=== PATIENT | female | born 1940 | race African-American/Black ===

== ENCOUNTER 2016-07-05 23:52 | Emergency (ER) | payer OTHER | END 2016-07-06 00:49 | disposition left against medical advice (07) | LOC: JER 23:52 | DX: Z53.21 Procedure and treatment not carried out due to patient leaving prior to being seen by health care provider (principal) | CPT/HCPCS: 99281-25 ==

== ENCOUNTER 2017-02-09 11:01 | Inpatient (IN) | payer OTHER ==
[2017-02-09 11:16] VITALS: BMI 31.2
--- NOTE | 2017-02-09 11:23 | PDOC ---
History of Present Illness <Burak Vargas - Last Filed: 02/09/17 18:01> - General History Source: Patient, Family Exam Limitations: No Limitations - History of Present Illness Initial Comments: 02/09/17 12:11 The patient is a 76 year old female with a significant PMH of HTN, hyperlipidemia, diabetes COPD, CAD (s/p stents on Plavix & Aspirin), and hepatitis C who presents to the emergency department via EMS with multiple complaints including chest pain and cough beginning approximately 1 week ago. The patient describes the chest pain as localized on the right side and aggravated by movement and coughing. The patient's grandson notes that the patient also has lower back pain that radiates to her legs. The patient's grandson reports that that the patient received an MRI 2 days ago. They report receiving a call this morning for the MRI results and reports that he was told the patient has pleural effusion, prompting their visit. The patient's grandson also notes that the patient has not been fully herself within the past week. The patient notes that she told EMS she wanted to be transported to [place] but notes that EMS wanted to bring her to the closest hospital ([facility]) because the patient had chest pain. The patient also notes she was admitted back in November at [facility] for kidney failure. The patient denies shortness of breath, headache and dizziness. Denies fever, chills, nausea, vomit, diarrhea and constipation. Denies dysuria, frequency, urgency and hematuria. Allergies: NKA Past surgical history: Cardiac stents. Social history: Current some day smoker. No reported alcohol or drug use. PCP: Dr. Thomas Aguayo [ ] in [place]. <Donny Singh - Last Filed: 02/09/17 18:24> - General Chief Complaint: Chest Pain Stated Complaint: CHEST PAIN Time Seen by Provider: 02/09/17 11:22 Past History - Past Medical History Cardiac Disorders: Yes COPD: No HTN: Yes Hypercholesterolemia: Yes - Surgical History Cardiac Surgery: Yes (STENTS) - Immunization History Immunization Up to Date: Yes - Suicide/Smoking/Psychosocial Hx Smoking History: Current every day smoker Have you smoked in the past 12 months: Yes Number of Cigarettes Smoked Daily: 4 Information on smoking cessation initiated: No 'Breaking Loose' booklet given: 01/25/15 Hx Alcohol Use: No Drug/Substance Use Hx: No Substance Use Type: None Hx Substance Use Treatment: No <Burak Vargas - Last Filed: 02/09/17 18:01> <Donny Singh - Last Filed: 02/09/17 18:24> - Past Medical History Allergies/Adverse Reactions: Allergies Allergy/AdvReac Type Severity Reaction Status Date / Time No Known Allergies Allergy Verified 08/21/15 00:06 Home Medications: Ambulatory Orders Albuterol Sulfate Inhaler - [Ventolin Hfa Inhaler -] 2 inh PO Q4H 07/06/16 Amlodipine Besylate [Norvasc -] 2.5 mg PO DAILY 07/06/16 Aspirin [ASA -] 81 mg PO DAILY 07/06/16 Calcium 250Mg/Vit-D 125 Units [Oscal 250 mg+D -] 1 combo PO BID 07/06/16 Calcium Carbonate [Super Calcium] 600 mg PO BID 07/06/16 Cholecalciferol (Vitamin D3) [Vitamin D3] 2,000 unit PO DAILY 07/06/16 Clopidogrel Bisulfate [Clopidogrel] 75 mg PO DAILY 07/06/16 Esomeprazole Magnesium 40 mg PO DAILY 07/06/16 Isosorbide Mononitrate [Imdur -] 120 mg PO DAILY 07/06/16 Magnesium Oxide [Magox 400] 400 mg PO BID 07/06/16 Metoprolol Succinate [Toprol Xl] 100 mg PO DAILY 07/06/16 Ranolazine [Ranexa] 500 mg PO BID 07/06/16 Simvastatin [Zocor -] 20 mg PO HS 07/06/16 Sodium Polystyrene Sulfon/Sorb [Kionex] 15 gm PO DAILY 07/06/16 Unobtainable 02/09/17 Review of Systems - Review of Systems Able to Perform ROS?: Yes Comments:: 02/09/17 12:12 GENERAL/CONSTITUTIONAL: No fever or chills. No weakness. HEAD, EYES, EARS, NOSE AND THROAT: No change in vision. No ear pain or discharge. No sore throat. CARDIOVASCULAR: (+) Right sided chest pain. No shortness of breath. RESPIRATORY: (+) Cough. No wheezing, or hemoptysis. GASTROINTESTINAL: No nausea, vomiting, diarrhea or constipation. GENITOURINARY: No dysuria, frequency, or change in urination. MUSCULOSKELETAL: No joint or muscle swelling or pain. No neck or back pain. SKIN: No rash NEUROLOGIC: No headache, vertigo, loss of consciousness, or change in strength/ sensation. ENDOCRINE: No increased thirst. No abnormal weight change. HEMATOLOGIC/LYMPHATIC: No anemia, easy bleeding, or history of blood clots. ALLERGIC/IMMUNOLOGIC: No hives or skin allergy. <Donny Singh - Last Filed: 02/09/17 18:24> *Physical Exam - Vital Signs Last Vital Signs Temp Pulse Resp BP Pulse Ox 98.3 F 101 H 24 89/67 97 02/09/17 11:13 02/09/17 11:13 02/09/17 11:13 02/09/17 11:13 02/09/17 11:13 <Burak Vargas - Last Filed: 02/09/17 18:01> - Vital Signs Last Vital Signs Temp Pulse Resp BP Pulse Ox 98.3 F 100 H 23 132/70 98 02/09/17 11:13 02/09/17 11:15 02/09/17 11:15 02/09/17 11:15 02/09/17 11:15 - Physical Exam Comments: 02/09/17 12:12 GENERAL: Awake, alert, and fully oriented, in no acute distress HEAD: No signs of trauma EYES: PERRLA, EOMI, sclera anicteric, conjunctiva clear ENT: Auricles normal inspection, hearing grossly normal, nares patent, oropharynx clear without exudates. Moist mucosa NECK: Normal ROM, supple, no lymphadenopathy, JVD, or masses LUNGS: (+) Diminished breath sounds. Breath sounds equal, clear to auscultation bilaterally. No wheezes, and no crackles HEART: (+) Tenderness to right side of chest. Regular rate and rhythm, normal S1 and S2, no murmurs, rubs or gallops. ABDOMEN: Soft, nontender, normoactive bowel sounds. No guarding, no rebound. No masses EXTREMITIES: Normal range of motion, no edema. No clubbing or cyanosis. No cords, erythema, or tenderness NEUROLOGICAL: Cranial nerves II through XII grossly intact. Normal speech. SKIN: Warm, Dry, normal turgor, no rashes or lesions noted. <Donny Singh - Last Filed: 02/09/17 18:24> Heart Score/ECG Review #1 02/09/17 12:43 Vent rate 95 bpm Poor data quality, interpretation may be adversely affected Sinus rhythm with occasional premature ventricular complexes Cannot rule out Anterior infarct, age undetermined Abnormal ECG <Donny Singh - Last Filed: 02/09/17 18:24> ED Treatment Course - LABORATORY CBC & Chemistry Diagram: 02/09/17 11:46 02/09/17 11:46 <Burak Vargas - Last Filed: 02/09/17 18:01> - LABORATORY CBC & Chemistry Diagram: 02/09/17 11:46 02/09/17 11:46 - ADDITIONAL ORDERS Additional order review: 02/09/17 11:46 RBC 2.84 L MCV 91.7 MCHC 32.6 RDW 14.7 MPV 7.6 D Neutrophils % 85.3 H Lymphocytes % 6.1 L D Monocytes % 8.3 D Eosinophils % 0.3 D Basophils % 0.0 - Consult/PCP Time Called: 15:55 Case discussed with personal care physician: Thomas Aguayo <Donny Singh - Last Filed: 02/09/17 18:24> Medical Decision Making - Medical Decision Making 02/09/17 16:[address] Aguayo, the patient's PCP, who says he does not admit at [facility]. Spoke with [place] [facility], who said an ER to ER transfer is not possible. They also note a direct transfer is not possible without an accepting physician as Dr. Aguayo does not admit. 02/09/17 18:23 Dr. Aguayo notes that in early December the patient's BUN was 26, her Creatinine was 1.9, and her Hemoglobin was at 11.8. <Donny Singh - Last Filed: 02/09/17 18:24> *DC/Admit/Observation/Transfer - Discharge Dispostion Admit: Yes - Attestations Physician Attestion: 02/09/17 11:23 I, Dr. Burak Vargas, attest that this document has been prepared under my direction and personally reviewed by me in its entirety. I further attest, that it accurately reflects all work, treatment, procedures and medical decision -making performed by me. <Burak Vargas - Last Filed: 02/09/17 18:01> - Attestations Scribe Attestion: 02/09/17 12:12 Documentation prepared by Donny Singh, acting as certified medical biller for Burak Vargas DO. <Donny Singh - Last Filed: 02/09/17 18:24> Diagnosis at time of Disposition: Pleural effusion, Renal insufficiency, RADHA (acute kidney injury) Profound anemia Qualifiers: Anemia type: other cause - Discharge Dispostion Condition at time of disposition: Unchanged/Unknown - Referrals Referrals: Thomas Aguayo [Primary Care Provider] - - Patient Instructions - Post Discharge Activity
[2017-02-09 12:00] LABS: EOS % 0.3 % (0-4.5); HEMATOCRIT 26.1 % (32.4-45.2); HEMOGLOBIN 8.5 GM/dL (10.7-15.3); LYMPH % 6.1 % (8-40); MCH 29.9 pg (25.7-33.7); MCHC 32.6 g/dl (32.0-36.0); MEAN CELL VOLUME 91.7 fl (80-96); MEAN PLT VOLUME 7.6 fl (7.5-11.1); MONO % 8.3 % (3.8-10.2); NEUT % 85.3 % (42.8-82.8); PLATELET COUNT 386 K/MM3 (134-434); RBC 2.84 M/mm3 (3.60-5.2); RDW 14.7 % (11.6-15.6)
[2017-02-09 12:13] LABS: INR 1.32 (0.82-1.09); PROTHROMBIN TIME (PATIENT) 14.9 SEC (9.98-11.88)
[2017-02-09 12:36] LABS: ALBUMIN 2.2 g/dl (3.4-5.0); ANION GAP 13 (8-16); BILIRUBIN,TOTAL 0.4 mg/dL (0.2-1.0); BLOOD UREA NITROGEN 47 mg/dL (7-18); CALCIUM 7.1 mg/dL (8.5-10.1); CHLORIDE 107 mmol/L (98-107); CO2 18 mmol/L (21-32); GLUCOSE,RANDOM 115 mg/dL (74-106); SGOT/AST 11 U/L (15-37); SGPT/ALT 11 U/L (12-78); SODIUM 138 mmol/L (136-145); TOT PROT 7.1 g/dl (6.4-8.2)
[2017-02-09 12:38] LABS: ALK PHOS 96 U/L (45-117)
[2017-02-09 13:19] LABS: N-TERMINAL BNP 4140.09 pg/ml (5-450)
--- NOTE | 2017-02-09 17:28 | HP ---
CHIEF COMPLAINT: Chest pain and cough x 1 week PCP: Dr. Thomas Aguayo [phone] Rheumatology: Dr. Bonita Will [phone] GI: Dr. Donnie Gimenez [phone] Cardiology: Dr. Jairo Stewart [phone] HISTORY OF PRESENT ILLNESS: 76 year-old woman with a PMH significant for HTN, HLD, CAD, diastolic heart failure, Hep C, COPD current smoker, and h/o GI bleed. Patient comes to ED via EMS after having been advised by her PCP that an MRI performed two days ago in [place] showed she has a large pleural effusion and to go to the nearest ED. Patient reports one week of cough and pleuritic-type, right-sided chest pain. The cough has been productive but she does not know the color. Over the past 24 hours she has experienced sweats and chills. Patient complains of SOB when lying flat. She has had some lower extremity edema although she thinks this has improved. ER course was notable for: (1) WBC 15.0 (2) CT chest: see Imaging below (3) Mg 0.6 (4) BUN/Cr 47/3.0 Recent Travel: No PAST MEDICAL HISTORY: Hypertension Hyperlipidemia Coronary artery disease Hepatitis C COPD PAST SURGICAL HISTORY: None reported Social History: Smoking: current every day smoker Alcohol: no Drugs: no Allergies No Known Allergies Allergy (Verified 08/21/15 00:06) HOME MEDICATIONS: Medication Instructions Recorded Albuterol Sulfate Inhaler - 2 inh PO Q4H 07/06/16 [Ventolin Hfa Inhaler -] Amlodipine Besylate [Norvasc -] 2.5 mg PO DAILY 07/06/16 Aspirin [ASA -] 81 mg PO DAILY 07/06/16 Calcium 250Mg/Vit-D 125 Units 1 combo PO BID 07/06/16 [Oscal 250 mg+D -] Calcium Carbonate [Super Calcium] 600 mg PO BID 07/06/16 Cholecalciferol (Vitamin D3) 2,000 unit PO DAILY 07/06/16 [Vitamin D3] Clopidogrel Bisulfate [Clopidogrel] 75 mg PO DAILY 07/06/16 Esomeprazole Magnesium 40 mg PO DAILY 07/06/16 Isosorbide Mononitrate [Imdur -] 120 mg PO DAILY 07/06/16 Magnesium Oxide [Magox 400] 400 mg PO BID 07/06/16 Metoprolol Succinate [Toprol Xl] 100 mg PO DAILY 07/06/16 Ranolazine [Ranexa] 500 mg PO BID 07/06/16 Simvastatin [Zocor -] 20 mg PO HS 07/06/16 Sodium Polystyrene Sulfon/Sorb 15 gm PO DAILY 07/06/16 [Kionex] Unobtainable 02/09/17 REVIEW OF SYSTEMS CONSTITUTIONAL: Absent: fever, chills, diaphoresis, generalized weakness, malaise, loss of appetite, weight change HEENT: Absent: rhinorrhea, nasal congestion, throat pain, throat swelling, difficulty swallowing, mouth swelling, ear pain, eye pain, visual changes CARDIOVASCULAR: Present: peripheral edema Absent: chest pain, syncope, palpitations, irregular heart rate, lightheadedness RESPIRATORY: Present: cough, SOB, orthopnea Absent: dyspnea with exertion, wheezing, stridor, hemoptysis GASTROINTESTINAL: Absent: abdominal pain, abdominal distension, nausea, vomiting, diarrhea, constipation, melena, hematochezia GENITOURINARY: Absent: dysuria, frequency, urgency, hesitancy, hematuria, flank pain, genital pain MUSCULOSKELETAL: Absent: myalgia, arthralgia, joint swelling, back pain, neck pain SKIN: Absent: rash, itching, pallor HEMATOLOGIC/IMMUNOLOGIC: Absent: easy bleeding, easy bruising, lymphadenopathy, frequent infections ENDOCRINE: Absent: unexplained weight gain, unexplained weight loss, heat intolerance, cold intolerance NEUROLOGIC: Absent: headache, focal weakness or paresthesias, dizziness, unsteady gait, seizure, mental status changes, bladder or bowel incontinence PSYCHIATRIC: Absent: anxiety, depression, suicidal or homicidal ideation, hallucinations. PHYSICAL EXAMINATION Vital Signs - 24 hr 02/09/17 02/09/17 02/09/17 11:13 11:15 15:06 Temperature 98.3 F Pulse Rate 101 H Pulse Rate [ 100 H 99 H Right] Respiratory 24 23 Rate Blood Pressure 89/67 Blood Pressure 132/70 127/75 [Left Arm] O2 Sat by Pulse 97 98 100 Oximetry (%) GENERAL: Awake, alert, and fully oriented, in no acute distress. HEAD: Normal with no signs of trauma. EYES: Pupils equal, round and reactive to light, extraocular movements intact, sclera anicteric, conjunctiva clear. No lid lag. EARS, NOSE, THROAT: Ears normal, nares patent, oropharynx clear without exudates. Moist mucous membranes. NECK: Normal range of motion, supple without lymphadenopathy, JVD, or masses. LUNGS: Diminished breath sounds on the right. Accessory muscle use. HEART: Regular rate and rhythm, normal S1 and S2 without murmur, rub or gallop. ABDOMEN: Soft, nontender, not distended, normoactive bowel sounds, no guarding, no rebound, no masses. No hepatomegaly or splenomegaly. MUSCULOSKELETAL: Normal range of motion at all joints. No bony deformities or tenderness. No CVA tenderness. UPPER EXTREMITIES: 2+ pulses, warm, well-perfused. No cyanosis. No clubbing. No peripheral edema. LOWER EXTREMITIES: 2+ pulses, warm, well-perfused. No calf tenderness. No peripheral edema. NEUROLOGICAL: Cranial nerves II-XII intact. Normal speech. Laboratory Results - last 24 hr 02/09/17 02/09/17 02/09/17 11:46 11:46 11:46 WBC 15.0 H D RBC 2.84 L Hgb 8.5 L D Hct 26.1 L MCV 91.7 MCH 29.9 MCHC 32.6 RDW 14.7 Plt Count 386 D MPV 7.6 D Neutrophils % 85.3 H Lymphocytes % 6.1 L D Monocytes % 8.3 D Eosinophils % 0.3 D Basophils % 0.0 PT with INR 14.90 H INR 1.32 H Sodium 138 Potassium 4.0 Chloride 107 Carbon Dioxide 18 L Anion Gap 13 BUN 47 H D Creatinine 3.0 H D Creat Clearance w eGFR 15.17 Random Glucose 115 H Calcium 7.1 L Total Bilirubin 0.4 D AST 11 L D ALT 11 L D Alkaline Phosphatase 96 D Creatine Kinase 78 Troponin I 0.06 H B-Natriuretic Peptide 4140.09 H Total Protein 7.1 Albumin 2.2 L D ASSESSMENT/PLAN 76 year-old woman with a PMH significant for HTN, HLD, CAD, diastjolic heart failure, Hep C, COPD current smoker, and h/o GI bleed. Admitted for respiratory distress secondary to right multiloculated pleural effusion and likely pneumonia. Right Multiloculated pleural effusion - CT: moderate size multiloculated right pleural effusion, compressive atelectasis of nearly entire RLL and subsegmental compressible atelectasis right lung apex; sumperimposed pneumonia cannot be excluded - afebrile, WBC 15.0k - Start vanc and zosyn renally dosed - will likely need IR procedure - pulmonary consult requested - ID consult requested CAD - first troponin 0.06, two pending - serial ECGs - Obtain echo -cardiology consult Hypertension Hyperlipidemia RADHA - Cr 3.0 on admission DVT ppx - Heparin sq Visit type - Emergency Visit Emergency Visit: Yes ED Registration Date: 02/09/17 Care time: The patient presented to the Emergency Department on the above date and was hospitalized for further evaluation of their emergent condition. - New Patient This patient is new to me today: Yes Date on this admission: 02/16/17 - Critical Care Critical Care patient: No
[2017-02-09 17:47] LABS: CALCIUM 7.2 mg/dL (8.5-10.1)
[2017-02-09 18:36] LABS: MAGNESIUM 0.6 mg/dL (1.8-2.4)
[2017-02-09] MEDS ORDERED: MAGNESIUM OXIDE 400 MG TABLET (FP) PO STA (18:42)
[2017-02-09] MEDS ORDERED: MAGNESIUM SULF 50% (8.12 MEQ/2 ML-1 GM VIAL) IVPB ONE (18:42)
[2017-02-09] MEDS ORDERED: VANCOMYCIN 1,500 MG in DEXTROSE 5%-WATER - 250 ML IVPB SCH (19:00)
[2017-02-09] MEDS ORDERED: VANCOMYCIN 1,000 MG in DEXTROSE 5%-WATER - 250 ML IVPB ONE (19:15)
[2017-02-09] MEDS ORDERED: VANCOMYCIN 1,000 MG in DEXTROSE 5%-WATER - 250 ML IVPB SCH (19:15)
[2017-02-09] MEDS ORDERED: PIPERACILLIN/TAZOB 3.375 GM 50 ML IVPB SCH (19:15)
[2017-02-09] MEDS ORDERED: PIPERACILLIN/TAZOB 2.25 GM 2.25 GM/50 ML BAG IVPB SCH (19:15)
[2017-02-09] MEDS: PIPERACILLIN/TAZOB 2.25 GM 2.25 GM/50 ML BAG IVPB SCH (19:20)
[2017-02-09] MEDS ORDERED: MAGNESIUM SULF 50% (8.12 MEQ/2 ML-1 GM VIAL) ONE (19:41)
[2017-02-09] MEDS ORDERED: PIPERACILLIN/TAZOBACTAM 2.25 GM VIAL IVPB ONE (19:41)
[2017-02-09] MEDS ORDERED: VANCOMYCIN 1 GRAM (PRE-DOCKED) 1,000 MG/250 ML BAG IVPB ONE (19:42)
[2017-02-09] MEDS ORDERED: VANCOMYCIN 1,500 MG in DEXTROSE 5%-WATER - 500 ML IVPB ONE (20:00)
[2017-02-09] MEDS: HEPARIN NA (PORCINE) 5,000 UNITS/ML 1ML VIAL SQ SCH (23:31)
--- NOTE | 2017-02-09 23:43 | HOSP ---
Subjective - Review of Symptoms Subjective: Saw pt. for chest pain States same as prior located on right side Occ. SOB Physical: VS: Vital Signs Period Temp Pulse Resp BP Sys/Barlow Pulse Ox Last 24 Hr 98.3 F 99-101 23-24 89-132/67-75 95-100 GEN: NAD, AA0X3 CARD: RRR S1, S2 RESP: Decreased R>L ABD: BSx4 EXT: No edema EKG: NSR Q waves anterior leads QtC 458 Home Medications Medication Instructions Recorded Albuterol Sulfate Inhaler - 2 inh PO Q4H 07/06/16 [Ventolin Hfa Inhaler -] Amlodipine Besylate [Norvasc -] 2.5 mg PO DAILY 07/06/16 Aspirin [ASA -] 81 mg PO DAILY 07/06/16 Calcium 250Mg/Vit-D 125 Units 1 combo PO BID 07/06/16 [Oscal 250 mg+D -] Calcium Carbonate [Super Calcium] 600 mg PO BID 07/06/16 Cholecalciferol (Vitamin D3) 2,000 unit PO DAILY 07/06/16 [Vitamin D3] Clopidogrel Bisulfate [Clopidogrel] 75 mg PO DAILY 07/06/16 Esomeprazole Magnesium 40 mg PO DAILY 07/06/16 Isosorbide Mononitrate [Imdur -] 120 mg PO DAILY 07/06/16 Magnesium Oxide [Magox 400] 400 mg PO BID 07/06/16 Metoprolol Succinate [Toprol Xl] 100 mg PO DAILY 07/06/16 Ranolazine [Ranexa] 500 mg PO BID 07/06/16 Simvastatin [Zocor -] 20 mg PO HS 07/06/16 Sodium Polystyrene Sulfon/Sorb 15 gm PO DAILY 07/06/16 [Kionex] Unobtainable 02/09/17 HEART 5 Chest Pain-Atypical/Troponin Elevation from RF/demand - Less likely ACS ASA 02 BB- Recieved Toprol Statin - If reoccurs Morphine/Nitro - Transfer to tele -Trend Trop/EKG now - Physical Examination Vital Signs: Vital Signs Temperature 98.3 F 02/09/17 11:13 Pulse Rate 99 H 02/09/17 15:06 Respiratory Rate 23 02/09/17 11:15 Blood Pressure 127/75 02/09/17 15:06 O2 Sat by Pulse Oximetry (%) 95 02/09/17 20:42 Labs: CBC, BMP 02/09/17 11:46 02/09/17 11:46
[2017-02-10] MEDS: ACETAMINOPHEN 325 MG TABLET (FP) PO PRN
[2017-02-10] MEDS: PIPERACILLIN/TAZOB 2.25 GM 2.25 GM/50 ML BAG IVPB SCH (01:47)
[2017-02-10 02:05] LABS: URINE APPEARANCE CLEAR; URINE BILIRUBIN NEGATIVE (NEGATIVE); URINE BLOOD NEGATIVE (NEGATIVE); URINE COLOR YELLOW; URINE GLUCOSE (UA) NEGATIVE (NEGATIVE); URINE KETONE NEGATIVE (NEGATIVE); URINE LEUK ESTERASE NEGATIVE (NEGATIVE); URINE NITRITE NEGATIVE (NEGATIVE); URINE UROBILINOGEN NEGATIVE mg/dL (0.2-1.0)
[2017-02-10 02:13] LABS: URINE PROTEIN 1+ (NEGATIVE)
[2017-02-10 02:18] LABS: EPI CELLS RARE /HPF (FEW); URINE MUCUS RARE
[2017-02-10] MEDS ORDERED: ALBUTEROL SO4 2.5/IPRATROPIUM 0.5 INH SOL 3 ML VIAL.NEB. NEB PRN (03:34)
[2017-02-10 04:02] LABS: MAGNESIUM 2.3 mg/dL (1.8-2.4)
[2017-02-10] MEDS: HEPARIN NA (PORCINE) 5,000 UNITS/ML 1ML VIAL SQ SCH ×3 (06:48→21:43)
[2017-02-10] MEDS ORDERED: ASPIRIN COATED 81 MG TABLET.EC PO SCH (10:00)
--- NOTE | 2017-02-10 11:19 | PN ---
Physical Exam: SUBJECTIVE: Patient seen and examined. She says she is feeling better, no pain specifically when she does not move. Endorses sputum production and chills. OBJECTIVE: Vital Signs Period Temp Pulse Resp BP Sys/Barlow Pulse Ox Last 24 Hr 98.0 F-100.3 F 89-103 18-23 127-149/67-90 95-100 PE Neuro: alert, awake, cn 2-12intact Pulm: r lobe rales, left clear + nc mild tachypnea, no wheezing CV: s1 s2 rrr no mrg Abd: s nt nd +bs lower abdominal incision cdi : aguayo Ext: RLE +2 pitting edema >L warm le CBCD WBC 12.1 K/mm3 (4.0-10.0) H 02/10/17 11:15 RBC 2.61 M/mm3 (3.60-5.2) L 02/10/17 11:15 Hgb 7.9 GM/dL (10.7-15.3) L 02/10/17 11:15 Hct 23.9 % (32.4-45.2) L 02/10/17 11:15 MCV 91.4 fl (80-96) 02/10/17 11:15 MCHC 32.9 g/dl (32.0-36.0) 02/10/17 11:15 RDW 14.9 % (11.6-15.6) 02/10/17 11:15 Plt Count 353 K/MM3 (134-434) 02/10/17 11:15 MPV 7.5 fl (7.5-11.1) 02/10/17 11:15 CMP Sodium 139 mmol/L (136-145) 02/10/17 11:15 Potassium 4.0 mmol/L (3.5-5.1) 02/10/17 11:15 Chloride 110 mmol/L (98-107) H 02/10/17 11:15 Carbon Dioxide 19 mmol/L (21-32) L 02/10/17 11:15 Anion Gap 10 (8-16) 02/10/17 11:15 BUN 44 mg/dL (7-18) H 02/10/17 11:15 Creatinine 2.5 mg/dL (0.55-1.02) H 02/10/17 11:15 Creat Clearance w eGFR 18.72 (>60) 02/10/17 11:15 Calcium 7.1 mg/dL (8.5-10.1) L 02/10/17 11:15 Total Bilirubin 0.4 mg/dL (0.2-1.0) 02/10/17 11:15 AST 18 U/L (15-37) D 02/10/17 11:15 ALT 11 U/L (12-78) L 02/10/17 11:15 Alkaline Phosphatase 93 U/L (45-117) 02/10/17 11:15 Total Protein 6.4 g/dl (6.4-8.2) 02/10/17 11:15 Albumin 2.0 g/dl (3.4-5.0) L 02/10/17 11:15 Current Medications Generic Name Dose Route Start Last Admin Trade Name Freq PRN Reason Stop Dose Admin Acetaminophen 650 mg 02/09/17 23:35 02/10/17 00:00 Tylenol - PO 650 mg Q6H PRN Administration FEVER OR PAIN Albuterol/Ipratropium 1 amp 02/10/17 03:34 Duoneb - NEB Q4H PRN SHORTNESS OF BREATH Amlodipine Besylate 2.5 mg 02/10/17 11:45 Norvasc - PO DAILY [facility] Heparin Sodium (Porcine) 5,000 unit 02/09/17 22:00 02/10/17 06:48 Heparin - SQ 5,000 unit TID PARMINDER Administration Piperacillin/Tazobactam/Dextrose 2.25 gm in 50 mls @ 100 mls/hr 02/09/17 19: 15 Zosyn 2.25gm Ivpb (Premix) IVPB Q8H-IV PARMINDER Protocol Vancomycin HCl 1,000 mg/ 250 mls @ 200 mls/hr 02/09/17 19:15 Dextrose IVPB Q24H PARMINDER Isosorbide Mononitrate 120 mg 02/10/17 11:45 Imdur - PO DAILY PARMINDER Metoprolol Succinate 100 mg 02/10/17 11:45 Toprol Xl - PO DAILY PARMINDER Ranolazine 500 mg 02/10/17 11:45 Ranexa - PO BID PARMINDER Assessment: 76 year old female with a PMHx, recent CAD cath (07/2016), [place], HTN, HLD, , Hep C, COPD current smoker, and h/o GI bleed admitted after outside MRI shows large right pleural effusion. Plan: 1. Right Multiloculated pleural effusion - Thoracentesis ordered with IR, will be done earliest Tuesday, pt has been on ASA, plavix - Hold ASA/plavix - Continue supplemental o2 - Duo nebs prn - Abx per ID - Consider VATS - Pulmonary consulted 2. Superimposed Pneumonia - AM cbc pending, afebrile - Given zosyn/vanco in ED - CRP elevated - ID for abx 3. CAD s/p recent cath with stents, elevated trops - Trops down trending likely demand - EKG ordered - Obtain echo - Discussed with Dr. Yadav, will obtain results of cath from 07/2016 4. Chest pain - Improved - Continue Renexa 500mg BID 5. HTN - Toprol xl 100mg - Imdur 120mg daily - Amlodipine 2.5mg daily 6. HLD - On Statin 7. RADHA on CKD - Cr improving, however above baseline per hospital records - Kidney/bladder US - Urine studies/creatinine, electrolytes - Aguayo discontinued - Renal consulted 8. Diastolic HF, acute on chronic - Amlodipine 2.5mg 9. Hep C 10. Hypomagnesemia - Replaced 11. DVT ppx - Heparin sq q8 Visit type - Emergency Visit Emergency Visit: Yes ED Registration Date: 02/09/17 Care time: The patient presented to the Emergency Department on the above date and was hospitalized for further evaluation of their emergent condition. - New Patient This patient is new to me today: Yes Date on this admission: 02/10/17 - Critical Care Critical Care patient: No
[2017-02-10 11:41] LABS: HEMATOCRIT 23.9 % (32.4-45.2); HEMOGLOBIN 7.9 GM/dL (10.7-15.3); MCH 30.1 pg (25.7-33.7); MCHC 32.9 g/dl (32.0-36.0); MEAN CELL VOLUME 91.4 fl (80-96); MEAN PLT VOLUME 7.5 fl (7.5-11.1); PLATELET COUNT 353 K/MM3 (134-434); RBC 2.61 M/mm3 (3.60-5.2); RDW 14.9 % (11.6-15.6); WHITE BLOOD COUNT 12.1 K/mm3 (4.0-10.0)
[2017-02-10 11:52] LABS: CHLORIDE 110 mmol/L (98-107); SODIUM 139 mmol/L (136-145)
[2017-02-10 11:57] LABS: ANION GAP 10 (8-16); BLOOD UREA NITROGEN 44 mg/dL (7-18); CALCIUM 7.1 mg/dL (8.5-10.1); CO2 19 mmol/L (21-32); GLUCOSE,RANDOM 124 mg/dL (74-106); MAGNESIUM 2.2 mg/dL (1.8-2.4)
[2017-02-10 11:59] LABS: BILIRUBIN,TOTAL 0.4 mg/dL (0.2-1.0); CREATININE 2.5 mg/dL (0.55-1.02); PHOSPHOROUS 2.8 mg/dL (2.5-4.9); SGOT/AST 18 U/L (15-37); SGPT/ALT 11 U/L (12-78); TOT PROT 6.4 g/dl (6.4-8.2)
--- NOTE | 2017-02-10 12:01 | CON.CARD ---
Consult Consult Specialty:: cardiology Reason for Consultation:: CAD; CHF - History of Present Illness History of Present Illness: The patient is a 76 year old black female with a significant PMH of HTN, hyperlipidemia, diabetes COPD (current smoker), CAD (s/p NSTEMI 07/2016; s/p stents in ?2015, with cor. angiogram 08/2016 not requiring new stents or other PCI; on Plavix & Aspirin), diastolic CHF (with severe apical hypokinesis on 2015 ECHO),chronic renal insufficiency, periods of disorientation, and hepatitis C, who presents to the emergency department via EMS with multiple complaints including chest pain and cough beginning approximately 1 week ago. The patient describes the chest pain as localized on the right side and aggravated by movement and coughing. The patient's grandson notes that the patient also has lower back pain that radiates to her legs. The patient's grandson reports that that the patient received an MRI 2 days ago. They report receiving a call this morning for the MRI results and reports that he was told the patient has pleural effusion, prompting their visit. The patient's grandson also notes that the patient has not been fully herself within the past week. The patient notes that she told EMS she wanted to be transported to [place] but notes that EMS wanted to bring her to the closest hospital ([facility]) because the patient had chest pain. The patient also notes she was admitted back in November at [facility] for kidney failure. The patient denies shortness of breath, headache and dizziness. Denies fever, chills, nausea, vomit, diarrhea and constipation. Denies dysuria, frequency, urgency and hematuria. Allergies: NKA Past surgical history: Cardiac stents: proximal and mid LAD, mid RCA, mid Cx ( dates of stents uncertain; when most recent coronary angiogram 08/27/2016 was done at [facility] for NSTEMI with TNI >10, stents were patent, and no new PCIs were required. Social history: Current some day smoker. No reported alcohol or drug use. PCP: Dr. Thomas Aguayo [ ] in [place]. - History Source History Provided By: Patient, Family Member, Medical Record - Past Medical History Cardio/Vascular: Yes: CAD, HTN, Hyperlipdemia Pulmonary: Yes: COPD Gastrointestinal: Yes: GI Bleed Hepatobiliary: Yes: Hepatitis C Renal/: Yes: Renal Inusuff Reproductive: Yes: Postmenopausal ...: No Psych: Yes: Other (initial change in mental status) - Past Surgical History Past Surgical History: Yes: Stent - Alcohol/Substance Use Hx Alcohol Use: No - Smoking History Smoking history: Current every day smoker Have you smoked in the past 12 months: Yes Aproximately how many cigarettes per day: 4 - Social History ADL: Independent Home Medications - Allergies Allergies/Adverse Reactions: Allergies Allergy/AdvReac Type Severity Reaction Status Date / Time No Known Allergies Allergy Verified 08/21/15 00:06 - Home Medications Home Medications: Ambulatory Orders Albuterol Sulfate Inhaler - [Ventolin Hfa Inhaler -] 2 inh PO Q4H 07/06/16 Amlodipine Besylate [Norvasc -] 2.5 mg PO DAILY 07/06/16 Aspirin [ASA -] 81 mg PO DAILY 07/06/16 Calcium 250Mg/Vit-D 125 Units [Oscal 250 mg+D -] 1 combo PO BID 07/06/16 Calcium Carbonate [Super Calcium] 600 mg PO BID 07/06/16 Cholecalciferol (Vitamin D3) [Vitamin D3] 2,000 unit PO DAILY 07/06/16 Clopidogrel Bisulfate [Clopidogrel] 75 mg PO DAILY 07/06/16 Esomeprazole Magnesium 40 mg PO DAILY 07/06/16 Isosorbide Mononitrate [Imdur -] 120 mg PO DAILY 07/06/16 Magnesium Oxide [Magox 400] 400 mg PO BID 07/06/16 Metoprolol Succinate [Toprol Xl] 100 mg PO DAILY 07/06/16 Ranolazine [Ranexa] 500 mg PO BID 07/06/16 Simvastatin [Zocor -] 20 mg PO HS 07/06/16 Sodium Polystyrene Sulfon/Sorb [Kionex] 15 gm PO DAILY 07/06/16 Unobtainable 02/09/17 Family Disease History - Family Disease History Family History: Denies Review of Systems - Review of Systems Constitutional: reports: Weakness Eyes: reports: No Symptoms HENT: reports: No Symptoms Neck: reports: No Symptoms Cardiovascular: reports: Palpitations Respiratory: reports: SOB on Exertion Gastrointestinal: reports: Indigestion Genitourinary: reports: No Symptoms Breasts: reports: No Symptoms Reported Musculoskeletal: reports: Muscle Weakness Psychiatric: reports: Other (memory lapses) - Risk Factors Known Risk Factors: Yes: Age, Hypercholesterolemia, Hypertension, Race, Smoking , Other (hyperglycemia) Vital Signs: Vital Signs Temperature 98.8 F 02/10/17 08:53 Pulse Rate 95 H 02/10/17 08:53 Respiratory Rate 20 02/10/17 08:53 Blood Pressure 143/70 02/10/17 08:53 O2 Sat by Pulse Oximetry (%) 96 02/10/17 08:53 Constitutional: Yes: Anxious Eyes: Yes: WNL HENT: Yes: WNL Neck: Yes: WNL Respiratory: Yes: Diminished Gastrointestinal: Yes: Soft Renal/: No: Anuria Cardiovascular: Yes: Regular Rate and Rhythm Heart Sounds: Yes: S1, S2, S4 Murmur: Yes: Systolic Murmur, Grade 1 Musculoskeletal: Yes: Muscle Weakness Extremities: Yes: Cool Edema: Yes Edema: LLE: Trace, RLE: Trace Peripheral Pulses WNL: Yes Integumentary: Yes: WNL Neurological: Yes: Alert, Weakness Psychiatric: Yes: Other - Other Data Labs, Other Data: CBC, BMP 02/10/17 11:15 02/10/17 11:15 INR, PTT INR 1.32 (0.82-1.09) H 02/09/17 11:46 Troponin, BNP 02/09/17 02/09/17 02/10/17 11:46 21:20 02:35 Troponin I 0.06 H 0.12 H 0.09 H B-Natriuretic Peptide 4140.09 H Troponin, BNP 02/09/17 02/09/17 02/10/17 11:46 21:20 02:35 Troponin I 0.06 H 0.12 H 0.09 H B-Natriuretic Peptide 4140.09 H Ejection Fraction %: LVEF > or = 40 % Problem List - Problems (1) COPD (chronic obstructive pulmonary disease) Code(s): J44.9 - CHRONIC OBSTRUCTIVE PULMONARY DISEASE, UNSPECIFIED (2) Coronary artery disease Code(s): I25.10 - ATHSCL HEART DISEASE OF [place] CORONARY ARTERY W/O ANG PCTRS (3) Empyema of lung Code(s): J86.9 - PYOTHORAX WITHOUT FISTULA (4) Pleural effusion Assessment/Plan: loculated moderate sized effusion right side, with compressive atelectasis. For ChF medications; furosemide. ECHO fo LVEF, wall motion, valves. BUN/Cr, electrolytes, Is and OS, daily weight. May require thoracentesis. Code(s): J90 - PLEURAL EFFUSION, NOT ELSEWHERE CLASSIFIED (5) Renal insufficiency Code(s): N28.9 - DISORDER OF KIDNEY AND URETER, UNSPECIFIED (6) Smoker Code(s): F17.200 - NICOTINE DEPENDENCE, UNSPECIFIED, UNCOMPLICATED (7) CAD (coronary artery disease) Code(s): I25.10 - ATHSCL HEART DISEASE OF [place] CORONARY ARTERY W/O ANG PCTRS (8) HTN (hypertension) Code(s): I10 - ESSENTIAL (PRIMARY) HYPERTENSION (9) Hyperglycemia Code(s): R73.9 - HYPERGLYCEMIA, UNSPECIFIED
[2017-02-10 12:05] LABS: ALK PHOS 93 U/L (45-117)
[2017-02-10] MEDS ORDERED: SODIUM CHLORIDE 0.45% 1,000 ML IV SCH (12:15)
[2017-02-10] MEDS: amLODIPine BESYLATE 2.5 MG TABLET (FP) PO SCH (12:52)
[2017-02-10] MEDS: ISOSORBIDE MONONITRATE 60 MG TAB.SR.24H (FP) PO SCH (12:52)
[2017-02-10] MEDS: METOPROLOL SUCCINATE 100 MG TAB.SR.24H (FP) PO SCH (12:52)
[2017-02-10] MEDS: RANOLAZINE E.R. 500 MG TABLET (FP) PO SCH ×2 (12:52→21:43)
--- NOTE | 2017-02-10 13:12 | CON.PULM ---
Consult Consult Specialty:: PULM/CCM Referred by:: ELKIN Reason for Consultation:: PNA - History of Present Illness Chief Complaint: RIGHT CP History of Present Illness: 76 F, active smoker, COPD, HTN, hyperlipidemia, diabetes, CAD, s/p NSTEMI 2016, PCI x 3, on Plavix & Aspirin, diastolic CHF (with severe apical hypokinesis on 07/2015 ECHO), chronic renal insufficiency, and hepatitis C. Admitted via the ER due to 1 week of progressive cough, SOB, and right sided pleuritic type pain. Denies travel history or sick contacts. Denies hemoptysis. CT scan: multi-loculated right effusion / consolidation. Patient confused as to whether she has had previous CT imaging. - History Source History Provided By: Patient, Medical Record Limitations to Obtaining History: Poor Historian - Past Medical History Cardio/Vascular: Yes: CAD, HTN, Hyperlipdemia Pulmonary: Yes: COPD Gastrointestinal: Yes: GI Bleed Hepatobiliary: Yes: Hepatitis C Renal/: Yes: Renal Inusuff ...: No Psych: Yes: Other (initial change in mental status) - Past Surgical History Past Surgical History: Yes: Stent - Alcohol/Substance Use Hx Alcohol Use: No - Smoking History Smoking history: Current every day smoker Have you smoked in the past 12 months: Yes Aproximately how many cigarettes per day: 4 - Social History ADL: Independent Home Medications - Allergies Allergies/Adverse Reactions: Allergies Allergy/AdvReac Type Severity Reaction Status Date / Time No Known Allergies Allergy Verified 08/21/15 00:06 - Home Medications Home Medications: Ambulatory Orders Albuterol Sulfate Inhaler - [Ventolin Hfa Inhaler -] 2 inh PO Q4H 07/06/16 Amlodipine Besylate [Norvasc -] 2.5 mg PO DAILY 07/06/16 Aspirin [ASA -] 81 mg PO DAILY 07/06/16 Calcium 250Mg/Vit-D 125 Units [Oscal 250 mg+D -] 1 combo PO BID 07/06/16 Calcium Carbonate [Super Calcium] 600 mg PO BID 07/06/16 Cholecalciferol (Vitamin D3) [Vitamin D3] 2,000 unit PO DAILY 07/06/16 Clopidogrel Bisulfate [Clopidogrel] 75 mg PO DAILY 07/06/16 Esomeprazole Magnesium 40 mg PO DAILY 07/06/16 Isosorbide Mononitrate [Imdur -] 120 mg PO DAILY 07/06/16 Magnesium Oxide [Magox 400] 400 mg PO BID 07/06/16 Metoprolol Succinate [Toprol Xl] 100 mg PO DAILY 07/06/16 Ranolazine [Ranexa] 500 mg PO BID 07/06/16 Simvastatin [Zocor -] 20 mg PO HS 07/06/16 Sodium Polystyrene Sulfon/Sorb [Kionex] 15 gm PO DAILY 07/06/16 Unobtainable 02/09/17 Review of Systems - Review of Systems Constitutional: reports: Chills, Fever, Malaise, Weakness. denies: Loss of Appetite, Night Sweats, Unintentional Wgt. Loss Eyes: reports: No Symptoms HENT: reports: No Symptoms Neck: reports: No Symptoms Cardiovascular: reports: Chest Pain, Shortness of Breath. denies: Edema, Palpitations Respiratory: reports: Cough, Snoring, SOB, SOB on Exertion. denies: Hemoptysis , Wheezing Gastrointestinal: reports: No Symptoms Genitourinary: reports: No Symptoms Musculoskeletal: reports: No Symptoms Integumentary: reports: No Symptoms Neurological: reports: No Symptoms Endocrine: reports: No Symptoms Hematology/Lymphatic: reports: No Symptoms Psychiatric: reports: No Symptoms Physical Exam Vital Sings: Vital Signs Temperature 98.8 F 02/10/17 08:53 Pulse Rate 95 H 02/10/17 08:53 Respiratory Rate 20 02/10/17 08:53 Blood Pressure 143/70 02/10/17 08:53 O2 Sat by Pulse Oximetry (%) 96 02/10/17 08:53 Constitutional: Yes: No Distress, Calm, Obese Eyes: Yes: Conjunctiva Clear, EOM Intact HENT: Yes: Atraumatic, Normocephalic Neck: Yes: Supple, Trachea Midline Cardiovascular: Yes: Regular Rate and Rhythm Respiratory: Yes: Cough, Diminished, On Nasal O2, Rhonchi. No: Accessory Muscle Use, Rales, Stridor, Tachypnea, Wheezes ...Inspection: Yes: WNL ...Clubbing: No Gastrointestinal: Yes: Normal Bowel Sounds, Soft Renal/: Yes: WNL Musculoskeletal: Yes: WNL Extremities: Yes: WNL Edema: No Peripheral Pulses WNL: Yes Integumentary: Yes: WNL Neurological: Yes: WNL, Alert, Oriented ...Motor Strength: WNL Psychiatric: Yes: WNL, Alert, Oriented Labs: CBC, BMP 02/10/17 11:15 02/10/17 11:15 Imaging - Results Chest X-ray: Report Reviewed, Image Reviewed X-ray: Report Reviewed, Image Reviewed Problem List - Problems (1) COPD (chronic obstructive pulmonary disease) Code(s): J44.9 - CHRONIC OBSTRUCTIVE PULMONARY DISEASE, UNSPECIFIED (2) Smoker Code(s): F17.200 - NICOTINE DEPENDENCE, UNSPECIFIED, UNCOMPLICATED (3) Empyema of lung Code(s): J86.9 - PYOTHORAX WITHOUT FISTULA (4) Pneumonia Code(s): J18.9 - PNEUMONIA, UNSPECIFIED ORGANISM (5) Pleural effusion Code(s): J90 - PLEURAL EFFUSION, NOT ELSEWHERE CLASSIFIED (6) Renal insufficiency Code(s): N28.9 - DISORDER OF KIDNEY AND URETER, UNSPECIFIED (7) CAD (coronary artery disease) Code(s): I25.10 - ATHSCL HEART DISEASE OF [place] CORONARY ARTERY W/O ANG PCTRS (8) Chest pain Code(s): R07.9 - CHEST PAIN, UNSPECIFIED (9) HTN (hypertension) Code(s): I10 - ESSENTIAL (PRIMARY) HYPERTENSION (10) Hepatitis C Code(s): B19.20 - UNSPECIFIED VIRAL HEPATITIS C WITHOUT HEPATIC COMA Assessment/Plan Noted Zosyn / Vanco and ID has been called. Will add Zmax. As patient was on Plavix and ASA for her significant cardiac disease, they need to be held for a minimum of 5 days for procedure Daily Medrol BD TX O2 to maintain saturation Smoking cessation discussed Outpatient PFTs once stable. Should follow outpatient CT imaging to ensure resolution of changes. Will follow Thank you. Dr May
[2017-02-10] MEDS ORDERED: morphine CARPU-JECT 2 MG/1 ML DISP.SYRIN IVPUSH PRN (13:19)
[2017-02-10 13:24] LABS: CHOLESTEROL 134 mg/dL (50-200); TRIGLYCERIDES 132 mg/dL (35-160)
[2017-02-10 13:28] LABS: HDL CHOLESTEROL 43 mg/dL (40-60); LDL CHOLESTEROL (ONLY SJRH) 57 mg/dL (5-100)
--- NOTE | 2017-02-10 13:36 | CONSULT ---
Consult Consult Specialty:: Nephrology Reason for Consultation:: RADHA - History of Present Illness Chief Complaint: chest discomfort and cough History of Present Illness: Pt is a 76 year old female with pmhx of CKD, HTN, chol, DM, COPD, and Hep C who presents to the ER with cough and chest discomfort. She was found to have elevated creatinine and I was called to evaluate her. She had an outpt MRI and was told that she has a pleural effusion. She was hospitalized in [place] last month with renal failure. She complains of shortness of breath. She also complains of lower ext edema. She denies nsaid use. She denies hematuria or dysuria. - History Source History Provided By: Patient - Past Medical History Cardio/Vascular: Yes: CAD, HTN, Hyperlipdemia Pulmonary: Yes: COPD Gastrointestinal: Yes: GI Bleed Hepatobiliary: Yes: Hepatitis C Renal/: Yes: Renal Inusuff ...: No Psych: Yes: Other (initial change in mental status) - Past Surgical History Past Surgical History: Yes: Stent - Alcohol/Substance Use Hx Alcohol Use: No - Smoking History Smoking history: Current every day smoker Have you smoked in the past 12 months: Yes Aproximately how many cigarettes per day: 4 - Social History ADL: Independent Home Medications - Allergies Allergies/Adverse Reactions: Allergies Allergy/AdvReac Type Severity Reaction Status Date / Time No Known Allergies Allergy Verified 08/21/15 00:06 - Home Medications Home Medications: Ambulatory Orders Albuterol Sulfate Inhaler - [Ventolin Hfa Inhaler -] 2 inh PO Q4H 07/06/16 Amlodipine Besylate [Norvasc -] 2.5 mg PO DAILY 07/06/16 Aspirin [ASA -] 81 mg PO DAILY 07/06/16 Calcium 250Mg/Vit-D 125 Units [Oscal 250 mg+D -] 1 combo PO BID 07/06/16 Calcium Carbonate [Super Calcium] 600 mg PO BID 07/06/16 Cholecalciferol (Vitamin D3) [Vitamin D3] 2,000 unit PO DAILY 07/06/16 Clopidogrel Bisulfate [Clopidogrel] 75 mg PO DAILY 07/06/16 Esomeprazole Magnesium 40 mg PO DAILY 07/06/16 Isosorbide Mononitrate [Imdur -] 120 mg PO DAILY 07/06/16 Magnesium Oxide [Magox 400] 400 mg PO BID 07/06/16 Metoprolol Succinate [Toprol Xl] 100 mg PO DAILY 07/06/16 Ranolazine [Ranexa] 500 mg PO BID 07/06/16 Simvastatin [Zocor -] 20 mg PO HS 07/06/16 Sodium Polystyrene Sulfon/Sorb [Kionex] 15 gm PO DAILY 07/06/16 Unobtainable 02/09/17 Family Disease History - Family Disease History Family History: Denies Review of Systems - Review of Systems Constitutional: reports: Malaise Eyes: reports: No Symptoms HENT: reports: No Symptoms Neck: reports: No Symptoms Cardiovascular: reports: Edema Respiratory: reports: SOB, SOB on Exertion Gastrointestinal: reports: No Symptoms Genitourinary: reports: No Symptoms Musculoskeletal: reports: No Symptoms Integumentary: reports: No Symptoms Neurological: reports: No Symptoms Endocrine: reports: No Symptoms Hematology/Lymphatic: reports: No Symptoms Physical Exam Vital Signs: Vital Signs Temperature 98.8 F 02/10/17 08:53 Pulse Rate 95 H 02/10/17 08:53 Respiratory Rate 20 02/10/17 08:53 Blood Pressure 143/70 02/10/17 08:53 O2 Sat by Pulse Oximetry (%) 96 02/10/17 08:53 Constitutional: Yes: Calm Eyes: Yes: Conjunctiva Clear HENT: Yes: Atraumatic Neck: Yes: Supple Cardiovascular: Yes: S1, S2 Respiratory: Yes: On Nasal O2, Rhonchi Gastrointestinal: Yes: Soft Renal/: Yes: WNL Musculoskeletal: Yes: Muscle Weakness Edema: Yes Edema: LLE: Trace, RLE: Trace Neurological: Yes: Oriented Psychiatric: Yes: Oriented Labs: CBC, BMP 02/10/17 11:15 02/10/17 11:15 Laboratory Tests 01/26/15 01/27/15 01/28/15 07:00 05:30 05:10 WBC Hgb Sodium Potassium Chloride Carbon Dioxide Anion Gap Creatinine 1.5 H 1.4 H 1.2 H Urine Protein Urine Blood 01/29/15 08/21/15 08/21/15 05:10 00:00 06:53 WBC Hgb Sodium Potassium Chloride Carbon Dioxide Anion Gap Creatinine 1.3 H 1.8 H D 1.3 H D Urine Protein Urine Blood 02/09/17 02/09/17 02/10/17 11:46 11:46 00:30 WBC Hgb 8.5 L D Sodium Potassium Chloride Carbon Dioxide Anion Gap Creatinine 3.0 H D Urine Protein 1+ H Urine Blood Negative 02/10/17 02/10/17 11:15 11:15 WBC 12.1 H Hgb 7.9 L Sodium 139 Potassium 4.0 Chloride 110 H Carbon Dioxide 19 L Anion Gap 10 Creatinine 2.5 H Urine Protein Urine Blood Imaging - Results Chest X-ray: Report Reviewed Cat Scan: Report Reviewed Problem List - Problems (1) RADHA (acute kidney injury) Code(s): N17.9 - ACUTE KIDNEY FAILURE, UNSPECIFIED (2) COPD (chronic obstructive pulmonary disease) Code(s): J44.9 - CHRONIC OBSTRUCTIVE PULMONARY DISEASE, UNSPECIFIED (3) Pleural effusion Code(s): J90 - PLEURAL EFFUSION, NOT ELSEWHERE CLASSIFIED (4) CAD (coronary artery disease) Code(s): I25.10 - ATHSCL HEART DISEASE OF [place] CORONARY ARTERY W/O ANG PCTRS (5) Chest pain Code(s): R07.9 - CHEST PAIN, UNSPECIFIED Assessment/Plan Current Medications Generic Name Dose Route Start Last Admin Trade Name Freq PRN Reason Stop Dose Admin Acetaminophen 650 mg 02/09/17 23:35 02/10/17 00:00 Tylenol - PO 650 mg Q6H PRN Administration FEVER OR PAIN Albuterol/Ipratropium 1 amp 02/10/17 03:34 Duoneb - NEB Q4H PRN SHORTNESS OF BREATH Amlodipine Besylate 2.5 mg 02/10/17 11:45 02/10/17 12:52 Norvasc - PO 2.5 mg DAILY PARMINDER Administration Arformoterol Tartrate 1 amp 02/10/17 13:30 Brovana (Restricted To Pulmonology/Resp) - NEB BID PARMINDER Heparin Sodium (Porcine) 5,000 unit 02/09/17 22:00 02/10/17 06:48 Heparin - SQ 5,000 unit TID PARMINDER Administration Piperacillin/Tazobactam/Dextrose 2.25 gm in 50 mls @ 100 mls/hr 02/09/17 19: 15 Zosyn 2.25gm Ivpb (Premix) IVPB Q8H-IV PARMINDER Protocol Vancomycin HCl 1,000 mg/ 250 mls @ 200 mls/hr 02/09/17 19:15 Dextrose IVPB Q24H [facility] Sodium Chloride 1,000 mls @ 50 mls/hr 02/10/17 12:15 1/2 Normal Saline IV ASDIR PARMINDER Isosorbide Mononitrate 120 mg 02/10/17 11:45 02/10/17 12:52 Imdur - PO 120 mg DAILY PARMINDER Administration Methylprednisolone Sodium Succinate 40 mg 02/10/17 13:30 Solu-Medrol - IVPUSH DAILY PARMINDER Metoprolol Succinate 100 mg 02/10/17 11:45 02/10/17 12:52 Toprol Xl - PO 100 mg DAILY PARMINDER Administration Morphine Sulfate 2 mg 02/10/17 13:19 Morphine Injection - IVPUSH Q4H PRN PAIN Nicotine 14 mg 02/10/17 13:30 Nicoderm Patch - TD DAILY [facility] Non-Formulary Medication 20 mg 02/10/17 22:00 Simvastatin PO HS PARMINDER Ranolazine 500 mg 02/10/17 11:45 02/10/17 12:52 Ranexa - PO 500 mg BID PARMINDER Administration Impression 1. RADHA 2. CKD 3. multilobular pleural effusion 4. CAD s/p stents 5. HTN 6. hyperlipidemia 7. anemia 8. angina 9. PNA 10. proteinuria 11. hypomagnesemia 12. 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
[2017-02-10] MEDS: NICOTINE 14 MG/24 HOURS TOPICAL PATCH TD SCH (15:05)
[2017-02-10] MEDS: methylPREDNISolone NA SUCC 40 MG/1 ML VIAL IVPUSH SCH (15:10)
--- NOTE | 2017-02-10 15:13 | CONSULT ---
Consultation: REQUESTING PROVIDER: CONSULT REQUEST: We have been asked to medically evaluate this patient for R sided multiloculated pleural effusion. HISTORY OF PRESENT ILLNESS: 76 y/o F PMH HTN, DM, COPD, CAD, hep C (pt denies diagnosis), who was brought to the ED by her grandson for pleuritic chest pain a/w productive cough x 1 week. As per pt, she has been bringing up yellow mucus w/o blood when she coughs. She is SOB at rest and on exertion. During this time, pt also endorsed chills and generalized abdominal pain that is not a/w N/V/D. States that she went to [facility] recently, where she was told she had a pleural effusion, so her grandson brought her to the hospital. Denies sick or sexual contacts or recent travel. Pt lives alone. While in ED, pt was afebrile and had a leukocytosis of 15 (has since trended down to 12.1). Tachy into 100's, BP 89/67. Her BUN/Cr was 47/3. Received 1 dose of Vanco 1g. ID Team was consulted for R sided multiloculated pleural effusion. REVIEW OF SYSTEMS: CONSTITUTIONAL: +subjective chills Absent: fever, chills, diaphoresis, generalized weakness, malaise, loss of appetite, weight change HEENT: Absent: rhinorrhea, nasal congestion, throat pain, throat swelling, difficulty swallowing, mouth swelling, ear pain, eye pain, visual changes CARDIOVASCULAR: +chest pain Absent: chest pain, syncope, palpitations, irregular heart rate, lightheadedness , peripheral edema RESPIRATORY: +SOB, CHUNG Absent: cough, shortness of breath, dyspnea with exertion, orthopnea, wheezing, stridor, hemoptysis GASTROINTESTINAL: +abdominal pain Absent: abdominal pain, abdominal distension, nausea, vomiting, diarrhea, constipation, melena, hematochezia GENITOURINARY: Absent: dysuria, frequency, urgency, hesitancy, hematuria, flank pain, genital pain MUSCULOSKELETAL: Absent: myalgia, arthralgia, joint swelling, back pain, neck pain SKIN: Absent: rash, itching, pallor HEMATOLOGIC/IMMUNOLOGIC: Absent: easy bleeding, easy bruising, lymphadenopathy, frequent infections ENDOCRINE: Absent: unexplained weight gain, unexplained weight loss, heat intolerance, cold intolerance NEUROLOGIC: Absent: headache, focal weakness or paresthesias, dizziness, unsteady gait, seizure, mental status changes, bladder or bowel incontinence PSYCHIATRIC: Absent: anxiety, depression, suicidal or homicidal ideation, hallucinations. PHYSICAL EXAMINATION Vital Signs 02/09/17 02/09/17 02/10/17 11:13 22:00 01:00 Temperature 100.3 F H Pulse Rate 101 H 101 H 97 H Blood Pressure 89/67 149/90 136/75 02/10/17 02/10/17 02/10/17 02:00 02:50 03:00 Temperature Pulse Rate 93 H 92 H 89 Blood Pressure 149/82 127/67 02/10/17 02/10/17 02/10/17 04:00 06:00 08:53 Temperature Pulse Rate 89 103 H 95 H Blood Pressure 140/78 143/70 02/10/17 14:05 Temperature 99.1 F Pulse Rate 89 Blood Pressure 136/97 GENERAL: Awake, AAOx3 but appears confused. In no acute distress. on NC 02 HEAD: Normal with no signs of trauma. EYES: Pupils equal, round and reactive to light, extraocular movements intact, sclera anicteric, conjunctiva clear. NECK: Normal range of motion, supple without lymphadenopathy, JVD, or masses. OROPHARYNX: clear. no signs of thrush. appropriate dentition LUNGS: decreased breath sounds at bases. No wheezes, and no crackles. Mild accessory m. use. HEART: Regular rate and rhythm, normal S1 and S2 without murmur, rub or gallop. ABDOMEN: Soft, obese, non distended. Diffusely tender to palpation. Normoactive bowel sounds, no guarding, no rebound LOWER EXTREMITIES: 2+ dorsalis pedis pulses, well-perfused. Did not note any edema. NEUROLOGICAL: Cranial nerves II-XII appear to be grossly intact. Laboratory Results 02/09/17 02/09/17 02/09/17 11:46 11:46 15:15 WBC 15.0 H D Hgb 8.5 L D Hct 26.1 L Plt Count 386 D Sodium 138 Chloride 107 Carbon Dioxide 18 L Anion Gap 13 Random Glucose 115 H Magnesium 0.6 L* D Troponin I 0.06 H B-Natriuretic Peptide 4140.09 H 02/09/17 02/10/17 02/10/17 21:20 02:35 11:15 WBC 12.1 H Hgb 7.9 L Hct 23.9 L Plt Count 353 Sodium Chloride Carbon Dioxide Anion Gap Random Glucose Magnesium Troponin I 0.12 H 0.09 H B-Natriuretic Peptide 02/10/17 11:15 WBC Hgb Hct Plt Count Sodium 139 Chloride 110 H Carbon Dioxide 19 L Anion Gap 10 Random Glucose 124 H Magnesium Troponin I B-Natriuretic Peptide MICRO -Blood cx: pending -Urine cx: pending -Sputum cx: pending RADIO -CXR: increased density R base fluid, atelectasis -Chest CT: R multiloculated pleural effusion, can't r/o superimposed PNA Active Medications Generic Name Dose Route Start Last Admin Trade Name Freq PRN Reason Stop Dose Admin Acetaminophen 650 mg 02/09/17 23:35 02/10/17 00:00 Tylenol - PO 650 mg Q6H PRN Administration FEVER OR PAIN Albuterol/Ipratropium 1 amp 02/10/17 03:34 Duoneb - NEB Q4H PRN SHORTNESS OF BREATH Amlodipine Besylate 2.5 mg 02/10/17 11:45 02/10/17 12:52 Norvasc - PO 2.5 mg DAILY [facility] Administration Arformoterol Tartrate 1 amp 02/10/17 13:30 Brovana (Restricted To Pulmonology/Resp) - NEB BID [facility] Atorvastatin Calcium 10 mg 02/10/17 22:00 Lipitor - PO HS [facility] Heparin Sodium (Porcine) 5,000 unit 02/09/17 22:00 02/10/17 06:48 Heparin - SQ 5,000 unit TID [facility] Administration Piperacillin/Tazobactam/Dextrose 2.25 gm in 50 mls @ 100 mls/hr 02/09/17 19: 15 Zosyn 2.25gm Ivpb (Premix) IVPB Q8H-IV [facility] Protocol Vancomycin HCl 1,000 mg/ 250 mls @ 200 mls/hr 02/09/17 19:15 Dextrose IVPB Q24H [facility] Isosorbide Mononitrate 120 mg 02/10/17 11:45 02/10/17 12:52 Imdur - PO 120 mg DAILY [facility] Administration Methylprednisolone Sodium Succinate 40 mg 02/10/17 14:15 Solu-Medrol - IVPUSH DAILY [facility] Metoprolol Succinate 100 mg 02/10/17 11:45 02/10/17 12:52 Toprol Xl - PO 100 mg DAILY [facility] Administration Morphine Sulfate 2 mg 02/10/17 14:51 Morphine Sulfate IVPUSH Q4H PRN PAIN Nicotine 14 mg 02/10/17 14:15 Nicoderm Patch - TD DAILY [facility] Ranolazine 500 mg 02/10/17 11:45 02/10/17 12:52 Ranexa - PO 500 mg BID [facility] Administration ASSESSMENT/PLAN: #R sided multiloculated Pleural effusion -pt afebrile, with white count 12.1 currently -Received 1 dose vanco 1g in ED -For IR guided thoracentesis Tuesday and possible VATS, ?empyema -Started on vanco 3g IVPB q12h -Started on unasyn 3g IVPB BID -F/u vanco level tomorrow Thank you Cristine Dumas MD PGY-1 ID Team Dispo: We will continue to follow the patient. Thank you for this consultative opportunity. Visit type - Emergency Visit Emergency Visit: No - New Patient This patient is new to me today: Yes Date on this admission: 02/10/17 - Critical Care Critical Care patient: No
--- NOTE | 2017-02-10 15:58 | PN ---
Teaching Attending Note Name of Resident: Cristine Dumas ATTENDING PHYSICIAN STATEMENT I saw and evaluated the patient. I reviewed the resident's note and discussed the case with the resident. I agree with the resident's findings and plan as documented. SUBJECTIVE:Loculated pleural effusion need drainage OBJECTIVE: ASSESSMENT AND PLAN: Microbiology Selected Entries 02/10/17 14:05 Temperature 99.1 F Pulse Rate 89 Respiratory 18 Rate Blood Pressure 136/97 Laboratory Tests 02/09/17 02/10/17 11:46 11:15 WBC 15.0 H D Hgb 8.5 L D Hct 26.1 L Plt Count 386 D BUN 44 H Creatinine 2.5 H Creat Clearance w eGFR 18.72 C-Reactive Protein 31.0 H Assessment Empyema Diabetes Coronary artery disease Acute kidney injury Plan Needs pleural fluid drainage possibly VAT Discussed with pulmonary re consider Thoracic surgeon to see her Vancomcyin and Unasyn pending c/s IR drainage ARYAN Lori Sandoval MD Problem List - Problems (1) Coronary artery disease Code(s): I25.10 - ATHSCL HEART DISEASE OF [place] CORONARY ARTERY W/O ANG PCTRS (2) RADHA (acute kidney injury) Code(s): N17.9 - ACUTE KIDNEY FAILURE, UNSPECIFIED (3) Empyema of lung Code(s): J86.9 - PYOTHORAX WITHOUT FISTULA
[2017-02-10] MEDS: morphine SULFATE 4 MG/ML VIAL IVPUSH PRN ×2 (16:11→21:44)
[2017-02-10] MEDS ORDERED: DEXTROSE 5% IVPB SCH (16:15)
[2017-02-10] MEDS ORDERED: VANCOMYCIN IVPB SCH (16:15)
[2017-02-10] MEDS ORDERED: WATER IVPB SCH (16:15)
--- NOTE | 2017-02-10 16:30 | EKG ---
Test Reason : Blood Pressure : / mmHG Vent. Rate : 089 BPM Atrial Rate : 089 BPM P-R Int : 140 ms QRS Dur : 086 ms QT Int : 384 ms P-R-T Axes : 057 017 054 degrees QTc Int : 467 ms NORMAL SINUS RHYTHM NORMAL ECG WHEN COMPARED WITH ECG OF 09-FEB-2017 11:14, PREMATURE VENTRICULAR COMPLEXES ARE NO LONGER PRESENT Confirmed by TERE BASS MD ([id number]) on 02/10/2017 4:30:22 PM Referred By: Confirmed By:TERE BASS MD
--- NOTE | 2017-02-10 16:33 | EKG ---
Test Reason : Blood Pressure : / mmHG Vent. Rate : 095 BPM Atrial Rate : 095 BPM P-R Int : 144 ms QRS Dur : 072 ms QT Int : 362 ms P-R-T Axes : 061 015 070 degrees QTc Int : 454 ms POOR DATA QUALITY, INTERPRETATION MAY BE ADVERSELY AFFECTED SINUS RHYTHM WITH OCCASIONAL PREMATURE VENTRICULAR COMPLEXES CANNOT RULE OUT ANTERIOR INFARCT , AGE UNDETERMINED ABNORMAL ECG WHEN COMPARED WITH ECG OF 21-AUG-2015 09:15, PREMATURE VENTRICULAR COMPLEXES ARE NOW PRESENT ST NO LONGER ELEVATED IN LATERAL LEADS NONSPECIFIC T WAVE ABNORMALITY NO LONGER EVIDENT IN INFERIOR LEADS Confirmed by TERE BASS MD ([id number]) on 02/10/2017 4:33:15 PM Referred By: Confirmed By:TERE BASS MD
[2017-02-10] MEDS ORDERED: VANCOMYCIN 1,000 MG in DEXTROSE 5%-WATER - 250 ML IVPB ONE (17:00)
[2017-02-10] MEDS: ATORVASTATIN CA 10 MG TABLET (FP) PO SCH (21:43)
[2017-02-10] MEDS: AMPICILLIN NA/SULBACTAM NA 3 GM in SODIUM CHLORIDE 100 ML IVPB SCH (21:46)
[2017-02-11 01:08] LABS: URINE CREATININE 98.3 mg/dL (20-320)
[2017-02-11 04:07] LABS: ANISOCYTOSIS 1+; MACROCYTOSIS 1+; OVALOCYTE 1+; PLATELET ESTIMATE NORMAL
[2017-02-11] MEDS: HEPARIN NA (PORCINE) 5,000 UNITS/ML 1ML VIAL SQ SCH ×3 (06:35→21:38)
[2017-02-11 08:32] LABS: ALBUMIN 2.1 g/dl (3.4-5.0); ANION GAP 11 (8-16); BLOOD UREA NITROGEN 41 mg/dL (7-18); CHLORIDE 106 mmol/L (98-107); CO2 19 mmol/L (21-32); GLUCOSE,RANDOM 130 mg/dL (74-106); POTASSIUM 4.3 mmol/L (3.5-5.1); SGOT/AST 25 U/L (15-37); SGPT/ALT 16 U/L (12-78); SODIUM 136 mmol/L (136-145)
[2017-02-11 08:34] LABS: ALK PHOS 111 U/L (45-117); BILIRUBIN,TOTAL 0.4 mg/dL (0.2-1.0); CREATININE 2.3 mg/dL (0.55-1.02)
[2017-02-11] MEDS ORDERED: PT OWN MED DRAWER 7, Y5N ONE ×2 (09:00→21:30)
[2017-02-11 09:23] LABS: BASO % 0.1 % (0-2.0); HEMOGLOBIN 8.1 GM/dL (10.7-15.3); LYMPH % 4.2 % (8-40); MCH 29.8 pg (25.7-33.7); MCHC 32.5 g/dl (32.0-36.0); MEAN CELL VOLUME 91.8 fl (80-96); MEAN PLT VOLUME 7.4 fl (7.5-11.1); MONO % 1.9 % (3.8-10.2); NEUT % 93.8 % (42.8-82.8); PLATELET COUNT 352 K/MM3 (134-434); RBC 2.73 M/mm3 (3.60-5.2); RDW 14.7 % (11.6-15.6); WHITE BLOOD COUNT 14.6 K/mm3 (4.0-10.0)
[2017-02-11] MEDS: RANOLAZINE E.R. 500 MG TABLET (FP) PO SCH ×2 (09:26→21:39)
[2017-02-11] MEDS: methylPREDNISolone NA SUCC 40 MG/1 ML VIAL IVPUSH SCH (09:26)
[2017-02-11] MEDS: ISOSORBIDE MONONITRATE 60 MG TAB.SR.24H (FP) PO SCH (09:26)
[2017-02-11] MEDS: amLODIPine BESYLATE 2.5 MG TABLET (FP) PO SCH (09:27)
[2017-02-11] MEDS: METOPROLOL SUCCINATE 100 MG TAB.SR.24H (FP) PO SCH (09:27)
[2017-02-11] MEDS: NICOTINE 14 MG/24 HOURS TOPICAL PATCH TD SCH (09:34)
[2017-02-11] MEDS: AMPICILLIN NA/SULBACTAM NA 3 GM in SODIUM CHLORIDE 100 ML IVPB SCH ×2 (09:35→21:39)
[2017-02-11] MEDS: ARFORMOTEROL TARTRATE 15 MCG/2 ML VIAL NEB SCH ×2 (10:00→21:49)
--- NOTE | 2017-02-11 12:56 | PN ---
Progress Note, Physician History of Present Illness: PULMONARY ALERT,C/O R SIDED CP,+SOB WITH MINIMAL EXERTION - Current Medication List Current Medications: Active Medications Acetaminophen (Tylenol -) 650 mg PO Q6H PRN PRN Reason: FEVER OR PAIN Last Admin: 02/10/17 00:00 Dose: 650 mg Albuterol/Ipratropium (Duoneb -) 1 amp NEB Q4H PRN PRN Reason: SHORTNESS OF BREATH Amlodipine Besylate (Norvasc -) 2.5 mg PO DAILY [facility] Last Admin: 02/11/17 09:27 Dose: 2.5 mg Arformoterol Tartrate (Brovana (Restricted To Pulmonology/Resp) -) 1 amp NEB BID [facility] Last Admin: 02/11/17 10:00 Dose: 1 amp Atorvastatin Calcium (Lipitor -) 10 mg PO HS [facility] Last Admin: 02/10/17 21:43 Dose: 10 mg Heparin Sodium (Porcine) (Heparin -) 5,000 unit SQ TID [facility] Last Admin: 02/11/17 06:35 Dose: 5,000 unit Ampicillin Sodium/Sulbactam (Sodium 3 gm/ Sodium Chloride) 100 mls @ 200 mls/ hr IVPB BID [facility] Last Admin: 02/11/17 09:35 Dose: 200 mls/hr Isosorbide Mononitrate (Imdur -) 120 mg PO DAILY [facility] Last Admin: 02/11/17 09:26 Dose: 120 mg Methylprednisolone Sodium Succinate (Solu-Medrol -) 40 mg IVPUSH DAILY [facility] Last Admin: 02/11/17 09:26 Dose: 40 mg Metoprolol Succinate (Toprol Xl -) 100 mg PO DAILY [facility] Last Admin: 02/11/17 09:27 Dose: 100 mg Morphine Sulfate (Morphine Sulfate) 2 mg IVPUSH Q4H PRN PRN Reason: PAIN Last Admin: 02/10/17 21:44 Dose: 2 mg Nicotine (Nicoderm Patch -) 14 mg TD DAILY [facility] Last Admin: 02/11/17 09:34 Dose: 14 mg Ranolazine (Ranexa -) 500 mg PO BID [facility] Last Admin: 02/11/17 09:26 Dose: 500 mg - Objective Vital Signs: Vital Signs Temperature 98.7 F 02/11/17 08:50 Pulse Rate 82 02/11/17 08:50 Respiratory Rate 18 02/11/17 08:50 Blood Pressure 115/66 02/11/17 08:50 O2 Sat by Pulse Oximetry (%) 96 02/11/17 08:10 Constitutional: Yes: Well Nourished, Calm Eyes: Yes: WNL HENT: Yes: WNL Neck: Yes: WNL Cardiovascular: Yes: Regular Rate and Rhythm, S1, S2 Respiratory: Yes: Diminished Gastrointestinal: Yes: Normal Bowel Sounds, Soft Extremities: Yes: WNL Edema: No Labs: CBC, BMP 02/11/17 06:00 02/11/17 06:00 INR, PTT INR 1.32 (0.82-1.09) H 02/09/17 11:46 Assessment/Plan Problem List - Problems (1) COPD (chronic obstructive pulmonary disease) Code(s): J44.9 - CHRONIC OBSTRUCTIVE PULMONARY DISEASE, UNSPECIFIED (2) Smoker Code(s): F17.200 - NICOTINE DEPENDENCE, UNSPECIFIED, UNCOMPLICATED (3) Empyema of lung Code(s): J86.9 - PYOTHORAX WITHOUT FISTULA (4) Pneumonia Code(s): J18.9 - PNEUMONIA, UNSPECIFIED ORGANISM (5) Pleural effusion Code(s): J90 - PLEURAL EFFUSION, NOT ELSEWHERE CLASSIFIED (6) Renal insufficiency Code(s): N28.9 - DISORDER OF KIDNEY AND URETER, UNSPECIFIED (7) CAD (coronary artery disease) Code(s): I25.10 - ATHSCL HEART DISEASE OF [place] CORONARY ARTERY W/O ANG PCTRS (8) Chest pain Code(s): R07.9 - CHEST PAIN, UNSPECIFIED (9) HTN (hypertension) Code(s): I10 - ESSENTIAL (PRIMARY) HYPERTENSION (10) Hepatitis C Code(s): B19.20 - UNSPECIFIED VIRAL HEPATITIS C WITHOUT HEPATIC COMA Assessment/Plan Antibiotics thoracentesis when Plavix held for 5 days Daily Medrol BD TX O2 to maintain saturation Smoking cessation discussed Outpatient PFTs once stable. DR ALAN
--- NOTE | 2017-02-11 13:44 | EKG ---
Test Reason : Blood Pressure : / mmHG Vent. Rate : 080 BPM Atrial Rate : 080 BPM P-R Int : 140 ms QRS Dur : 092 ms QT Int : 396 ms P-R-T Axes : 057 017 051 degrees QTc Int : 456 ms NORMAL SINUS RHYTHM POOR R WAVE PROGRESSION WHEN COMPARED WITH ECG OF 10-FEB-2017 13:33, NO SIGNIFICANT CHANGE WAS FOUND Confirmed by COLLIN LANGSTON MD ([id number]) on 02/11/2017 1:44:40 PM Referred By: Confirmed By:COLLIN LANGSTON MD
--- NOTE | 2017-02-11 13:55 | PN ---
Progress Note, Physician Chief Complaint: ID Vancomycin Unasyn Pleuritic back pain - Current Medication List Current Medications: Active Medications Acetaminophen (Tylenol -) 650 mg PO Q6H PRN PRN Reason: FEVER OR PAIN Last Admin: 02/10/17 00:00 Dose: 650 mg Albuterol/Ipratropium (Duoneb -) 1 amp NEB Q4H PRN PRN Reason: SHORTNESS OF BREATH Amlodipine Besylate (Norvasc -) 2.5 mg PO DAILY [facility] Last Admin: 02/11/17 09:27 Dose: 2.5 mg Arformoterol Tartrate (Brovana (Restricted To Pulmonology/Resp) -) 1 amp NEB BID [facility] Last Admin: 02/11/17 10:00 Dose: 1 amp Atorvastatin Calcium (Lipitor -) 10 mg PO HS [facility] Last Admin: 02/10/17 21:43 Dose: 10 mg Heparin Sodium (Porcine) (Heparin -) 5,000 unit SQ TID [facility] Last Admin: 02/11/17 06:35 Dose: 5,000 unit Ampicillin Sodium/Sulbactam (Sodium 3 gm/ Sodium Chloride) 100 mls @ 200 mls/ hr IVPB BID [facility] Last Admin: 02/11/17 09:35 Dose: 200 mls/hr Isosorbide Mononitrate (Imdur -) 120 mg PO DAILY [facility] Last Admin: 02/11/17 09:26 Dose: 120 mg Methylprednisolone Sodium Succinate (Solu-Medrol -) 40 mg IVPUSH DAILY [facility] Last Admin: 02/11/17 09:26 Dose: 40 mg Metoprolol Succinate (Toprol Xl -) 100 mg PO DAILY [facility] Last Admin: 02/11/17 09:27 Dose: 100 mg Morphine Sulfate (Morphine Sulfate) 2 mg IVPUSH Q4H PRN PRN Reason: PAIN Last Admin: 02/10/17 21:44 Dose: 2 mg Nicotine (Nicoderm Patch -) 14 mg TD DAILY [facility] Last Admin: 02/11/17 09:34 Dose: 14 mg Ranolazine (Ranexa -) 500 mg PO BID [facility] Last Admin: 02/11/17 09:26 Dose: 500 mg - Objective Vital Signs: Vital Signs Temperature 98.7 F 02/11/17 08:50 Pulse Rate 82 02/11/17 08:50 Respiratory Rate 18 02/11/17 08:50 Blood Pressure 115/66 02/11/17 08:50 O2 Sat by Pulse Oximetry (%) 96 02/11/17 08:10 Constitutional: Yes: No Distress HENT: Yes: WNL, Atraumatic Neck: Yes: WNL, Supple Cardiovascular: Yes: Regular Rate and Rhythm, S1, S2 Respiratory: Yes: WNL, Regular, CTA Bilaterally, Diminished Gastrointestinal: Yes: WNL, Normal Bowel Sounds, Soft. No: Tenderness Labs: CBC, BMP 02/11/17 06:00 02/11/17 06:00 INR, PTT INR 1.32 (0.82-1.09) H 02/09/17 11:46 Problem List - Problems (1) Coronary artery disease Code(s): I25.10 - ATHSCL HEART DISEASE OF [place] CORONARY ARTERY W/O ANG PCTRS (2) RADHA (acute kidney injury) Code(s): N17.9 - ACUTE KIDNEY FAILURE, UNSPECIFIED (3) Empyema of lung Code(s): J86.9 - PYOTHORAX WITHOUT FISTULA Assessment/Plan Microbiology 02/09/17 00:30 Urine - Urine Clean Catch Urine Culture - Final NO GROWTH OBTAINED 02/09/17 21:20 Blood - Peripheral Venous Blood Culture - Preliminary NO GROWTH OBTAINED AFTER 24 HOURS, INCUBATION TO CONTINUE FOR 4 DAYS. 02/09/17 21:20 Blood - Peripheral Venous Blood Culture - Preliminary NO GROWTH OBTAINED AFTER 24 HOURS, INCUBATION TO CONTINUE FOR 4 DAYS. Laboratory Tests 02/09/17 02/10/17 02/10/17 11:46 00:30 11:15 WBC 15.0 H D 12.1 H Hgb 8.5 L D Hct 26.1 L Plt Count 386 D Neutrophils % 85.3 H Lymphocytes % 6.1 L D Monocytes % 8.3 D Eosinophils % 0.3 D Basophils % 0.0 BUN Creatinine Creat Clearance w eGFR C-Reactive Protein Albumin Urine WBC (Auto) 9 Urine RBC (Auto) <1 02/10/17 02/11/17 02/11/17 11:15 06:00 06:00 WBC 14.6 H Hgb 8.1 L Hct 25.0 L Plt Count 352 Neutrophils % Lymphocytes % Monocytes % Eosinophils % Basophils % BUN 44 H 41 H Creatinine 2.5 H 2.3 H Creat Clearance w eGFR 18.72 20.62 C-Reactive Protein 31.0 H Albumin 2.0 L Urine WBC (Auto) Urine RBC (Auto) Assessment Loculated empyema Plan Continue antibiotics Vanco level pending Chest tube drainage
--- NOTE | 2017-02-11 14:46 | PN ---
Progress Note, Physician History of Present Illness: Pt seen and examined at bedside. She is awake and alert. She feels that her breathing is improving. - Current Medication List Current Medications: Active Medications Acetaminophen (Tylenol -) 650 mg PO Q6H PRN PRN Reason: FEVER OR PAIN Last Admin: 02/10/17 00:00 Dose: 650 mg Albuterol/Ipratropium (Duoneb -) 1 amp NEB Q4H PRN PRN Reason: SHORTNESS OF BREATH Amlodipine Besylate (Norvasc -) 2.5 mg PO DAILY [facility] Last Admin: 02/11/17 09:27 Dose: 2.5 mg Arformoterol Tartrate (Brovana (Restricted To Pulmonology/Resp) -) 1 amp NEB BID [facility] Last Admin: 02/11/17 10:00 Dose: 1 amp Atorvastatin Calcium (Lipitor -) 10 mg PO HS [facility] Last Admin: 02/10/17 21:43 Dose: 10 mg Heparin Sodium (Porcine) (Heparin -) 5,000 unit SQ TID [facility] Last Admin: 02/11/17 06:35 Dose: 5,000 unit Ampicillin Sodium/Sulbactam (Sodium 3 gm/ Sodium Chloride) 100 mls @ 200 mls/ hr IVPB BID [facility] Last Admin: 02/11/17 09:35 Dose: 200 mls/hr Isosorbide Mononitrate (Imdur -) 120 mg PO DAILY [facility] Last Admin: 02/11/17 09:26 Dose: 120 mg Methylprednisolone Sodium Succinate (Solu-Medrol -) 40 mg IVPUSH DAILY [facility] Last Admin: 02/11/17 09:26 Dose: 40 mg Metoprolol Succinate (Toprol Xl -) 100 mg PO DAILY [facility] Last Admin: 02/11/17 09:27 Dose: 100 mg Morphine Sulfate (Morphine Sulfate) 2 mg IVPUSH Q4H PRN PRN Reason: PAIN Last Admin: 02/10/17 21:44 Dose: 2 mg Nicotine (Nicoderm Patch -) 14 mg TD DAILY [facility] Last Admin: 02/11/17 09:34 Dose: 14 mg Ranolazine (Ranexa -) 500 mg PO BID [facility] Last Admin: 02/11/17 09:26 Dose: 500 mg - Objective Vital Signs: Vital Signs Temperature 98.7 F 02/11/17 08:50 Pulse Rate 82 02/11/17 08:50 Respiratory Rate 18 02/11/17 08:50 Blood Pressure 115/66 02/11/17 08:50 O2 Sat by Pulse Oximetry (%) 96 02/11/17 08:10 Constitutional: Yes: Calm Eyes: Yes: Conjunctiva Clear HENT: Yes: Atraumatic Cardiovascular: Yes: S1, S2 Respiratory: Yes: On Nasal O2 Gastrointestinal: Yes: Soft Genitourinary: Yes: WNL Musculoskeletal: Yes: WNL Edema: No Neurological: Yes: Oriented Psychiatric: Yes: Oriented Labs: CBC, BMP 02/11/17 06:00 02/11/17 06:00 INR, PTT INR 1.32 (0.82-1.09) H 02/09/17 11:46 Problem List - Problems (1) RADHA (acute kidney injury) Code(s): N17.9 - ACUTE KIDNEY FAILURE, UNSPECIFIED (2) COPD (chronic obstructive pulmonary disease) Code(s): J44.9 - CHRONIC OBSTRUCTIVE PULMONARY DISEASE, UNSPECIFIED (3) Pleural effusion Code(s): J90 - PLEURAL EFFUSION, NOT ELSEWHERE CLASSIFIED (4) CAD (coronary artery disease) Code(s): I25.10 - ATHSCL HEART DISEASE OF [place] CORONARY ARTERY W/O ANG PCTRS (5) Chest pain Code(s): R07.9 - CHEST PAIN, UNSPECIFIED Assessment/Plan Current Medications Generic Name Dose Route Start Last Admin Trade Name Freq PRN Reason Stop Dose Admin Acetaminophen 650 mg 02/09/17 23:35 02/10/17 00:00 Tylenol - PO 650 mg Q6H PRN Administration FEVER OR PAIN Albuterol/Ipratropium 1 amp 02/10/17 03:34 Duoneb - NEB Q4H PRN SHORTNESS OF BREATH Amlodipine Besylate 2.5 mg 02/10/17 11:45 02/11/17 09:27 Norvasc - PO 2.5 mg DAILY [facility] Administration Arformoterol Tartrate 1 amp 02/10/17 13:30 02/11/17 10:00 Brovana (Restricted To Pulmonology/Resp) - NEB 1 amp BID [facility] Administration Atorvastatin Calcium 10 mg 02/10/17 22:00 02/10/17 21:43 Lipitor - PO 10 mg HS [facility] Administration Heparin Sodium (Porcine) 5,000 unit 02/09/17 22:00 02/11/17 06:35 Heparin - SQ 5,000 unit TID [facility] Administration Ampicillin Sodium/Sulbactam 100 mls @ 200 mls/hr 02/10/17 22:00 02/11/17 09: 35 Sodium 3 gm/ Sodium Chloride IVPB 200 mls/hr BID [facility] Administration Isosorbide Mononitrate 120 mg 02/10/17 11:45 02/11/17 09:26 Imdur - PO 120 mg DAILY [facility] Administration Methylprednisolone Sodium Succinate 40 mg 02/10/17 14:15 02/11/17 09:26 Solu-Medrol - IVPUSH 40 mg DAILY [facility] Administration Metoprolol Succinate 100 mg 02/10/17 11:45 02/11/17 09:27 Toprol Xl - PO 100 mg DAILY [facility] Administration Morphine Sulfate 2 mg 02/10/17 14:51 02/10/17 21:44 Morphine Sulfate IVPUSH 2 mg Q4H PRN Administration PAIN Nicotine 14 mg 02/10/17 14:15 02/11/17 09:34 Nicoderm Patch - TD 14 mg DAILY [facility] Administration Ranolazine 500 mg 02/10/17 11:45 02/11/17 09:26 Ranexa - PO 500 mg BID [facility] Administration Laboratory Tests 02/10/17 11:15 Magnesium 2.2 Impression 1. RADHA 2. CKD 3. multilobular pleural effusion 4. CAD s/p stents 5. HTN 6. hyperlipidemia 7. anemia 8. angina 9. PNA 10. proteinuria 11. hypomagnesemia 12. Hep C Plan - renal function is improving - check vanco levels - repeat labs in am - follow urine studies - echo reviewed - can cont gentle hydration - Hep C status need to be clarified Dr Cotto
--- NOTE | 2017-02-11 16:42 | CONSULT ---
Consult - text type - Consultation Consultation Note: Thoracic Consult: Reason for consult: Loculated effusion Pt seen and examined. Briefly, 76F with COPD, CAD s/p multiple stents, active smoker, CRI, walks with walker, p/w 3 weeks of right pleuritic chest pain. WBC elevated. CT shows consolidated RLL, with loculated pleural effusion. Thought to still be on plavix although patient denies taking for over 1 year. VSS 3L NC, mid90's saturation Pleasant, obese Imp/Plan: Probable empyema --Recommend IR drain, as bedside chest tube withouth guidance not likely to be safe with loculations. TPA/Dornase should be used adjunctively, when proven to be empyema, as she is high risk for decortication due to her age, comorbidities , and baseline limited function --Would reserve VATS only for failure of drainage to treat infection, given that her lung function is not stressed by her limited activity, no need to plan actual decortication I have spent 40 minutes with >50% in counseling with patient and her daughter, and coordination of care with Dr. May.
--- NOTE | 2017-02-11 18:21 | PN ---
Physical Exam: SUBJECTIVE: Patient seen and examined. She has no acute resp distress, she is stable on NC denies chest pain. OBJECTIVE: Vital Signs Period Temp Pulse Resp BP Sys/Barlow Pulse Ox Last 24 Hr 97.7 F-98.7 F 82-90 18-20 115-163/62-89 96-96 PE Neuro: alert, awake, cn 2-12intact Pulm: diminished + NC no wheezing CV: s1 s2 rrr Abd: s nt nd + bs Ext: warm, mild RLE edema Laboratory Results - last 24 hr 02/11/17 02/11/17 02/11/17 00:01 06:00 06:00 WBC 14.6 H RBC 2.73 L Hgb 8.1 L Hct 25.0 L MCV 91.8 MCH 29.8 MCHC 32.5 RDW 14.7 Plt Count 352 MPV 7.4 L Absolute Neuts (auto) 13.7 L Absolute Lymphs (auto) 0.6 L Absolute Monos (auto) 0.3 L Absolute Eos (auto) 0.0 Absolute Basos (auto) 0.0 L Neutrophils % 93.8 H Neutrophils % (Manual) Band Neutrophils % Lymphocytes % 4.2 L D Lymphocytes % (Manual) Monocytes % 1.9 L Monocytes % (Manual) Eosinophils % 0.0 D Eosinophils % (Manual) Basophils % 0.1 D Basophils % (Manual) Myelocytes % (Man) Metamyelocytes Hypochromia Platelet Estimate Polychromasia Poikilocytosis Anisocytosis Microcytosis Macrocytosis Ovalocytes Sodium 136 Potassium 4.3 Chloride 106 Carbon Dioxide 19 L Anion Gap 11 BUN 41 H Creatinine 2.3 H Creat Clearance w eGFR 20.62 Random Glucose 130 H Calcium 7.0 L Ionized Calcium Total Bilirubin 0.4 AST 25 D ALT 16 D Alkaline Phosphatase 111 Total Protein 7.0 Albumin 2.1 L Ur Random Sodium 18 Ur Random Potassium Ur Random Chloride Urine Creatinine 98.3 Active Medications Generic Name Dose Route Start Last Admin Trade Name Freq PRN Reason Stop Dose Admin Acetaminophen 650 mg 02/09/17 23:35 02/10/17 00:00 Tylenol - PO 650 mg Q6H PRN Administration FEVER OR PAIN Albuterol/Ipratropium 1 amp 02/10/17 03:34 Duoneb - NEB Q4H PRN SHORTNESS OF BREATH Amlodipine Besylate 2.5 mg 02/10/17 11:45 02/11/17 09:27 Norvasc - PO 2.5 mg DAILY PARMINDER Administration Arformoterol Tartrate 1 amp 02/10/17 13:30 02/11/17 10:00 Mely (Restricted To Pulmonology/Resp) - NEB 1 amp BID PARMINDER Administration Atorvastatin Calcium 10 mg 02/10/17 22:00 02/10/17 21:43 Lipitor - PO 10 mg HS PARMINDER Administration Heparin Sodium (Porcine) 5,000 unit 02/09/17 22:00 02/11/17 14:54 Heparin - SQ 5,000 unit TID PARMINDER Administration Ampicillin Sodium/Sulbactam 100 mls @ 200 mls/hr 02/10/17 22:00 02/11/17 09: 35 Sodium 3 gm/ Sodium Chloride IVPB 200 mls/hr BID PARMINDER Administration Isosorbide Mononitrate 120 mg 02/10/17 11:45 02/11/17 09:26 Imdur - PO 120 mg DAILY PARMINDER Administration Methylprednisolone Sodium Succinate 40 mg 02/10/17 14:15 02/11/17 09:26 Solu-Medrol - IVPUSH 40 mg DAILY PARMINDER Administration Metoprolol Succinate 100 mg 02/10/17 11:45 02/11/17 09:27 Toprol Xl - PO 100 mg DAILY PARMINDER Administration Morphine Sulfate 2 mg 02/10/17 14:51 02/10/17 21:44 Morphine Sulfate IVPUSH 2 mg Q4H PRN Administration PAIN Nicotine 14 mg 02/10/17 14:15 02/11/17 09:34 Nicoderm Patch - TD 14 mg DAILY PARMINDER Administration Ranolazine 500 mg 02/10/17 11:45 02/11/17 09:26 Ranexa - PO 500 mg BID PARMINDER Administration Assessment: 76 year old female with a PMHx, recent CAD cath (07/2016), [place], HTN, HLD, , Hep C, COPD current smoker, and h/o GI bleed admitted after outside MRI shows large right pleural effusion. Plan: 1. Right Multiloculated pleural effusion / probable empyema - Thoracentesis ordered with IR, will be done earliest Tuesday, pt has been on ASA, plavix - No bedside chest tube at this time w/ loculations, ? TPA/dornase if empyema, VATS only for failure of drainage - Hold ASA/plavix - Start daily medrol 40mg - Brovana BIDS - CT surgery/pulm following 2. Superimposed Pneumonia - Vanco/unysan - Check vanco levels 3. CAD s/p recent cath with stents, elevated trops - Trops down trending likely demand - ECHO lvsf nml, rvsf nml, trace tr - Per cath report, stents no new PCI in 08/2016 - Discussed with Dr. Yadav, will obtain results of cath from 07/2016 4. Chest pain - Continue Renexa 500mg BID 5. HTN - Toprol xl 100mg - Imdur 120mg daily - Amlodipine 2.5mg daily 6. HLD - On Statin 7. RADHA on CKD - Cr improving - Urine studies pending 8. Diastolic HF, acute on chronic - Amlodipine 2.5mg 9. Hep C 10. Hypomagnesemia - Replaced 11. DVT ppx - Heparin sq q8 Visit type - Emergency Visit Emergency Visit: Yes ED Registration Date: 02/09/17 Care time: The patient presented to the Emergency Department on the above date and was hospitalized for further evaluation of their emergent condition. - New Patient This patient is new to me today: No - Critical Care Critical Care patient: No
[2017-02-11] MEDS: ATORVASTATIN CA 10 MG TABLET (FP) PO SCH ×2 (21:38→21:39)
[2017-02-11] MEDS: morphine SULFATE 4 MG/ML VIAL IVPUSH PRN (22:00)
[2017-02-12] MEDS: HEPARIN NA (PORCINE) 5,000 UNITS/ML 1ML VIAL SQ SCH ×3 (05:23→21:34)
[2017-02-12 08:30] LABS: ANION GAP 9 (8-16); BLOOD UREA NITROGEN 40 mg/dL (7-18); CALCIUM 7.6 mg/dL (8.5-10.1); CHLORIDE 112 mmol/L (98-107); CO2 18 mmol/L (21-32); GLUCOSE,RANDOM 122 mg/dL (74-106); POTASSIUM 4.7 mmol/L (3.5-5.1); SODIUM 139 mmol/L (136-145)
[2017-02-12] MEDS ORDERED: PT OWN MED DRAWER 7, Y5N ONE ×2 (09:42→21:27)
[2017-02-12] MEDS: RANOLAZINE E.R. 500 MG TABLET (FP) PO SCH ×2 (09:52→21:34)
[2017-02-12] MEDS: AMPICILLIN NA/SULBACTAM NA 3 GM in SODIUM CHLORIDE 100 ML IVPB SCH ×2 (09:52→21:35)
[2017-02-12] MEDS: amLODIPine BESYLATE 2.5 MG TABLET (FP) PO SCH (09:52)
[2017-02-12] MEDS: methylPREDNISolone NA SUCC 40 MG/1 ML VIAL IVPUSH SCH (09:53)
[2017-02-12] MEDS: NICOTINE 14 MG/24 HOURS TOPICAL PATCH TD SCH (09:53)
[2017-02-12] MEDS: ISOSORBIDE MONONITRATE 60 MG TAB.SR.24H (FP) PO SCH (09:53)
[2017-02-12] MEDS: METOPROLOL SUCCINATE 100 MG TAB.SR.24H (FP) PO SCH (09:54)
--- NOTE | 2017-02-12 10:47 | PN ---
Progress Note (short form) - Note Progress Note: ID Thoracic surgery consult noted re IR drainage recommendation Selected Entries 02/12/17 05:39 Temperature 97.8 F Pulse Rate 80 Respiratory 20 Rate Blood Pressure 123/80 Lung Diminished BS Cor S1 S2 RR Abd SOft nontender Microbiology 02/09/17 00:30 Urine - Urine Clean Catch Urine Culture - Final NO GROWTH OBTAINED 02/09/17 21:20 Blood - Peripheral Venous Blood Culture - Preliminary NO GROWTH OBTAINED AFTER 48 HOURS, INCUBATION TO CONTINUE FOR 3 DAYS. 02/09/17 21:20 Blood - Peripheral Venous Blood Culture - Preliminary NO GROWTH OBTAINED AFTER 48 HOURS, INCUBATION TO CONTINUE FOR 3 DAYS. Laboratory Tests 02/10/17 02/11/17 11:15 06:00 WBC 14.6 H Hgb 8.1 L Hct 25.0 L Plt Count 352 C-Reactive Protein 31.0 H Assessment Empyema Loculated effusion Plan Continue antibiotic Monica Sandoval MD Problem List - Problems (1) Coronary artery disease Code(s): I25.10 - ATHSCL HEART DISEASE OF [place] CORONARY ARTERY W/O ANG PCTRS (2) RADAH (acute kidney injury) Code(s): N17.9 - ACUTE KIDNEY FAILURE, UNSPECIFIED (3) Empyema of lung Code(s): J86.9 - PYOTHORAX WITHOUT FISTULA
[2017-02-12] MEDS: morphine SULFATE 4 MG/ML VIAL IVPUSH PRN ×2 (10:59→21:34)
[2017-02-12 11:09] LABS: HEMATOCRIT 27.6 % (32.4-45.2); HEMOGLOBIN 8.9 GM/dL (10.7-15.3); LYMPH % 8.6 % (8-40); MCH 29.9 pg (25.7-33.7); MCHC 32.2 g/dl (32.0-36.0); MEAN CELL VOLUME 92.8 fl (80-96); MONO % 5.4 % (3.8-10.2); PLATELET COUNT 451 K/MM3 (134-434); RBC 2.98 M/mm3 (3.60-5.2); RDW 15.2 % (11.6-15.6); WHITE BLOOD COUNT 16.5 K/mm3 (4.0-10.0)
[2017-02-12] MEDS: ARFORMOTEROL TARTRATE 15 MCG/2 ML VIAL NEB SCH ×2 (11:10→22:27)
--- NOTE | 2017-02-12 11:22 | PN ---
Progress Note, Physician History of Present Illness: pulmonary alert,c/o mild sob,less cp - Current Medication List Current Medications: Active Medications Acetaminophen (Tylenol -) 650 mg PO Q6H PRN PRN Reason: FEVER OR PAIN Last Admin: 02/10/17 00:00 Dose: 650 mg Albuterol/Ipratropium (Duoneb -) 1 amp NEB Q4H PRN PRN Reason: SHORTNESS OF BREATH Amlodipine Besylate (Norvasc -) 2.5 mg PO DAILY [facility] Last Admin: 02/12/17 09:52 Dose: 2.5 mg Arformoterol Tartrate (Brovana (Restricted To Pulmonology/Resp) -) 1 amp NEB BID [facility] Last Admin: 02/11/17 21:49 Dose: 1 amp Atorvastatin Calcium (Lipitor -) 10 mg PO HS [facility] Last Admin: 02/11/17 21:39 Dose: 10 mg Heparin Sodium (Porcine) (Heparin -) 5,000 unit SQ TID [facility] Last Admin: 02/12/17 05:23 Dose: 5,000 unit Ampicillin Sodium/Sulbactam (Sodium 3 gm/ Sodium Chloride) 100 mls @ 200 mls/ hr IVPB BID [facility] Last Admin: 02/12/17 09:52 Dose: 200 mls/hr Isosorbide Mononitrate (Imdur -) 120 mg PO DAILY [facility] Last Admin: 02/12/17 09:53 Dose: 120 mg Methylprednisolone Sodium Succinate (Solu-Medrol -) 40 mg IVPUSH DAILY [facility] Last Admin: 02/12/17 09:53 Dose: 40 mg Metoprolol Succinate (Toprol Xl -) 100 mg PO DAILY [facility] Last Admin: 02/12/17 09:54 Dose: 100 mg Morphine Sulfate (Morphine Sulfate) 2 mg IVPUSH Q4H PRN PRN Reason: PAIN Last Admin: 02/12/17 10:59 Dose: 2 mg Nicotine (Nicoderm Patch -) 14 mg TD DAILY [facility] Last Admin: 02/12/17 09:53 Dose: 14 mg Ranolazine (Ranexa -) 500 mg PO BID [facility] Last Admin: 02/12/17 09:52 Dose: 500 mg - Objective Vital Signs: Vital Signs Temperature 97.8 F 02/12/17 05:39 Pulse Rate 80 02/12/17 05:39 Respiratory Rate 20 02/12/17 05:39 Blood Pressure 123/80 02/12/17 05:39 O2 Sat by Pulse Oximetry (%) 98 02/11/17 21:15 Constitutional: Yes: Well Nourished, Calm Eyes: Yes: WNL HENT: Yes: WNL Neck: Yes: WNL Cardiovascular: Yes: Regular Rate and Rhythm, S1, S2 Respiratory: Yes: Diminished (few crackles r) Gastrointestinal: Yes: Normal Bowel Sounds, Soft Extremities: Yes: WNL Edema: No Labs: CBC, BMP 02/12/17 06:20 02/12/17 06:20 INR, PTT INR 1.32 (0.82-1.09) H 02/09/17 11:46 Assessment/Plan Problem List - Problems (1) COPD (chronic obstructive pulmonary disease) Code(s): J44.9 - CHRONIC OBSTRUCTIVE PULMONARY DISEASE, UNSPECIFIED (2) Smoker Code(s): F17.200 - NICOTINE DEPENDENCE, UNSPECIFIED, UNCOMPLICATED (3) Empyema of lung Code(s): J86.9 - PYOTHORAX WITHOUT FISTULA (4) Pneumonia Code(s): J18.9 - PNEUMONIA, UNSPECIFIED ORGANISM (5) Pleural effusion Code(s): J90 - PLEURAL EFFUSION, NOT ELSEWHERE CLASSIFIED (6) Renal insufficiency Code(s): N28.9 - DISORDER OF KIDNEY AND URETER, UNSPECIFIED (7) CAD (coronary artery disease) Code(s): I25.10 - ATHSCL HEART DISEASE OF [place] CORONARY ARTERY W/O ANG PCTRS (8) Chest pain Code(s): R07.9 - CHEST PAIN, UNSPECIFIED (9) HTN (hypertension) Code(s): I10 - ESSENTIAL (PRIMARY) HYPERTENSION (10) Hepatitis C Code(s): B19.20 - UNSPECIFIED VIRAL HEPATITIS C WITHOUT HEPATIC COMA Assessment/Plan Antibiotics as per ID Chest tube drainage Daily Medrol BD TX O2 to maintain saturation Smoking cessation discussed Outpatient PFTs once stable. DR ALAN
--- NOTE | 2017-02-12 12:16 | PN ---
Physical Exam: SUBJECTIVE: Patient seen and examined. No acute issues, she says she is feeling better, her mentation has improve she ambulates w/ walker, son at bedside. OBJECTIVE: Vital Signs Period Temp Pulse Resp BP Sys/Barlow Pulse Ox Last 24 Hr 97.7 F-98.0 F 80-90 18-20 123-163/71-80 95-98 PE Neuro: alert, awake, cn 2-12intact Pulm: diminished r base w crackles, + NC CV: s1 s2 rrr Abd: s nt nd + bs Ext: warm, mild LLE pitting edema Laboratory Results - last 24 hr 02/10/17 02/12/17 02/12/17 02:35 06:20 06:20 WBC 16.5 H RBC 2.98 L Hgb 8.9 L Hct 27.6 L MCV 92.8 MCH 29.9 MCHC 32.2 RDW 15.2 Plt Count 451 H D MPV 8.0 Neutrophils % 86.0 H Lymphocytes % 8.6 D Monocytes % 5.4 D Eosinophils % 0.0 Basophils % 0.0 Sodium 139 Potassium 4.7 Chloride 112 H Carbon Dioxide 18 L Anion Gap 9 BUN 40 H Creatinine 2.0 H Random Glucose 122 H Calcium 7.6 L Ionized Calcium 4.2 L Active Medications Generic Name Dose Route Start Last Admin Trade Name Rafael PRN Reason Stop Dose Admin Acetaminophen 650 mg 02/09/17 23:35 02/10/17 00:00 Tylenol - PO 650 mg Q6H PRN Administration FEVER OR PAIN Albuterol/Ipratropium 1 amp 02/10/17 03:34 Duoneb - NEB Q4H PRN SHORTNESS OF BREATH Amlodipine Besylate 2.5 mg 02/10/17 11:45 02/12/17 09:52 Norvasc - PO 2.5 mg DAILY PARMINDER Administration Arformoterol Tartrate 1 amp 02/10/17 13:30 02/11/17 21:49 Brovana (Restricted To Pulmonology/Resp) - NEB 1 amp BID PARMINDER Administration Atorvastatin Calcium 10 mg 02/10/17 22:00 02/11/17 21:39 Lipitor - PO 10 mg HS PARMINDER Administration Heparin Sodium (Porcine) 5,000 unit 02/09/17 22:00 02/12/17 05:23 Heparin - SQ 5,000 unit TID PARMINDER Administration Ampicillin Sodium/Sulbactam 100 mls @ 200 mls/hr 02/10/17 22:00 02/12/17 09: 52 Sodium 3 gm/ Sodium Chloride IVPB 200 mls/hr BID PARMINDER Administration Isosorbide Mononitrate 120 mg 02/10/17 11:45 02/12/17 09:53 Imdur - PO 120 mg DAILY PARMINDER Administration Methylprednisolone Sodium Succinate 40 mg 02/10/17 14:15 02/12/17 09:53 Solu-Medrol - IVPUSH 40 mg DAILY PARMINDER Administration Metoprolol Succinate 100 mg 02/10/17 11:45 02/12/17 09:54 Toprol Xl - PO 100 mg DAILY PARMINDER Administration Morphine Sulfate 2 mg 02/10/17 14:51 02/12/17 10:59 Morphine Sulfate IVPUSH 2 mg Q4H PRN Administration PAIN Nicotine 14 mg 02/10/17 14:15 02/12/17 09:53 Nicoderm Patch - TD 14 mg DAILY PARMINDER Administration Ranolazine 500 mg 02/10/17 11:45 02/12/17 09:52 Ranexa - PO 500 mg BID PARMINDER Administration Imaging: - ECHO lvsf nml, rvsf nml, trace tr Assessment: 76 year old female with a PMHx, recent CAD cath (07/2016), [place], HTN, HLD, , Hep C, COPD current smoker, and h/o GI bleed admitted after outside MRI shows large right pleural effusion. Plan: 1. Right Multiloculated pleural effusion / probable empyema - Thoracentesis Tuesday - No bedside chest tube at this time w/ loculations, ? TPA/dornase if empyema, VATS only for failure of drainage - Hold ASA/plavix - Continue solumedrol 40mg day (2) - Brovana BIDS 2. Superimposed Pneumonia/empyema - Continue unyasn 3. CAD s/p recent cath with stents, elevated trops - Trops downtrended, likely demand d/t above - Per cath report, stents no new PCI in 08/2016 - Renexa 500mg BID - Toprol xl 100mg - Imdur 120mg daily 4. Chest pain - Due to above, now resolved 5. HTN - Toprol xl 100mg - Imdur 120mg daily - Amlodipine 2.5mg daily 6. HLD - On Statin 7. RADHA on CKD - FeNa indicates pre renal - Cr improving 8. Diastolic HF, acute on chronic - Amlodipine 2.5mg 9. Hep C - Will need to clarify if treated, if no obtain rna 10. Hypomagnesemia - Resolved 11. DVT ppx - Heparin sq q8 Visit type - Emergency Visit Emergency Visit: Yes ED Registration Date: 02/09/17 Care time: The patient presented to the Emergency Department on the above date and was hospitalized for further evaluation of their emergent condition. - New Patient This patient is new to me today: No - Critical Care Critical Care patient: No
--- NOTE | 2017-02-12 13:51 | PN ---
Progress Note (short form) - Note Progress Note: RENAL Pt is awake and alert comfortable says she feels better Last Vital Signs Temp Pulse Resp BP Pulse Ox 97.8 F 84 20 157/75 97 02/12/17 10:00 02/12/17 10:00 02/12/17 10:00 02/12/17 10:00 02/12/17 09:00 lungs clear, has some vesicular sounds in right base cvs s1s2 rr abd soft ext no edema neuro a+ox3 CBC, BMP 02/12/17 06:20 02/12/17 06:20 Current Medications Generic Name Dose Route Start Last Admin Trade Name Freq PRN Reason Stop Dose Admin Acetaminophen 650 mg 02/09/17 23:35 02/10/17 00:00 Tylenol - PO 650 mg Q6H PRN Administration FEVER OR PAIN Albuterol/Ipratropium 1 amp 02/10/17 03:34 Duoneb - NEB Q4H PRN SHORTNESS OF BREATH Amlodipine Besylate 2.5 mg 02/10/17 11:45 02/12/17 09:52 Norvasc - PO 2.5 mg DAILY PARMINDER Administration Arformoterol Tartrate 1 amp 02/10/17 13:30 02/12/17 11:10 Brovana (Restricted To Pulmonology/Resp) - NEB 1 amp BID PARMINDER Administration Atorvastatin Calcium 10 mg 02/10/17 22:00 02/11/17 21:39 Lipitor - PO 10 mg HS PARMINDER Administration Heparin Sodium (Porcine) 5,000 unit 02/09/17 22:00 02/12/17 05:23 Heparin - SQ 5,000 unit TID PARMINDER Administration Ampicillin Sodium/Sulbactam 100 mls @ 200 mls/hr 02/10/17 22:00 02/12/17 09: 52 Sodium 3 gm/ Sodium Chloride IVPB 200 mls/hr BID PARMINDER Administration Isosorbide Mononitrate 120 mg 02/10/17 11:45 02/12/17 09:53 Imdur - PO 120 mg DAILY PARMINDER Administration Methylprednisolone Sodium Succinate 40 mg 02/10/17 14:15 02/12/17 09:53 Solu-Medrol - IVPUSH 40 mg DAILY PARMINDER Administration Metoprolol Succinate 100 mg 02/10/17 11:45 02/12/17 09:54 Toprol Xl - PO 100 mg DAILY PARMINDER Administration Morphine Sulfate 2 mg 02/10/17 14:51 02/12/17 10:59 Morphine Sulfate IVPUSH 2 mg Q4H PRN Administration PAIN Nicotine 14 mg 02/10/17 14:15 02/12/17 09:53 Nicoderm Patch - TD 14 mg DAILY PARMINDER Administration Ranolazine 500 mg 02/10/17 11:45 02/12/17 09:52 Ranexa - PO 500 mg BID PARMINDER Administration Impression 1. RADHA improved 2. CKD 3. multilobular pleural effusion 4. CAD s/p stents 5. HTN 6. hyperlipidemia 7. anemia 8. angina 9. PNA 10. proteinuria 11. hypomagnesemia 12. Hep C Plan continue current management avoid nephrotoxins hep c rna unless she has not been treated MV
[2017-02-12] MEDS ORDERED: HEPARIN NA (PORCINE) 5,000 UNITS/ML 1ML VIAL IVPUSH PRN ×2 (16:46)
--- NOTE | 2017-02-12 16:58 | PN ---
Progress Note, Physician Chief Complaint: Pt alert; feels much better (no more cough; breathing easier; no leg swelling). History of Present Illness: The patient is a 76 year old black female with a significant PMH of HTN, hyperlipidemia, diabetes COPD (current smoker), CAD (s/p NSTEMI 07/2016; s/p stents in ?2015, with cor. angiogram 08/2016 not requiring new stents or other PCI; on Plavix & Aspirin), diastolic CHF (with severe apical hypokinesis on 2015 ECHO),chronic renal insufficiency, periods of disorientation, and hepatitis C, who presents to the emergency department via EMS with multiple complaints including chest pain and cough beginning approximately 1 week ago. The patient describes the chest pain as localized on the right side and aggravated by movement and coughing. The patient's grandson notes that the patient also has lower back pain that radiates to her legs. The patient's grandson reports that that the patient received an MRI 2 days ago. They report receiving a call this morning for the MRI results and reports that he was told the patient has pleural effusion, prompting their visit. The patient's grandson also notes that the patient has not been fully herself within the past week. The patient notes that she told EMS she wanted to be transported to [place] but notes that EMS wanted to bring her to the closest hospital ([facility]) because the patient had chest pain. The patient also notes she was admitted back in November at [facility] for kidney failure. The patient denies shortness of breath, headache and dizziness. Denies fever, chills, nausea, vomit, diarrhea and constipation. Denies dysuria, frequency, urgency and hematuria. Allergies: NKA Past surgical history: Cardiac stents: proximal and mid LAD, mid RCA, mid Cx ( dates of stents uncertain; most recent coronary angiogram 08/27/2016 was done at [facility] for NSTEMI with TNI >10; stents were patent, and no new PCIs were required. Social history: Current some day smoker. No reported alcohol or drug use. PCP: Dr. Thomas Aguayo [ ] in [place]. - Current Medication List Current Medications: Active Medications Acetaminophen (Tylenol -) 650 mg PO Q6H PRN PRN Reason: FEVER OR PAIN Last Admin: 02/10/17 00:00 Dose: 650 mg Albuterol/Ipratropium (Duoneb -) 1 amp NEB Q4H PRN PRN Reason: SHORTNESS OF BREATH Amlodipine Besylate (Norvasc -) 2.5 mg PO DAILY [facility] Last Admin: 02/12/17 09:52 Dose: 2.5 mg Arformoterol Tartrate (Brovana (Restricted To Pulmonology/Resp) -) 1 amp NEB BID [facility] Last Admin: 02/12/17 11:10 Dose: 1 amp Atorvastatin Calcium (Lipitor -) 10 mg PO HS [facility] Last Admin: 02/11/17 21:39 Dose: 10 mg Heparin Sodium (Porcine) (Heparin -) 1,000 unit IVPUSH PRN PRN PRN Reason: Heparin Ampicillin Sodium/Sulbactam (Sodium 3 gm/ Sodium Chloride) 100 mls @ 200 mls/ hr IVPB BID [facility] Last Admin: 02/12/17 09:52 Dose: 200 mls/hr HEPARIN SOD,PORK IN 0.45% NACL (Heparin-1/2ns 25,000 Units/500) 25,000 units in 500 mls @ 20 mls/hr IVPB TITR PARMINDER; 1,000 UNITS/HR PRN Reason: Protocol Isosorbide Mononitrate (Imdur -) 120 mg PO DAILY [facility] Last Admin: 02/12/17 09:53 Dose: 120 mg Methylprednisolone Sodium Succinate (Solu-Medrol -) 40 mg IVPUSH DAILY [facility] Last Admin: 02/12/17 09:53 Dose: 40 mg Metoprolol Succinate (Toprol Xl -) 100 mg PO DAILY [facility] Last Admin: 02/12/17 09:54 Dose: 100 mg Morphine Sulfate (Morphine Sulfate) 2 mg IVPUSH Q4H PRN PRN Reason: PAIN Last Admin: 02/12/17 10:59 Dose: 2 mg Nicotine (Nicoderm Patch -) 14 mg TD DAILY [facility] Last Admin: 02/12/17 09:53 Dose: 14 mg Ranolazine (Ranexa -) 500 mg PO BID [facility] Last Admin: 02/12/17 09:52 Dose: 500 mg - Objective Vital Signs: Vital Signs Temperature 98.2 F 02/12/17 14:24 Pulse Rate 76 02/12/17 14:24 Respiratory Rate 18 02/12/17 14:24 Blood Pressure 142/73 02/12/17 14:24 O2 Sat by Pulse Oximetry (%) 97 02/12/17 09:00 Constitutional: Yes: Calm Eyes: Yes: WNL HENT: Yes: WNL Neck: Yes: WNL Cardiovascular: Yes: S1, S2, S4 Respiratory: Yes: Diminished Gastrointestinal: Yes: Soft ...Rectal Exam: Yes: Deferred Genitourinary: No: Anuria Breast(s): Yes: WNL Musculoskeletal: Yes: Muscle Weakness Extremities: Yes: Cool Edema: Yes Edema: LLE: Trace, RLE: Trace Peripheral Pulses WNL: Yes Integumentary: Yes: WNL Neurological: Yes: WNL Psychiatric: Yes: WNL Labs: CBC, BMP 02/12/17 06:20 02/12/17 06:20 INR, PTT INR 1.32 (0.82-1.09) H 02/09/17 11:46 Problem List - Problems (1) COPD (chronic obstructive pulmonary disease) Assessment/Plan: 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 On nicotine patch to help stop smoking. May require right thoracentesis. Code(s): J44.9 - CHRONIC OBSTRUCTIVE PULMONARY DISEASE, UNSPECIFIED (2) Coronary artery disease Assessment/Plan: no further PCIs were required when last coronary angiogram was performed earlier this year. Code(s): I25.10 - ATHSCL HEART DISEASE OF [place] CORONARY ARTERY W/O ANG PCTRS (3) Empyema of lung Assessment/Plan: on antibiotics. For possible thoracentesis. Code(s): J86.9 - PYOTHORAX WITHOUT FISTULA (4) Renal insufficiency Code(s): N28.9 - DISORDER OF KIDNEY AND URETER, UNSPECIFIED (5) Smoker Code(s): F17.200 - NICOTINE DEPENDENCE, UNSPECIFIED, UNCOMPLICATED (6) CAD (coronary artery disease) Assessment/Plan: On statin. Smoking cessation is crucial; now on nicotine patch. ECHO: normal LVEF; no regional wall motion abnormalities mentioned. Code(s): I25.10 - ATHSCL HEART DISEASE OF [place] CORONARY ARTERY W/O ANG PCTRS (7) HTN (hypertension) Assessment/Plan: Serial BP checks. On amlodipine and metoprolol. Code(s): I10 - ESSENTIAL (PRIMARY) HYPERTENSION (8) Hyperglycemia Code(s): R73.9 - HYPERGLYCEMIA, UNSPECIFIED
--- NOTE | 2017-02-12 16:58 | PN ---
Progress Note, Physician Chief Complaint: Pt alert; no chest pain or palpitations. History of Present Illness: The patient is a 76 year old black female with a significant PMH of HTN, hyperlipidemia, diabetes COPD (current smoker), CAD (s/p NSTEMI 07/2016; s/p stents in ?2015, with cor. angiogram 08/2016 not requiring new stents or other PCI; on Plavix & Aspirin), diastolic CHF (with severe apical hypokinesis on 2015 ECHO),chronic renal insufficiency, periods of disorientation, and hepatitis C, who presents to the emergency department via EMS with multiple complaints including chest pain and cough beginning approximately 1 week ago. The patient describes the chest pain as localized on the right side and aggravated by movement and coughing. The patient's grandson notes that the patient also has lower back pain that radiates to her legs. The patient's grandson reports that that the patient received an MRI 2 days ago. They report receiving a call this morning for the MRI results and reports that he was told the patient has pleural effusion, prompting their visit. The patient's grandson also notes that the patient has not been fully herself within the past week. The patient notes that she told EMS she wanted to be transported to [place] but notes that EMS wanted to bring her to the closest hospital ([facility]) because the patient had chest pain. The patient also notes she was admitted back in November at [facility] for kidney failure. The patient denies shortness of breath, headache and dizziness. Denies fever, chills, nausea, vomit, diarrhea and constipation. Denies dysuria, frequency, urgency and hematuria. Allergies: NKA Past surgical history: Cardiac stents: proximal and mid LAD, mid RCA, mid Cx ( dates of stents uncertain; when most recent coronary angiogram 08/27/2016 was done at [facility] for NSTEMI with TNI >10, stents were patent, and no new PCIs were required. Social history: Current some day smoker. No reported alcohol or drug use. PCP: Dr. Thomas Aguayo [ ] in [place]. - Current Medication List Current Medications: Active Medications Acetaminophen (Tylenol -) 650 mg PO Q6H PRN PRN Reason: FEVER OR PAIN Last Admin: 02/10/17 00:00 Dose: 650 mg Albuterol/Ipratropium (Duoneb -) 1 amp NEB Q4H PRN PRN Reason: SHORTNESS OF BREATH Amlodipine Besylate (Norvasc -) 2.5 mg PO DAILY [facility] Last Admin: 02/12/17 09:52 Dose: 2.5 mg Arformoterol Tartrate (Brovana (Restricted To Pulmonology/Resp) -) 1 amp NEB BID [facility] Last Admin: 02/12/17 11:10 Dose: 1 amp Atorvastatin Calcium (Lipitor -) 10 mg PO HS [facility] Last Admin: 02/11/17 21:39 Dose: 10 mg Heparin Sodium (Porcine) (Heparin -) 1,000 unit IVPUSH PRN PRN PRN Reason: Heparin Ampicillin Sodium/Sulbactam (Sodium 3 gm/ Sodium Chloride) 100 mls @ 200 mls/ hr IVPB BID [facility] Last Admin: 02/12/17 09:52 Dose: 200 mls/hr HEPARIN SOD,PORK IN 0.45% NACL (Heparin-1/2ns 25,000 Units/500) 25,000 units in 500 mls @ 20 mls/hr IVPB TITR PARMINDER; 1,000 UNITS/HR PRN Reason: Protocol Isosorbide Mononitrate (Imdur -) 120 mg PO DAILY [facility] Last Admin: 02/12/17 09:53 Dose: 120 mg Methylprednisolone Sodium Succinate (Solu-Medrol -) 40 mg IVPUSH DAILY [facility] Last Admin: 02/12/17 09:53 Dose: 40 mg Metoprolol Succinate (Toprol Xl -) 100 mg PO DAILY [facility] Last Admin: 02/12/17 09:54 Dose: 100 mg Morphine Sulfate (Morphine Sulfate) 2 mg IVPUSH Q4H PRN PRN Reason: PAIN Last Admin: 02/12/17 10:59 Dose: 2 mg Nicotine (Nicoderm Patch -) 14 mg TD DAILY [facility] Last Admin: 02/12/17 09:53 Dose: 14 mg Ranolazine (Ranexa -) 500 mg PO BID [facility] Last Admin: 02/12/17 09:52 Dose: 500 mg - Objective Vital Signs: Vital Signs Temperature 98.2 F 02/12/17 14:24 Pulse Rate 76 02/12/17 14:24 Respiratory Rate 18 02/12/17 14:24 Blood Pressure 142/73 02/12/17 14:24 O2 Sat by Pulse Oximetry (%) 97 02/12/17 09:00 Constitutional: Yes: Calm Eyes: Yes: WNL HENT: Yes: WNL Neck: Yes: WNL Cardiovascular: Yes: Regular Rate and Rhythm Respiratory: Yes: Regular Gastrointestinal: Yes: Soft ...Rectal Exam: Yes: Deferred Genitourinary: No: Anuria Breast(s): Yes: WNL Musculoskeletal: Yes: Muscle Weakness Extremities: Yes: Cool Edema: Yes Edema: LLE: Trace (feet), RLE: Trace Peripheral Pulses WNL: Yes Integumentary: Yes: WNL Neurological: Yes: Alert Psychiatric: Yes: Other Labs: CBC, BMP 02/12/17 06:20 02/12/17 06:20 INR, PTT INR 1.32 (0.82-1.09) H 02/09/17 11:46 Abnormal Lab Results 02/12/17 02/12/17 06:20 06:20 WBC 16.5 H RBC 2.98 L Hgb 8.9 L Hct 27.6 L Plt Count 451 H D Neutrophils % 86.0 H Chloride 112 H Carbon Dioxide 18 L BUN 40 H Creatinine 2.0 H Random Glucose 122 H Calcium 7.6 L Problem List - Problems (1) COPD (chronic obstructive pulmonary disease) Assessment/Plan: On nicotine patch to help stop smoking. Pulmonary rehabilitation as outpatient will be of benefit. Code(s): J44.9 - CHRONIC OBSTRUCTIVE PULMONARY DISEASE, UNSPECIFIED (2) Coronary artery disease Assessment/Plan: no further PCIs were required when last coronary angiogram was performed earlier this year. Continue statin. On nicotine patch. On Ranexa for angina. Code(s): I25.10 - ATHSCL HEART DISEASE OF [place] CORONARY ARTERY W/O ANG PCTRS (3) Empyema of lung Assessment/Plan: on antibiotics For possible thoracentesis. Code(s): J86.9 - PYOTHORAX WITHOUT FISTULA (4) Renal insufficiency Code(s): N28.9 - DISORDER OF KIDNEY AND URETER, UNSPECIFIED (5) Smoker Code(s): F17.200 - NICOTINE DEPENDENCE, UNSPECIFIED, UNCOMPLICATED (6) HTN (hypertension) Assessment/Plan: Serial BP checks; on amlodipine and metoprolol. Code(s): I10 - ESSENTIAL (PRIMARY) HYPERTENSION (7) Hyperglycemia Assessment/Plan: HGBA1C 5.0. Code(s): R73.9 - HYPERGLYCEMIA, UNSPECIFIED
[2017-02-12] MEDS ORDERED: HEPARIN SOD,PORK IN 0.45% NACL 25,000 UNITS/500 ML INFUS.BAG IVPB SCH (17:00)
[2017-02-12] MEDS: ATORVASTATIN CA 10 MG TABLET (FP) PO SCH (21:34)
[2017-02-12] MEDS ORDERED: diphenhydrAMINE HCL 25 MG CAPSULE (FP) PO ONE (23:04)
[2017-02-13] MEDS: HEPARIN NA (PORCINE) 5,000 UNITS/ML 1ML VIAL SQ SCH ×3 (05:14→22:12)
[2017-02-13 08:09] LABS: BASO % 0.2 % (0-2.0); HEMATOCRIT 24.9 % (32.4-45.2); LYMPH % 9.4 % (8-40); MEAN CELL VOLUME 93.7 fl (80-96); MONO % 5.5 % (3.8-10.2); NEUT % 84.9 % (42.8-82.8); PLATELET COUNT 399 K/MM3 (134-434); RBC 2.66 M/mm3 (3.60-5.2); WHITE BLOOD COUNT 17.5 K/mm3 (4.0-10.0)
[2017-02-13 08:34] LABS: ANION GAP 8 (8-16); BLOOD UREA NITROGEN 39 mg/dL (7-18); CALCIUM 7.8 mg/dL (8.5-10.1); CHLORIDE 111 mmol/L (98-107); CO2 21 mmol/L (21-32); CREATININE 1.9 mg/dL (0.55-1.02); GLUCOSE,RANDOM 95 mg/dL (74-106); POTASSIUM 4.9 mmol/L (3.5-5.1); SODIUM 140 mmol/L (136-145)
[2017-02-13] MEDS ORDERED: PT OWN MED DRAWER 7, Y5N ONE ×3 (09:48→22:07)
[2017-02-13] MEDS: methylPREDNISolone NA SUCC 40 MG/1 ML VIAL IVPUSH SCH (09:53)
[2017-02-13] MEDS: RANOLAZINE E.R. 500 MG TABLET (FP) PO SCH ×2 (09:54→22:12)
[2017-02-13] MEDS: amLODIPine BESYLATE 2.5 MG TABLET (FP) PO SCH (09:54)
[2017-02-13] MEDS: ISOSORBIDE MONONITRATE 60 MG TAB.SR.24H (FP) PO SCH (09:54)
[2017-02-13] MEDS: METOPROLOL SUCCINATE 100 MG TAB.SR.24H (FP) PO SCH (09:54)
[2017-02-13] MEDS: AMPICILLIN NA/SULBACTAM NA 3 GM in SODIUM CHLORIDE 100 ML IVPB SCH ×2 (09:57→22:13)
[2017-02-13] MEDS: NICOTINE 14 MG/24 HOURS TOPICAL PATCH TD SCH (09:58)
--- NOTE | 2017-02-13 10:45 | PN ---
Progress Note, Physician History of Present Illness: pulmonary alert,feeling better,less cp,less dyspneic - Current Medication List Current Medications: Active Medications Acetaminophen (Tylenol -) 650 mg PO Q6H PRN PRN Reason: FEVER OR PAIN Last Admin: 02/10/17 00:00 Dose: 650 mg Albuterol/Ipratropium (Duoneb -) 1 amp NEB Q4H PRN PRN Reason: SHORTNESS OF BREATH Amlodipine Besylate (Norvasc -) 2.5 mg PO DAILY [facility] Last Admin: 02/13/17 09:54 Dose: 2.5 mg Arformoterol Tartrate (Brovana (Restricted To Pulmonology/Resp) -) 1 amp NEB BID [facility] Last Admin: 02/12/17 22:27 Dose: 1 amp Atorvastatin Calcium (Lipitor -) 10 mg PO HS [facility] Last Admin: 02/12/17 21:34 Dose: 10 mg Heparin Sodium (Porcine) (Heparin -) 1,000 unit IVPUSH PRN PRN PRN Reason: Heparin Heparin Sodium (Porcine) (Heparin -) 5,000 unit SQ TID [facility] Last Admin: 02/13/17 05:14 Dose: 5,000 unit Ampicillin Sodium/Sulbactam (Sodium 3 gm/ Sodium Chloride) 100 mls @ 200 mls/ hr IVPB BID [facility] Last Admin: 02/13/17 09:57 Dose: 200 mls/hr Isosorbide Mononitrate (Imdur -) 120 mg PO DAILY [facility] Last Admin: 02/13/17 09:54 Dose: 120 mg Methylprednisolone Sodium Succinate (Solu-Medrol -) 40 mg IVPUSH DAILY [facility] Last Admin: 02/13/17 09:53 Dose: 40 mg Metoprolol Succinate (Toprol Xl -) 100 mg PO DAILY [facility] Last Admin: 02/13/17 09:54 Dose: 100 mg Morphine Sulfate (Morphine Sulfate) 2 mg IVPUSH Q4H PRN PRN Reason: PAIN Last Admin: 02/12/17 21:34 Dose: 2 mg Nicotine (Nicoderm Patch -) 14 mg TD DAILY [facility] Last Admin: 02/13/17 09:58 Dose: 14 mg Ranolazine (Ranexa -) 500 mg PO BID [facility] Last Admin: 02/13/17 09:54 Dose: 500 mg - Objective Vital Signs: Vital Signs Temperature 97.8 F 02/13/17 06:00 Pulse Rate 77 02/13/17 06:00 Respiratory Rate 18 02/13/17 06:00 Blood Pressure 155/83 02/13/17 06:00 O2 Sat by Pulse Oximetry (%) 97 02/12/17 21:00 Constitutional: Yes: Well Nourished, Calm Eyes: Yes: WNL HENT: Yes: WNL Neck: Yes: WNL Cardiovascular: Yes: Regular Rate and Rhythm, S1, S2 Respiratory: Yes: Diminished Gastrointestinal: Yes: Normal Bowel Sounds, Soft Extremities: Yes: WNL Edema: No Labs: CBC, BMP 02/13/17 06:15 02/13/17 06:15 INR, PTT INR 1.32 (0.82-1.09) H 02/09/17 11:46 Assessment/Plan Problem List - Problems (1) COPD (chronic obstructive pulmonary disease) Code(s): J44.9 - CHRONIC OBSTRUCTIVE PULMONARY DISEASE, UNSPECIFIED (2) Smoker Code(s): F17.200 - NICOTINE DEPENDENCE, UNSPECIFIED, UNCOMPLICATED (3) Empyema of lung Code(s): J86.9 - PYOTHORAX WITHOUT FISTULA (4) Pneumonia Code(s): J18.9 - PNEUMONIA, UNSPECIFIED ORGANISM (5) Pleural effusion Code(s): J90 - PLEURAL EFFUSION, NOT ELSEWHERE CLASSIFIED (6) Renal insufficiency Code(s): N28.9 - DISORDER OF KIDNEY AND URETER, UNSPECIFIED (7) CAD (coronary artery disease) Code(s): I25.10 - ATHSCL HEART DISEASE OF [place] CORONARY ARTERY W/O ANG PCTRS (8) Chest pain Code(s): R07.9 - CHEST PAIN, UNSPECIFIED (9) HTN (hypertension) Code(s): I10 - ESSENTIAL (PRIMARY) HYPERTENSION (10) Hepatitis C Code(s): B19.20 - UNSPECIFIED VIRAL HEPATITIS C WITHOUT HEPATIC COMA Assessment/Plan Antibiotics as per ID Chest tube drainage Medrol BD TX O2 to maintain saturation Smoking cessation discussed Outpatient PFTs once stable. DR ALAN
--- NOTE | 2017-02-13 11:33 | PN ---
Progress Note (short form) - Note Progress Note: RENAL Pt is awake and alert comfortable says she feels better Last Vital Signs Temp Pulse Resp BP Pulse Ox 97.8 F 77 18 155/83 97 02/13/17 06:00 02/13/17 06:00 02/13/17 06:00 02/13/17 06:00 02/12/17 21:00 lungs clear cvs s1s2 rr abd soft ext no edema neuro a+ox3 CBC, BMP 02/13/17 06:15 02/13/17 06:15 Current Medications Generic Name Dose Route Start Last Admin Trade Name Freq PRN Reason Stop Dose Admin Acetaminophen 650 mg 02/09/17 23:35 02/10/17 00:00 Tylenol - PO 650 mg Q6H PRN Administration FEVER OR PAIN Albuterol/Ipratropium 1 amp 02/10/17 03:34 Duoneb - NEB Q4H PRN SHORTNESS OF BREATH Amlodipine Besylate 2.5 mg 02/10/17 11:45 02/13/17 09:54 Norvasc - PO 2.5 mg DAILY PARMINDER Administration Arformoterol Tartrate 1 amp 02/10/17 13:30 02/12/17 22:27 Brovana (Restricted To Pulmonology/Resp) - NEB 1 amp BID PARMINDER Administration Atorvastatin Calcium 10 mg 02/10/17 22:00 02/12/17 21:34 Lipitor - PO 10 mg HS PARMINDER Administration Heparin Sodium (Porcine) 1,000 unit 02/12/17 16:46 Heparin - IVPUSH PRN PRN Heparin Heparin Sodium (Porcine) 5,000 unit 02/12/17 22:00 02/13/17 05:14 Heparin - SQ 5,000 unit TID PARMINDER Administration Ampicillin Sodium/Sulbactam 100 mls @ 200 mls/hr 02/10/17 22:00 02/13/17 09: 57 Sodium 3 gm/ Sodium Chloride IVPB 200 mls/hr BID PARMINDER Administration Isosorbide Mononitrate 120 mg 02/10/17 11:45 02/13/17 09:54 Imdur - PO 120 mg DAILY PARMINDER Administration Methylprednisolone Sodium Succinate 40 mg 02/10/17 14:15 02/13/17 09:53 Solu-Medrol - IVPUSH 40 mg DAILY PARMINDER Administration Metoprolol Succinate 100 mg 02/10/17 11:45 02/13/17 09:54 Toprol Xl - PO 100 mg DAILY PARM[facility]ER Administration Morphine Sulfate 2 mg 02/10/17 14:51 02/12/17 21:34 Morphine Sulfate IVPUSH 2 mg Q4H PRN Administration PAIN Nicotine 14 mg 02/10/17 14:15 02/13/17 09:58 Nicoderm Patch - TD 14 mg DAILY PARMINDER Administration Ranolazine 500 mg 02/10/17 11:45 02/13/17 09:54 Ranexa - PO 500 mg BID PARMINDER Administration Impression 1. RADHA improved 2. CKD 3. multilobular pleural effusion 4. CAD s/p stents 5. HTN 6. hyperlipidemia 7. anemia 8. angina 9. PNA 10. proteinuria 11. hypomagnesemia 12. Hep C Plan continue current management avoid nephrotoxins says she was treated for hep c, would check titer MV
--- NOTE | 2017-02-13 11:48 | PN ---
Progress Note, Physician Chief Complaint: Pt alert; feels much better (no more cough; breathing easier; no leg swelling). History of Present Illness: The patient is a 76 year old black female with a significant PMH of HTN, hyperlipidemia, diabetes COPD (current smoker), CAD (s/p NSTEMI 07/2016; s/p stents in ?2015, with cor. angiogram 08/2016 not requiring new stents or other PCI; on Plavix & Aspirin), diastolic CHF (with severe apical hypokinesis on 2015 ECHO),chronic renal insufficiency, periods of disorientation, and hepatitis C, who presents to the emergency department via EMS with multiple complaints including chest pain and cough beginning approximately 1 week ago. The patient describes the chest pain as localized on the right side and aggravated by movement and coughing. The patient's grandson notes that the patient also has lower back pain that radiates to her legs. The patient's grandson reports that that the patient received an MRI 2 days ago. They report receiving a call this morning for the MRI results and reports that he was told the patient has pleural effusion, prompting their visit. The patient's grandson also notes that the patient has not been fully herself within the past week. The patient notes that she told EMS she wanted to be transported to [place] but notes that EMS wanted to bring her to the closest hospital ([facility]) because the patient had chest pain. The patient also notes she was admitted back in November at [facility] for kidney failure. The patient denies shortness of breath, headache and dizziness. Denies fever, chills, nausea, vomit, diarrhea and constipation. Denies dysuria, frequency, urgency and hematuria. Allergies: NKA Past surgical history: Cardiac stents: proximal and mid LAD, mid RCA, mid Cx ( dates of stents uncertain; when most recent coronary angiogram 08/27/2016 was done at [facility] for NSTEMI with TNI >10, stents were patent, and no new PCIs were required. Social history: Current some day smoker. No reported alcohol or drug use. PCP: Dr. Thomas Aguayo [ ] in [place]. - Current Medication List Current Medications: Active Medications Acetaminophen (Tylenol -) 650 mg PO Q6H PRN PRN Reason: FEVER OR PAIN Last Admin: 02/10/17 00:00 Dose: 650 mg Albuterol/Ipratropium (Duoneb -) 1 amp NEB Q4H PRN PRN Reason: SHORTNESS OF BREATH Amlodipine Besylate (Norvasc -) 2.5 mg PO DAILY [facility] Last Admin: 02/13/17 09:54 Dose: 2.5 mg Arformoterol Tartrate (Brovana (Restricted To Pulmonology/Resp) -) 1 amp NEB BID [facility] Last Admin: 02/12/17 22:27 Dose: 1 amp Atorvastatin Calcium (Lipitor -) 10 mg PO HS [facility] Last Admin: 02/12/17 21:34 Dose: 10 mg Heparin Sodium (Porcine) (Heparin -) 1,000 unit IVPUSH PRN PRN PRN Reason: Heparin Heparin Sodium (Porcine) (Heparin -) 5,000 unit SQ TID [facility] Last Admin: 02/13/17 05:14 Dose: 5,000 unit Ampicillin Sodium/Sulbactam (Sodium 3 gm/ Sodium Chloride) 100 mls @ 200 mls/ hr IVPB BID [facility] Last Admin: 02/13/17 09:57 Dose: 200 mls/hr Isosorbide Mononitrate (Imdur -) 120 mg PO DAILY [facility] Last Admin: 02/13/17 09:54 Dose: 120 mg Methylprednisolone Sodium Succinate (Solu-Medrol -) 40 mg IVPUSH DAILY [facility] Last Admin: 02/13/17 09:53 Dose: 40 mg Metoprolol Succinate (Toprol Xl -) 100 mg PO DAILY [facility] Last Admin: 02/13/17 09:54 Dose: 100 mg Morphine Sulfate (Morphine Sulfate) 2 mg IVPUSH Q4H PRN PRN Reason: PAIN Last Admin: 02/12/17 21:34 Dose: 2 mg Nicotine (Nicoderm Patch -) 14 mg TD DAILY [facility] Last Admin: 02/13/17 09:58 Dose: 14 mg Ranolazine (Ranexa -) 500 mg PO BID [facility] Last Admin: 02/13/17 09:54 Dose: 500 mg - Objective Vital Signs: Vital Signs Temperature 97.8 F 02/13/17 06:00 Pulse Rate 77 02/13/17 06:00 Respiratory Rate 18 02/13/17 06:00 Blood Pressure 155/83 02/13/17 06:00 O2 Sat by Pulse Oximetry (%) 97 02/12/17 21:00 Constitutional: Yes: No Distress Eyes: Yes: WNL HENT: Yes: WNL Neck: Yes: WNL Cardiovascular: Yes: Regular Rate and Rhythm Respiratory: Yes: Diminished Gastrointestinal: Yes: Soft ...Rectal Exam: Yes: Deferred Genitourinary: No: Anuria Breast(s): Yes: WNL Musculoskeletal: Yes: Muscle Weakness Extremities: Yes: WNL Edema: No Peripheral Pulses WNL: Yes Integumentary: Yes: WNL Neurological: Yes: WNL Psychiatric: Yes: WNL Labs: CBC, BMP 02/13/17 06:15 02/13/17 06:15 INR, PTT INR 1.32 (0.82-1.09) H 02/09/17 11:46 Abnormal Lab Results 02/14/17 02/15/17 02/15/17 10:40 05:35 05:35 WBC 19.4 H RBC 3.03 L Hgb 9.0 L Hct 28.2 L MCHC 31.9 L Plt Count 459 H Chloride 108 H BUN 41 H Creatinine 1.8 H Hepatitis C Antibody >11.0 H Problem List - Problems (1) COPD (chronic obstructive pulmonary disease) Assessment/Plan: On nicotine patch to help stop smoking. Following pleural effusion; may require pleural tap for diagnosis of continuing large right effusion. Pulmonary rehabilitation as outpatient will be of benefit. Code(s): J44.9 - CHRONIC OBSTRUCTIVE PULMONARY DISEASE, UNSPECIFIED (2) Coronary artery disease Assessment/Plan: no further PCIs were required when last coronary angiogram was performed earlier this year. Continue statin. On nicotine patch. On Ranexa for angina. Code(s): I25.10 - ATHSCL HEART DISEASE OF [place] CORONARY ARTERY W/O ANG PCTRS (3) Empyema of lung Assessment/Plan: on antibiotics. For possible thoracentesis. Code(s): J86.9 - PYOTHORAX WITHOUT FISTULA (4) Renal insufficiency Code(s): N28.9 - DISORDER OF KIDNEY AND URETER, UNSPECIFIED (5) Smoker Code(s): F17.200 - NICOTINE DEPENDENCE, UNSPECIFIED, UNCOMPLICATED (6) HTN (hypertension) Assessment/Plan: Serial BP checks; on amlodipine and metoprolol. Code(s): I10 - ESSENTIAL (PRIMARY) HYPERTENSION
[2017-02-13] MEDS: ARFORMOTEROL TARTRATE 15 MCG/2 ML VIAL NEB SCH ×2 (13:00→22:02)
--- NOTE | 2017-02-13 14:00 | PN ---
Physical Exam: SUBJECTIVE: Patient seen and examined. She is feeling better today, appears calm , conversational. Events: - given benadryl for itching OBJECTIVE: Vital Signs Period Temp Pulse Resp BP Sys/Barlow Pulse Ox Last 24 Hr 97.5 F-99.3 F 76-98 18-19 139-160/73-94 97-98 PE Neuro: alert, awake, cn 2-12intact Pulm: diminished r base w crackles, + NC CV: s1 s2 rrr Abd: s nt nd + bs Ext: warm, no edema Laboratory Results - last 24 hr 02/12/17 02/13/17 02/13/17 18:41 06:15 06:15 WBC 17.5 H RBC 2.66 L Hgb 8.0 L D Hct 24.9 L MCV 93.7 MCH 30.0 MCHC 32.0 RDW 15.0 Plt Count 399 MPV 8.0 Neutrophils % 84.9 H Lymphocytes % 9.4 Monocytes % 5.5 Eosinophils % 0.0 Basophils % 0.2 D Sodium 140 Potassium 4.9 Chloride 111 H Carbon Dioxide 21 Anion Gap 8 BUN 39 H Creatinine 1.9 H Random Glucose 95 D Hemoglobin A1c % 5.0 D Calcium 7.8 L Active Medications Generic Name Dose Route Start Last Admin Trade Name Freq PRN Reason Stop Dose Admin Acetaminophen 650 mg 02/09/17 23:35 02/10/17 00:00 Tylenol - PO 650 mg Q6H PRN Administration FEVER OR PAIN Albuterol/Ipratropium 1 amp 02/10/17 03:34 Duoneb - NEB Q4H PRN SHORTNESS OF BREATH Amlodipine Besylate 2.5 mg 02/10/17 11:45 02/13/17 09:54 Norvasc - PO 2.5 mg DAILY PARM[facility]ER Administration Arformoterol Tartrate 1 amp 02/10/17 13:30 02/12/17 22:27 Brovana (Restricted To Pulmonology/Resp) - NEB 1 amp BID [facility]ER Administration Atorvastatin Calcium 10 mg 02/10/17 22:00 02/12/17 21:34 Lipitor - PO 10 mg HS PARMINDER Administration Heparin Sodium (Porcine) 1,000 unit 02/12/17 16:46 Heparin - IVPUSH PRN PRN Heparin Heparin Sodium (Porcine) 5,000 unit 02/12/17 22:00 02/13/17 13:26 Heparin - SQ 5,000 unit TID [facility]ER Administration Ampicillin Sodium/Sulbactam 100 mls @ 200 mls/hr 02/10/17 22:00 02/13/17 09: 57 Sodium 3 gm/ Sodium Chloride IVPB 200 mls/hr BID [facility]ER Administration Isosorbide Mononitrate 120 mg 02/10/17 11:45 02/13/17 09:54 Imdur - PO 120 mg DAILY [facility]ER Administration Methylprednisolone Sodium Succinate 40 mg 02/10/17 14:15 02/13/17 09:53 Solu-Medrol - IVPUSH 40 mg DAILY [facility]ER Administration Metoprolol Succinate 100 mg 02/10/17 11:45 02/13/17 09:54 Toprol Xl - PO 100 mg DAILY [facility]ER Administration Morphine Sulfate 2 mg 02/10/17 14:51 02/12/17 21:34 Morphine Sulfate IVPUSH 2 mg Q4H PRN Administration PAIN Nicotine 14 mg 02/10/17 14:15 02/13/17 09:58 Nicoderm Patch - TD 14 mg DAILY [facility]ER Administration Ranolazine 500 mg 02/10/17 11:45 02/13/17 09:54 Ranexa - PO 500 mg BID PARM[facility]ER Administration Imaging: - ECHO lvsf nml, rvsf nml, trace tr Assessment: 76 year old female with a PMHx, recent CAD cath (07/2016), [place], HTN, HLD, , Hep C, COPD current smoker, and h/o GI bleed admitted after outside MRI shows large right pleural effusion. Plan: 1. Right Multiloculated pleural effusion / probable empyema - Thoracentesis Tuesday - No bedside chest tube at this time w/ loculations, ? TPA/dornase if empyema, VATS only for failure of drainage - Hold ASA/plavix - Continue solumedrol 40mg day (3) - Brovana BIDS 2. Superimposed Pneumonia/empyema - Leukocytosis likely steroid induced - Continue unyasn per ID 3. CAD s/p recent cath with stents, elevated trops - Trops downtrended, likely demand d/t above - Per cath report, stents no new PCI in 08/2016 - Renexa 500mg BID - Toprol xl 100mg - Imdur 120mg daily 4. Chest pain - Due to above, now resolved 5. HTN - Toprol xl 100mg - Imdur 120mg daily - Amlodipine 2.5mg daily 6. HLD - On Statin 7. RADHA on CKD - FeNa indicates pre renal - Cr improving 8. Diastolic HF, acute on chronic - Amlodipine 2.5mg 9. Hep C - Was treated, obtain titer 10. Hypomagnesemia - Resolved 11. DVT ppx - Heparin sq q8 Visit type - Emergency Visit Emergency Visit: Yes ED Registration Date: 02/09/17 Care time: The patient presented to the Emergency Department on the above date and was hospitalized for further evaluation of their emergent condition. - New Patient This patient is new to me today: No - Critical Care Critical Care patient: No
[2017-02-13] MEDS ORDERED: ARFORMOTEROL TARTRATE 15 MCG/2 ML VIAL NEB ONE (15:41)
[2017-02-13] MEDS: POLYETHYLENE GLYCOL 3350 119 GM BTL PO SCH (17:11)
[2017-02-13] MEDS: DOCUSATE SODIUM 100 MG CAPSULE (FP) PO SCH ×2 (17:11→22:12)
[2017-02-13] MEDS: ATORVASTATIN CA 10 MG TABLET (FP) PO SCH (22:12)
[2017-02-13] MEDS: SENNOSIDES 8.6MG TABLET (FP) PO SCH (22:12)
[2017-02-13] MEDS: morphine SULFATE 4 MG/ML VIAL IVPUSH PRN (22:12)
[2017-02-14] MEDS: HEPARIN NA (PORCINE) 5,000 UNITS/ML 1ML VIAL SQ SCH ×2 (05:50→14:05)
[2017-02-14 08:47] LABS: HEMOGLOBIN 8.6 GM/dL (10.7-15.3); MCH 29.8 pg (25.7-33.7); MEAN CELL VOLUME 93.2 fl (80-96); MEAN PLT VOLUME 8.1 fl (7.5-11.1); PLATELET COUNT 456 K/MM3 (134-434); RBC 2.89 M/mm3 (3.60-5.2); WHITE BLOOD COUNT 18.3 K/mm3 (4.0-10.0)
[2017-02-14] MEDS: AMPICILLIN NA/SULBACTAM NA 3 GM in SODIUM CHLORIDE 100 ML IVPB SCH ×2 (09:03→21:24)
[2017-02-14] MEDS: methylPREDNISolone NA SUCC 40 MG/1 ML VIAL IVPUSH SCH (09:04)
[2017-02-14] MEDS: DOCUSATE SODIUM 100 MG CAPSULE (FP) PO SCH ×2 (09:04→21:28)
[2017-02-14] MEDS: RANOLAZINE E.R. 500 MG TABLET (FP) PO SCH ×2 (09:04→21:24)
[2017-02-14] MEDS: ISOSORBIDE MONONITRATE 60 MG TAB.SR.24H (FP) PO SCH (09:04)
[2017-02-14] MEDS: amLODIPine BESYLATE 5 MG TABLET (FP) PO SCH (09:04)
[2017-02-14] MEDS: METOPROLOL SUCCINATE 100 MG TAB.SR.24H (FP) PO SCH (09:04)
[2017-02-14] MEDS: NICOTINE 14 MG/24 HOURS TOPICAL PATCH TD SCH (09:05)
--- NOTE | 2017-02-14 09:11 | PN ---
Physical Exam: SUBJECTIVE: Patient seen and examined. Ms. Garaz says shes feeling better, she is walking and understands her procedure is tomorrow. OBJECTIVE: Vital Signs Period Temp Pulse Resp BP Sys/Barlow Pulse Ox Last 24 Hr 97.4 F-99.3 F 72-84 18-20 105-169/64-90 97 PE Neuro: alert, awake, cn 2-12intact Pulm: coruse r lobe crackles- improved , + NC CV: s1 s2 rrr no mrg Abd: s nt nd + bs Ext: warm, no edema Laboratory Results - last 24 hr 02/14/17 08:27 WBC 18.3 H RBC 2.89 L Hgb 8.6 L Hct 27.0 L MCV 93.2 MCH 29.8 MCHC 32.0 RDW 15.0 Plt Count 456 H MPV 8.1 Active Medications Generic Name Dose Route Start Last Admin Trade Name Freq PRN Reason Stop Dose Admin Acetaminophen 650 mg 02/09/17 23:35 02/10/17 00:00 Tylenol - PO 650 mg Q6H PRN Administration FEVER OR PAIN Albuterol/Ipratropium 1 amp 02/10/17 03:34 Duoneb - NEB Q4H PRN SHORTNESS OF BREATH Amlodipine Besylate 5 mg 02/13/17 15:29 Norvasc - PO DAILY [facility] Arformoterol Tartrate 1 amp 02/10/17 13:30 02/13/17 22:02 Brovana (Restricted To Pulmonology/Resp) - NEB 1 amp BID [facility] Administration Atorvastatin Calcium 10 mg 02/10/17 22:00 02/13/17 22:12 Lipitor - PO 10 mg HS [facility] Administration Docusate Sodium 100 mg 02/13/17 15:30 02/13/17 22:12 Colace - PO 100 mg BID [facility] Administration Heparin Sodium (Porcine) 5,000 unit 02/12/17 22:00 02/14/17 05:50 Heparin - SQ 5,000 unit TID [facility] Administration Ampicillin Sodium/Sulbactam 100 mls @ 200 mls/hr 02/10/17 22:00 02/13/17 22: 13 Sodium 3 gm/ Sodium Chloride IVPB 200 mls/hr BID [facility] Administration Isosorbide Mononitrate 120 mg 02/10/17 11:45 02/13/17 09:54 Imdur - PO 120 mg DAILY [facility] Administration Methylprednisolone Sodium Succinate 40 mg 02/10/17 14:15 02/13/17 09:53 Solu-Medrol - IVPUSH 40 mg DAILY [facility] Administration Metoprolol Succinate 100 mg 02/10/17 11:45 02/13/17 09:54 Toprol Xl - PO 100 mg DAILY [facility] Administration Morphine Sulfate 2 mg 02/10/17 14:51 02/13/17 22:12 Morphine Sulfate IVPUSH 2 mg Q4H PRN Administration PAIN Nicotine 14 mg 02/10/17 14:15 02/13/17 09:58 Nicoderm Patch - TD 14 mg DAILY [facility] Administration Polyethylene Glycol 17 gm 02/13/17 15:30 02/13/17 17:11 Miralax (For Daily Use) - PO 17 grams DAILY [facility] Administration Ranolazine 500 mg 02/10/17 11:45 02/13/17 22:12 Ranexa - PO 500 mg BID [facility] Administration Senna 1 tab 02/13/17 22:00 02/13/17 22:12 Senna - PO 1 tab HS [facility] Administration Imaging: - ECHO lvsf nml, rvsf nml, trace tr Assessment: 76 year old female with a PMHx, recent CAD cath (07/2016), PA, HTN, HLD, , Hep C, COPD current smoker, and h/o GI bleed admitted after outside MRI shows large right pleural effusion. Plan: 1. Right Multiloculated pleural effusion / probable empyema - Thoracentesis Tomorrow - No bedside chest tube at this time w/ loculations, ? TPA/dornase if empyema, VATS only for failure of drainage - Hold ASA/plavix - Continue solumedrol 40mg day (4) - Brovana BIDS 2. Superimposed Pneumonia/empyema - Leukocytosis likely steroid induced - Continue Unyasn per ID - F/u CXR today 3. CAD s/p recent cath with stents, elevated trops - Trops downtrended, likely demand d/t above - Per cath report, stents no new PCI in 08/2016 - Renexa 500mg BID - Toprol xl 100mg - Imdur 120mg daily 4. Chest pain - Due to above, now resolved 5. HTN - Toprol xl 100mg - Imdur 120mg daily - Amlodipine 2.5mg daily 6. HLD - On Statin 7. RADHA on CKD - Cr stabilized 8. Diastolic HF, acute on chronic - Amlodipine 2.5mg 9. Hep C - Titer ordered 10. Hypomagnesemia - Resolved 11. DVT ppx - Hold Heparin after 1400 Visit type - Emergency Visit Emergency Visit: Yes ED Registration Date: 02/09/17 Care time: The patient presented to the Emergency Department on the above date and was hospitalized for further evaluation of their emergent condition. - New Patient This patient is new to me today: No - Critical Care Critical Care patient: No
[2017-02-14 09:13] LABS: ANION GAP 6 (8-16); BLOOD UREA NITROGEN 40 mg/dL (7-18); CALCIUM 8.5 mg/dL (8.5-10.1); CHLORIDE 111 mmol/L (98-107); CO2 23 mmol/L (21-32); CREATININE 1.9 mg/dL (0.55-1.02); GLUCOSE,RANDOM 82 mg/dL (74-106); POTASSIUM 4.8 mmol/L (3.5-5.1); SODIUM 140 mmol/L (136-145)
--- NOTE | 2017-02-14 11:07 | PN ---
Progress Note, Physician History of Present Illness: pulmonary alert,feeling better,-cp,-sob - Current Medication List Current Medications: Active Medications Acetaminophen (Tylenol -) 650 mg PO Q6H PRN PRN Reason: FEVER OR PAIN Last Admin: 02/10/17 00:00 Dose: 650 mg Albuterol/Ipratropium (Duoneb -) 1 amp NEB Q4H PRN PRN Reason: SHORTNESS OF BREATH Amlodipine Besylate (Norvasc -) 5 mg PO DAILY [facility] Last Admin: 02/14/17 09:04 Dose: 5 mg Arformoterol Tartrate (Brovana (Restricted To Pulmonology/Resp) -) 1 amp NEB BID [facility] Last Admin: 02/13/17 22:02 Dose: 1 amp Atorvastatin Calcium (Lipitor -) 10 mg PO HS [facility] Last Admin: 02/13/17 22:12 Dose: 10 mg Docusate Sodium (Colace -) 100 mg PO BID [facility] Last Admin: 02/14/17 09:04 Dose: 100 mg Heparin Sodium (Porcine) (Heparin -) 5,000 unit SQ TID [facility] Last Admin: 02/14/17 05:50 Dose: 5,000 unit Ampicillin Sodium/Sulbactam (Sodium 3 gm/ Sodium Chloride) 100 mls @ 200 mls/ hr IVPB BID [facility] Last Admin: 02/14/17 09:03 Dose: 200 mls/hr Isosorbide Mononitrate (Imdur -) 120 mg PO DAILY [facility] Last Admin: 02/14/17 09:04 Dose: 120 mg Methylprednisolone Sodium Succinate (Solu-Medrol -) 40 mg IVPUSH DAILY [facility] Last Admin: 02/14/17 09:04 Dose: 40 mg Metoprolol Succinate (Toprol Xl -) 100 mg PO DAILY [facility] Last Admin: 02/14/17 09:04 Dose: 100 mg Nicotine (Nicoderm Patch -) 14 mg TD DAILY [facility] Last Admin: 02/14/17 09:05 Dose: 14 mg Polyethylene Glycol (Miralax (For Daily Use) -) 17 gm PO DAILY [facility] Last Admin: 02/13/17 17:11 Dose: 17 grams Ranolazine (Ranexa -) 500 mg PO BID [facility] Last Admin: 02/14/17 09:04 Dose: 500 mg Senna (Senna -) 1 tab PO HS [facility] Last Admin: 02/13/17 22:12 Dose: 1 tab - Objective Vital Signs: Vital Signs Temperature 97.4 F L 02/14/17 06:00 Pulse Rate 72 02/14/17 06:00 Respiratory Rate 20 02/14/17 06:00 Blood Pressure 105/71 02/14/17 06:00 O2 Sat by Pulse Oximetry (%) 97 02/13/17 21:00 Constitutional: Yes: Well Nourished, Calm Eyes: Yes: WNL HENT: Yes: WNL Neck: Yes: WNL Cardiovascular: Yes: Regular Rate and Rhythm, S1, S2 Respiratory: Yes: Rales (crackles r base) Gastrointestinal: Yes: Normal Bowel Sounds, Soft Extremities: Yes: WNL Edema: No Labs: CBC, BMP 02/14/17 08:27 02/14/17 08:27 INR, PTT INR 1.32 (0.82-1.09) H 02/09/17 11:46 Assessment/Plan Problem List - Problems (1) COPD (chronic obstructive pulmonary disease) Code(s): J44.9 - CHRONIC OBSTRUCTIVE PULMONARY DISEASE, UNSPECIFIED (2) Smoker Code(s): F17.200 - NICOTINE DEPENDENCE, UNSPECIFIED, UNCOMPLICATED (3) Empyema of lung Code(s): J86.9 - PYOTHORAX WITHOUT FISTULA (4) Pneumonia Code(s): J18.9 - PNEUMONIA, UNSPECIFIED ORGANISM (5) Pleural effusion Code(s): J90 - PLEURAL EFFUSION, NOT ELSEWHERE CLASSIFIED (6) Renal insufficiency Code(s): N28.9 - DISORDER OF KIDNEY AND URETER, UNSPECIFIED (7) CAD (coronary artery disease) Code(s): I25.10 - ATHSCL HEART DISEASE OF [place] CORONARY ARTERY W/O ANG PCTRS (8) Chest pain Code(s): R07.9 - CHEST PAIN, UNSPECIFIED (9) HTN (hypertension) Code(s): I10 - ESSENTIAL (PRIMARY) HYPERTENSION (10) Hepatitis C Code(s): B19.20 - UNSPECIFIED VIRAL HEPATITIS C WITHOUT HEPATIC COMA Assessment/Plan Antibiotics as per ID Chest tube drainage Medrol same dose BD TX O2 to maintain saturation Smoking cessation discussed Outpatient PFTs once stable. DR ALAN
[2017-02-14] MEDS: POLYETHYLENE GLYCOL 3350 119 GM BTL PO SCH (11:33)
--- NOTE | 2017-02-14 15:10 | PN ---
Progress Note, Physician History of Present Illness: Pt seen and examined at bedside. She feels that her breathing is improved. She denies dysuria. - Current Medication List Current Medications: Active Medications Acetaminophen (Tylenol -) 650 mg PO Q6H PRN PRN Reason: FEVER OR PAIN Last Admin: 02/10/17 00:00 Dose: 650 mg Albuterol/Ipratropium (Duoneb -) 1 amp NEB Q4H PRN PRN Reason: SHORTNESS OF BREATH Amlodipine Besylate (Norvasc -) 5 mg PO DAILY [facility] Last Admin: 02/14/17 09:04 Dose: 5 mg Arformoterol Tartrate (Brovana (Restricted To Pulmonology/Resp) -) 1 amp NEB BID [facility] Last Admin: 02/13/17 22:02 Dose: 1 amp Atorvastatin Calcium (Lipitor -) 10 mg PO HS [facility] Last Admin: 02/13/17 22:12 Dose: 10 mg Docusate Sodium (Colace -) 100 mg PO BID [facility] Last Admin: 02/14/17 09:04 Dose: 100 mg Heparin Sodium (Porcine) (Heparin -) 5,000 unit SQ TID [facility] Last Admin: 02/14/17 14:05 Dose: 5,000 unit Ampicillin Sodium/Sulbactam (Sodium 3 gm/ Sodium Chloride) 100 mls @ 200 mls/ hr IVPB BID [facility] Last Admin: 02/14/17 09:03 Dose: 200 mls/hr Isosorbide Mononitrate (Imdur -) 120 mg PO DAILY [facility] Last Admin: 02/14/17 09:04 Dose: 120 mg Methylprednisolone Sodium Succinate (Solu-Medrol -) 40 mg IVPUSH DAILY [facility] Last Admin: 02/14/17 09:04 Dose: 40 mg Metoprolol Succinate (Toprol Xl -) 100 mg PO DAILY [facility] Last Admin: 02/14/17 09:04 Dose: 100 mg Nicotine (Nicoderm Patch -) 14 mg TD DAILY [facility] Last Admin: 02/14/17 09:05 Dose: 14 mg Polyethylene Glycol (Miralax (For Daily Use) -) 17 gm PO DAILY [facility] Last Admin: 02/14/17 11:33 Dose: 17 grams Ranolazine (Ranexa -) 500 mg PO BID [facility] Last Admin: 02/14/17 09:04 Dose: 500 mg Senna (Senna -) 1 tab PO HS [facility] Last Admin: 02/13/17 22:12 Dose: 1 tab - Objective Vital Signs: Vital Signs Temperature 98.3 F 02/14/17 14:00 Pulse Rate 72 02/14/17 14:00 Respiratory Rate 20 02/14/17 14:00 Blood Pressure 139/71 02/14/17 14:00 O2 Sat by Pulse Oximetry (%) 97 02/14/17 10:00 Constitutional: Yes: Calm Eyes: Yes: Conjunctiva Clear HENT: Yes: Atraumatic Cardiovascular: Yes: S1, S2 Respiratory: Yes: CTA Bilaterally Gastrointestinal: Yes: Soft Genitourinary: Yes: WNL Extremities: Yes: WNL Edema: No Neurological: Yes: Oriented Psychiatric: Yes: Oriented Labs: CBC, BMP 02/14/17 08:27 02/14/17 08:27 INR, PTT INR 1.32 (0.82-1.09) H 02/09/17 11:46 Problem List - Problems (1) RADHA (acute kidney injury) Code(s): N17.9 - ACUTE KIDNEY FAILURE, UNSPECIFIED (2) COPD (chronic obstructive pulmonary disease) Code(s): J44.9 - CHRONIC OBSTRUCTIVE PULMONARY DISEASE, UNSPECIFIED (3) Pleural effusion Code(s): J90 - PLEURAL EFFUSION, NOT ELSEWHERE CLASSIFIED (4) CAD (coronary artery disease) Code(s): I25.10 - ATHSCL HEART DISEASE OF [place] CORONARY ARTERY W/O ANG PCTRS (5) Chest pain Code(s): R07.9 - CHEST PAIN, UNSPECIFIED Assessment/Plan Current Medications Generic Name Dose Route Start Last Admin Trade Name Freq PRN Reason Stop Dose Admin Acetaminophen 650 mg 02/09/17 23:35 02/10/17 00:00 Tylenol - PO 650 mg Q6H PRN Administration FEVER OR PAIN Albuterol/Ipratropium 1 amp 02/10/17 03:34 Duoneb - NEB Q4H PRN SHORTNESS OF BREATH Amlodipine Besylate 5 mg 02/13/17 15:29 02/14/17 09:04 Norvasc - PO 5 mg DAILY [facility] Administration Arformoterol Tartrate 1 amp 02/10/17 13:30 02/13/17 22:02 Brovana (Restricted To Pulmonology/Resp) - NEB 1 amp BID [facility] Administration Atorvastatin Calcium 10 mg 02/10/17 22:00 02/13/17 22:12 Lipitor - PO 10 mg HS [facility] Administration Docusate Sodium 100 mg 02/13/17 15:30 02/14/17 09:04 Colace - PO 100 mg BID [facility] Administration Heparin Sodium (Porcine) 5,000 unit 02/12/17 22:00 02/14/17 14:05 Heparin - SQ 5,000 unit TID [facility] Administration Ampicillin Sodium/Sulbactam 100 mls @ 200 mls/hr 02/10/17 22:00 02/14/17 09: 03 Sodium 3 gm/ Sodium Chloride IVPB 200 mls/hr BID [facility] Administration Isosorbide Mononitrate 120 mg 02/10/17 11:45 02/14/17 09:04 Imdur - PO 120 mg DAILY [facility] Administration Methylprednisolone Sodium Succinate 40 mg 02/10/17 14:15 02/14/17 09:04 Solu-Medrol - IVPUSH 40 mg DAILY [facility] Administration Metoprolol Succinate 100 mg 02/10/17 11:45 02/14/17 09:04 Toprol Xl - PO 100 mg DAILY [facility] Administration Nicotine 14 mg 02/10/17 14:15 02/14/17 09:05 Nicoderm Patch - TD 14 mg DAILY [facility] Administration Polyethylene Glycol 17 gm 02/13/17 15:30 02/14/17 11:33 Miralax (For Daily Use) - PO 17 grams DAILY [facility] Administration Ranolazine 500 mg 02/10/17 11:45 02/14/17 09:04 Ranexa - PO 500 mg BID [facility] Administration Senna 1 tab 02/13/17 22:00 02/13/17 22:12 Senna - PO 1 tab HS [facility] Administration Laboratory Tests 02/11/17 02/14/17 00:01 10:40 Ur Random Sodium 18 Hepatitis C Antibody Pending Impression 1. RADHA 2. CKD 3. multilobular pleural effusion 4. CAD s/p stents 5. HTN 6. hyperlipidemia 7. anemia 8. angina 9. PNA 10. proteinuria 11. hypomagnesemia 12. Hep C Plan - repeat labs in am - cont current meds - renal function stabilizing - Hep C status need to be clarified Dr Cotto
[2017-02-14] MEDS ORDERED: PT OWN MED DRAWER 7, Y5N ONE (21:12)
[2017-02-14] MEDS: ATORVASTATIN CA 10 MG TABLET (FP) PO SCH (21:24)
[2017-02-14] MEDS: SENNOSIDES 8.6MG TABLET (FP) PO SCH (21:28)
[2017-02-14] MEDS: ARFORMOTEROL TARTRATE 15 MCG/2 ML VIAL NEB SCH (22:17)
[2017-02-15 07:46] LABS: BASO % 0.1 % (0-2.0); EOS % 0.1 % (0-4.5); HEMATOCRIT 28.2 % (32.4-45.2); LYMPH % 15.8 % (8-40); MCH 29.7 pg (25.7-33.7); MCHC 31.9 g/dl (32.0-36.0); MEAN CELL VOLUME 93.2 fl (80-96); MEAN PLT VOLUME 8.3 fl (7.5-11.1); MONO % 5.7 % (3.8-10.2); NEUT % 78.3 % (42.8-82.8); PLATELET COUNT 459 K/MM3 (134-434); RBC 3.03 M/mm3 (3.60-5.2); RDW 15.3 % (11.6-15.6); WHITE BLOOD COUNT 19.4 K/mm3 (4.0-10.0)
[2017-02-15 08:07] LABS: ANION GAP 11 (8-16); BLOOD UREA NITROGEN 41 mg/dL (7-18); CALCIUM 8.9 mg/dL (8.5-10.1); CHLORIDE 108 mmol/L (98-107); CO2 22 mmol/L (21-32); CREATININE 1.8 mg/dL (0.55-1.02); GLUCOSE,RANDOM 75 mg/dL (74-106); SODIUM 141 mmol/L (136-145)
[2017-02-15] MEDS: amLODIPine BESYLATE 5 MG TABLET (FP) PO SCH (09:06)
[2017-02-15] MEDS: METOPROLOL SUCCINATE 100 MG TAB.SR.24H (FP) PO SCH (09:06)
[2017-02-15] MEDS: methylPREDNISolone NA SUCC 40 MG/1 ML VIAL IVPUSH SCH (09:06)
[2017-02-15] MEDS: AMPICILLIN NA/SULBACTAM NA 3 GM in SODIUM CHLORIDE 100 ML IVPB SCH ×2 (09:06→22:06)
[2017-02-15] MEDS: NICOTINE 14 MG/24 HOURS TOPICAL PATCH TD SCH (09:06)
[2017-02-15] MEDS: ISOSORBIDE MONONITRATE 60 MG TAB.SR.24H (FP) PO SCH (09:06)
[2017-02-15] MEDS: RANOLAZINE E.R. 500 MG TABLET (FP) PO SCH ×2 (09:06→22:06)
[2017-02-15] MEDS: ARFORMOTEROL TARTRATE 15 MCG/2 ML VIAL NEB SCH ×2 (11:00→21:00)
[2017-02-15 12:09] LABS: PLEURAL FLUID APPEARANCE BLOODY; PLEURAL FLUID COLOR RED; PLEURAL FLUID RBC 25331 /mm3
[2017-02-15 12:12] LABS: GLUCOSE,PLEURAL FLUID 99.311
[2017-02-15 12:15] LABS: TOTAL PROTEIN,PLEURAL FLUID 3.612
[2017-02-15] MEDS: POLYETHYLENE GLYCOL 3350 119 GM BTL PO SCH (12:24)
[2017-02-15] MEDS: DOCUSATE SODIUM 100 MG CAPSULE (FP) PO SCH ×2 (12:24→22:06)
[2017-02-15 12:31] LABS: CHLORIDE PLEURAL FLUID 114.5
--- NOTE | 2017-02-15 12:34 | PN ---
Progress Note, Physician History of Present Illness: pullmonary alert,nad,s/p R thoracentesis tolerated procedure well - Current Medication List Current Medications: Active Medications Acetaminophen (Tylenol -) 650 mg PO Q6H PRN PRN Reason: FEVER OR PAIN Last Admin: 02/10/17 00:00 Dose: 650 mg Albuterol/Ipratropium (Duoneb -) 1 amp NEB Q4H PRN PRN Reason: SHORTNESS OF BREATH Amlodipine Besylate (Norvasc -) 5 mg PO DAILY [facility] Last Admin: 02/15/17 09:06 Dose: 5 mg Arformoterol Tartrate (Brovana (Restricted To Pulmonology/Resp) -) 1 amp NEB BID [facility] Last Admin: 02/14/17 22:17 Dose: 1 amp Atorvastatin Calcium (Lipitor -) 10 mg PO HS [facility] Last Admin: 02/14/17 21:24 Dose: 10 mg Docusate Sodium (Colace -) 100 mg PO BID [facility] Last Admin: 02/15/17 12:24 Dose: Not Given Heparin Sodium (Porcine) (Heparin -) 5,000 unit SQ TID [facility] Last Admin: 02/14/17 14:05 Dose: 5,000 unit Ampicillin Sodium/Sulbactam (Sodium 3 gm/ Sodium Chloride) 100 mls @ 200 mls/ hr IVPB BID [facility] Last Admin: 02/15/17 09:06 Dose: 200 mls/hr Isosorbide Mononitrate (Imdur -) 120 mg PO DAILY [facility] Last Admin: 02/15/17 09:06 Dose: 120 mg Methylprednisolone Sodium Succinate (Solu-Medrol -) 40 mg IVPUSH DAILY [facility] Last Admin: 02/15/17 09:06 Dose: 40 mg Metoprolol Succinate (Toprol Xl -) 100 mg PO DAILY [facility] Last Admin: 02/15/17 09:06 Dose: 100 mg Nicotine (Nicoderm Patch -) 14 mg TD DAILY [facility] Last Admin: 02/15/17 09:06 Dose: 14 mg Polyethylene Glycol (Miralax (For Daily Use) -) 17 gm PO DAILY [facility] Last Admin: 02/15/17 12:24 Dose: Not Given Ranolazine (Ranexa -) 500 mg PO BID [facility] Last Admin: 02/15/17 09:06 Dose: 500 mg Senna (Senna -) 1 tab PO HS [facility] Last Admin: 12/25/17 21:28 Dose: Not Given - Objective Vital Signs: Vital Signs Temperature 97.6 F 02/15/17 08:57 Pulse Rate 73 02/15/17 08:57 Respiratory Rate 20 02/15/17 08:57 Blood Pressure 166/95 02/15/17 08:57 O2 Sat by Pulse Oximetry (%) 100 02/15/17 08:57 Constitutional: Yes: Well Nourished, Calm Eyes: Yes: WNL HENT: Yes: WNL Neck: Yes: WNL Cardiovascular: Yes: Regular Rate and Rhythm, S1, S2 Respiratory: Yes: Diminished (few crackles r base) Gastrointestinal: Yes: Normal Bowel Sounds, Soft Extremities: Yes: WNL Edema: No Labs: CBC, BMP 02/15/17 05:35 02/15/17 05:35 INR, PTT INR 1.32 (0.82-1.09) H 02/09/17 11:46 Assessment/Plan Problem List - Problems (1) COPD (chronic obstructive pulmonary disease) Code(s): J44.9 - CHRONIC OBSTRUCTIVE PULMONARY DISEASE, UNSPECIFIED (2) Smoker Code(s): F17.200 - NICOTINE DEPENDENCE, UNSPECIFIED, UNCOMPLICATED (3) Empyema of lung Code(s): J86.9 - PYOTHORAX WITHOUT FISTULA (4) Pneumonia Code(s): J18.9 - PNEUMONIA, UNSPECIFIED ORGANISM (5) Pleural effusion Code(s): J90 - PLEURAL EFFUSION, NOT ELSEWHERE CLASSIFIED (6) Renal insufficiency Code(s): N28.9 - DISORDER OF KIDNEY AND URETER, UNSPECIFIED (7) CAD (coronary artery disease) Code(s): I25.10 - ATHSCL HEART DISEASE OF [place] CORONARY ARTERY W/O ANG PCTRS (8) Chest pain Code(s): R07.9 - CHEST PAIN, UNSPECIFIED (9) HTN (hypertension) Code(s): I10 - ESSENTIAL (PRIMARY) HYPERTENSION (10) Hepatitis C Code(s): B19.20 - UNSPECIFIED VIRAL HEPATITIS C WITHOUT HEPATIC COMA Assessment/Plan Antibiotics as per ID Chest tube drainage Medrol taper BD TX O2 to maintain saturation Smoking cessation discussed check results of pleural fluid Outpatient PFTs once stable. DR ALAN
--- NOTE | 2017-02-15 13:05 | PN ---
Physical Exam: SUBJECTIVE: Patient seen and examined at the bedside. States she feels her breathing is better after the throacentesis today. Complaining of blurred vision after thoracentesis. OBJECTIVE: Blurred vision likely related to side effects of Lidocaine used during thoracentesis, monitor Awaiting official read of thoracentesis Vital Signs Period Temp Pulse Resp BP Sys/Barlow Pulse Ox Last 24 Hr 97.6 F-98.3 F 70-74 18-20 130-166/65-95 97-100 GENERAL: The patient is awake, alert, and fully oriented, in no acute distress. HEAD: Normal with no signs of trauma. EYES: PERRL, extraocular movements intact, sclera anicteric, conjunctiva clear. No ptosis. ENT: Ears normal, nares patent, oropharynx clear without exudates, moist mucous membranes. NECK: Trachea midline, full range of motion, supple. LUNGS: Diminshed breaths sounds on right lung, s/p thora, left lung cleared ABDOMEN: Soft, nontender, nondistended, normoactive bowel sounds, no guarding, no rebound, no hepatosplenomegaly, no masses. EXTREMITIES: no edema. NEUROLOGICAL: Normal speech, gait not observed. PSYCH: Normal mood, normal affect. SKIN: Warm, dry, normal turgor, no rashes or lesions noted Laboratory Results - last 24 hr 02/15/17 02/15/17 02/15/17 05:35 05:35 10:45 WBC 19.4 H RBC 3.03 L Hgb 9.0 L Hct 28.2 L MCV 93.2 MCH 29.7 MCHC 31.9 L RDW 15.3 Plt Count 459 H MPV 8.3 Neutrophils % 78.3 Lymphocytes % 15.8 D Monocytes % 5.7 Eosinophils % 0.1 D Basophils % 0.1 Sodium 141 Potassium 5.0 Chloride 108 H Carbon Dioxide 22 Anion Gap 11 BUN 41 H Creatinine 1.8 H Random Glucose 75 Calcium 8.9 Pleural Fluid Source Pleural fluid Pleural Color Red Pleural Appearance Bloody Pleural WBC 1045 Pleural RBC 76260 Pleural Chloride 114.5 Pleural Total Protein 3.612 Pleural LDH 192.5 Pleural Glucose 99.311 Pleural Amylase 47.251 Pleural Cholesterol 78 Pleural Triglycerides 34 Active Medications Generic Name Dose Route Start Last Admin Trade Name Freq PRN Reason Stop Dose Admin Acetaminophen 650 mg 02/09/17 23:35 02/10/17 00:00 Tylenol - PO 650 mg Q6H PRN Administration FEVER OR PAIN Albuterol/Ipratropium 1 amp 02/10/17 03:34 Duoneb - NEB Q4H PRN SHORTNESS OF BREATH Amlodipine Besylate 5 mg 02/13/17 15:29 02/15/17 09:06 Norvasc - PO 5 mg DAILY [facility] Administration Arformoterol Tartrate 1 amp 02/10/17 13:30 02/14/17 22:17 Brovana (Restricted To Pulmonology/Resp) - NEB 1 amp BID [facility] Administration Atorvastatin Calcium 10 mg 02/10/17 22:00 02/14/17 21:24 Lipitor - PO 10 mg HS [facility] Administration Docusate Sodium 100 mg 02/13/17 15:30 02/15/17 12:24 Colace - PO Not Given BID [facility] Heparin Sodium (Porcine) 5,000 unit 02/12/17 22:00 02/14/17 14:05 Heparin - SQ 5,000 unit TID [facility] Administration Ampicillin Sodium/Sulbactam 100 mls @ 200 mls/hr 02/10/17 22:00 02/15/17 09: 06 Sodium 3 gm/ Sodium Chloride IVPB 200 mls/hr BID [facility] Administration Isosorbide Mononitrate 120 mg 02/10/17 11:45 02/15/17 09:06 Imdur - PO 120 mg DAILY [facility] Administration Methylprednisolone Sodium Succinate 40 mg 02/10/17 14:15 02/15/17 09:06 Solu-Medrol - IVPUSH 40 mg DAILY [facility] Administration Metoprolol Succinate 100 mg 02/10/17 11:45 02/15/17 09:06 Toprol Xl - PO 100 mg DAILY [facility] Administration Nicotine 14 mg 02/10/17 14:15 02/15/17 09:06 Nicoderm Patch - TD 14 mg DAILY [facility] Administration Polyethylene Glycol 17 gm 02/13/17 15:30 02/15/17 12:24 Miralax (For Daily Use) - PO Not Given DAILY [facility] Ranolazine 500 mg 02/10/17 11:45 02/15/17 09:06 Ranexa - PO 500 mg BID [facility] Administration Senna 1 tab 02/13/17 22:00 02/14/17 21:28 Senna - PO Not Given HS [facility] ASSESSMENT/PLAN: Patient is a 76 year old female with a significant past medical history of hypertension, hyperlipidemia, diabetes, COPD (current 1/2 pack daily smoker), CAD (s/p NSTEMI 07/2016; s/p stents in 2014, with angiogram 08/2016 not requiring new stents (on Plavix & Aspirin), diastolic CHF, chronic renal insufficiency, and hepatitis C. She presented to the ED on 02/09/2017 with symptoms of right sided localized chest pain and cough that began 1 week ago and worsened over the course of a week. As per Ed notes, patient described the chest pain as localized to the right side of her chest. This chest pain has since resolved. Imaging: ECHO lv nml, rvsf nml, trace tr Chest CT shows moderate sized multiloculated right pleural effusion with compressive atelectasis of nearly the entire right lower lobe and subsegmental compressive atelectatis in the right lung apex Pulmonary: Right Pleural effusion/probable empyema/superimposed pneumonia S/p thoracentesis today, awaiting official report Leukocytosis likely steroid induced, on Unasyn Monitor respiratory status, tolerating 2 liters of oxygen s/p thora, wean off oxygen as tolerated On Solumedrol 40mg iv daily Monitor oxygen Follow up chest xray reviewed Cardiology CAD historys/p cath with stents Elevated troponins Troponins downtrending No chest pain on exam On Renexa 500m BID, Torpol 100mg daily, Imdur 120mg daily ASA 81mg, Plavix 75mg daily Monitor vitals Diastolic HF, chronic On Amlodopoine 5mg daily Hypertension, chronic On Torpol 100mg daily, Imdur 120mg daily, Amlodopine 5mg daily Hyperlipidemia - on Statin Renal RADHA on CKD, creat now 1.8 Renal following GI: Hep C, titers pending F.E.N. Fluids: Tolerating PO Electrolytes: monitor Nutrition: renal diet Proph: Heparin TID GI: Protonix while on steroids Disposition: full code Visit type - Emergency Visit Emergency Visit: Yes ED Registration Date: 02/09/17 Care time: The patient presented to the Emergency Department on the above date and was hospitalized for further evaluation of their emergent condition. - New Patient This patient is new to me today: Yes Date on this admission: 02/15/17 - Critical Care Critical Care patient: No - Discharge Referral Referred to [facility] No
[2017-02-15 13:51] LABS: PLEURAL FLUID LYMPHOCYTES 27 %; PLEURAL FLUID MACROPHAGES 47 %; PLEURAL FLUID MONOCYTE 2 %; PLEURAL FLUID NEUTROPHIL 24 %
--- NOTE | 2017-02-15 13:53 | PN ---
Progress Note, Physician History of Present Illness: Pt seen and examined at bedside. She had the thoracocentesis today. - Current Medication List Current Medications: Active Medications Acetaminophen (Tylenol -) 650 mg PO Q6H PRN PRN Reason: FEVER OR PAIN Last Admin: 02/10/17 00:00 Dose: 650 mg Albuterol/Ipratropium (Duoneb -) 1 amp NEB Q4H PRN PRN Reason: SHORTNESS OF BREATH Amlodipine Besylate (Norvasc -) 5 mg PO DAILY REPLACED BY [facility] Last Admin: 02/15/17 09:06 Dose: 5 mg Arformoterol Tartrate (Brovana (Restricted To Pulmonology/Resp) -) 1 amp NEB BID REPLACED BY [facility] Last Admin: 02/15/17 11:00 Dose: 1 amp Aspirin (Asa -) 81 mg PO DAILY REPLACED BY [facility] Atorvastatin Calcium (Lipitor -) 10 mg PO HS REPLACED BY [facility] Last Admin: 02/14/17 21:24 Dose: 10 mg Clopidogrel Bisulfate (Plavix -) 75 mg PO DAILY REPLACED BY [facility] Docusate Sodium (Colace -) 100 mg PO BID REPLACED BY [facility] Last Admin: 02/15/17 12:24 Dose: Not Given Heparin Sodium (Porcine) (Heparin -) 5,000 unit SQ TID REPLACED BY [facility] Last Admin: 02/14/17 14:05 Dose: 5,000 unit Ampicillin Sodium/Sulbactam (Sodium 3 gm/ Sodium Chloride) 100 mls @ 200 mls/ hr IVPB BID REPLACED BY [facility] Last Admin: 02/15/17 09:06 Dose: 200 mls/hr Isosorbide Mononitrate (Imdur -) 120 mg PO DAILY REPLACED BY [facility] Last Admin: 02/15/17 09:06 Dose: 120 mg Methylprednisolone Sodium Succinate (Solu-Medrol -) 40 mg IVPUSH DAILY REPLACED BY [facility] Last Admin: 02/15/17 09:06 Dose: 40 mg Metoprolol Succinate (Toprol Xl -) 100 mg PO DAILY REPLACED BY [facility] Last Admin: 02/15/17 09:06 Dose: 100 mg Nicotine (Nicoderm Patch -) 14 mg TD DAILY REPLACED BY [facility] Last Admin: 02/15/17 09:06 Dose: 14 mg Polyethylene Glycol (Miralax (For Daily Use) -) 17 gm PO DAILY REPLACED BY [facility] Last Admin: 02/15/17 12:24 Dose: Not Given Ranolazine (Ranexa -) 500 mg PO BID [facility] Last Admin: 02/15/17 09:06 Dose: 500 mg Senna (Senna -) 1 tab PO HS [facility] Last Admin: 02/14/17 21:28 Dose: Not Given - Objective Vital Signs: Vital Signs Temperature 97.6 F 02/15/17 08:57 Pulse Rate 73 02/15/17 08:57 Respiratory Rate 20 02/15/17 08:57 Blood Pressure 166/95 02/15/17 08:57 O2 Sat by Pulse Oximetry (%) 100 02/15/17 08:57 Constitutional: Yes: Calm Eyes: Yes: Conjunctiva Clear Cardiovascular: Yes: S1, S2 Respiratory: Yes: On Nasal O2 Gastrointestinal: Yes: Soft Genitourinary: Yes: WNL Musculoskeletal: Yes: WNL Edema: No Neurological: Yes: Oriented Psychiatric: Yes: Oriented Labs: CBC, BMP 02/15/17 05:35 02/15/17 05:35 INR, PTT INR 1.32 (0.82-1.09) H 02/09/17 11:46 Problem List - Problems (1) RADHA (acute kidney injury) Code(s): N17.9 - ACUTE KIDNEY FAILURE, UNSPECIFIED (2) COPD (chronic obstructive pulmonary disease) Code(s): J44.9 - CHRONIC OBSTRUCTIVE PULMONARY DISEASE, UNSPECIFIED (3) Pleural effusion Code(s): J90 - PLEURAL EFFUSION, NOT ELSEWHERE CLASSIFIED (4) CAD (coronary artery disease) Code(s): I25.10 - ATHSCL HEART DISEASE OF [place] CORONARY ARTERY W/O ANG PCTRS (5) Chest pain Code(s): R07.9 - CHEST PAIN, UNSPECIFIED Assessment/Plan Current Medications Generic Name Dose Route Start Last Admin Trade Name Freq PRN Reason Stop Dose Admin Acetaminophen 650 mg 02/09/17 23:35 02/10/17 00:00 Tylenol - PO 650 mg Q6H PRN Administration FEVER OR PAIN Albuterol/Ipratropium 1 amp 02/10/17 03:34 Duoneb - NEB Q4H PRN SHORTNESS OF BREATH Amlodipine Besylate 5 mg 02/13/17 15:29 02/15/17 09:06 Norvasc - PO 5 mg DAILY [facility] Administration Arformoterol Tartrate 1 amp 02/10/17 13:30 02/15/17 11:00 Brovana (Restricted To Pulmonology/Resp) - NEB 1 amp BID [facility] Administration Aspirin 81 mg 02/15/17 13:45 Asa - PO DAILY [facility] Atorvastatin Calcium 10 mg 02/10/17 22:00 02/14/17 21:24 Lipitor - PO 10 mg HS [facility] Administration Clopidogrel Bisulfate 75 mg 02/16/17 10:00 Plavix - PO DAILY [facility] Docusate Sodium 100 mg 02/13/17 15:30 02/15/17 12:24 Colace - PO Not Given BID [facility] Heparin Sodium (Porcine) 5,000 unit 02/12/17 22:00 02/14/17 14:05 Heparin - SQ 5,000 unit TID [facility] Administration Ampicillin Sodium/Sulbactam 100 mls @ 200 mls/hr 02/10/17 22:00 02/15/17 09: 06 Sodium 3 gm/ Sodium Chloride IVPB 200 mls/hr BID [facility] Administration Isosorbide Mononitrate 120 mg 02/10/17 11:45 02/15/17 09:06 Imdur - PO 120 mg DAILY [facility] Administration Methylprednisolone Sodium Succinate 40 mg 02/10/17 14:15 02/15/17 09:06 Solu-Medrol - IVPUSH 40 mg DAILY [facility] Administration Metoprolol Succinate 100 mg 02/10/17 11:45 02/15/17 09:06 Toprol Xl - PO 100 mg DAILY [facility] Administration Nicotine 14 mg 02/10/17 14:15 02/15/17 09:06 Nicoderm Patch - TD 14 mg DAILY [facility] Administration Polyethylene Glycol 17 gm 02/13/17 15:30 02/15/17 12:24 Miralax (For Daily Use) - PO Not Given DAILY REPLACED BY [facility] Ranolazine 500 mg 02/10/17 11:45 02/15/17 09:06 Ranexa - PO 500 mg BID [facility] Administration Senna 1 tab 02/13/17 22:00 02/14/17 21:28 Senna - PO Not Given HS REPLACED BY [facility] Laboratory Tests 02/14/17 02/15/17 10:40 05:35 Hepatitis C Antibody Pending HCV Quantitation Pending HCV RNA 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 RADHA 2. CKD 3. multilobular pleural effusion 4. CAD s/p stents 5. HTN 6. hyperlipidemia 7. anemia 8. angina 9. PNA 10. proteinuria 11. hypomagnesemia 12. Hep C Plan - renal function is stabilizing - follow up thoracocentesis results - cont current meds - follow hep C studies Dr Cotto
[2017-02-15] MEDS: PANTOPRAZOLE 40 MG TABLET (FP) PO SCH (14:46)
[2017-02-15] MEDS: ASPIRIN 81 MG CHEWABLE TABLETS PO SCH (14:46)
--- NOTE | 2017-02-15 15:35 | PN ---
Teaching Attending Note Name of Resident: Cristine Dumas ATTENDING PHYSICIAN STATEMENT I saw and evaluated the patient. I reviewed the resident's note and discussed the case with the resident. I agree with the resident's findings and plan as documented. SUBJECTIVE: no complaints s/p thoracentesis OBJECTIVE: Vital Signs Period Temp Pulse Resp BP Sys/Barlow Pulse Ox Last 24 Hr 97.6 F-99 F 70-76 18-20 116-166/64-95 97-100 cor-rrr lungs decreased bs on right abd soft,nt ext no edema CBC, BMP 02/15/17 05:35 02/15/17 05:35 Microbiology 02/15/17 10:45 Pleural Fluid EMA Preparation - Preliminary 02/15/17 10:45 Pleural Fluid Fungal Culture - Preliminary 02/09/17 21:20 Blood - Peripheral Venous Blood Culture - Final NO GROWTH AFTER 5 DAYS INCUBATION 02/09/17 21:20 Blood - Peripheral Venous Blood Culture - Final NO GROWTH AFTER 5 DAYS INCUBATION 02/09/17 00:30 Urine - Urine Clean Catch Urine Culture - Final NO GROWTH OBTAINED Current Medications Generic Name Dose Route Start Last Admin Trade Name Freq PRN Reason Stop Dose Admin Acetaminophen 650 mg 02/09/17 23:35 02/10/17 00:00 Tylenol - PO 650 mg Q6H PRN Administration FEVER OR PAIN Albuterol/Ipratropium 1 amp 02/10/17 03:34 Duoneb - NEB Q4H PRN SHORTNESS OF BREATH Amlodipine Besylate 5 mg 02/13/17 15:29 02/15/17 09:06 Norvasc - PO 5 mg DAILY [facility] Administration Arformoterol Tartrate 1 amp 02/10/17 13:30 02/15/17 11:00 Brovana (Restricted To Pulmonology/Resp) - NEB 1 amp BID [facility] Administration Aspirin 81 mg 02/15/17 13:45 02/15/17 14:46 Asa - PO 81 mg DAILY [facility] Administration Atorvastatin Calcium 10 mg 02/10/17 22:00 02/14/17 21:24 Lipitor - PO 10 mg HS [facility] Administration Clopidogrel Bisulfate 75 mg 02/16/17 10:00 Plavix - PO DAILY [facility] Docusate Sodium 100 mg 02/13/17 15:30 02/15/17 12:24 Colace - PO Not Given BID [facility] Heparin Sodium (Porcine) 5,000 unit 02/12/17 22:00 02/14/17 14:05 Heparin - SQ 5,000 unit TID [facility] Administration Ampicillin Sodium/Sulbactam 100 mls @ 200 mls/hr 02/10/17 22:00 02/15/17 09: 06 Sodium 3 gm/ Sodium Chloride IVPB 200 mls/hr BID [facility] Administration Isosorbide Mononitrate 120 mg 02/10/17 11:45 02/15/17 09:06 Imdur - PO 120 mg DAILY [facility] Administration Methylprednisolone Sodium Succinate 40 mg 02/10/17 14:15 02/15/17 09:06 Solu-Medrol - IVPUSH 40 mg DAILY [facility] Administration Metoprolol Succinate 100 mg 02/10/17 11:45 02/15/17 09:06 Toprol Xl - PO 100 mg DAILY [facility] Administration Nicotine 14 mg 02/10/17 14:15 02/15/17 09:06 Nicoderm Patch - TD 14 mg DAILY [facility] Administration Pantoprazole Sodium 40 mg 02/15/17 14:15 02/15/17 14:46 Protonix - PO 40 mg DAILY [facility] Administration Polyethylene Glycol 17 gm 02/13/17 15:30 02/15/17 12:24 Miralax (For Daily Use) - PO Not Given DAILY [facility] Ranolazine 500 mg 02/10/17 11:45 02/15/17 09:06 Ranexa - PO 500 mg BID [facility] Administration Senna 1 tab 02/13/17 22:00 02/14/17 21:28 Senna - PO Not Given HS [facility] ASSESSMENT AND PLAN: loculated effusions with atelectasis, ?pneumonia- s/p thoracentesis f/u cultures continue unasyn leukocytosis may be partially due to steroids
--- NOTE | 2017-02-15 15:54 | PN ---
Physical Exam: SUBJECTIVE: Patient seen and examined at bedside. S/p R thoracentesis with 60ccs bloody tap removed. States that she is feeling well and less SOB, not on 02 this afternoon. Endorsed blurry vision when asked, mentions she was told it was a side effect from "one of her medications." Overnight, pt afebrile. No acute events- OBJECTIVE: Vital Signs Period Temp Pulse Resp BP Sys/Barlow Pulse Ox Last 24 Hr 97.6 F-99 F 70-76 18-20 116-166/64-95 97-100 GENERAL: The patient is awake, alert, and fully oriented, in no acute distress. HEAD: Normal with no signs of trauma. EYES: PERRL, extraocular movements intact, sclera anicteric, conjunctiva clear. NECK: Trachea midline, full range of motion, supple. LUNGS: Rhonchi and crackles appreciated at lung bases. No wheezing or accessory m use HEART: Regular rate and rhythm, S1, S2 without murmur, rub or gallop. ABDOMEN: Soft, nontender, nondistended, normoactive bowel sounds EXTREMITIES: 2+ posterior tibial pulses, warm, well-perfused, no edema. NEUROLOGICAL: Cranial nerves II through XII grossly intact. Laboratory Results - last 24 hr 02/15/17 10:45 Pleural Fluid Source Pleural fluid Pleural Color Red Pleural Appearance Bloody Pleural WBC 1045 Pleural RBC 69085 Pleural Neutrophils 24 Pleural Lymphocytes 27 Pleural Monocytes 2 Pleural Macrophages 47 Pleural Chloride 114.5 Pleural Total Protein 3.612 Pleural LDH 192.5 Pleural Glucose 99.311 Pleural Amylase 47.251 Pleural Cholesterol 78 Pleural Triglycerides 34 Hepatitis C Antibody Microbiology 02/09/17 21:20 Blood - Peripheral Venous Blood Culture - Final NO GROWTH AFTER 5 DAYS INCUBATION 02/09/17 21:20 Blood - Peripheral Venous Blood Culture - Final NO GROWTH AFTER 5 DAYS INCUBATION 02/09/17 00:30 Urine - Urine Clean Catch Urine Culture - Final NO GROWTH OBTAINED 02/15/17 10:45 Pleural Fluid EMA Preparation - Preliminary 02/15/17 10:45 Pleural Fluid Fungal Culture - Preliminary Active Medications Generic Name Dose Route Start Last Admin Trade Name Freq PRN Reason Stop Dose Admin Acetaminophen 650 mg 02/09/17 23:35 02/10/17 00:00 Tylenol - PO 650 mg Q6H PRN Administration FEVER OR PAIN Albuterol/Ipratropium 1 amp 02/10/17 03:34 Duoneb - NEB Q4H PRN SHORTNESS OF BREATH Amlodipine Besylate 5 mg 02/13/17 15:29 02/15/17 09:06 Norvasc - PO 5 mg DAILY [facility] Administration Arformoterol Tartrate 1 amp 02/10/17 13:30 02/15/17 11:00 Brovana (Restricted To Pulmonology/Resp) - NEB 1 amp BID [facility] Administration Aspirin 81 mg 02/15/17 13:45 02/15/17 14:46 Asa - PO 81 mg DAILY [facility] Administration Atorvastatin Calcium 10 mg 02/10/17 22:00 02/14/17 21:24 Lipitor - PO 10 mg HS [facility] Administration Clopidogrel Bisulfate 75 mg 02/16/17 10:00 Plavix - PO DAILY [facility] Docusate Sodium 100 mg 02/13/17 15:30 02/15/17 12:24 Colace - PO Not Given BID [facility] Heparin Sodium (Porcine) 5,000 unit 02/12/17 22:00 02/14/17 14:05 Heparin - SQ 5,000 unit TID [facility] Administration Ampicillin Sodium/Sulbactam 100 mls @ 200 mls/hr 02/10/17 22:00 02/15/17 09: 06 Sodium 3 gm/ Sodium Chloride IVPB 200 mls/hr BID [facility] Administration Isosorbide Mononitrate 120 mg 02/10/17 11:45 02/15/17 09:06 Imdur - PO 120 mg DAILY [facility] Administration Methylprednisolone Sodium Succinate 40 mg 02/10/17 14:15 02/15/17 09:06 Solu-Medrol - IVPUSH 40 mg DAILY [facility] Administration Metoprolol Succinate 100 mg 02/10/17 11:45 02/15/17 09:06 Toprol Xl - PO 100 mg DAILY [facility] Administration Nicotine 14 mg 02/10/17 14:15 02/15/17 09:06 Nicoderm Patch - TD 14 mg DAILY [facility] Administration Pantoprazole Sodium 40 mg 02/15/17 14:15 02/15/17 14:46 Protonix - PO 40 mg DAILY [facility] Administration Polyethylene Glycol 17 gm 02/13/17 15:30 02/15/17 12:24 Miralax (For Daily Use) - PO Not Given DAILY [facility] Ranolazine 500 mg 02/10/17 11:45 02/15/17 09:06 Ranexa - PO 500 mg BID [facility] Administration Senna 1 tab 02/13/17 22:00 02/14/17 21:28 Senna - PO Not Given HS [facility] ASSESSMENT/PLAN: #R sided multiloculated pleural effusion -s/p thoracentesis- 60ccs bloody tap -afebrile, white count 19.4 most likely 2/2 solumedrol -pt clinically feels improved, less SOB -will need to follow serum LDH, total protein to determine exudative vs. transudative -Continue Unasyn 3g IVPB BID - Today is Day 6 Thank you Cristine Dumas MD PGY-1 ID Team Visit type - Emergency Visit Emergency Visit: No - New Patient This patient is new to me today: No - Critical Care Critical Care patient: No
[2017-02-15] MEDS: ACETAMINOPHEN 325 MG TABLET (FP) PO PRN (18:43)
[2017-02-15 20:27] LABS: LDH 238 U/L (84-246)
[2017-02-15] MEDS ORDERED: PT OWN MED DRAWER 7, Y5N ONE (21:54)
[2017-02-15] MEDS: ATORVASTATIN CA 10 MG TABLET (FP) PO SCH (22:06)
[2017-02-15] MEDS: SENNOSIDES 8.6MG TABLET (FP) PO SCH (22:06)
[2017-02-16] MEDS: HEPARIN NA (PORCINE) 5,000 UNITS/ML 1ML VIAL SQ SCH ×3 (06:39→21:20)
--- NOTE | 2017-02-16 07:16 | PN ---
Progress Note, Physician Chief Complaint: Pt alert; no chest pain or dyspnea. History of Present Illness: The patient is a 76 year old black female with a significant PMH of HTN, hyperlipidemia, diabetes COPD (current smoker), CAD (s/p NSTEMI 07/2016; s/p stents in ?2015, with cor. angiogram 08/2016 not requiring new stents or other PCI; on Plavix & Aspirin), diastolic CHF (with severe apical hypokinesis on 2015 ECHO),chronic renal insufficiency, periods of disorientation, and hepatitis C, who presents to the emergency department via EMS with multiple complaints including chest pain and cough beginning approximately 1 week ago. The patient describes the chest pain as localized on the right side and aggravated by movement and coughing. The patient's grandson notes that the patient also has lower back pain that radiates to her legs. The patient's grandson reports that that the patient received an MRI 2 days ago. They report receiving a call this morning for the MRI results and reports that he was told the patient has pleural effusion, prompting their visit. The patient's grandson also notes that the patient has not been fully herself within the past week. The patient notes that she told EMS she wanted to be transported to [place] but notes that EMS wanted to bring her to the closest hospital ([facility]) because the patient had chest pain. The patient also notes she was admitted back in November at [facility] for kidney failure. The patient denies shortness of breath, headache and dizziness. Denies fever, chills, nausea, vomit, diarrhea and constipation. Denies dysuria, frequency, urgency and hematuria. Allergies: NKA Past surgical history: Cardiac stents: proximal and mid LAD, mid RCA, mid Cx ( dates of stents uncertain; when most recent coronary angiogram 08/27/2016 was done at [facility] for NSTEMI with TNI >10, stents were patent, and no new PCIs were required. Social history: Current some day smoker. No reported alcohol or drug use. PCP: Dr. Thomas Aguayo [ ] in [place]. - Current Medication List Current Medications: Active Medications Acetaminophen (Tylenol -) 650 mg PO Q6H PRN PRN Reason: FEVER OR PAIN Last Admin: 02/15/17 18:43 Dose: 650 mg Albuterol/Ipratropium (Duoneb -) 1 amp NEB Q4H PRN PRN Reason: SHORTNESS OF BREATH Amlodipine Besylate (Norvasc -) 5 mg PO DAILY [facility] Last Admin: 02/15/17 09:06 Dose: 5 mg Arformoterol Tartrate (Brovana (Restricted To Pulmonology/Resp) -) 1 amp NEB BID [facility] Last Admin: 02/15/17 21:00 Dose: 1 amp Aspirin (Asa -) 81 mg PO DAILY [facility] Last Admin: 02/15/17 14:46 Dose: 81 mg Atorvastatin Calcium (Lipitor -) 10 mg PO HS [facility] Last Admin: 02/15/17 22:06 Dose: 10 mg Clopidogrel Bisulfate (Plavix -) 75 mg PO DAILY [facility] Docusate Sodium (Colace -) 100 mg PO BID [facility] Last Admin: 02/15/17 22:06 Dose: 100 mg Heparin Sodium (Porcine) (Heparin -) 5,000 unit SQ TID [facility] Last Admin: 02/16/17 06:39 Dose: 5,000 unit Ampicillin Sodium/Sulbactam (Sodium 3 gm/ Sodium Chloride) 100 mls @ 200 mls/ hr IVPB BID [facility] Last Admin: 02/15/17 22:06 Dose: 200 mls/hr Isosorbide Mononitrate (Imdur -) 120 mg PO DAILY [facility] Last Admin: 02/15/17 09:06 Dose: 120 mg Methylprednisolone Sodium Succinate (Solu-Medrol -) 40 mg IVPUSH DAILY [facility] Last Admin: 02/15/17 09:06 Dose: 40 mg Metoprolol Succinate (Toprol Xl -) 50 mg PO DAILY [facility] Nicotine (Nicoderm Patch -) 14 mg TD DAILY [facility] Last Admin: 02/15/17 09:06 Dose: 14 mg Pantoprazole Sodium (Protonix -) 40 mg PO DAILY [facility] Last Admin: 02/15/17 14:46 Dose: 40 mg Polyethylene Glycol (Miralax (For Daily Use) -) 17 gm PO DAILY [facility] Last Admin: 02/15/17 12:24 Dose: Not Given Ranolazine (Ranexa -) 500 mg PO BID [facility] Last Admin: 02/15/17 22:06 Dose: 500 mg Senna (Senna -) 1 tab PO HS [facility] Last Admin: 02/15/17 22:06 Dose: 1 tab - Objective Vital Signs: Vital Signs Temperature 99.0 F 02/16/17 06:00 Pulse Rate 68 02/16/17 06:00 Respiratory Rate 18 02/16/17 06:00 Blood Pressure 146/82 02/16/17 06:00 O2 Sat by Pulse Oximetry (%) 100 02/15/17 08:57 Constitutional: Yes: No Distress Eyes: Yes: WNL HENT: Yes: WNL Neck: Yes: WNL Cardiovascular: Yes: S1, S2, S4 Respiratory: Yes: Diminished (right base: no breath sounds) Gastrointestinal: Yes: Soft ...Rectal Exam: Yes: Deferred Genitourinary: No: Anuria Breast(s): Yes: WNL Musculoskeletal: Yes: Muscle Weakness Extremities: Yes: WNL Edema: No Peripheral Pulses WNL: Yes Integumentary: Yes: WNL Neurological: Yes: WNL Psychiatric: Yes: WNL Labs: CBC, BMP 02/15/17 05:35 02/15/17 05:35 INR, PTT INR 1.32 (0.82-1.09) H 02/09/17 11:46 - ....Imaging Chest X-ray: Image Reviewed (02/14/17: clear left side; increased effusion and infiltrate right thorax) Problem List - Problems (1) COPD (chronic obstructive pulmonary disease) Assessment/Plan: On nicotine patch to help stop smoking. Following pleural effusion; for thoracentesis of enlarging right effusion. Pulmonary rehabilitation as outpatient will be of benefit. Code(s): J44.9 - CHRONIC OBSTRUCTIVE PULMONARY DISEASE, UNSPECIFIED (2) Coronary artery disease Assessment/Plan: no further PCIs were required when last coronary angiogram was performed earlier this year. Continue statin. On nicotine patch. On Ranexa for angina. Code(s): I25.10 - ATHSCL HEART DISEASE OF [place] CORONARY ARTERY W/O ANG PCTRS (3) Empyema of lung Assessment/Plan: on antibiotics. For thoracentesis. Code(s): J86.9 - PYOTHORAX WITHOUT FISTULA (4) Renal insufficiency Code(s): N28.9 - DISORDER OF KIDNEY AND URETER, UNSPECIFIED (5) Smoker Assessment/Plan: on nicotine patch. Code(s): F17.200 - NICOTINE DEPENDENCE, UNSPECIFIED, UNCOMPLICATED (6) HTN (hypertension) Assessment/Plan: Serial BP checks; on amlodipine and metoprolol. Code(s): I10 - ESSENTIAL (PRIMARY) HYPERTENSION
--- NOTE | 2017-02-16 07:21 | PN ---
Progress Note, Physician Chief Complaint: Pt alert; fatigued; mild chest pain at site of right thoracentesis. History of Present Illness: The patient is a 76 year old black female with a significant PMH of HTN, hyperlipidemia, diabetes COPD (current smoker), CAD (s/p NSTEMI 07/2016; s/p stents in ?2015, with cor. angiogram 08/2016 not requiring new stents or other PCI; on Plavix & Aspirin), diastolic CHF (with severe apical hypokinesis on 2015 ECHO),chronic renal insufficiency, periods of disorientation, and hepatitis C, who presents to the emergency department via EMS with multiple complaints including chest pain and cough beginning approximately 1 week ago. The patient describes the chest pain as localized on the right side and aggravated by movement and coughing. The patient's grandson notes that the patient also has lower back pain that radiates to her legs. The patient's grandson reports that that the patient received an MRI 2 days ago. They report receiving a call this morning for the MRI results and reports that he was told the patient has pleural effusion, prompting their visit. The patient's grandson also notes that the patient has not been fully herself within the past week. The patient notes that she told EMS she wanted to be transported to [place] but notes that EMS wanted to bring her to the closest hospital ([facility]) because the patient had chest pain. The patient also notes she was admitted back in November at [facility] for kidney failure. The patient denies shortness of breath, headache and dizziness. Denies fever, chills, nausea, vomit, diarrhea and constipation. Denies dysuria, frequency, urgency and hematuria. Allergies: NKA Past surgical history: Cardiac stents: proximal and mid LAD, mid RCA, mid Cx ( dates of stents uncertain; when most recent coronary angiogram 08/27/2016 was done at [facility] for NSTEMI with TNI >10, stents were patent, and no new PCIs were required. Social history: Current some day smoker. No reported alcohol or drug use. PCP: Dr. Thomas Aguayo [ ] in [place]. - Current Medication List Current Medications: Active Medications Acetaminophen (Tylenol -) 650 mg PO Q6H PRN PRN Reason: FEVER OR PAIN Last Admin: 02/15/17 18:43 Dose: 650 mg Albuterol/Ipratropium (Duoneb -) 1 amp NEB Q4H PRN PRN Reason: SHORTNESS OF BREATH Amlodipine Besylate (Norvasc -) 5 mg PO DAILY [facility] Last Admin: 02/15/17 09:06 Dose: 5 mg Arformoterol Tartrate (Brovana (Restricted To Pulmonology/Resp) -) 1 amp NEB BID [facility] Last Admin: 02/15/17 21:00 Dose: 1 amp Aspirin (Asa -) 81 mg PO DAILY [facility] Last Admin: 02/15/17 14:46 Dose: 81 mg Atorvastatin Calcium (Lipitor -) 10 mg PO HS [facility] Last Admin: 02/15/17 22:06 Dose: 10 mg Clopidogrel Bisulfate (Plavix -) 75 mg PO DAILY [facility] Docusate Sodium (Colace -) 100 mg PO BID [facility] Last Admin: 02/15/17 22:06 Dose: 100 mg Heparin Sodium (Porcine) (Heparin -) 5,000 unit SQ TID [facility] Last Admin: 02/16/17 06:39 Dose: 5,000 unit Ampicillin Sodium/Sulbactam (Sodium 3 gm/ Sodium Chloride) 100 mls @ 200 mls/ hr IVPB BID [facility] Last Admin: 02/15/17 22:06 Dose: 200 mls/hr Isosorbide Mononitrate (Imdur -) 120 mg PO DAILY [facility] Last Admin: 02/15/17 09:06 Dose: 120 mg Methylprednisolone Sodium Succinate (Solu-Medrol -) 40 mg IVPUSH DAILY [facility] Last Admin: 02/15/17 09:06 Dose: 40 mg Metoprolol Succinate (Toprol Xl -) 50 mg PO DAILY [facility] Nicotine (Nicoderm Patch -) 14 mg TD DAILY [facility] Last Admin: 02/15/17 09:06 Dose: 14 mg Pantoprazole Sodium (Protonix -) 40 mg PO DAILY [facility] Last Admin: 02/15/17 14:46 Dose: 40 mg Polyethylene Glycol (Miralax (For Daily Use) -) 17 gm PO DAILY [facility] Last Admin: 02/15/17 12:24 Dose: Not Given Ranolazine (Ranexa -) 500 mg PO BID [facility] Last Admin: 02/15/17 22:06 Dose: 500 mg Senna (Senna -) 1 tab PO HS [facility] Last Admin: 02/15/17 22:06 Dose: 1 tab - Objective Vital Signs: Vital Signs Temperature 99.0 F 02/16/17 06:00 Pulse Rate 68 02/16/17 06:00 Respiratory Rate 18 02/16/17 06:00 Blood Pressure 146/82 02/16/17 06:00 O2 Sat by Pulse Oximetry (%) 100 02/15/17 08:57 Constitutional: Yes: Calm Eyes: Yes: WNL HENT: Yes: WNL Neck: Yes: WNL Cardiovascular: Yes: WNL Respiratory: Yes: Diminished Gastrointestinal: Yes: Soft ...Rectal Exam: Yes: Deferred Genitourinary: No: Anuria Breast(s): Yes: WNL Musculoskeletal: Yes: Muscle Weakness Extremities: Yes: Cool Edema: No Peripheral Pulses WNL: Yes Wound/Incision: Yes: Dressing Dry and Intact Neurological: Yes: WNL Psychiatric: Yes: WNL Labs: CBC, BMP 02/15/17 05:35 02/15/17 05:35 INR, PTT INR 1.32 (0.82-1.09) H 02/09/17 11:46 Abnormal Lab Results 02/14/17 02/15/17 02/15/17 10:40 05:35 05:35 WBC 19.4 H RBC 3.03 L Hgb 9.0 L Hct 28.2 L MCHC 31.9 L Plt Count 459 H Chloride 108 H BUN 41 H Creatinine 1.8 H Hepatitis C Antibody >11.0 H - ....Imaging Chest X-ray: Image Reviewed (no pneumothorax post-thoracentesis) Problem List - Problems (1) COPD (chronic obstructive pulmonary disease) Assessment/Plan: Thoracentesis performed; 60 ml serosanguinous fluid removed from right side; no pneumothorax. Await analysis. Code(s): J44.9 - CHRONIC OBSTRUCTIVE PULMONARY DISEASE, UNSPECIFIED (2) Coronary artery disease Assessment/Plan: no further PCIs were required when last coronary angiogram was performed earlier this year. Continue statin. On nicotine patch. On Ranexa for angina. Code(s): I25.10 - ATHSCL HEART DISEASE OF [place] CORONARY ARTERY W/O ANG PCTRS (3) Empyema of lung Assessment/Plan: on antibiotics. f/u thoracentesis analysis. Code(s): J86.9 - PYOTHORAX WITHOUT FISTULA (4) Renal insufficiency Assessment/Plan: avoid dehydration. F/u with clinical pharmacy coordinator. Code(s): N28.9 - DISORDER OF KIDNEY AND URETER, UNSPECIFIED (5) Smoker Assessment/Plan: on nicotine patch. Code(s): F17.200 - NICOTINE DEPENDENCE, UNSPECIFIED, UNCOMPLICATED (6) HTN (hypertension) Assessment/Plan: Serial BP checks; on amlodipine and metoprolol. Code(s): I10 - ESSENTIAL (PRIMARY) HYPERTENSION
--- NOTE | 2017-02-16 07:46 | PN ---
Physical Exam: SUBJECTIVE: Patient seen and examined at bedside. States was oob to chair this morning for 2 hours. Encouraged ambulation. OBJECTIVE: Vital Signs Period Temp Pulse Resp BP Sys/Barlow Pulse Ox Last 24 Hr 97.6 F-99.0 F 68-76 18-20 116-166/64-97 100 GENERAL: The patient is awake, alert, and fully oriented, in no acute distress. LUNGS: Diminished breath sounds RUL and RML; absent breath sounds RLL HEART: Regular rate and rhythm, S1, S2 ABDOMEN: Soft, nontender, nondistended, normoactive bowel sounds, no guarding, no rebound EXTREMITIES: 2+ pulses, warm, well-perfused, no edema. NEUROLOGICAL: Cranial nerves II through XII grossly intact. Normal speech, gait not observed. Laboratory Results - last 24 hr 02/14/17 02/15/17 02/15/17 10:40 05:35 05:35 WBC 19.4 H RBC 3.03 L Hgb 9.0 L Hct 28.2 L MCV 93.2 MCH 29.7 MCHC 31.9 L RDW 15.3 Plt Count 459 H MPV 8.3 Neutrophils % 78.3 Lymphocytes % 15.8 D Monocytes % 5.7 Eosinophils % 0.1 D Basophils % 0.1 Sodium 141 Potassium 5.0 Chloride 108 H Carbon Dioxide 22 Anion Gap 11 BUN 41 H Creatinine 1.8 H Random Glucose 75 Calcium 8.9 LD Total 238 Pleural Fluid Source Pleural Color Pleural Appearance Pleural WBC Pleural RBC Pleural Neutrophils Pleural Lymphocytes Pleural Monocytes Pleural Macrophages Pleural Chloride Pleural Total Protein Pleural LDH Pleural Glucose Pleural Amylase Pleural Cholesterol Pleural Triglycerides Hepatitis C Antibody >11.0 H 02/15/17 02/15/17 10:45 19:46 WBC RBC Hgb Hct MCV MCH MCHC RDW Plt Count MPV Neutrophils % Lymphocytes % Monocytes % Eosinophils % Basophils % Sodium Potassium Chloride Carbon Dioxide Anion Gap BUN Creatinine Random Glucose Calcium LD Total Cancelled Pleural Fluid Source Pleural fluid Pleural Color Red Pleural Appearance Bloody Pleural WBC 1045 Pleural RBC 29025 Pleural Neutrophils 24 Pleural Lymphocytes 27 Pleural Monocytes 2 Pleural Macrophages 47 Pleural Chloride 114.5 Pleural Total Protein 3.612 Pleural LDH 192.5 Pleural Glucose 99.311 Pleural Amylase 47.251 Pleural Cholesterol 78 Pleural Triglycerides 34 Hepatitis C Antibody Active Medications Generic Name Dose Route Start Last Admin Trade Name Freq PRN Reason Stop Dose Admin Acetaminophen 650 mg 02/09/17 23:35 02/15/17 18:43 Tylenol - PO 650 mg Q6H PRN Administration FEVER OR PAIN Albuterol/Ipratropium 1 amp 02/10/17 03:34 Duoneb - NEB Q4H PRN SHORTNESS OF BREATH Amlodipine Besylate 5 mg 02/13/17 15:29 02/15/17 09:06 Norvasc - PO 5 mg DAILY [facility] Administration Arformoterol Tartrate 1 amp 02/10/17 13:30 02/15/17 21:00 Brovana (Restricted To Pulmonology/Resp) - NEB 1 amp BID [facility] Administration Aspirin 81 mg 02/15/17 13:45 02/15/17 14:46 Asa - PO 81 mg DAILY [facility] Administration Atorvastatin Calcium 10 mg 02/10/17 22:00 02/15/17 22:06 Lipitor - PO 10 mg HS [facility] Administration Clopidogrel Bisulfate 75 mg 02/16/17 10:00 Plavix - PO DAILY [facility] Docusate Sodium 100 mg 02/13/17 15:30 02/15/17 22:06 Colace - PO 100 mg BID [facility] Administration Heparin Sodium (Porcine) 5,000 unit 02/12/17 22:00 02/16/17 06:39 Heparin - SQ 5,000 unit TID [facility] Administration Ampicillin Sodium/Sulbactam 100 mls @ 200 mls/hr 02/10/17 22:00 02/15/17 22: 06 Sodium 3 gm/ Sodium Chloride IVPB 200 mls/hr BID [facility] Administration Isosorbide Mononitrate 120 mg 02/10/17 11:45 02/15/17 09:06 Imdur - PO 120 mg DAILY [facility] Administration Methylprednisolone Sodium Succinate 40 mg 02/10/17 14:15 02/15/17 09:06 Solu-Medrol - IVPUSH 40 mg DAILY [facility] Administration Metoprolol Succinate 50 mg 02/16/17 10:00 Toprol Xl - PO DAILY [facility] Nicotine 14 mg 02/10/17 14:15 02/15/17 09:06 Nicoderm Patch - TD 14 mg DAILY [facility] Administration Pantoprazole Sodium 40 mg 02/15/17 14:15 02/15/17 14:46 Protonix - PO 40 mg DAILY [facility] Administration Polyethylene Glycol 17 gm 02/13/17 15:30 02/15/17 12:24 Miralax (For Daily Use) - PO Not Given DAILY [facility] Ranolazine 500 mg 02/10/17 11:45 02/15/17 22:06 Ranexa - PO 500 mg BID [facility] Administration Senna 1 tab 02/13/17 22:00 02/15/17 22:06 Senna - PO 1 tab HS [facility] Administration ASSESSMENT/PLAN 76 year-old woman with a PMH significant for HTN, HLD, CAD s/p stents, diastolic heart failure, Hep C, COPD current smoker, CKD, and h/o GI bleed. Admitted for respiratory distress secondary to right multiloculated pleural effusion and pneumonia. Right Multiloculated pleural effusion Pneumonia --s/p thoracentesis 02/15; bloody; +Light's criteria for exudate; cytology negative for malignant cells --post-procedure CXR negative for pneumo; RLL infiltrate unchanged --afebrile; leukocytosis partially attributable to steroids --continue Unasyn (day #6) --respiratory therapy to do pre post today to assess O2 needs CAD s/p stents Elevated troponins --mildly elevated troponins likely demand ischemia --most recent coronary angiogram 08/27/2016 at [facility] following NSTEMI, stents were patent, no new PCIs were required --continue ASA, Toprol XL, Lipitor, Ranexa, Imdur --spoke to PCP Dr. Thomas Aguayo ([phone]); Plavix was stopped in June 2016 following a GI bleed --d/c'd Plavix today and removed from home medication list --operations research manager is Dr. Jairo Stewart in same office as Dr. Aguayo Diastolic heart failure --02/10 Echo: LV normal; RV normal; trace MR --euvolemic, not on diuretics Hypertension --continue Toprol XL, amlodipine 5mg Hyperlipidemia --continue Lipitor RADHA --Cr 3.0 on admission, 1.8 today Hepatitis C --Hep C antibody positive; per Dr. Aguayo this is chronic, patient has been treated (he is not sure if Harvoni) FEN Fluids: PO intake adequate Electrolytes: replete as indicated Nutrition: sodium controlled DVT prophylaxis: subq heparin, oob, ambulation Physical therapy evaluation today Respiratory therapy pre post today Dispo: continues to require inpatient care. Full code. When patient is discharged, please fax discharge summary to Drs. Aguayo and Terry, FAX [phone] for both. Full code. Visit type - Emergency Visit Emergency Visit: Yes ED Registration Date: 02/09/17 Care time: The patient presented to the Emergency Department on the above date and was hospitalized for further evaluation of their emergent condition. - New Patient This patient is new to me today: No - Critical Care Critical Care patient: No
[2017-02-16 09:01] LABS: EOS % 0.2 % (0-4.5); HEMATOCRIT 26.5 % (32.4-45.2); HEMOGLOBIN 8.6 GM/dL (10.7-15.3); MCH 30.2 pg (25.7-33.7); MCHC 32.4 g/dl (32.0-36.0); MEAN CELL VOLUME 93.2 fl (80-96); MEAN PLT VOLUME 8.5 fl (7.5-11.1); MONO % 6.3 % (3.8-10.2); NEUT % 79.5 % (42.8-82.8); PLATELET COUNT 426 K/MM3 (134-434); RBC 2.84 M/mm3 (3.60-5.2); RDW 15.2 % (11.6-15.6); WHITE BLOOD COUNT 17.5 K/mm3 (4.0-10.0)
[2017-02-16 09:10] LABS: ALBUMIN 2.2 g/dl (3.4-5.0); ANION GAP 11 (8-16); BLOOD UREA NITROGEN 38 mg/dL (7-18); CALCIUM 8.5 mg/dL (8.5-10.1); CHLORIDE 109 mmol/L (98-107); CO2 23 mmol/L (21-32); GLUCOSE,RANDOM 81 mg/dL (74-106); POTASSIUM 4.7 mmol/L (3.5-5.1); SODIUM 143 mmol/L (136-145)
[2017-02-16 09:15] LABS: ALK PHOS 89 U/L (45-117); BILIRUBIN,TOTAL 0.3 mg/dL (0.2-1.0); SGOT/AST 12 U/L (15-37); SGPT/ALT 19 U/L (12-78); TOT PROT 6.4 g/dl (6.4-8.2)
[2017-02-16] MEDS: ISOSORBIDE MONONITRATE 60 MG TAB.SR.24H (FP) PO SCH (09:48)
[2017-02-16] MEDS: RANOLAZINE E.R. 500 MG TABLET (FP) PO SCH ×2 (09:48→21:20)
[2017-02-16] MEDS: NICOTINE 14 MG/24 HOURS TOPICAL PATCH TD SCH (09:48)
[2017-02-16] MEDS: METOPROLOL SUCCINATE 50 MG TAB.SR.24H (FP) PO SCH (09:49)
[2017-02-16] MEDS: ASPIRIN 81 MG CHEWABLE TABLETS PO SCH (09:49)
[2017-02-16] MEDS: PANTOPRAZOLE 40 MG TABLET (FP) PO SCH (09:49)
[2017-02-16] MEDS: amLODIPine BESYLATE 5 MG TABLET (FP) PO SCH (09:49)
[2017-02-16] MEDS ORDERED: CLOPIDOGREL BISULFATE 75 MG TABLET (FP) PO SCH (10:00)
[2017-02-16] MEDS: DOCUSATE SODIUM 100 MG CAPSULE (FP) PO SCH ×2 (10:00→21:20)
[2017-02-16] MEDS: POLYETHYLENE GLYCOL 3350 119 GM BTL PO SCH (10:00)
[2017-02-16] MEDS: ARFORMOTEROL TARTRATE 15 MCG/2 ML VIAL NEB SCH ×2 (10:40→22:11)
[2017-02-16] MEDS: methylPREDNISolone NA SUCC 40 MG/1 ML VIAL IVPUSH SCH (10:57)
[2017-02-16] MEDS: AMPICILLIN NA/SULBACTAM NA 3 GM in SODIUM CHLORIDE 100 ML IVPB SCH ×2 (10:57→21:20)
--- NOTE | 2017-02-16 11:56 | PATH ---
Cytology Non-Gynecological Report Patient Name: JOSE GOMEZ [facility]. Rec. #: [id number] /Age/Gender: 1940 (Age: 76) / F Account: [id number] Location: [facility] Taken: 02/15/2017 Received: 02/15/2017 Reported: 02/16/2017 Physicians: ANASTACIO Daniel M.D. Specimen(s) Received RIGHT PLEURAL FLUID Clinical History Pneumonia, pleural effusion Final Diagnosis PLEURAL FLUID, RIGHT, THORACENTESIS: SATISFACTORY FOR EVALUATION. NO MALIGNANT CELLS IDENTIFIED. SCATTERED MESOTHELIAL CELLS, NEUTROPHILS, FEW MACROPHAGES AND LYMPHOCYTES PRESENT. Electronically Signed Michaela Wilder M.D. Gross Description Approximately 50 cc of bloody fluid received fixed in 50% alcohol. Two cytofunnels and one cellblock prepared.
--- NOTE | 2017-02-16 12:48 | PN ---
Progress Note, Physician History of Present Illness: The patient is a 76 year old black female with a significant PMH of HTN, hyperlipidemia, diabetes COPD (current smoker), CAD (s/p NSTEMI 07/2016; s/p stents in ?2015, with cor. angiogram 08/2016 not requiring new stents or other PCI; on Plavix & Aspirin), diastolic CHF (with severe apical hypokinesis on 2015 ECHO),chronic renal insufficiency, periods of disorientation, and hepatitis C, who presents to the emergency department via EMS with multiple complaints including chest pain and cough beginning approximately 1 week ago. The patient describes the chest pain as localized on the right side and aggravated by movement and coughing. The patient's grandson notes that the patient also has lower back pain that radiates to her legs. The patient's grandson reports that that the patient received an MRI 2 days ago. They report receiving a call this morning for the MRI results and reports that he was told the patient has pleural effusion, prompting their visit. The patient's grandson also notes that the patient has not been fully herself within the past week. The patient notes that she told EMS she wanted to be transported to [place] but notes that EMS wanted to bring her to the closest hospital ([facility]) because the patient had chest pain. The patient also notes she was admitted back in November at [facility] for kidney failure. The patient denies shortness of breath, headache and dizziness. Denies fever, chills, nausea, vomit, diarrhea and constipation. Denies dysuria, frequency, urgency and hematuria. Allergies: NKA Past surgical history: Cardiac stents: proximal and mid LAD, mid RCA, mid Cx ( dates of stents uncertain; when most recent coronary angiogram 08/27/2016 was done at [facility] for NSTEMI with TNI >10, stents were patent, and no new PCIs were required. Social history: Current some day smoker. No reported alcohol or drug use. PCP: Dr. Thomas Aguayo [ ] in [place]. - Current Medication List Current Medications: Active Medications Acetaminophen (Tylenol -) 650 mg PO Q6H PRN PRN Reason: FEVER OR PAIN Last Admin: 02/15/17 18:43 Dose: 650 mg Albuterol/Ipratropium (Duoneb -) 1 amp NEB Q4H PRN PRN Reason: SHORTNESS OF BREATH Amlodipine Besylate (Norvasc -) 5 mg PO DAILY [facility] Last Admin: 02/16/17 09:49 Dose: 5 mg Arformoterol Tartrate (Brovana (Restricted To Pulmonology/Resp) -) 1 amp NEB BID [facility] Last Admin: 02/15/17 21:00 Dose: 1 amp Aspirin (Asa -) 81 mg PO DAILY [facility] Last Admin: 02/16/17 09:49 Dose: 81 mg Atorvastatin Calcium (Lipitor -) 10 mg PO HS [facility] Last Admin: 02/15/17 22:06 Dose: 10 mg Docusate Sodium (Colace -) 100 mg PO BID [facility] Last Admin: 02/16/17 10:00 Dose: Not Given Heparin Sodium (Porcine) (Heparin -) 5,000 unit SQ TID [facility] Last Admin: 02/16/17 06:39 Dose: 5,000 unit Ampicillin Sodium/Sulbactam (Sodium 3 gm/ Sodium Chloride) 100 mls @ 200 mls/ hr IVPB BID [facility] Last Admin: 02/16/17 10:57 Dose: 200 mls/hr Isosorbide Mononitrate (Imdur -) 120 mg PO DAILY [facility] Last Admin: 02/16/17 09:48 Dose: 120 mg Methylprednisolone Sodium Succinate (Solu-Medrol -) 40 mg IVPUSH DAILY [facility] Last Admin: 02/16/17 10:57 Dose: 40 mg Metoprolol Succinate (Toprol Xl -) 50 mg PO DAILY [facility] Last Admin: 02/16/17 09:49 Dose: 50 mg Nicotine (Nicoderm Patch -) 14 mg TD DAILY [facility] Last Admin: 02/16/17 09:48 Dose: 14 mg Pantoprazole Sodium (Protonix -) 40 mg PO DAILY [facility] Last Admin: 02/16/17 09:49 Dose: 40 mg Polyethylene Glycol (Miralax (For Daily Use) -) 17 gm PO DAILY [facility] Last Admin: 02/16/17 10:00 Dose: Not Given Ranolazine (Ranexa -) 500 mg PO BID [facility] Last Admin: 02/16/17 09:48 Dose: 500 mg Senna (Senna -) 1 tab PO HS [facility] Last Admin: 02/15/17 22:06 Dose: 1 tab - Objective Vital Signs: Vital Signs Temperature 99.0 F 02/16/17 06:00 Pulse Rate 68 02/16/17 06:00 Respiratory Rate 18 02/16/17 06:00 Blood Pressure 146/82 02/16/17 06:00 O2 Sat by Pulse Oximetry (%) 100 02/15/17 08:57 Eyes: Yes: WNL, Conjunctiva Clear, EOM Intact HENT: Yes: WNL, Atraumatic, Normocephalic Neck: Yes: WNL, Supple, Trachea Midline Cardiovascular: Yes: WNL, Regular Rate and Rhythm Respiratory: Yes: WNL, Regular, CTA Bilaterally Gastrointestinal: Yes: WNL, Normal Bowel Sounds Genitourinary: Yes: WNL Musculoskeletal: Yes: WNL Extremities: Yes: WNL Edema: No Integumentary: Yes: WNL Neurological: Yes: WNL, Alert, Oriented ...Motor Strength: WNL Psychiatric: Yes: WNL Labs: CBC, BMP 02/16/17 06:00 02/16/17 06:00 INR, PTT INR 1.32 (0.82-1.09) H 02/09/17 11:46 Assessment/Plan Problems (1) COPD (chronic obstructive pulmonary disease) Assessment/Plan: Thoracentesis performed; 60 ml serosanguinous fluid removed from right side; no pneumothorax. Await analysis. Code(s): J44.9 - CHRONIC OBSTRUCTIVE PULMONARY DISEASE, UNSPECIFIED (2) Coronary artery disease Assessment/Plan: no further PCIs were required when last coronary angiogram was performed earlier this year. Continue statin. On nicotine patch. On Ranexa for angina. Code(s): I25.10 - ATHSCL HEART DISEASE OF [place] CORONARY ARTERY W/O ANG PCTRS (3) Empyema of lung Assessment/Plan: on antibiotics. f/u thoracentesis analysis. Code(s): J86.9 - PYOTHORAX WITHOUT FISTULA (4) Renal insufficiency Assessment/Plan: avoid dehydration. F/u with deli/bakery associate. Code(s): N28.9 - DISORDER OF KIDNEY AND URETER, UNSPECIFIED (5) Smoker Assessment/Plan: on nicotine patch. Code(s): F17.200 - NICOTINE DEPENDENCE, UNSPECIFIED, UNCOMPLICATED (6) HTN (hypertension) Assessment/Plan: Serial BP checks; on amlodipine and metoprolol. Code(s): I10 - ESSENTIAL (PRIMARY) HYPERTENSION
--- NOTE | 2017-02-16 13:02 | PN ---
Progress Note, Physician History of Present Illness: pulmonary alert,nad,-sob,-cp.pleural fluid c/w exudate - Current Medication List Current Medications: Active Medications Acetaminophen (Tylenol -) 650 mg PO Q6H PRN PRN Reason: FEVER OR PAIN Last Admin: 02/15/17 18:43 Dose: 650 mg Albuterol/Ipratropium (Duoneb -) 1 amp NEB Q4H PRN PRN Reason: SHORTNESS OF BREATH Amlodipine Besylate (Norvasc -) 5 mg PO DAILY [facility] Last Admin: 02/16/17 09:49 Dose: 5 mg Arformoterol Tartrate (Brovana (Restricted To Pulmonology/Resp) -) 1 amp NEB BID [facility] Last Admin: 02/15/17 21:00 Dose: 1 amp Aspirin (Asa -) 81 mg PO DAILY [facility] Last Admin: 02/16/17 09:49 Dose: 81 mg Atorvastatin Calcium (Lipitor -) 10 mg PO HS [facility] Last Admin: 02/15/17 22:06 Dose: 10 mg Docusate Sodium (Colace -) 100 mg PO BID [facility] Last Admin: 02/16/17 10:00 Dose: Not Given Heparin Sodium (Porcine) (Heparin -) 5,000 unit SQ TID [facility] Last Admin: 02/16/17 06:39 Dose: 5,000 unit Ampicillin Sodium/Sulbactam (Sodium 3 gm/ Sodium Chloride) 100 mls @ 200 mls/ hr IVPB BID [facility] Last Admin: 02/16/17 10:57 Dose: 200 mls/hr Isosorbide Mononitrate (Imdur -) 120 mg PO DAILY [facility] Last Admin: 02/16/17 09:48 Dose: 120 mg Methylprednisolone Sodium Succinate (Solu-Medrol -) 40 mg IVPUSH DAILY [facility] Last Admin: 02/16/17 10:57 Dose: 40 mg Metoprolol Succinate (Toprol Xl -) 50 mg PO DAILY [facility] Last Admin: 02/16/17 09:49 Dose: 50 mg Nicotine (Nicoderm Patch -) 14 mg TD DAILY [facility] Last Admin: 02/16/17 09:48 Dose: 14 mg Pantoprazole Sodium (Protonix -) 40 mg PO DAILY [facility] Last Admin: 02/16/17 09:49 Dose: 40 mg Polyethylene Glycol (Miralax (For Daily Use) -) 17 gm PO DAILY [facility] Last Admin: 1227/17 10:00 Dose: Not Given Ranolazine (Ranexa -) 500 mg PO BID [facility] Last Admin: 02/16/17 09:48 Dose: 500 mg Senna (Senna -) 1 tab PO HS [facility] Last Admin: 02/15/17 22:06 Dose: 1 tab - Objective Vital Signs: Vital Signs Temperature 98.2 F 02/16/17 10:00 Pulse Rate 71 02/16/17 10:00 Respiratory Rate 18 02/16/17 10:00 Blood Pressure 130/60 02/16/17 10:00 O2 Sat by Pulse Oximetry (%) 96 02/16/17 10:00 Constitutional: Yes: Well Nourished, Calm Eyes: Yes: WNL HENT: Yes: WNL Neck: Yes: WNL Cardiovascular: Yes: Regular Rate and Rhythm, S1, S2 Respiratory: Yes: Diminished (diminshed r base) Gastrointestinal: Yes: Normal Bowel Sounds, Soft Extremities: Yes: WNL Edema: No Labs: CBC, BMP 02/16/17 06:00 02/16/17 06:00 INR, PTT INR 1.32 (0.82-1.09) H 02/09/17 11:46 Assessment/Plan Problem List - Problems (1) COPD (chronic obstructive pulmonary disease) Code(s): J44.9 - CHRONIC OBSTRUCTIVE PULMONARY DISEASE, UNSPECIFIED (2) Smoker Code(s): F17.200 - NICOTINE DEPENDENCE, UNSPECIFIED, UNCOMPLICATED (3) Empyema of lung Code(s): J86.9 - PYOTHORAX WITHOUT FISTULA (4) Pneumonia Code(s): J18.9 - PNEUMONIA, UNSPECIFIED ORGANISM (5) Pleural effusion Code(s): J90 - PLEURAL EFFUSION, NOT ELSEWHERE CLASSIFIED (6) Renal insufficiency Code(s): N28.9 - DISORDER OF KIDNEY AND URETER, UNSPECIFIED (7) CAD (coronary artery disease) Code(s): I25.10 - ATHSCL HEART DISEASE OF [place] CORONARY ARTERY W/O ANG PCTRS (8) Chest pain Code(s): R07.9 - CHEST PAIN, UNSPECIFIED (9) HTN (hypertension) Code(s): I10 - ESSENTIAL (PRIMARY) HYPERTENSION (10) Hepatitis C Code(s): B19.20 - UNSPECIFIED VIRAL HEPATITIS C WITHOUT HEPATIC COMA Assessment/Plan Antibiotics as per ID Medrol taper BD TX O2 to maintain saturation Smoking cessation discussed check pleural fluid cytology Outpatient PFTs once stable. thoracic surgery f/u DR ALAN
--- NOTE | 2017-02-16 13:12 | PN ---
Progress Note, Physician History of Present Illness: Pt seen and examined at bedside. She is awake and alert. She denies shortness of breath. - Current Medication List Current Medications: Active Medications Acetaminophen (Tylenol -) 650 mg PO Q6H PRN PRN Reason: FEVER OR PAIN Last Admin: 02/15/17 18:43 Dose: 650 mg Albuterol/Ipratropium (Duoneb -) 1 amp NEB Q4H PRN PRN Reason: SHORTNESS OF BREATH Amlodipine Besylate (Norvasc -) 5 mg PO DAILY [facility] Last Admin: 02/16/17 09:49 Dose: 5 mg Arformoterol Tartrate (Brovana (Restricted To Pulmonology/Resp) -) 1 amp NEB BID [facility] Last Admin: 02/15/17 21:00 Dose: 1 amp Aspirin (Asa -) 81 mg PO DAILY [facility] Last Admin: 02/16/17 09:49 Dose: 81 mg Atorvastatin Calcium (Lipitor -) 10 mg PO HS [facility] Last Admin: 02/15/17 22:06 Dose: 10 mg Docusate Sodium (Colace -) 100 mg PO BID [facility] Last Admin: 02/16/17 10:00 Dose: Not Given Heparin Sodium (Porcine) (Heparin -) 5,000 unit SQ TID [facility] Last Admin: 02/16/17 06:39 Dose: 5,000 unit Ampicillin Sodium/Sulbactam (Sodium 3 gm/ Sodium Chloride) 100 mls @ 200 mls/ hr IVPB BID [facility] Last Admin: 02/16/17 10:57 Dose: 200 mls/hr Isosorbide Mononitrate (Imdur -) 120 mg PO DAILY [facility] Last Admin: 02/16/17 09:48 Dose: 120 mg Methylprednisolone Sodium Succinate (Solu-Medrol -) 40 mg IVPUSH DAILY [facility] Last Admin: 02/16/17 10:57 Dose: 40 mg Metoprolol Succinate (Toprol Xl -) 50 mg PO DAILY [facility] Last Admin: 02/16/17 09:49 Dose: 50 mg Nicotine (Nicoderm Patch -) 14 mg TD DAILY [facility] Last Admin: 02/16/17 09:48 Dose: 14 mg Pantoprazole Sodium (Protonix -) 40 mg PO DAILY [facility] Last Admin: 02/16/17 09:49 Dose: 40 mg Polyethylene Glycol (Miralax (For Daily Use) -) 17 gm PO DAILY [facility] Last Admin: 02/16/17 10:00 Dose: Not Given Ranolazine (Ranexa -) 500 mg PO BID [facility] Last Admin: 02/16/17 09:48 Dose: 500 mg Senna (Senna -) 1 tab PO HS [facility] Last Admin: 02/15/17 22:06 Dose: 1 tab - Objective Vital Signs: Vital Signs Temperature 98.2 F 02/16/17 10:00 Pulse Rate 71 02/16/17 10:00 Respiratory Rate 18 02/16/17 10:00 Blood Pressure 130/60 02/16/17 10:00 O2 Sat by Pulse Oximetry (%) 96 02/16/17 10:00 Constitutional: Yes: Calm Eyes: Yes: Conjunctiva Clear HENT: Yes: Atraumatic Cardiovascular: Yes: S1, S2 Respiratory: Yes: CTA Bilaterally Gastrointestinal: Yes: Soft Genitourinary: Yes: WNL Musculoskeletal: Yes: WNL Edema: No Neurological: Yes: Oriented Psychiatric: Yes: Oriented Labs: CBC, BMP 02/16/17 06:00 02/16/17 06:00 INR, PTT INR 1.32 (0.82-1.09) H 02/09/17 11:46 Problem List - Problems (1) RADHA (acute kidney injury) Code(s): N17.9 - ACUTE KIDNEY FAILURE, UNSPECIFIED (2) COPD (chronic obstructive pulmonary disease) Code(s): J44.9 - CHRONIC OBSTRUCTIVE PULMONARY DISEASE, UNSPECIFIED (3) Pleural effusion Code(s): J90 - PLEURAL EFFUSION, NOT ELSEWHERE CLASSIFIED (4) CAD (coronary artery disease) Code(s): I25.10 - ATHSCL HEART DISEASE OF [place] CORONARY ARTERY W/O ANG PCTRS (5) Chest pain Code(s): R07.9 - CHEST PAIN, UNSPECIFIED Assessment/Plan Current Medications Generic Name Dose Route Start Last Admin Trade Name Freq PRN Reason Stop Dose Admin Acetaminophen 650 mg 02/09/17 23:35 02/15/17 18:43 Tylenol - PO 650 mg Q6H PRN Administration FEVER OR PAIN Albuterol/Ipratropium 1 amp 02/10/17 03:34 Duoneb - NEB Q4H PRN SHORTNESS OF BREATH Amlodipine Besylate 5 mg 02/13/17 15:29 02/16/17 09:49 Norvasc - PO 5 mg DAILY [facility] Administration Arformoterol Tartrate 1 amp 02/10/17 13:30 02/15/17 21:00 Brovana (Restricted To Pulmonology/Resp) - NEB 1 amp BID [facility] Administration Aspirin 81 mg 02/15/17 13:45 02/16/17 09:49 Asa - PO 81 mg DAILY [facility] Administration Atorvastatin Calcium 10 mg 02/10/17 22:00 02/15/17 22:06 Lipitor - PO 10 mg HS [facility] Administration Docusate Sodium 100 mg 02/13/17 15:30 02/16/17 10:00 Colace - PO Not Given BID [facility] Heparin Sodium (Porcine) 5,000 unit 02/12/17 22:00 02/16/17 06:39 Heparin - SQ 5,000 unit TID [facility] Administration Ampicillin Sodium/Sulbactam 100 mls @ 200 mls/hr 02/10/17 22:00 02/16/17 10: 57 Sodium 3 gm/ Sodium Chloride IVPB 200 mls/hr BID [facility] Administration Isosorbide Mononitrate 120 mg 02/10/17 11:45 02/16/17 09:48 Imdur - PO 120 mg DAILY [facility] Administration Methylprednisolone Sodium Succinate 40 mg 02/10/17 14:15 02/16/17 10:57 Solu-Medrol - IVPUSH 40 mg DAILY [facility] Administration Metoprolol Succinate 50 mg 02/16/17 10:00 02/16/17 09:49 Toprol Xl - PO 50 mg DAILY [facility] Administration Nicotine 14 mg 02/10/17 14:15 02/16/17 09:48 Nicoderm Patch - TD 14 mg DAILY [facility] Administration Pantoprazole Sodium 40 mg 02/15/17 14:15 02/16/17 09:49 Protonix - PO 40 mg DAILY [facility] Administration Polyethylene Glycol 17 gm 02/13/17 15:30 02/16/17 10:00 Miralax (For Daily Use) - PO Not Given DAILY [facility] Ranolazine 500 mg 02/10/17 11:45 02/16/17 09:48 Ranexa - PO 500 mg BID [facility] Administration Senna 1 tab 02/13/17 22:00 02/15/17 22:06 Senna - PO 1 tab HS [facility] Administration Impression 1. RADHA 2. CKD 3. multilobular pleural effusion 4. CAD s/p stents 5. HTN 6. hyperlipidemia 7. anemia 8. angina 9. PNA 10. proteinuria 11. hypomagnesemia 12. Hep C Plan - will continue to monitor renal function - follow cytology - repeat labs in am - follow up thoracocentesis results - repeat UA - follow hep C studies Dr Cotto
--- NOTE | 2017-02-16 16:23 | CONSULT ---
Consult - text type - Consultation Consultation Note: Thoracic Surgery Progress Note: Ambulating. Not smoking. Overall states feels better. She is s/p thoracentesis. VSS Decreased BS right base. Fluid analysis c/w exudate, glucose high. WBC still elevated, may have increased with steroids. Cytology: minimal PMN's, bloody, no cancer Imp/Plan: PNA with complex parapneumonic effusion. --Given clinical improvement, no need for repeat CT yet since minimal fluid on u /s at base and lung expanded near thoracentesis; --Consider PO abx and discharge with close f/u; --If fluid reaccumulates would redrain; --Please hold plavix (MAR[facility] PILOT Tate spoke with PMD and she has h/o GI bleed on plavix , and stents older than 6 months), also may need procedure in future if effusion worsens or is malignancy despite thoracentesis results.
--- NOTE | 2017-02-16 17:03 | PN ---
Physical Exam: SUBJECTIVE: Patient seen and examined at bedside. Yesterday, pt s/p thoracentesis with 60cc's bloody tap. Overnight, pt afebrile, with runs of bradycardia- toprol dose changed. Today, pt denies SÁNCHEZ, fever, chills, chest pain or lower extremity pain. OBJECTIVE: Vital Signs Period Temp Pulse Resp BP Sys/Barlow Pulse Ox Last 24 Hr 98.2 F-99.0 F 68-80 18-18 127-146/60-97 96 GENERAL: The patient is awake, alert, and fully oriented, in no acute distress. HEAD: Normal with no signs of trauma. EYES: PERRL, extraocular movements intact, sclera anicteric, conjunctiva clear. NECK: Trachea midline, supple. LUNGS: CTA b/l, without rhonchi, wheezes or crackles. HEART: Regular rate and rhythm, S1, S2 without murmur, rub or gallop. ABDOMEN: Soft, nontender, nondistended, normoactive bowel sounds EXTREMITIES: 2+ posterior tibial pulses, warm, well-perfused, no edema. NEUROLOGICAL: Cranial nerves II through XII grossly intact. Laboratory Tests 02/16/17 02/16/17 02/16/17 06:00 06:00 06:00 WBC 17.5 H Plt Count 426 Sodium 143 Potassium 4.7 Chloride 109 H Carbon Dioxide 23 BUN 38 H Creatinine 2.0 H Random Glucose 81 AST 12 L D ALT 19 Albumin 2.2 L Free T4 1.89 H Active Medications Generic Name Dose Route Start Last Admin Trade Name Freq PRN Reason Stop Dose Admin Acetaminophen 650 mg 02/09/17 23:35 02/15/17 18:43 Tylenol - PO 650 mg Q6H PRN Administration FEVER OR PAIN Albuterol/Ipratropium 1 amp 02/10/17 03:34 Duoneb - NEB Q4H PRN SHORTNESS OF BREATH Amlodipine Besylate 5 mg 02/13/17 15:29 02/16/17 09:49 Norvasc - PO 5 mg DAILY [facility] Administration Arformoterol Tartrate 1 amp 02/10/17 13:30 02/16/17 10:40 Brovana (Restricted To Pulmonology/Resp) - NEB 1 amp BID [facility] Administration Aspirin 81 mg 02/15/17 13:45 02/16/17 09:49 Asa - PO 81 mg DAILY [facility] Administration Atorvastatin Calcium 10 mg 02/10/17 22:00 02/15/17 22:06 Lipitor - PO 10 mg HS [facility] Administration Docusate Sodium 100 mg 02/13/17 15:30 02/16/17 10:00 Colace - PO Not Given BID [facility] Heparin Sodium (Porcine) 5,000 unit 02/12/17 22:00 02/16/17 14:02 Heparin - SQ 5,000 unit TID [facility] Administration Ampicillin Sodium/Sulbactam 100 mls @ 200 mls/hr 02/10/17 22:00 02/16/17 10: 57 Sodium 3 gm/ Sodium Chloride IVPB 200 mls/hr BID [facility] Administration Isosorbide Mononitrate 120 mg 02/10/17 11:45 02/16/17 09:48 Imdur - PO 120 mg DAILY [facility] Administration Methylprednisolone Sodium Succinate 40 mg 02/10/17 14:15 02/16/17 10:57 Solu-Medrol - IVPUSH 40 mg DAILY [facility] Administration Metoprolol Succinate 50 mg 02/16/17 10:00 02/16/17 09:49 Toprol Xl - PO 50 mg DAILY [facility] Administration Nicotine 14 mg 02/10/17 14:15 02/16/17 09:48 Nicoderm Patch - TD 14 mg DAILY [facility] Administration Pantoprazole Sodium 40 mg 02/15/17 14:15 02/16/17 09:49 Protonix - PO 40 mg DAILY [facility] Administration Polyethylene Glycol 17 gm 02/13/17 15:30 02/16/17 10:00 Miralax (For Daily Use) - PO Not Given DAILY [facility] Ranolazine 500 mg 02/10/17 11:45 02/16/17 09:48 Ranexa - PO 500 mg BID [facility] Administration Senna 1 tab 02/13/17 22:00 02/15/17 22:06 Senna - PO 1 tab HS [facility] Administration ASSESSMENT/PLAN: #R sided multiloculated pleural effusion - exudative -s/p thoracentesis (02/15)- 60ccs bloody tap -afebrile, white count 17.5 most likely 2/2 solumedrol. Improving from yesterday -Continue Unasyn 3g IVPB BID - Today is Day 7 -F/u quantiferon Thank you Cristine Dumas MD PGY-1 ID Team Visit type - Emergency Visit Emergency Visit: No - New Patient This patient is new to me today: No - Critical Care Critical Care patient: No
--- NOTE | 2017-02-16 17:37 | PN ---
Teaching Attending Note Name of Resident: Cristine Dumas ATTENDING PHYSICIAN STATEMENT I saw and evaluated the patient. I reviewed the resident's note and discussed the case with the resident. I agree with the resident's findings and plan as documented. SUBJECTIVE: quite comfortable OBJECTIVE: Vital Signs Period Temp Pulse Resp BP Sys/Barlow Pulse Ox Last 24 Hr 98.2 F-99.0 F 68-80 18-18 127-146/60-97 96 cor-rrr lungs decreased bs on right abd soft,nt ext no edema CBC, BMP 02/16/17 06:00 02/16/17 06:00 Microbiology 02/15/17 10:45 Pleural Fluid Gram Stain - Final 02/15/17 10:45 Pleural Fluid Body Fluid Culture - Preliminary NO AEROBIC GROWTH, 24 HRS 02/15/17 10:45 Pleural Fluid AFB Smear Concentration - Preliminary 02/15/17 10:45 Pleural Fluid Mycobacterial Culture - Preliminary 02/15/17 10:45 Pleural Fluid EMA Preparation - Preliminary 02/15/17 10:45 Pleural Fluid Fungal Culture - Preliminary 02/09/17 21:20 Blood - Peripheral Venous Blood Culture - Final NO GROWTH AFTER 5 DAYS INCUBATION 02/09/17 21:20 Blood - Peripheral Venous Blood Culture - Final NO GROWTH AFTER 5 DAYS INCUBATION 02/09/17 00:30 Urine - Urine Clean Catch Urine Culture - Final NO GROWTH OBTAINED ASSESSMENT AND PLAN: exudative effusion- ?parapneumonic, continue unasyn, taper steroids, check quantiferon
[2017-02-16] MEDS ORDERED: PT OWN MED DRAWER 7, Y5N ONE (21:16)
[2017-02-16] MEDS: ATORVASTATIN CA 10 MG TABLET (FP) PO SCH (21:20)
[2017-02-16] MEDS: SENNOSIDES 8.6MG TABLET (FP) PO SCH (21:20)
[2017-02-17] MEDS: HEPARIN NA (PORCINE) 5,000 UNITS/ML 1ML VIAL SQ SCH ×3 (05:47→21:45)
[2017-02-17 08:35] LABS: CHLORIDE 110 mmol/L (98-107); POTASSIUM 4.1 mmol/L (3.5-5.1); SODIUM 142 mmol/L (136-145)
[2017-02-17 08:49] LABS: ALBUMIN 2.2 g/dl (3.4-5.0); ALK PHOS 80 U/L (45-117); ANION GAP 7 (8-16); BILIRUBIN,TOTAL 0.4 mg/dL (0.2-1.0); BLOOD UREA NITROGEN 37 mg/dL (7-18); CALCIUM 8.3 mg/dL (8.5-10.1); CO2 25 mmol/L (21-32); CREATININE 1.9 mg/dL (0.55-1.02); GLUCOSE,RANDOM 90 mg/dL (74-106); MAGNESIUM 1.7 mg/dL (1.8-2.4); SGOT/AST 10 U/L (15-37); SGPT/ALT 17 U/L (12-78); TOT PROT 6.2 g/dl (6.4-8.2)
[2017-02-17 08:53] LABS: BASO % 0.1 % (0-2.0); EOS % 0.1 % (0-4.5); HEMATOCRIT 26.4 % (32.4-45.2); HEMOGLOBIN 8.4 GM/dL (10.7-15.3); LYMPH % 14.8 % (8-40); MCH 29.7 pg (25.7-33.7); MCHC 31.9 g/dl (32.0-36.0); MEAN PLT VOLUME 8.5 fl (7.5-11.1); PLATELET COUNT 391 K/MM3 (134-434); RBC 2.84 M/mm3 (3.60-5.2); WHITE BLOOD COUNT 18.3 K/mm3 (4.0-10.0)
[2017-02-17] MEDS ORDERED: PT OWN MED DRAWER 7, Y5N ONE ×2 (08:59→21:29)
[2017-02-17] MEDS: predniSONE 10 MG TABLET (UD) PO SCH (09:17)
[2017-02-17] MEDS: RANOLAZINE E.R. 500 MG TABLET (FP) PO SCH ×2 (09:17→21:44)
[2017-02-17] MEDS: METOPROLOL SUCCINATE 50 MG TAB.SR.24H (FP) PO SCH (09:17)
[2017-02-17] MEDS: PANTOPRAZOLE 40 MG TABLET (FP) PO SCH (09:17)
[2017-02-17] MEDS: ASPIRIN 81 MG CHEWABLE TABLETS PO SCH (09:17)
[2017-02-17] MEDS: ISOSORBIDE MONONITRATE 60 MG TAB.SR.24H (FP) PO SCH (09:17)
[2017-02-17] MEDS: NICOTINE 14 MG/24 HOURS TOPICAL PATCH TD SCH (09:18)
[2017-02-17] MEDS: POLYETHYLENE GLYCOL 3350 119 GM BTL PO SCH (09:18)
[2017-02-17] MEDS: AMPICILLIN NA/SULBACTAM NA 3 GM in SODIUM CHLORIDE 100 ML IVPB SCH ×2 (09:18→21:44)
[2017-02-17] MEDS: amLODIPine BESYLATE 5 MG TABLET (FP) PO SCH (09:18)
[2017-02-17] MEDS: DOCUSATE SODIUM 100 MG CAPSULE (FP) PO SCH ×2 (09:18→21:26)
[2017-02-17] MEDS: ARFORMOTEROL TARTRATE 15 MCG/2 ML VIAL NEB SCH ×2 (10:59→22:05)
--- NOTE | 2017-02-17 11:39 | PN ---
Physical Exam: SUBJECTIVE: Patient seen and examined at bedside. s/p Thoracentesis (done on ). Overnight, pt afebrile with no acute events overnight. Today pt states she is feeling fine and "wants to go home." Denies SÁNCHEZ, fever, chills, SOB, or any changes in urinary or bowel function. OBJECTIVE: Vital Signs Period Temp Pulse Resp BP Sys/Barlow Pulse Ox Last 24 Hr 98.1 F-99.1 F 70-85 16-18 124-150/60-84 94-95 GENERAL: The patient is awake, alert, and fully oriented, in no acute distress. HEAD: Normal with no signs of trauma. EYES: PERRL, extraocular movements intact, sclera anicteric, conjunctiva clear. NECK: Trachea midline, supple. LUNGS: decreased breath sounds at bases. otherwise, clear to auscultation bilaterally, no wheezes, no crackles, no accessory muscle use. HEART: Regular rate and rhythm, S1, S2 without murmur, rub or gallop. ABDOMEN: Soft, obese, nontender, nondistended, normoactive bowel sounds, no guarding EXTREMITIES: 2+ posterior tibial pulses, no edema. NEUROLOGICAL: Cranial nerves II through XII grossly intact. Laboratory Results 02/17/17 02/17/17 07:00 07:00 WBC 18.3 H Hgb 8.4 L Hct 26.4 L Plt Count 391 Sodium 142 Potassium 4.1 Chloride 110 H Carbon Dioxide 25 Anion Gap 7 L BUN 37 H Creatinine 1.9 H Active Medications Generic Name Dose Route Start Last Admin Trade Name Freq PRN Reason Stop Dose Admin Acetaminophen 650 mg 02/09/17 23:35 02/15/17 18:43 Tylenol - PO 650 mg Q6H PRN Administration FEVER OR PAIN Albuterol/Ipratropium 1 amp 02/10/17 03:34 Duoneb - NEB Q4H PRN SHORTNESS OF BREATH Amlodipine Besylate 5 mg 02/13/17 15:29 02/17/17 09:18 Norvasc - PO 5 mg DAILY [facility] Administration Arformoterol Tartrate 1 amp 02/10/17 13:30 02/17/17 10:59 Brovana (Restricted To Pulmonology/Resp) - NEB 1 amp BID [facility] Administration Aspirin 81 mg 02/15/17 13:45 02/17/17 09:17 Asa - PO 81 mg DAILY [facility] Administration Atorvastatin Calcium 10 mg 02/10/17 22:00 02/16/17 21:20 Lipitor - PO 10 mg HS [facility] Administration Docusate Sodium 100 mg 02/13/17 15:30 02/17/17 09:18 Colace - PO Not Given BID [facility] Heparin Sodium (Porcine) 5,000 unit 02/12/17 22:00 02/17/17 05:47 Heparin - SQ 5,000 unit TID [facility] Administration Ampicillin Sodium/Sulbactam 100 mls @ 200 mls/hr 02/10/17 22:00 02/17/17 09: 18 Sodium 3 gm/ Sodium Chloride IVPB 200 mls/hr BID [facility] Administration Isosorbide Mononitrate 120 mg 02/10/17 11:45 02/17/17 09:17 Imdur - PO 120 mg DAILY [facility] Administration Metoprolol Succinate 50 mg 02/16/17 10:00 02/17/17 09:17 Toprol Xl - PO 50 mg DAILY [facility] Administration Nicotine 14 mg 02/10/17 14:15 02/17/17 09:18 Nicoderm Patch - TD 14 mg DAILY [facility] Administration Pantoprazole Sodium 40 mg 02/15/17 14:15 02/17/17 09:17 Protonix - PO 40 mg DAILY [facility] Administration Polyethylene Glycol 17 gm 02/13/17 15:30 02/17/17 09:18 Miralax (For Daily Use) - PO Not Given DAILY [facility] Prednisone 30 mg 02/17/17 10:00 02/17/17 09:17 Deltasone - PO 02/18/17 10:01 30 mg DAILY [facility] Administration Ranolazine 500 mg 02/10/17 11:45 02/17/17 09:17 Ranexa - PO 500 mg BID [facility] Administration Senna 1 tab 02/13/17 22:00 02/16/17 21:20 Senna - PO Not Given HS [facility] Microbiology 02/15/17 10:45 Pleural Fluid Gram Stain - Final 02/15/17 10:45 Pleural Fluid Anaerobic Culture - Final NO ANAEROBES WERE ISOLATED 02/15/17 10:45 Pleural Fluid AFB Smear Concentration - Final 02/09/17 21:20 Blood - Peripheral Venous Blood Culture - Final NO GROWTH AFTER 5 DAYS INCUBATION 02/09/17 21:20 Blood - Peripheral Venous Blood Culture - Final NO GROWTH AFTER 5 DAYS INCUBATION 02/09/17 00:30 Urine - Urine Clean Catch Urine Culture - Final NO GROWTH OBTAINED 02/15/17 10:45 Pleural Fluid Mycobacterial Culture - Preliminary 02/15/17 10:45 Pleural Fluid EMA Preparation - Preliminary 02/15/17 10:45 Pleural Fluid Fungal Culture - Preliminary 02/15/17 10:45 Pleural Fluid Body Fluid Culture - Preliminary NO AEROBIC GROWTH, 24 HRS ASSESSMENT/PLAN: #R sided multiloculated pleural effusion - exudative -s/p thoracentesis (02/15)- 60ccs bloody tap -currently afebrile, white count 18.3 most likely 2/2 Prednisone -Continue Unasyn 3g IVPB BID - Today is Day 8 -Pleural fluid AFB (-), EMA (-), Fungal cx (-) Thank you Cristine Dumas MD PGY-1 ID Team Visit type - Emergency Visit Emergency Visit: No - New Patient This patient is new to me today: No - Critical Care Critical Care patient: No
--- NOTE | 2017-02-17 14:19 | PN ---
Teaching Attending Note Name of Resident: Cristine Dumas ATTENDING PHYSICIAN STATEMENT I saw and evaluated the patient. I reviewed the resident's note and discussed the case with the resident. I agree with the resident's findings and plan as documented. SUBJECTIVE: No complaints Denies dyspnea/ chest pain No c/o fever/ chills OBJECTIVE: Breathing comfortably afebrile Cor S1S2 decreased BS R base ASSESSMENT AND PLAN: Loculated exudatve pleural effusion S/P thoracentesis Await pleural fluid cultures Continue Unasyn
--- NOTE | 2017-02-17 14:24 | PN ---
Progress Note, Physician History of Present Illness: pulmonary alert,nad,-cp,-sob,-cough - Current Medication List Current Medications: Active Medications Acetaminophen (Tylenol -) 650 mg PO Q6H PRN PRN Reason: FEVER OR PAIN Last Admin: 02/15/17 18:43 Dose: 650 mg Albuterol/Ipratropium (Duoneb -) 1 amp NEB Q4H PRN PRN Reason: SHORTNESS OF BREATH Amlodipine Besylate (Norvasc -) 5 mg PO DAILY [facility] Last Admin: 02/17/17 09:18 Dose: 5 mg Arformoterol Tartrate (Brovana (Restricted To Pulmonology/Resp) -) 1 amp NEB BID [facility] Last Admin: 02/17/17 10:59 Dose: 1 amp Aspirin (Asa -) 81 mg PO DAILY [facility] Last Admin: 02/17/17 09:17 Dose: 81 mg Atorvastatin Calcium (Lipitor -) 10 mg PO HS [facility] Last Admin: 02/16/17 21:20 Dose: 10 mg Docusate Sodium (Colace -) 100 mg PO BID [facility] Last Admin: 02/17/17 09:18 Dose: Not Given Heparin Sodium (Porcine) (Heparin -) 5,000 unit SQ TID [facility] Last Admin: 02/17/17 05:47 Dose: 5,000 unit Ampicillin Sodium/Sulbactam (Sodium 3 gm/ Sodium Chloride) 100 mls @ 200 mls/ hr IVPB BID [facility] Last Admin: 02/17/17 09:18 Dose: 200 mls/hr Isosorbide Mononitrate (Imdur -) 120 mg PO DAILY [facility] Last Admin: 02/17/17 09:17 Dose: 120 mg Metoprolol Succinate (Toprol Xl -) 50 mg PO DAILY [facility] Last Admin: 02/17/17 09:17 Dose: 50 mg Nicotine (Nicoderm Patch -) 14 mg TD DAILY [facility] Last Admin: 02/17/17 09:18 Dose: 14 mg Pantoprazole Sodium (Protonix -) 40 mg PO DAILY [facility] Last Admin: 02/17/17 09:17 Dose: 40 mg Polyethylene Glycol (Miralax (For Daily Use) -) 17 gm PO DAILY [facility] Last Admin: 02/17/17 09:18 Dose: Not Given Prednisone (Deltasone -) 30 mg PO DAILY [facility] Stop: 02/18/17 10:01 Last Admin: 02/17/17 09:17 Dose: 30 mg Ranolazine (Ranexa -) 500 mg PO BID [facility] Last Admin: 02/17/17 09:17 Dose: 500 mg Senna (Senna -) 1 tab PO HS [facility] Last Admin: 02/16/17 21:20 Dose: Not Given - Objective Vital Signs: Vital Signs Temperature 98.1 F 02/17/17 10:00 Pulse Rate 70 02/17/17 10:00 Respiratory Rate 18 02/17/17 10:00 Blood Pressure 148/74 02/17/17 10:00 O2 Sat by Pulse Oximetry (%) 95 02/17/17 09:00 Constitutional: Yes: Well Nourished, Calm Eyes: Yes: WNL HENT: Yes: WNL Neck: Yes: WNL Cardiovascular: Yes: WNL Respiratory: Yes: Diminished (decreased bs on r bases) Gastrointestinal: Yes: Normal Bowel Sounds, Soft Extremities: Yes: WNL Edema: No Labs: CBC, BMP 02/17/17 07:00 02/17/17 07:00 INR, PTT INR 1.32 (0.82-1.09) H 02/09/17 11:46 Assessment/Plan Problem List - Problems (1) COPD (chronic obstructive pulmonary disease) Code(s): J44.9 - CHRONIC OBSTRUCTIVE PULMONARY DISEASE, UNSPECIFIED (2) Smoker Code(s): F17.200 - NICOTINE DEPENDENCE, UNSPECIFIED, UNCOMPLICATED (3) Empyema of lung Code(s): J86.9 - PYOTHORAX WITHOUT FISTULA (4) Pneumonia Code(s): J18.9 - PNEUMONIA, UNSPECIFIED ORGANISM (5) Pleural effusion Code(s): J90 - PLEURAL EFFUSION, NOT ELSEWHERE CLASSIFIED (6) Renal insufficiency Code(s): N28.9 - DISORDER OF KIDNEY AND URETER, UNSPECIFIED (7) CAD (coronary artery disease) Code(s): I25.10 - ATHSCL HEART DISEASE OF [place] CORONARY ARTERY W/O ANG PCTRS (8) Chest pain Code(s): R07.9 - CHEST PAIN, UNSPECIFIED (9) HTN (hypertension) Code(s): I10 - ESSENTIAL (PRIMARY) HYPERTENSION (10) Hepatitis C Code(s): B19.20 - UNSPECIFIED VIRAL HEPATITIS C WITHOUT HEPATIC COMA Assessment/Plan Antibiotics as per ID steroid taper BD TX O2 to maintain saturation Smoking cessation discussed Outpatient PFTs once stable. f/u chest x-rays outpatient DR ALAN
--- NOTE | 2017-02-17 15:11 | PN ---
Progress Note, Physician History of Present Illness: Pt seen and examined at bedside. She denies shortness of breath. She says that she feels well. - Current Medication List Current Medications: Active Medications Acetaminophen (Tylenol -) 650 mg PO Q6H PRN PRN Reason: FEVER OR PAIN Last Admin: 02/15/17 18:43 Dose: 650 mg Albuterol/Ipratropium (Duoneb -) 1 amp NEB Q4H PRN PRN Reason: SHORTNESS OF BREATH Amlodipine Besylate (Norvasc -) 5 mg PO DAILY [facility] Last Admin: 02/17/17 09:18 Dose: 5 mg Arformoterol Tartrate (Brovana (Restricted To Pulmonology/Resp) -) 1 amp NEB BID [facility] Last Admin: 02/17/17 10:59 Dose: 1 amp Aspirin (Asa -) 81 mg PO DAILY [facility] Last Admin: 02/17/17 09:17 Dose: 81 mg Atorvastatin Calcium (Lipitor -) 10 mg PO HS [facility] Last Admin: 02/16/17 21:20 Dose: 10 mg Docusate Sodium (Colace -) 100 mg PO BID [facility] Last Admin: 02/17/17 09:18 Dose: Not Given Heparin Sodium (Porcine) (Heparin -) 5,000 unit SQ TID [facility] Last Admin: 02/17/17 05:47 Dose: 5,000 unit Ampicillin Sodium/Sulbactam (Sodium 3 gm/ Sodium Chloride) 100 mls @ 200 mls/ hr IVPB BID [facility] Last Admin: 02/17/17 09:18 Dose: 200 mls/hr Isosorbide Mononitrate (Imdur -) 120 mg PO DAILY [facility] Last Admin: 02/17/17 09:17 Dose: 120 mg Metoprolol Succinate (Toprol Xl -) 50 mg PO DAILY [facility] Last Admin: 02/17/17 09:17 Dose: 50 mg Nicotine (Nicoderm Patch -) 14 mg TD DAILY [facility] Last Admin: 02/17/17 09:18 Dose: 14 mg Pantoprazole Sodium (Protonix -) 40 mg PO DAILY [facility] Last Admin: 02/17/17 09:17 Dose: 40 mg Polyethylene Glycol (Miralax (For Daily Use) -) 17 gm PO DAILY [facility] Last Admin: 02/17/17 09:18 Dose: Not Given Prednisone (Deltasone -) 30 mg PO DAILY [facility] Stop: 02/18/17 10:01 Last Admin: 02/17/17 09:17 Dose: 30 mg Ranolazine (Ranexa -) 500 mg PO BID [facility] Last Admin: 02/17/17 09:17 Dose: 500 mg Senna (Senna -) 1 tab PO HS [facility] Last Admin: 02/16/17 21:20 Dose: Not Given - Objective Vital Signs: Vital Signs Temperature 98.9 F 02/17/17 14:34 Pulse Rate 82 02/17/17 14:34 Respiratory Rate 20 02/17/17 14:34 Blood Pressure 166/79 02/17/17 14:34 O2 Sat by Pulse Oximetry (%) 95 02/17/17 09:00 Constitutional: Yes: Calm Eyes: Yes: Conjunctiva Clear HENT: Yes: Atraumatic Neck: Yes: Supple Cardiovascular: Yes: S1, S2 Respiratory: Yes: CTA Bilaterally Gastrointestinal: Yes: Soft Genitourinary: Yes: WNL Extremities: Yes: WNL Edema: No Neurological: Yes: Oriented Psychiatric: Yes: Oriented Labs: CBC, BMP 02/17/17 07:00 02/17/17 07:00 INR, PTT INR 1.32 (0.82-1.09) H 02/09/17 11:46 Problem List - Problems (1) RADHA (acute kidney injury) Code(s): N17.9 - ACUTE KIDNEY FAILURE, UNSPECIFIED (2) COPD (chronic obstructive pulmonary disease) Code(s): J44.9 - CHRONIC OBSTRUCTIVE PULMONARY DISEASE, UNSPECIFIED (3) Pleural effusion Code(s): J90 - PLEURAL EFFUSION, NOT ELSEWHERE CLASSIFIED (4) CAD (coronary artery disease) Code(s): I25.10 - ATHSCL HEART DISEASE OF [place] CORONARY ARTERY W/O ANG PCTRS (5) Chest pain Code(s): R07.9 - CHEST PAIN, UNSPECIFIED Assessment/Plan Current Medications Generic Name Dose Route Start Last Admin Trade Name Freq PRN Reason Stop Dose Admin Acetaminophen 650 mg 02/09/17 23:35 02/15/17 18:43 Tylenol - PO 650 mg Q6H PRN Administration FEVER OR PAIN Albuterol/Ipratropium 1 amp 02/10/17 03:34 Duoneb - NEB Q4H PRN SHORTNESS OF BREATH Amlodipine Besylate 5 mg 02/13/17 15:29 12/28/17 09:18 Norvasc - PO 5 mg DAILY [facility] Administration Arformoterol Tartrate 1 amp 02/10/17 13:30 02/17/17 10:59 Brovana (Restricted To Pulmonology/Resp) - NEB 1 amp BID [facility] Administration Aspirin 81 mg 02/15/17 13:45 02/17/17 09:17 Asa - PO 81 mg DAILY [facility] Administration Atorvastatin Calcium 10 mg 02/10/17 22:00 02/16/17 21:20 Lipitor - PO 10 mg HS [facility] Administration Docusate Sodium 100 mg 02/13/17 15:30 02/17/17 09:18 Colace - PO Not Given BID [facility] Heparin Sodium (Porcine) 5,000 unit 02/12/17 22:00 02/17/17 05:47 Heparin - SQ 5,000 unit TID [facility] Administration Ampicillin Sodium/Sulbactam 100 mls @ 200 mls/hr 02/10/17 22:00 02/17/17 09: 18 Sodium 3 gm/ Sodium Chloride IVPB 200 mls/hr BID [facility] Administration Isosorbide Mononitrate 120 mg 02/10/17 11:45 02/17/17 09:17 Imdur - PO 120 mg DAILY [facility] Administration Metoprolol Succinate 50 mg 02/16/17 10:00 02/17/17 09:17 Toprol Xl - PO 50 mg DAILY [facility] Administration Nicotine 14 mg 02/10/17 14:15 02/17/17 09:18 Nicoderm Patch - TD 14 mg DAILY [facility] Administration Pantoprazole Sodium 40 mg 02/15/17 14:15 02/17/17 09:17 Protonix - PO 40 mg DAILY [facility] Administration Polyethylene Glycol 17 gm 02/13/17 15:30 02/17/17 09:18 Miralax (For Daily Use) - PO Not Given DAILY [facility] Prednisone 30 mg 02/17/17 10:00 02/17/17 09:17 Deltasone - PO 02/18/17 10:01 30 mg DAILY [facility] Administration Ranolazine 500 mg 02/10/17 11:45 02/17/17 09:17 Ranexa - PO 500 mg BID [facility] Administration Senna 1 tab 02/13/17 22:00 02/16/17 21:20 Senna - PO Not Given HS [facility] Laboratory Tests 02/15/17 05:35 HCV Quantitation Hcv not detected Impression 1. RADHA 2. CKD 3. multilobular pleural effusion 4. CAD s/p stents 5. HTN 6. hyperlipidemia 7. anemia 8. angina 9. PNA 10. proteinuria 11. hypomagnesemia 12. Hep C Plan - renal function is stabilizing - will need outpt follow up - no acute change in management - follow repeat UA - follow cytology Dr Cotto
--- NOTE | 2017-02-17 16:58 | PN ---
Physical Exam: SUBJECTIVE: Patient seen and examined. States feels much better, walked hallway without getting SOB, anxious to go home. OBJECTIVE: Vital Signs Period Temp Pulse Resp BP Sys/Barlow Pulse Ox Last 24 Hr 98.1 F-99.1 F 70-85 16-20 124-166/60-84 94-95 GENERAL: The patient is awake, alert, and fully oriented, in no acute distress. LUNGS: Diminished breath sounds RUL and RML; absent breath sounds RLL HEART: Regular rate and rhythm, S1, S2 ABDOMEN: Soft, nontender, nondistended, normoactive bowel sounds, no guarding, no rebound EXTREMITIES: 2+ pulses, warm, well-perfused, no edema. NEUROLOGICAL: Cranial nerves II through XII grossly intact. Normal speech, gait not observed. Laboratory Results - last 24 hr 02/15/17 02/16/17 02/17/17 05:35 06:00 07:00 WBC RBC Hgb Hct MCV MCH MCHC RDW Plt Count MPV Neutrophils % Lymphocytes % Monocytes % Eosinophils % Basophils % Sodium 142 Potassium 4.1 Chloride 110 H Carbon Dioxide 25 Anion Gap 7 L BUN 37 H Creatinine 1.9 H Creat Clearance w eGFR 25.70 Random Glucose 90 Calcium 8.3 L Magnesium 1.7 L D Total Bilirubin 0.4 D AST 10 L ALT 17 Alkaline Phosphatase 80 Total Protein 6.2 L Albumin 2.2 L Free T3 1.2 L HCV Quantitation Hcv not detected HCV RNA PCR log copy center operator/ml TNP 02/17/17 07:00 WBC 18.3 H RBC 2.84 L Hgb 8.4 L Hct 26.4 L MCV 93.0 MCH 29.7 MCHC 31.9 L RDW 15.0 Plt Count 391 MPV 8.5 Neutrophils % 79.0 Lymphocytes % 14.8 Monocytes % 6.0 Eosinophils % 0.1 Basophils % 0.1 D Sodium Potassium Chloride Carbon Dioxide Anion Gap BUN Creatinine Creat Clearance w eGFR Random Glucose Calcium Magnesium Total Bilirubin AST ALT Alkaline Phosphatase Total Protein Albumin Free T3 HCV Quantitation HCV RNA PCR log copy center operator/ml Active Medications Generic Name Dose Route Start Last Admin Trade Name Freq PRN Reason Stop Dose Admin Acetaminophen 650 mg 02/09/17 23:35 02/15/17 18:43 Tylenol - PO 650 mg Q6H PRN Administration FEVER OR PAIN Albuterol/Ipratropium 1 amp 02/10/17 03:34 Duoneb - NEB Q4H PRN SHORTNESS OF BREATH Amlodipine Besylate 5 mg 02/13/17 15:29 02/17/17 09:18 Norvasc - PO 5 mg DAILY [facility] Administration Arformoterol Tartrate 1 amp 02/10/17 13:30 02/17/17 10:59 Brovana (Restricted To Pulmonology/Resp) - NEB 1 amp BID [facility] Administration Aspirin 81 mg 02/15/17 13:45 02/17/17 09:17 Asa - PO 81 mg DAILY [facility] Administration Atorvastatin Calcium 10 mg 02/10/17 22:00 02/16/17 21:20 Lipitor - PO 10 mg HS [facility] Administration Docusate Sodium 100 mg 02/13/17 15:30 02/17/17 09:18 Colace - PO Not Given BID [facility] Heparin Sodium (Porcine) 5,000 unit 02/12/17 22:00 02/17/17 15:31 Heparin - SQ 5,000 unit TID [facility] Administration Ampicillin Sodium/Sulbactam 100 mls @ 200 mls/hr 02/10/17 22:00 02/17/17 09: 18 Sodium 3 gm/ Sodium Chloride IVPB 200 mls/hr BID [facility] Administration Isosorbide Mononitrate 120 mg 02/10/17 11:45 02/17/17 09:17 Imdur - PO 120 mg DAILY [facility] Administration Metoprolol Succinate 50 mg 02/16/17 10:00 02/17/17 09:17 Toprol Xl - PO 50 mg DAILY [facility] Administration Nicotine 14 mg 02/10/17 14:15 02/17/17 09:18 Nicoderm Patch - TD 14 mg DAILY [facility] Administration Pantoprazole Sodium 40 mg 02/15/17 14:15 02/17/17 09:17 Protonix - PO 40 mg DAILY [facility] Administration Polyethylene Glycol 17 gm 02/13/17 15:30 02/17/17 09:18 Miralax (For Daily Use) - PO Not Given DAILY [facility] Prednisone 30 mg 02/17/17 10:00 02/17/17 09:17 Deltasone - PO 02/18/17 10:01 30 mg DAILY [facility] Administration Ranolazine 500 mg 02/10/17 11:45 02/17/17 09:17 Ranexa - PO 500 mg BID [facility] Administration Senna 1 tab 02/13/17 22:00 02/16/17 21:20 Senna - PO Not Given HS [facility] ASSESSMENT/PLAN 76 year-old woman with a PMH significant for HTN, HLD, CAD s/p stents, diastolic heart failure, Hep C, COPD current smoker, CKD, and h/o GI bleed. Admitted for respiratory distress secondary to right multiloculated pleural effusion and pneumonia. Right multiloculated exudative pleural effusion Pneumonia --s/p thoracentesis 02/15; bloody; +Light's criteria for exudate; cytology negative for malignant cells --clinical exam unchanged, marked diminution breath sounds right base --continue Unasyn (day #7) pending pleural fluid cultures --respiratory therapy to do pre post to assess O2 needs (patient earlier refused) CAD s/p stents Elevated troponins --mildly elevated troponins likely demand ischemia --most recent coronary angiogram 08/27/2016 at [facility] following NSTEMI, stents were patent, no new PCIs were required --continue ASA, Toprol XL, Lipitor, Ranexa, Imdur --spoke to PCP Dr. Thomas Aguayo ([phone]); Plavix was stopped in June 2016 following a GI bleed --d/c'd Plavix today and removed from home medication list --lathe operator is Dr. Jairo Stewart in same office as Dr. Aguayo Diastolic heart failure --02/10 Echo: LV normal; RV normal; trace MR --euvolemic, not on diuretics Hypertension --continue Toprol XL, amlodipine 5mg Hyperlipidemia --continue Lipitor Acute on chronic renal insufficiency --Cr 3.0 on admission, 1.9 today Hepatitis C --Hep C antibody positive; per Dr. Aguayo this is chronic, patient has been treated (he is not sure if Harvoni) FEN Fluids: PO intake adequate Electrolytes: replete as indicated Nutrition: sodium controlled DVT prophylaxis: subq heparin, oob, ambulation Physical therapy Respiratory therapy pre post - attempt again tomorrow. Dispo: continues to require inpatient care. Full code. When patient is discharged, please fax discharge summary to Drs. Aguayo and Terry, FAX [phone] for both. Full code. Visit type - Emergency Visit Emergency Visit: Yes ED Registration Date: 02/09/17 Care time: The patient presented to the Emergency Department on the above date and was hospitalized for further evaluation of their emergent condition. - New Patient This patient is new to me today: No - Critical Care Critical Care patient: No
[2017-02-17] MEDS: SENNOSIDES 8.6MG TABLET (FP) PO SCH (21:27)
[2017-02-17] MEDS: ATORVASTATIN CA 10 MG TABLET (FP) PO SCH (21:44)
[2017-02-18] MEDS: HEPARIN NA (PORCINE) 5,000 UNITS/ML 1ML VIAL SQ SCH ×3 (06:53→21:30)
--- NOTE | 2017-02-18 08:59 | PN ---
Physical Exam: SUBJECTIVE: Patient seen and examined seated on edge of bed. OBJECTIVE: Vital Signs Period Temp Pulse Resp BP Sys/Barlow Pulse Ox Last 24 Hr 97.8 F-98.9 F 66-91 18-20 133-166/74-87 95-98 GENERAL: The patient is awake, alert, and fully oriented, in no acute distress. LUNGS: Diminished breath sounds RUL and RML; absent breath sounds RLL; exam unchanged HEART: Regular rate and rhythm, S1, S2 ABDOMEN: Soft, nontender, nondistended, normoactive bowel sounds, no guarding, no rebound EXTREMITIES: 2+ pulses, warm, well-perfused, no edema. NEUROLOGICAL: Cranial nerves II through XII grossly intact. Normal speech, gait not observed. Laboratory Results - last 24 hr 02/15/17 02/16/17 05:35 17:45 HCV Quantitation Hcv not detected HCV RNA PCR log type copyist/ml TNP TB Test (QFT) Negative Active Medications Generic Name Dose Route Start Last Admin Trade Name Freq PRN Reason Stop Dose Admin Acetaminophen 650 mg 02/09/17 23:35 02/15/17 18:43 Tylenol - PO 650 mg Q6H PRN Administration FEVER OR PAIN Albuterol/Ipratropium 1 amp 02/10/17 03:34 Duoneb - NEB Q4H PRN SHORTNESS OF BREATH Amlodipine Besylate 5 mg 02/13/17 15:29 02/17/17 09:18 Norvasc - PO 5 mg DAILY [facility] Administration Arformoterol Tartrate 1 amp 02/10/17 13:30 02/17/17 22:05 Brovana (Restricted To Pulmonology/Resp) - NEB 1 amp BID [facility] Administration Aspirin 81 mg 02/15/17 13:45 02/17/17 09:17 Asa - PO 81 mg DAILY [facility] Administration Atorvastatin Calcium 10 mg 02/10/17 22:00 02/17/17 21:44 Lipitor - PO 10 mg HS [facility] Administration Docusate Sodium 100 mg 02/13/17 15:30 02/17/17 21:26 Colace - PO Not Given BID [facility] Heparin Sodium (Porcine) 5,000 unit 02/12/17 22:00 02/18/17 06:53 Heparin - SQ 5,000 unit TID [facility] Administration Ampicillin Sodium/Sulbactam 100 mls @ 200 mls/hr 02/10/17 22:00 02/17/17 21: 44 Sodium 3 gm/ Sodium Chloride IVPB 200 mls/hr BID [facility] Administration Isosorbide Mononitrate 120 mg 02/10/17 11:45 02/17/17 09:17 Imdur - PO 120 mg DAILY [facility] Administration Metoprolol Succinate 50 mg 02/18/17 10:00 Toprol Xl - PO BID [facility] Nicotine 14 mg 02/10/17 14:15 02/17/17 09:18 Nicoderm Patch - TD 14 mg DAILY [facility] Administration Pantoprazole Sodium 40 mg 02/15/17 14:15 02/17/17 09:17 Protonix - PO 40 mg DAILY [facility] Administration Polyethylene Glycol 17 gm 02/13/17 15:30 02/17/17 09:18 Miralax (For Daily Use) - PO Not Given DAILY [facility] Prednisone 30 mg 02/17/17 10:00 02/17/17 09:17 Deltasone - PO 02/18/17 10:01 30 mg DAILY [facility] Administration Prednisone 20 mg 02/19/17 10:00 Deltasone - PO 02/20/17 10:01 DAILY [facility] Ranolazine 500 mg 02/10/17 11:45 02/17/17 21:44 Ranexa - PO 500 mg BID [facility] Administration Senna 1 tab 02/13/17 22:00 02/17/17 21:27 Senna - PO Not Given HS [facility] ASSESSMENT/PLAN: 76 year-old woman with a PMH significant for HTN, HLD, CAD s/p stents, diastolic heart failure, Hep C, COPD current smoker, CKD, and h/o GI bleed. Admitted for respiratory distress secondary to right multiloculated pleural effusion and pneumonia. Right multiloculated exudative pleural effusion Pneumonia --s/p thoracentesis 02/15; bloody; +Light's criteria for exudate; cytology negative for malignant cells --afebrile; leukocytosis likely steroid induced --completed Unasyn x 7 days --switch to Augmentin continue Unasyn (day #7) --pre post 98% on RA at rest; 96% on room air with walking --complete PO steroid taper CAD s/p stents Elevated troponins --mildly elevated troponins likely demand ischemia --most recent coronary angiogram 08/27/2016 at [facility] following NSTEMI, stents were patent, no new PCIs were required --continue ASA, Toprol XL, Lipitor, Ranexa, Imdur --spoke to PCP, Plavix was stopped in June 2016 following a GI bleed (removed from home med list) Diastolic heart failure --02/10 Echo: LV normal; RV normal; trace MR --euvolemic, not on diuretics Sinus Pause --5.1 second pause early this morning --per Dr. aYdav, decrease Toprol XL to 12.5mg daily Hypertension --continue Toprol XL, amlodipine 5mg Hyperlipidemia --continue Lipitor Acute on chronic renal insufficiency --Cr 3.0 on admission, 1.9 today Hepatitis C --Hep C antibody positive; per Dr. Aguayo this is chronic, patient has been treated (he is not sure if Harvoni) FEN Fluids: PO intake adequate Electrolytes: replete as indicated Nutrition: sodium controlled DVT prophylaxis: subq heparin, oob, ambulation Physical therapy Dispo: if remains stable overnight on telemetry, can d/c in the morning on PO antibioitcs and brief steroid taper (20mg x 2, 10mg x 2, 5mg x 2, off). When patient is discharged, please leave a message for Sloane to fax discharge summary to Drs. Aguayo and Terry, ; FAX [phone] for both. Full code. Visit type - Emergency Visit Emergency Visit: Yes ED Registration Date: 02/09/17 Care time: The patient presented to the Emergency Department on the above date and was hospitalized for further evaluation of their emergent condition. - New Patient This patient is new to me today: No - Critical Care Critical Care patient: No
[2017-02-18] MEDS ORDERED: PT OWN MED DRAWER 7, Y5N ONE ×2 (09:05→11:21)
[2017-02-18] MEDS: ASPIRIN 81 MG CHEWABLE TABLETS PO SCH (09:11)
[2017-02-18] MEDS: predniSONE 10 MG TABLET (UD) PO SCH (09:12)
[2017-02-18] MEDS: amLODIPine BESYLATE 5 MG TABLET (FP) PO SCH (09:12)
[2017-02-18] MEDS: ISOSORBIDE MONONITRATE 60 MG TAB.SR.24H (FP) PO SCH (09:12)
[2017-02-18] MEDS: PANTOPRAZOLE 40 MG TABLET (FP) PO SCH (09:12)
[2017-02-18] MEDS: RANOLAZINE E.R. 500 MG TABLET (FP) PO SCH ×2 (09:12→21:29)
[2017-02-18] MEDS: AMPICILLIN NA/SULBACTAM NA 3 GM in SODIUM CHLORIDE 100 ML IVPB SCH (09:14)
[2017-02-18] MEDS: POLYETHYLENE GLYCOL 3350 119 GM BTL PO SCH (09:16)
[2017-02-18] MEDS: DOCUSATE SODIUM 100 MG CAPSULE (FP) PO SCH ×2 (09:17→21:29)
[2017-02-18] MEDS ORDERED: METOPROLOL SUCCINATE 50 MG TAB.SR.24H (FP) PO SCH (10:00)
[2017-02-18] MEDS: ARFORMOTEROL TARTRATE 15 MCG/2 ML VIAL NEB SCH ×2 (10:10→22:05)
--- NOTE | 2017-02-18 11:18 | PN ---
Physical Exam: SUBJECTIVE: Patient seen and examined at bedside. States that she is feeling fine. Denies S[place]NCHEZ, fever, chills, SOB, chest pain or lower extremity pain or edema. Overnight, pt afebrile. With runs of bradycardia, toprol was held. OBJECTIVE: Vital Signs Period Temp Pulse Resp BP Sys/Barlow Pulse Ox Last 24 Hr 97.8 F-98.9 F 66-91 18-20 133-166/74-87 98 GENERAL: The patient is lying in bed. awake, alert, and fully oriented, in no acute distress. HEAD: Normal with no signs of trauma. EYES: PERRL, extraocular movements intact, sclera anicteric, conjunctiva clear. LUNGS: decreased breath sounds appreciated at R lung base. otherwise, without rhonchi, crackles or wheezes. no accessory m. usage. HEART: Regular rate and rhythm, S1, S2 without murmur, rub or gallop. ABDOMEN: Soft, obese, nontender, nondistended, normoactive bowel sounds EXTREMITIES: 2+ posterior tibial pulses, no edema. NEUROLOGICAL: Cranial nerves II through XII grossly intact. Laboratory Results 02/16/17 17:45 TB Test (QFT) Negative Active Medications Generic Name Dose Route Start Last Admin Trade Name Freq PRN Reason Stop Dose Admin Acetaminophen 650 mg 02/09/17 23:35 02/15/17 18:43 Tylenol - PO 650 mg Q6H PRN Administration FEVER OR PAIN Albuterol/Ipratropium 1 amp 02/10/17 03:34 Duoneb - NEB Q4H PRN SHORTNESS OF BREATH Amlodipine Besylate 5 mg 02/13/17 15:29 02/18/17 09:12 Norvasc - PO 5 mg DAILY [facility] Administration Arformoterol Tartrate 1 amp 02/10/17 13:30 02/17/17 22:05 Brovana (Restricted To Pulmonology/Resp) - NEB 1 amp BID [facility] Administration Aspirin 81 mg 02/15/17 13:45 02/18/17 09:11 Asa - PO 81 mg DAILY [facility] Administration Atorvastatin Calcium 10 mg 02/10/17 22:00 02/17/17 21:44 Lipitor - PO 10 mg HS [facility] Administration Docusate Sodium 100 mg 02/13/17 15:30 02/18/17 09:17 Colace - PO Not Given BID [facility] Heparin Sodium (Porcine) 5,000 unit 02/12/17 22:00 02/18/17 06:53 Heparin - SQ 5,000 unit TID [facility] Administration Ampicillin Sodium/Sulbactam 100 mls @ 200 mls/hr 02/10/17 22:00 02/18/17 09: 14 Sodium 3 gm/ Sodium Chloride IVPB 200 mls/hr BID [facility] Administration Isosorbide Mononitrate 120 mg 02/10/17 11:45 02/18/17 09:12 Imdur - PO 120 mg DAILY [facility] Administration Metoprolol Succinate 50 mg 02/18/17 10:00 Toprol Xl - PO BID [facility] Nicotine 14 mg 02/10/17 14:15 02/17/17 09:18 Nicoderm Patch - TD 14 mg DAILY [facility] Administration Pantoprazole Sodium 40 mg 02/15/17 14:15 02/18/17 09:12 Protonix - PO 40 mg DAILY [facility] Administration Polyethylene Glycol 17 gm 02/13/17 15:30 02/18/17 09:16 Miralax (For Daily Use) - PO Not Given DAILY [facility] Prednisone 20 mg 02/19/17 10:00 Deltasone - PO 02/20/17 10:01 DAILY [facility] Ranolazine 500 mg 02/10/17 11:45 02/18/17 09:12 Ranexa - PO 500 mg BID [facility] Administration Senna 1 tab 02/13/17 22:00 02/17/17 21:27 Senna - PO Not Given HS [facility] Microbiology 02/15/17 10:45 Pleural Fluid Gram Stain - Final 02/15/17 10:45 Pleural Fluid Anaerobic Culture - Final NO ANAEROBES WERE ISOLATED 02/15/17 10:45 Pleural Fluid AFB Smear Concentration - Final 02/09/17 21:20 Blood - Peripheral Venous Blood Culture - Final NO GROWTH AFTER 5 DAYS INCUBATION 02/09/17 21:20 Blood - Peripheral Venous Blood Culture - Final NO GROWTH AFTER 5 DAYS INCUBATION 02/09/17 00:30 Urine - Urine Clean Catch Urine Culture - Final NO GROWTH OBTAINED 02/15/17 10:45 Pleural Fluid Mycobacterial Culture - Preliminary 02/15/17 10:45 Pleural Fluid EMA Preparation - Preliminary 02/15/17 10:45 Pleural Fluid Fungal Culture - Preliminary 02/15/17 10:45 Pleural Fluid Body Fluid Culture - Preliminary NO AEROBIC GROWTH, 24 HRS ASSESSMENT/PLAN: #R sided multiloculated pleural effusion - exudative -s/p thoracentesis (02/15)- 60cc's bloody tap -currently afebrile -Unasyn 3g IVPB BID - completed 8 day course -started on augmentin 500mg BID - duration for 5 days -Pleural fluid AFB (-), EMA (-), Fungal cx (-) -Quantiferon (-) -Will not need retap at this time - d/w pulm Thank you Cristine Dumas MD PGY-1 ID Team Visit type - Emergency Visit Emergency Visit: No - New Patient This patient is new to me today: No - Critical Care Critical Care patient: No
--- NOTE | 2017-02-18 13:19 | PN ---
Progress Note, Physician History of Present Illness: pulmonary alert,nad,-cp,-sob,had pauses on monitor 5.4 seconds - Current Medication List Current Medications: Active Medications Acetaminophen (Tylenol -) 650 mg PO Q6H PRN PRN Reason: FEVER OR PAIN Last Admin: 02/15/17 18:43 Dose: 650 mg Albuterol/Ipratropium (Duoneb -) 1 amp NEB Q4H PRN PRN Reason: SHORTNESS OF BREATH Amlodipine Besylate (Norvasc -) 5 mg PO DAILY [facility] Last Admin: 02/18/17 09:12 Dose: 5 mg Arformoterol Tartrate (Brovana (Restricted To Pulmonology/Resp) -) 1 amp NEB BID [facility] Last Admin: 02/18/17 10:10 Dose: 1 amp Aspirin (Asa -) 81 mg PO DAILY [facility] Last Admin: 02/18/17 09:11 Dose: 81 mg Atorvastatin Calcium (Lipitor -) 10 mg PO HS [facility] Last Admin: 02/17/17 21:44 Dose: 10 mg Docusate Sodium (Colace -) 100 mg PO BID [facility] Last Admin: 02/18/17 09:17 Dose: Not Given Heparin Sodium (Porcine) (Heparin -) 5,000 unit SQ TID [facility] Last Admin: 02/18/17 06:53 Dose: 5,000 unit Ampicillin Sodium/Sulbactam (Sodium 3 gm/ Sodium Chloride) 100 mls @ 200 mls/ hr IVPB BID [facility] Last Admin: 02/18/17 09:14 Dose: 200 mls/hr Isosorbide Mononitrate (Imdur -) 120 mg PO DAILY [facility] Last Admin: 02/18/17 09:12 Dose: 120 mg Metoprolol Succinate (Toprol Xl -) 50 mg PO BID [facility] Last Admin: 02/18/17 11:00 Dose: Not Given Nicotine (Nicoderm Patch -) 14 mg TD DAILY [facility] Last Admin: 02/17/17 09:18 Dose: 14 mg Pantoprazole Sodium (Protonix -) 40 mg PO DAILY [facility] Last Admin: 02/18/17 09:12 Dose: 40 mg Polyethylene Glycol (Miralax (For Daily Use) -) 17 gm PO DAILY [facility] Last Admin: 02/18/17 09:16 Dose: Not Given Prednisone (Deltasone -) 20 mg PO DAILY [facility] Stop: 02/20/17 10:01 Ranolazine (Ranexa -) 500 mg PO BID [facility] Last Admin: 02/18/17 09:12 Dose: 500 mg Senna (Senna -) 1 tab PO HS [facility] Last Admin: 02/17/17 21:27 Dose: Not Given - Objective Vital Signs: Vital Signs Temperature 97.9 F 02/18/17 10:00 Pulse Rate 100 H 02/18/17 11:39 Respiratory Rate 18 02/18/17 10:00 Blood Pressure 143/78 02/18/17 10:00 O2 Sat by Pulse Oximetry (%) 96 02/18/17 11:39 Constitutional: Yes: Well Nourished, Calm Eyes: Yes: WNL HENT: Yes: WNL Neck: Yes: WNL Cardiovascular: Yes: Regular Rate and Rhythm, S1, S2 Respiratory: Yes: CTA Bilaterally Gastrointestinal: Yes: Normal Bowel Sounds, Soft Extremities: Yes: WNL Edema: No Labs: Assessment/Plan Problem List - Problems (1) COPD (chronic obstructive pulmonary disease) Code(s): J44.9 - CHRONIC OBSTRUCTIVE PULMONARY DISEASE, UNSPECIFIED (2) Smoker Code(s): F17.200 - NICOTINE DEPENDENCE, UNSPECIFIED, UNCOMPLICATED (3) Empyema of lung Code(s): J86.9 - PYOTHORAX WITHOUT FISTULA (4) Pneumonia Code(s): J18.9 - PNEUMONIA, UNSPECIFIED ORGANISM (5) Pleural effusion Code(s): J90 - PLEURAL EFFUSION, NOT ELSEWHERE CLASSIFIED (6) Renal insufficiency Code(s): N28.9 - DISORDER OF KIDNEY AND URETER, UNSPECIFIED (7) CAD (coronary artery disease) Code(s): I25.10 - ATHSCL HEART DISEASE OF [place] CORONARY ARTERY W/O ANG PCTRS (8) Chest pain Code(s): R07.9 - CHEST PAIN, UNSPECIFIED (9) HTN (hypertension) Code(s): I10 - ESSENTIAL (PRIMARY) HYPERTENSION (10) Hepatitis C Code(s): B19.20 - UNSPECIFIED VIRAL HEPATITIS C WITHOUT HEPATIC COMA Assessment/Plan Antibiotics as per ID Steroid taper BD TX O2 to maintain saturation Smoking cessation discussed Outpatient PFTs once stable. f/u chest x-rays outpatient as per cardiology DR ALAN
[2017-02-18] MEDS: NICOTINE 14 MG/24 HOURS TOPICAL PATCH TD SCH (14:13)
--- NOTE | 2017-02-18 14:27 | PN ---
Teaching Attending Note Name of Resident: Cristine Dumas ATTENDING PHYSICIAN STATEMENT I saw and evaluated the patient. I reviewed the resident's note and discussed the case with the resident. I agree with the resident's findings and plan as documented. SUBJECTIVE: Awake, alert Eating lunch No c/o chest pain/ dyspnea/ cough Afebrile WBC elevated on steroids Cultures no growth OBJECTIVE: Afebrile Cor S1S2 decreased BS R base Abdomen soft, non tender ASSESSMENT AND PLAN: Loculated pleural effusion S/P thoracentesis Leukocytosis ? steroid-induced Susbstitute po Augmentin Outpatient pulmonary follow up Please re-consult as needed
--- NOTE | 2017-02-18 14:48 | PN ---
Progress Note, Physician History of Present Illness: Pt seen and examined at bedside. She is awake and alert. She denies shortness of breath. - Current Medication List Current Medications: Active Medications Acetaminophen (Tylenol -) 650 mg PO Q6H PRN PRN Reason: FEVER OR PAIN Last Admin: 02/15/17 18:43 Dose: 650 mg Albuterol/Ipratropium (Duoneb -) 1 amp NEB Q4H PRN PRN Reason: SHORTNESS OF BREATH Amlodipine Besylate (Norvasc -) 5 mg PO DAILY [facility] Last Admin: 02/18/17 09:12 Dose: 5 mg Amoxicillin/Clavulanate Potassium (Augmentin - 500mg Tablet) 1 tab PO BID@0800, 1730 [facility] Arformoterol Tartrate (Brovana (Restricted To Pulmonology/Resp) -) 1 amp NEB BID [facility] Last Admin: 02/18/17 10:10 Dose: 1 amp Aspirin (Asa -) 81 mg PO DAILY [facility] Last Admin: 02/18/17 09:11 Dose: 81 mg Atorvastatin Calcium (Lipitor -) 10 mg PO HS [facility] Last Admin: 02/17/17 21:44 Dose: 10 mg Docusate Sodium (Colace -) 100 mg PO BID [facility] Last Admin: 02/18/17 09:17 Dose: Not Given Heparin Sodium (Porcine) (Heparin -) 5,000 unit SQ TID [facility] Last Admin: 02/18/17 13:38 Dose: 5,000 unit Isosorbide Mononitrate (Imdur -) 120 mg PO DAILY [facility] Last Admin: 02/18/17 09:12 Dose: 120 mg Metoprolol Succinate (Toprol Xl -) 50 mg PO BID [facility] Last Admin: 02/18/17 11:00 Dose: Not Given Nicotine (Nicoderm Patch -) 14 mg TD DAILY [facility] Last Admin: 02/18/17 14:13 Dose: 14 mg Pantoprazole Sodium (Protonix -) 40 mg PO DAILY [facility] Last Admin: 02/18/17 09:12 Dose: 40 mg Polyethylene Glycol (Miralax (For Daily Use) -) 17 gm PO DAILY [facility] Last Admin: 02/18/17 09:16 Dose: Not Given Prednisone (Deltasone -) 20 mg PO DAILY [facility] Stop: 02/20/17 10:01 Ranolazine (Ranexa -) 500 mg PO BID [facility] Last Admin: 02/18/17 09:12 Dose: 500 mg Senna (Senna -) 1 tab PO HS [facility] Last Admin: 02/17/17 21:27 Dose: Not Given - Objective Vital Signs: Vital Signs Temperature 97.9 F 02/18/17 10:00 Pulse Rate 100 H 02/18/17 11:39 Respiratory Rate 18 02/18/17 10:00 Blood Pressure 143/78 02/18/17 10:00 O2 Sat by Pulse Oximetry (%) 96 02/18/17 11:39 Constitutional: Yes: Calm Eyes: Yes: Conjunctiva Clear HENT: Yes: Atraumatic Neck: Yes: Supple Cardiovascular: Yes: S1, S2 Respiratory: Yes: CTA Bilaterally Gastrointestinal: Yes: Soft Genitourinary: Yes: WNL Edema: No Neurological: Yes: Oriented Psychiatric: Yes: Oriented Labs: CBC, BMP 02/17/17 07:00 02/17/17 07:00 INR, PTT INR 1.32 (0.82-1.09) H 02/09/17 11:46 - ....Imaging Chest X-ray: Report Reviewed Problem List - Problems (1) RADHA (acute kidney injury) Code(s): N17.9 - ACUTE KIDNEY FAILURE, UNSPECIFIED (2) COPD (chronic obstructive pulmonary disease) Code(s): J44.9 - CHRONIC OBSTRUCTIVE PULMONARY DISEASE, UNSPECIFIED (3) Pleural effusion Code(s): J90 - PLEURAL EFFUSION, NOT ELSEWHERE CLASSIFIED (4) CAD (coronary artery disease) Code(s): I25.10 - ATHSCL HEART DISEASE OF [place] CORONARY ARTERY W/O ANG PCTRS (5) Chest pain Code(s): R07.9 - CHEST PAIN, UNSPECIFIED Assessment/Plan Current Medications Generic Name Dose Route Start Last Admin Trade Name Freq PRN Reason Stop Dose Admin Acetaminophen 650 mg 02/09/17 23:35 02/15/17 18:43 Tylenol - PO 650 mg Q6H PRN Administration FEVER OR PAIN Albuterol/Ipratropium 1 amp 02/10/17 03:34 Duoneb - NEB Q4H PRN SHORTNESS OF BREATH Amlodipine Besylate 5 mg 02/13/17 15:29 02/18/17 09:12 Norvasc - PO 5 mg DAILY [facility] Administration Amoxicillin/Clavulanate Potassium 1 tab 02/18/17 17:30 Augmentin - 500mg Tablet PO BID@0800,1730 [facility] Arformoterol Tartrate 1 amp 02/10/17 13:30 02/18/17 10:10 Brovana (Restricted To Pulmonology/Resp) - NEB 1 amp BID [facility] Administration Aspirin 81 mg 02/15/17 13:45 02/18/17 09:11 Asa - PO 81 mg DAILY [facility] Administration Atorvastatin Calcium 10 mg 02/10/17 22:00 02/17/17 21:44 Lipitor - PO 10 mg HS [facility] Administration Docusate Sodium 100 mg 02/13/17 15:30 02/18/17 09:17 Colace - PO Not Given BID [facility] Heparin Sodium (Porcine) 5,000 unit 02/12/17 22:00 02/18/17 13:38 Heparin - SQ 5,000 unit TID [facility] Administration Isosorbide Mononitrate 120 mg 02/10/17 11:45 02/18/17 09:12 Imdur - PO 120 mg DAILY [facility] Administration Metoprolol Succinate 50 mg 02/18/17 10:00 02/18/17 11:00 Toprol Xl - PO Not Given BID [facility] Nicotine 14 mg 02/10/17 14:15 02/18/17 14:13 Nicoderm Patch - TD 14 mg DAILY [facility] Administration Pantoprazole Sodium 40 mg 02/15/17 14:15 02/18/17 09:12 Protonix - PO 40 mg DAILY [facility] Administration Polyethylene Glycol 17 gm 02/13/17 15:30 02/18/17 09:16 Miralax (For Daily Use) - PO Not Given DAILY [facility] Prednisone 20 mg 02/19/17 10:00 Deltasone - PO 02/20/17 10:01 DAILY [facility] Ranolazine 500 mg 02/10/17 11:45 02/18/17 09:12 Ranexa - PO 500 mg BID [facility] Administration Senna 1 tab 02/13/17 22:00 02/17/17 21:27 Senna - PO Not Given HS [facility] Impression 1. RADHA 2. CKD 3. multilobular pleural effusion 4. CAD s/p stents 5. HTN 6. hyperlipidemia 7. anemia 8. angina 9. PNA 10. proteinuria 11. hypomagnesemia 12. 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
--- NOTE | 2017-02-18 15:33 | PN ---
Progress Note, Physician Chief Complaint: Pt alert;ambulatory; no dizziness, chest pain, or dyspnea. Had sinus pause of > 5 seconds in am while asleep. History of Present Illness: The patient is a 76 year old black female with a significant PMH of HTN, hyperlipidemia, diabetes COPD (current smoker), CAD (s/p NSTEMI 07/2016; s/p stents in ?2015, with cor. angiogram 08/2016 not requiring new stents or other PCI; on Plavix & Aspirin), diastolic CHF (with severe apical hypokinesis on 2015 ECHO),chronic renal insufficiency, periods of disorientation, and hepatitis C, who presents to the emergency department via EMS with multiple complaints including chest pain and cough beginning approximately 1 week ago. The patient describes the chest pain as localized on the right side and aggravated by movement and coughing. The patient's grandson notes that the patient also has lower back pain that radiates to her legs. The patient's grandson reports that that the patient received an MRI 2 days ago. They report receiving a call this morning for the MRI results and reports that he was told the patient has pleural effusion, prompting their visit. The patient's grandson also notes that the patient has not been fully herself within the past week. The patient notes that she told EMS she wanted to be transported to [place] but notes that EMS wanted to bring her to the closest hospital ([facility]) because the patient had chest pain. The patient also notes she was admitted back in November at [facility] for kidney failure. The patient denies shortness of breath, headache and dizziness. Denies fever, chills, nausea, vomit, diarrhea and constipation. Denies dysuria, frequency, urgency and hematuria. Allergies: NKA Past surgical history: Cardiac stents: proximal and mid LAD, mid RCA, mid Cx ( dates of stents uncertain; when most recent coronary angiogram 08/27/2016 was done at [facility] for NSTEMI with TNI >10, stents were patent, and no new PCIs were required. Social history: Current some day smoker. No reported alcohol or drug use. PCP: Dr. Thomas Aguayo [ ] in [place]. - Current Medication List Current Medications: Active Medications Acetaminophen (Tylenol -) 650 mg PO Q6H PRN PRN Reason: FEVER OR PAIN Last Admin: 02/15/17 18:43 Dose: 650 mg Amlodipine Besylate (Norvasc -) 5 mg PO DAILY [facility] Last Admin: 02/18/17 09:12 Dose: 5 mg Amoxicillin/Clavulanate Potassium (Augmentin - 500mg Tablet) 1 tab PO BID@0800, 1730 [facility] Arformoterol Tartrate (Brovana (Restricted To Pulmonology/Resp) -) 1 amp NEB BID [facility] Last Admin: 02/18/17 10:10 Dose: 1 amp Aspirin (Asa -) 81 mg PO DAILY [facility] Last Admin: 02/18/17 09:11 Dose: 81 mg Atorvastatin Calcium (Lipitor -) 10 mg PO HS [facility] Last Admin: 02/17/17 21:44 Dose: 10 mg Docusate Sodium (Colace -) 100 mg PO BID [facility] Last Admin: 02/18/17 09:17 Dose: Not Given Heparin Sodium (Porcine) (Heparin -) 5,000 unit SQ TID [facility] Last Admin: 02/18/17 13:38 Dose: 5,000 unit Isosorbide Mononitrate (Imdur -) 120 mg PO DAILY [facility] Last Admin: 02/18/17 09:12 Dose: 120 mg Metoprolol Succinate (Toprol Xl -) 50 mg PO BID [facility] Last Admin: 02/18/17 11:00 Dose: Not Given Nicotine (Nicoderm Patch -) 14 mg TD DAILY [facility] Last Admin: 02/18/17 14:13 Dose: 14 mg Pantoprazole Sodium (Protonix -) 40 mg PO DAILY [facility] Last Admin: 02/18/17 09:12 Dose: 40 mg Polyethylene Glycol (Miralax (For Daily Use) -) 17 gm PO DAILY [facility] Last Admin: 02/18/17 09:16 Dose: Not Given Prednisone (Deltasone -) 20 mg PO DAILY [facility] Stop: 02/20/17 10:01 Ranolazine (Ranexa -) 500 mg PO BID [facility] Last Admin: 02/18/17 09:12 Dose: 500 mg Senna (Senna -) 1 tab PO HS [facility] Last Admin: 02/17/17 21:27 Dose: Not Given Zinc Acetate/Diphenhydramine (Benadryl 2% Cream) 1 applic TP BID [facility] - Objective Vital Signs: Vital Signs Temperature 97.9 F 02/18/17 10:00 Pulse Rate 100 H 02/18/17 11:39 Respiratory Rate 18 02/18/17 10:00 Blood Pressure 143/78 02/18/17 10:00 O2 Sat by Pulse Oximetry (%) 96 02/18/17 11:39 Constitutional: Yes: Calm Eyes: Yes: WNL HENT: Yes: WNL Neck: Yes: WNL Cardiovascular: Yes: WNL Respiratory: Yes: Diminished Gastrointestinal: Yes: Soft ...Rectal Exam: Yes: Deferred Genitourinary: Yes: Anuria Breast(s): Yes: WNL Musculoskeletal: Yes: Muscle Weakness Extremities: Yes: Cool Edema: No Wound/Incision: Yes: Open to air Neurological: Yes: WNL Psychiatric: Yes: WNL Labs: CBC, BMP 02/17/17 07:00 02/17/17 07:00 INR, PTT INR 1.32 (0.82-1.09) H 02/09/17 11:46 Abnormal Lab Results 02/18/17 02/18/17 02/18/17 14:00 14:00 14:15 Chloride 110 H BUN 31 H Creatinine 2.0 H Random Glucose 139 H D Calcium 8.0 L Magnesium 1.4 L U Random Total Protein 151 H - ....Imaging Other: Image Reviewed (telemetry: NSR; sinus pause >5 seconds) Problem List - Problems (1) COPD (chronic obstructive pulmonary disease) Assessment/Plan: Thoracentesis performed; 60 ml serosanguinous fluid removed from right side. 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 Code(s): J44.9 - CHRONIC OBSTRUCTIVE PULMONARY DISEASE, UNSPECIFIED (2) Coronary artery disease Assessment/Plan: no further PCIs were required when last coronary angiogram was performed earlier this year. Continue statin. On nicotine patch. On Ranexa for angina. Metoprolol ER changed to carvedilol (shorter-acting) 3.125 mg bid due to marked sinus pause; f/u on telemetry. Pt has had periods of sinus tachycardia. Code(s): I25.10 - ATHSCL HEART DISEASE OF [place] CORONARY ARTERY W/O ANG PCTRS (3) Empyema of lung Assessment/Plan: on antibiotics. f/u thoracentesis analysis. Code(s): J86.9 - PYOTHORAX WITHOUT FISTULA (4) Renal insufficiency Assessment/Plan: avoid dehydration. 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 Code(s): N28.9 - DISORDER OF KIDNEY AND URETER, UNSPECIFIED (5) Smoker Assessment/Plan: on nicotine patch. Code(s): F17.200 - NICOTINE DEPENDENCE, UNSPECIFIED, UNCOMPLICATED (6) HTN (hypertension) Assessment/Plan: Serial BP checks; on amlodipine and metoprolol. Code(s): I10 - ESSENTIAL (PRIMARY) HYPERTENSION (7) Sinus pause Assessment/Plan: Sinus pauses (the latest 5.1 seconds early this morning); metoprolol ER had earlier been decreased from admission 100mg daily to 50 mg daily. Will change to carvedilol (shorter-acting) 3.125 mg bid; f/u on telemetry. Pt has periods of sinus tachycardia, ventricular bigeminy. Hx CAD (NSTEMI early 2017-->no new PCIs. F/u thyroid workup (low TSH; elevated free T4; low free T3). F/u electrolytes; keep Mg 2-2.3, K 4-4.5; PO4 2.5-3.5. Code(s): I45.5 - OTHER SPECIFIED HEART BLOCK
--- NOTE | 2017-02-18 15:33 | PN ---
Progress Note, Physician Chief Complaint: Pt alert;ambulatory; no dizziness, chest pain, or dyspnea. History of Present Illness: The patient is a 76 year old black female with a significant PMH of HTN, hyperlipidemia, diabetes COPD (current smoker), CAD (s/p NSTEMI 07/2016; s/p stents in ?2015, with cor. angiogram 08/2016 not requiring new stents or other PCI; on Plavix & Aspirin), diastolic CHF (with severe apical hypokinesis on 2015 ECHO),chronic renal insufficiency, periods of disorientation, and hepatitis C, who presents to the emergency department via EMS with multiple complaints including chest pain and cough beginning approximately 1 week ago. The patient describes the chest pain as localized on the right side and aggravated by movement and coughing. The patient's grandson notes that the patient also has lower back pain that radiates to her legs. The patient's grandson reports that that the patient received an MRI 2 days ago. They report receiving a call this morning for the MRI results and reports that he was told the patient has pleural effusion, prompting their visit. The patient's grandson also notes that the patient has not been fully herself within the past week. The patient notes that she told EMS she wanted to be transported to [place] but notes that EMS wanted to bring her to the closest hospital ([facility]) because the patient had chest pain. The patient also notes she was admitted back in November at [facility] for kidney failure. The patient denies shortness of breath, headache and dizziness. Denies fever, chills, nausea, vomit, diarrhea and constipation. Denies dysuria, frequency, urgency and hematuria. Allergies: NKA Past surgical history: Cardiac stents: proximal and mid LAD, mid RCA, mid Cx ( dates of stents uncertain; when most recent coronary angiogram 08/27/2016 was done at [facility] for NSTEMI with TNI >10, stents were patent, and no new PCIs were required. Social history: Current some day smoker. No reported alcohol or drug use. PCP: Dr. Thomas Aguayo [ ] in [place]. - Current Medication List Current Medications: Active Medications Acetaminophen (Tylenol -) 650 mg PO Q6H PRN PRN Reason: FEVER OR PAIN Last Admin: 02/15/17 18:43 Dose: 650 mg Amlodipine Besylate (Norvasc -) 5 mg PO DAILY [facility] Last Admin: 02/18/17 09:12 Dose: 5 mg Amoxicillin/Clavulanate Potassium (Augmentin - 500mg Tablet) 1 tab PO BID@0800, 1730 [facility] Arformoterol Tartrate (Brovana (Restricted To Pulmonology/Resp) -) 1 amp NEB BID [facility] Last Admin: 02/18/17 10:10 Dose: 1 amp Aspirin (Asa -) 81 mg PO DAILY [facility] Last Admin: 02/18/17 09:11 Dose: 81 mg Atorvastatin Calcium (Lipitor -) 10 mg PO HS [facility] Last Admin: 02/17/17 21:44 Dose: 10 mg Docusate Sodium (Colace -) 100 mg PO BID [facility] Last Admin: 02/18/17 09:17 Dose: Not Given Heparin Sodium (Porcine) (Heparin -) 5,000 unit SQ TID [facility] Last Admin: 02/18/17 13:38 Dose: 5,000 unit Isosorbide Mononitrate (Imdur -) 120 mg PO DAILY [facility] Last Admin: 02/18/17 09:12 Dose: 120 mg Metoprolol Succinate (Toprol Xl -) 50 mg PO BID [facility] Last Admin: 02/18/17 11:00 Dose: Not Given Nicotine (Nicoderm Patch -) 14 mg TD DAILY [facility] Last Admin: 02/18/17 14:13 Dose: 14 mg Pantoprazole Sodium (Protonix -) 40 mg PO DAILY [facility] Last Admin: 02/18/17 09:12 Dose: 40 mg Polyethylene Glycol (Miralax (For Daily Use) -) 17 gm PO DAILY [facility] Last Admin: 02/18/17 09:16 Dose: Not Given Prednisone (Deltasone -) 20 mg PO DAILY [facility] Stop: 02/20/17 10:01 Ranolazine (Ranexa -) 500 mg PO BID [facility] Last Admin: 02/18/17 09:12 Dose: 500 mg Senna (Senna -) 1 tab PO HS [facility] Last Admin: 02/17/17 21:27 Dose: Not Given Zinc Acetate/Diphenhydramine (Benadryl 2% Cream) 1 applic TP BID [facility] - Objective Vital Signs: Vital Signs Temperature 97.9 F 02/18/17 10:00 Pulse Rate 100 H 02/18/17 11:39 Respiratory Rate 18 02/18/17 10:00 Blood Pressure 143/78 02/18/17 10:00 O2 Sat by Pulse Oximetry (%) 96 02/18/17 11:39 Constitutional: Yes: No Distress Eyes: Yes: WNL HENT: Yes: WNL Neck: Yes: WNL Cardiovascular: Yes: Regular Rate and Rhythm Respiratory: Yes: Diminished Gastrointestinal: Yes: Soft ...Rectal Exam: Yes: Deferred Genitourinary: No: Anuria Breast(s): Yes: WNL Musculoskeletal: Yes: Muscle Weakness Extremities: Yes: Cool Edema: No Peripheral Pulses WNL: Yes Wound/Incision: Yes: Open to air (s/p thoracentesis) Neurological: Yes: WNL Psychiatric: Yes: WNL Labs: CBC, BMP 02/17/17 07:00 02/17/17 07:00 INR, PTT INR 1.32 (0.82-1.09) H 02/09/17 11:46 Abnormal Lab Results 02/18/17 02/18/17 02/18/17 14:00 14:00 14:15 Chloride 110 H BUN 31 H Creatinine 2.0 H Random Glucose 139 H D Calcium 8.0 L Magnesium 1.4 L U Random Total Protein 151 H - ....Imaging Other: Image Reviewed (telemetry: NSR; occasional sinus pauses) Problem List - Problems (1) COPD (chronic obstructive pulmonary disease) Assessment/Plan: Thoracentesis performed; 60 ml serosanguinous fluid removed from right side; no pneumothorax. Await analysis. Code(s): J44.9 - CHRONIC OBSTRUCTIVE PULMONARY DISEASE, UNSPECIFIED (2) Coronary artery disease Assessment/Plan: no further PCIs were required when last coronary angiogram was performed earlier this year. Continue statin. On nicotine patch. On Ranexa for angina. On beta blockers (dose decreased due to sinus pause; f/u on telemetry), amlodipine. Consider ACEI or ARB (HTN; CAD) if renal function stabilizes.. On ASA. Code(s): I25.10 - ATHSCL HEART DISEASE OF [place] CORONARY ARTERY W/O ANG PCTRS (3) Empyema of lung Assessment/Plan: on antibiotics. f/u thoracentesis analysis. Code(s): J86.9 - PYOTHORAX WITHOUT FISTULA (4) Renal insufficiency Assessment/Plan: avoid dehydration. 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 Code(s): N28.9 - DISORDER OF KIDNEY AND URETER, UNSPECIFIED (5) Smoker Assessment/Plan: on nicotine patch. Code(s): F17.200 - NICOTINE DEPENDENCE, UNSPECIFIED, UNCOMPLICATED (6) HTN (hypertension) Assessment/Plan: Serial BP checks; on amlodipine and metoprolol. Consider adding ACEI or ARB if kidneys stabilize. Code(s): I10 - ESSENTIAL (PRIMARY) HYPERTENSION
[2017-02-18 16:09] LABS: RATIO URIN PROTEIN/URIN CREAT 1.51 MG/DL
[2017-02-18 17:07] LABS: ANION GAP 10 (8-16); BLOOD UREA NITROGEN 31 mg/dL (7-18); CHLORIDE 110 mmol/L (98-107); CO2 24 mmol/L (21-32); GLUCOSE,RANDOM 139 mg/dL (74-106); POTASSIUM 4.5 mmol/L (3.5-5.1); SODIUM 144 mmol/L (136-145)
[2017-02-18] MEDS: CARVEDILOL 3.125 MG TABLET (FP) PO SCH ×2 (17:08→21:30)
[2017-02-18] MEDS: AMOX TR/POT CLAV 500MG/125MG TABLETS (FP) PO SCH (17:08)
[2017-02-18] MEDS ORDERED: MAGNESIUM 4GM/H20 - 4 GM/100 ML IVPB IVPB ONE (18:30)
[2017-02-18] MEDS: ATORVASTATIN CA 10 MG TABLET (FP) PO SCH (21:29)
[2017-02-18] MEDS: SENNOSIDES 8.6MG TABLET (FP) PO SCH (21:31)
[2017-02-19] MEDS: HEPARIN NA (PORCINE) 5,000 UNITS/ML 1ML VIAL SQ SCH ×2 (06:23→14:08)
[2017-02-19] MEDS ORDERED: PT OWN MED DRAWER 7, Y5N ONE ×2 (08:54→09:23)
[2017-02-19] MEDS: amLODIPine BESYLATE 5 MG TABLET (FP) PO SCH (09:10)
[2017-02-19] MEDS: PANTOPRAZOLE 40 MG TABLET (FP) PO SCH (09:10)
[2017-02-19] MEDS: DOCUSATE SODIUM 100 MG CAPSULE (FP) PO SCH (09:10)
[2017-02-19] MEDS: CARVEDILOL 3.125 MG TABLET (FP) PO SCH (09:10)
[2017-02-19] MEDS: AMOX TR/POT CLAV 500MG/125MG TABLETS (FP) PO SCH (09:10)
[2017-02-19] MEDS: ASPIRIN 81 MG CHEWABLE TABLETS PO SCH (09:10)
[2017-02-19] MEDS: ISOSORBIDE MONONITRATE 60 MG TAB.SR.24H (FP) PO SCH (09:10)
[2017-02-19] MEDS: RANOLAZINE E.R. 500 MG TABLET (FP) PO SCH (09:10)
[2017-02-19] MEDS: POLYETHYLENE GLYCOL 3350 119 GM BTL PO SCH (09:11)
[2017-02-19] MEDS: ARFORMOTEROL TARTRATE 15 MCG/2 ML VIAL NEB SCH (09:54)
[2017-02-19] MEDS ORDERED: CARVEDILOL 3.125 MG TABLET (FP) PO SCH (10:00)
[2017-02-19] MEDS ORDERED: predniSONE 20 MG TABLET (UD) PO SCH (10:00)
--- NOTE | 2017-02-19 10:49 | EKG ---
Test Reason : Blood Pressure : / mmHG Vent. Rate : 090 BPM Atrial Rate : 090 BPM P-R Int : 138 ms QRS Dur : 084 ms QT Int : 372 ms P-R-T Axes : 060 029 109 degrees QTc Int : 455 ms NORMAL SINUS RHYTHM NONSPECIFIC ST AND T WAVE ABNORMALITY ABNORMAL ECG WHEN COMPARED WITH ECG OF 11-FEB-2017 08:48, NONSPECIFIC T WAVE ABNORMALITY, WORSE IN LATERAL LEADS CLINICAL CORRELATION IS RECOMMENDED Confirmed by MELANI GALARZA, MARSHA ([id number]) on 02/19/2017 10:49:17 AM Referred By: Lilibeth RODRÍGUEZ Confirmed By:MARSHA POLO MD
--- NOTE | 2017-02-19 11:21 | PN ---
Progress Note (short form) - Note Progress Note: Resting in NAD. Breathing appears overall better. Remains afebrile. Intake & Output 02/16/17 02/17/17 02/18/17 02/19/17 23:59 23:59 23:59 23:59 Intake Total 640 650 950 300 Balance 640 650 950 300 Last Vital Signs Temp Pulse Resp BP Pulse Ox 98.6 F 91 H 18 156/76 97 02/19/17 09:01 02/19/17 09:01 02/19/17 09:01 02/19/17 09:01 02/19/17 09:00 Active Medications Acetaminophen (Tylenol -) 650 mg PO Q6H PRN PRN Reason: FEVER OR PAIN Last Admin: 02/15/17 18:43 Dose: 650 mg Amlodipine Besylate (Norvasc -) 5 mg PO DAILY [facility] Last Admin: 02/19/17 09:10 Dose: 5 mg Amoxicillin/Clavulanate Potassium (Augmentin - 500mg Tablet) 1 tab PO BID@0800, 1730 [facility] Last Admin: 02/19/17 09:10 Dose: 1 tab Arformoterol Tartrate (Brovana (Restricted To Pulmonology/Resp) -) 1 amp NEB BID [facility] Last Admin: 02/18/17 22:05 Dose: 1 amp Aspirin (Asa -) 81 mg PO DAILY [facility] Last Admin: 02/19/17 09:10 Dose: 81 mg Atorvastatin Calcium (Lipitor -) 10 mg PO HS [facility] Last Admin: 02/18/17 21:29 Dose: 10 mg Carvedilol (Coreg -) 3.125 mg PO BID [facility] Last Admin: 02/19/17 09:10 Dose: Not Given Docusate Sodium (Colace -) 100 mg PO BID [facility] Last Admin: 02/19/17 09:10 Dose: 100 mg Heparin Sodium (Porcine) (Heparin -) 5,000 unit SQ TID [facility] Last Admin: 02/19/17 06:23 Dose: 5,000 unit Isosorbide Mononitrate (Imdur -) 120 mg PO DAILY [facility] Last Admin: 02/19/17 09:10 Dose: 120 mg Nicotine (Nicoderm Patch -) 14 mg TD DAILY [facility] Last Admin: 02/18/17 14:13 Dose: 14 mg Pantoprazole Sodium (Protonix -) 40 mg PO DAILY [facility] Last Admin: 02/19/17 09:10 Dose: 40 mg Polyethylene Glycol (Miralax (For Daily Use) -) 17 gm PO DAILY [facility] Last Admin: 02/19/17 09:11 Dose: Not Given Prednisone (Deltasone -) 20 mg PO DAILY [facility] Stop: 02/20/17 10:01 Last Admin: 02/19/17 09:10 Dose: 20 mg Ranolazine (Ranexa -) 500 mg PO BID [facility] Last Admin: 02/19/17 09:10 Dose: 500 mg Senna (Senna -) 1 tab PO HS [facility] Last Admin: 02/18/17 21:31 Dose: Not Given Zinc Acetate/Diphenhydramine (Benadryl 2% Cream) 1 applic TP BID [facility] Last Admin: 02/18/17 22:00 Dose: 1 applic Constitutional: Yes: NAD Eyes: Yes: WNL HENT: Yes: WNL Neck: Yes: WNL Cardiovascular: Yes: Regular Rate and Rhythm, S1, S2 Respiratory: Yes: diminished at the right base Gastrointestinal: Yes: Normal Bowel Sounds, Soft Extremities: Yes: WNL Edema: No Labs: Laboratory Results - last 24 hr 02/18/17 02/18/17 02/18/17 14:00 14:00 14:15 Sodium 144 Potassium 4.5 Chloride 110 H Carbon Dioxide 24 Anion Gap 10 BUN 31 H Creatinine 2.0 H Random Glucose 139 H D Calcium 8.0 L Magnesium 1.4 L U Random Total Protein 151 H Urine Creatinine 100.0 Protein/Creatinin Ratio 1.51 Assessment/Plan Problem List - Problems (1) COPD (chronic obstructive pulmonary disease) Code(s): J44.9 - CHRONIC OBSTRUCTIVE PULMONARY DISEASE, UNSPECIFIED (2) Smoker Code(s): F17.200 - NICOTINE DEPENDENCE, UNSPECIFIED, UNCOMPLICATED (3) Empyema of lung Code(s): J86.9 - PYOTHORAX WITHOUT FISTULA (4) Pneumonia Code(s): J18.9 - PNEUMONIA, UNSPECIFIED ORGANISM (5) Pleural effusion Code(s): J90 - PLEURAL EFFUSION, NOT ELSEWHERE CLASSIFIED (6) Renal insufficiency Code(s): N28.9 - DISORDER OF KIDNEY AND URETER, UNSPECIFIED (7) CAD (coronary artery disease) Code(s): I25.10 - ATHSCL HEART DISEASE OF [place] CORONARY ARTERY W/O ANG PCTRS (8) Chest pain Code(s): R07.9 - CHEST PAIN, UNSPECIFIED (9) HTN (hypertension) Code(s): I10 - ESSENTIAL (PRIMARY) HYPERTENSION (10) Hepatitis C Code(s): B19.20 - UNSPECIFIED VIRAL HEPATITIS C WITHOUT HEPATIC COMA Assessment/Plan Augmentin Prednisone BD TX Smoking cessation Outpatient PFTs once stable. f/u chest x-rays outpatient D/C planning Dr May Problem List - Problems (1) COPD (chronic obstructive pulmonary disease) Code(s): J44.9 - CHRONIC OBSTRUCTIVE PULMONARY DISEASE, UNSPECIFIED (2) Smoker Code(s): F17.200 - NICOTINE DEPENDENCE, UNSPECIFIED, UNCOMPLICATED (3) Empyema of lung Code(s): J86.9 - PYOTHORAX WITHOUT FISTULA (4) Pneumonia Code(s): J18.9 - PNEUMONIA, UNSPECIFIED ORGANISM (5) Pleural effusion Code(s): J90 - PLEURAL EFFUSION, NOT ELSEWHERE CLASSIFIED (6) Renal insufficiency Code(s): N28.9 - DISORDER OF KIDNEY AND URETER, UNSPECIFIED (7) CAD (coronary artery disease) Code(s): I25.10 - ATHSCL HEART DISEASE OF [place] CORONARY ARTERY W/O ANG PCTRS (8) Chest pain Code(s): R07.9 - CHEST PAIN, UNSPECIFIED (9) HTN (hypertension) Code(s): I10 - ESSENTIAL (PRIMARY) HYPERTENSION (10) Hepatitis C Code(s): B19.20 - UNSPECIFIED VIRAL HEPATITIS C WITHOUT HEPATIC COMA
[2017-02-19] MEDS: NICOTINE 14 MG/24 HOURS TOPICAL PATCH TD SCH (11:24)
--- NOTE | 2017-02-19 13:02 | PN ---
Progress Note, Physician History of Present Illness: seen and examined today in nad. no overnight events. no new complaints. - Current Medication List Current Medications: Active Medications Acetaminophen (Tylenol -) 650 mg PO Q6H PRN PRN Reason: FEVER OR PAIN Last Admin: 02/15/17 18:43 Dose: 650 mg Amlodipine Besylate (Norvasc -) 5 mg PO DAILY [facility] Last Admin: 02/19/17 09:10 Dose: 5 mg Amoxicillin/Clavulanate Potassium (Augmentin - 500mg Tablet) 1 tab PO BID@0800, 1730 [facility] Last Admin: 02/19/17 09:10 Dose: 1 tab Arformoterol Tartrate (Brovana (Restricted To Pulmonology/Resp) -) 1 amp NEB BID [facility] Last Admin: 02/19/17 09:54 Dose: 1 amp Aspirin (Asa -) 81 mg PO DAILY [facility] Last Admin: 02/19/17 09:10 Dose: 81 mg Atorvastatin Calcium (Lipitor -) 10 mg PO HS [facility] Last Admin: 02/18/17 21:29 Dose: 10 mg Carvedilol (Coreg -) 3.125 mg PO BID [facility] Last Admin: 02/19/17 09:10 Dose: Not Given Docusate Sodium (Colace -) 100 mg PO BID [facility] Last Admin: 02/19/17 09:10 Dose: 100 mg Heparin Sodium (Porcine) (Heparin -) 5,000 unit SQ TID [facility] Last Admin: 02/19/17 06:23 Dose: 5,000 unit Isosorbide Mononitrate (Imdur -) 120 mg PO DAILY [facility] Last Admin: 02/19/17 09:10 Dose: 120 mg Nicotine (Nicoderm Patch -) 14 mg TD DAILY [facility] Last Admin: 02/19/17 11:24 Dose: 14 mg Pantoprazole Sodium (Protonix -) 40 mg PO DAILY [facility] Last Admin: 02/19/17 09:10 Dose: 40 mg Polyethylene Glycol (Miralax (For Daily Use) -) 17 gm PO DAILY [facility] Last Admin: 02/19/17 09:11 Dose: Not Given Prednisone (Deltasone -) 20 mg PO DAILY [facility] Stop: 02/20/17 10:01 Last Admin: 02/19/17 09:10 Dose: 20 mg Ranolazine (Ranexa -) 500 mg PO BID [facility] Last Admin: 02/19/17 09:10 Dose: 500 mg Senna (Senna -) 1 tab PO HS [facility] Last Admin: 02/18/17 21:31 Dose: Not Given Zinc Acetate/Diphenhydramine (Benadryl 2% Cream) 1 applic TP BID [facility] Last Admin: 02/19/17 11:25 Dose: 1 applic - Objective Vital Signs: Vital Signs Temperature 98.6 F 02/19/17 09:01 Pulse Rate 91 H 02/19/17 09:01 Respiratory Rate 18 02/19/17 09:01 Blood Pressure 156/76 02/19/17 09:01 O2 Sat by Pulse Oximetry (%) 97 02/19/17 09:00 Constitutional: Yes: No Distress, Calm Eyes: Yes: Conjunctiva Clear, EOM Intact, PERRL HENT: Yes: Atraumatic, Normocephalic Neck: Yes: Supple, Trachea Midline Cardiovascular: Yes: Regular Rate and Rhythm, S1, S2. No: Bradycardia, Tachycardia, Pulse Irregular, Bruit, JVD, Gallop, Murmur, Rub, S3, S4, Varicosities Respiratory: Yes: Regular, Diminished. No: Rales, Rhonchi, Wheezes Gastrointestinal: Yes: Normal Bowel Sounds, Soft. No: Distention Edema: No Peripheral Pulses WNL: Yes Neurological: Yes: Alert, Oriented Psychiatric: Yes: Alert, Oriented Labs: CBC, BMP 02/17/17 07:00 02/18/17 14:00 INR, PTT INR 1.32 (0.82-1.09) H 02/09/17 11:46 - ....Imaging Chest X-ray: Report Reviewed, Image Reviewed EKG: Report Reviewed, Image Reviewed Other: Report Reviewed, Image Reviewed (tele-nsr, sinus tach, pvcs, apcs) Assessment/Plan 76 year old woman with a h/o of HTN, hyperlipidemia, diabetes COPD (current smoker), CAD (s/p NSTEMI 07/2016; s/p stents in ?2014, with cor. angiogram 2016 not requiring new stents or other PCI; on Plavix & Aspirin), diastolic CHF (with severe apical hypokinesis on 07/2015 ECHO),chronic renal insufficiency , periods of disorientation, and hepatitis C, admitted with multiple complaints including chest pain and cough beginning approximately 1 week ago and pleural effusion. SOB-pleural effusion, COPD (chronic obstructive pulmonary disease) -Thoracentesis performed; 60 ml serosanguinous fluid removed from right side. 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 -on Abx Coronary artery disease -currently stable -no further PCIs were required when last coronary angiogram was performed earlier this year. -Continue statin. -On Ranexa for angina. -cont carvedilol 3.125 mg bid due to marked sinus pause Pt has had a sinus pause yesterday and periods of sinus tachycardia thus metoprolol was changed to carvedilol HTN (hypertension) -adequate for now -monitor BP checks; on amlodipine and coreg and imdur Sinus pause -yesterday had Sinus pauses (the latest 5.1 seconds); -no further significant pauses or bradycardia overnight - metoprolol ER had earlier been decreased from admission 100mg daily to 50 mg daily. and changed to Coreg yesterday -monitor telemetry, and plan for further outpatient event monitoring F/u thyroid workup (low TSH; elevated free T4; low free T3). F/u electrolytes; keep Mg 2-2.3, K 4-4.5; PO4 2.5-3.5.
--- NOTE | 2017-02-19 13:58 | DS ---
Physical Exam: SUBJECTIVE: Patient seen and examined OBJECTIVE: Vital Signs Period Temp Pulse Resp BP Sys/Barlow Pulse Ox Last 24 Hr 98.0 F-99 F 80-94 18-18 140-158/70-80 96-97 PHYSICAL EXAM GENERAL: The patient is awake, alert, and fully oriented, in no acute distress. LUNGS: Diminished breath sounds RUL and RML; absent breath sounds RLL; exam unchanged HEART: Regular rate and rhythm, S1, S2 ABDOMEN: Soft, nontender, nondistended, normoactive bowel sounds, no guarding, no rebound EXTREMITIES: 2+ pulses, warm, well-perfused, no edema. NEUROLOGICAL: Cranial nerves II through XII grossly intact. Normal speech, gait not observed. LABS Laboratory Results - last 24 hr 02/18/17 02/18/17 02/18/17 14:00 14:00 14:15 Sodium 144 Potassium 4.5 Chloride 110 H Carbon Dioxide 24 Anion Gap 10 BUN 31 H Creatinine 2.0 H Random Glucose 139 H D Calcium 8.0 L Magnesium 1.4 L U Random Total Protein 151 H Urine Creatinine 100.0 Protein/Creatinin Ratio 1.51 HOSPITAL COURSE: Date of Admission:02/09/17 Date of Discharge: 02/19/17 Minutes to complete discharge: 45 Discharge Summary Reason For Visit: PLEURAL EFFUSION Current Active Problems RADHA (acute kidney injury) (Acute) COPD (chronic obstructive pulmonary disease) (Acute) Coronary artery disease (Acute) Empyema of lung (Acute) Pneumonia (Acute) Profound anemia (Acute) Renal insufficiency (Acute) Sinus pause (Acute) Smoker (Acute) Hospital Course: 76 year-old woman with a PMH significant for HTN, HLD, CAD, diastolic heart failure, Hep C, COPD current smoker, and h/o GI bleed. Patient came to ED via EMS after having been advised by her PCP that an MRI performed two days ago in [place] showed she has a large pleural effusion and to go to the nearest ED. Patient reported one week of cough and pleuritic-type, right-sided chest pain. The cough had been productive but she did not know the color. Over the 24 hours prior to admission, she had experienced sweats and chills. Patient complained of SOB when lying flat. She had had some lower extremity edema which she thought had improved. Right multiloculated exudative pleural effusion Pneumonia --s/p thoracentesis 02/15; bloody; +Light's criteria for exudate; cytology negative for malignant cells --afebrile; leukocytosis likely steroid induced --completed Unasyn x 7 days --switched to Augmentin on 02/18 to be taken for 5 days total --pre post 98% on RA at rest; 96% on room air with walking --complete PO steroid taper CAD s/p stents Elevated troponins --mildly elevated troponins likely demand ischemia --most recent coronary angiogram 08/27/2016 at [facility] following NSTEMI, stents were patent, no new PCIs were required --continue ASA, Toprol XL, Lipitor, Ranexa, Imdur --spoke to PCP, Plavix was stopped in June 2016 following a GI bleed (removed from home med list) Diastolic heart failure --02/10 Echo: LV normal; RV normal; trace MR --euvolemic, not on diuretics Sinus Pause --5.1 second pause early this morning --per Dr. Yadav, Toprol XL to 12.5mg daily stopped and changed to Coreg 3.125mg bid --continue Coreg 3.125mg bid --f/u with Dr. Yadav as outpt in 1 week Hypertension --stopped Toprol XL --continue amlodipine 5mg Hyperlipidemia --continue Lipitor Acute on chronic renal insufficiency --Cr 3.0 on admission, 2.0 today Hepatitis C --Hep C antibody positive; per Dr. Aguayo this is chronic, patient has been treated (he is not sure if Harvoni) Condition: Unchanged/Unknown - Instructions Diet, Activity, Other Instructions: Take prednisone 20mg every day for 2 days. Then take 10mg every day for 2 days. Then take 5mg daily for 2 days. Take Augmentin twice a day until all tablets are finished. Make an appointment with Dr. Yadav next week. Make an appointment with Dr. Aguayo or Dr. Stewart next week. Return to the emergency department for shortness of breath, chest pain, dizziness, or any other concerns. Referrals: Thomas Aguayo [Primary Care Provider] - Disposition: HOME - Home Medications Comprehensive Discharge Medication List: Ambulatory Orders Albuterol Sulfate Inhaler - [Ventolin HFA Inhaler -] 2 inh PO Q4H 07/06/16 Aspirin [ASA -] 81 mg PO DAILY 07/06/16 Calcium 250Mg/Vit-D 125 Units [Oscal 250 mg+D -] 1 combo PO BID 07/06/16 Calcium Carbonate [Super Calcium] 600 mg PO BID 07/06/16 Cholecalciferol (Vitamin D3) [Vitamin D3] 2,000 unit PO DAILY 07/06/16 Esomeprazole Magnesium 40 mg PO DAILY 07/06/16 Isosorbide Mononitrate [Imdur -] 120 mg PO DAILY 07/06/16 Magnesium Oxide [Magox 400] 400 mg PO BID 07/06/16 Ranolazine [Ranexa] 500 mg PO BID 07/06/16 Simvastatin [Zocor -] 20 mg PO HS 07/06/16 Amlodipine Besylate [Norvasc -] 5 mg PO DAILY #30 tablet 02/19/17 Amox-Tr/K Cl [Augmentin 500-125mg Tablet -] 1 tab PO BID@0800,1730 #8 tablet Carvedilol [Coreg -] 3.125 mg PO BID #60 tablet 02/19/17 Prednisone [Deltasone -] 10 mg PO DAILY #7 tablet 02/19/17 Problem List - Problems (1) RADHA (acute kidney injury) Code(s): N17.9 - ACUTE KIDNEY FAILURE, UNSPECIFIED (2) COPD (chronic obstructive pulmonary disease) Code(s): J44.9 - CHRONIC OBSTRUCTIVE PULMONARY DISEASE, UNSPECIFIED (3) Coronary artery disease Code(s): I25.10 - ATHSCL HEART DISEASE OF [place] CORONARY ARTERY W/O ANG PCTRS (4) Empyema of lung Code(s): J86.9 - PYOTHORAX WITHOUT FISTULA (5) Pneumonia Code(s): J18.9 - PNEUMONIA, UNSPECIFIED ORGANISM (6) Sinus pause Code(s): I45.5 - OTHER SPECIFIED HEART BLOCK (7) Smoker Code(s): F17.200 - NICOTINE DEPENDENCE, UNSPECIFIED, UNCOMPLICATED (8) Chest pain Code(s): R07.9 - CHEST PAIN, UNSPECIFIED (9) HTN (hypertension) Code(s): I10 - ESSENTIAL (PRIMARY) HYPERTENSION (10) Hepatitis C Code(s): B19.20 - UNSPECIFIED VIRAL HEPATITIS C WITHOUT HEPATIC COMA This patient is new to me today: Yes Date on this admission: 02/19/17 Emergency Visit: Yes ED Registration Date: 02/09/17 Care time: The patient presented to the Emergency Department on the above date and was hospitalized for further evaluation of their emergent condition. Critical Care patient: No - Discharge Referral Referred to [facility] Med [facility].C.: No
[2017-02-19 14:55] VITALS: BP 132/96; PULSE 75; TEMP 98.8
== END 2017-02-19 16:04 | disposition home or self-care (01) | DRG 186 ==
LOC: JER 11:01 → JERBED 18:03 → J5S 21:49 → J4S 02-10 02:37
PROVIDERS: ADMIT Internal Medicine; ATTEND Nurse Practitioner Family
PROC: 0W993ZX Drainage of Right Pleural Cavity, Percutaneous Approach, Diagnostic (ICD-10-PCS; principal; 2017-02-15)
DX: J90 Pleural effusion, not elsewhere classified (principal); J86.9 Pyothorax without fistula; J18.9 Pneumonia, unspecified organism; I50.33 Acute on chronic diastolic (congestive) heart failure; J98.11 Atelectasis; I13.0 Hypertensive heart and chronic kidney disease with heart failure and stage 1 through stage 4 chronic kidney disease, or unspecified chronic kidney disease; N17.9 Acute kidney failure, unspecified; E78.5 Hyperlipidemia, unspecified; E11.9 Type 2 diabetes mellitus without complications; J44.9 Chronic obstructive pulmonary disease, unspecified; I25.10 Atherosclerotic heart disease of native coronary artery without angina pectoris; Z98.61 Coronary angioplasty status; D72.829 Elevated white blood cell count, unspecified; E83.42 Hypomagnesemia; N18.9 Chronic kidney disease, unspecified; E11.22 Type 2 diabetes mellitus with diabetic chronic kidney disease; F17.210 Nicotine dependence, cigarettes, uncomplicated; R07.89 Other chest pain
CPT/HCPCS: 36415; 70450-TC; 71010-TC; 71020-TC; 71250-TC; 76775-TC; 76856-TC; 76942; 80048; 80053; 80061; 81003; 81015; 82150; 82310; 82330; 82436; 82438; 82550; 82570; 82945; 83036; 83605; 83615; 83721; 83735; 83880; 84100; 84133; 84156; 84157; 84300; 84311; 84439; 84443; 84478; 84481; 84484; 85025; 85027; 85610; 85730; 86140; 86480; 86803; 86850; 86900; 86901; 87040; 87070; 87075; 87086; 87102; 87116; 87205; 87206; 87210; 87522; 88108; 88305-TC; 89051; 93005; 93010; 93306-TC; 94640; 94761; 97116-GP; 97161-GP; 99284-25; J1644

== ENCOUNTER 2019-04-03 15:40 | Inpatient (IN) | payer OTHER ==
--- NOTE | 2019-04-03 16:26 | PDOC ---
History of Present Illness - General Chief Complaint: Abnormal Lab Results (Outside) Stated Complaint: Abnormal Lab Results (Outside) Time Seen by Provider: 04/03/19 16:25 History Source: Patient - History of Present Illness Initial Comments: 04/03/19 19:10 Milly Garza is a 78 y/o woman w/hx CKD3, HTN, HLD, CAD, COPD p/w three days of worsening shortness of breath. She reports a hip replacement one month ago, and having mild foot swelling and mild shortness of breath since then. She reports that her symptoms acutely worsened three days ago, which prompted her to seek evaluation in an urgent care today. At the urgent care her d-dimer was found to be elevated (unclear what the measured value was), and she was sent to the ED for further evaluation with concern for a pulmonary embolism. She reports using her COPD inhalers for the shortness of breath without improvement of symptoms. She denies any wheezing, chest pain, cough, fevers, chills, abdominal pain, constipation, diarrhea. Past History - Past Medical History Allergies/Adverse Reactions: Allergies Allergy/AdvReac Type Severity Reaction Status Date / Time shrimp Allergy Unknown Verified 04/03/19 15:42 tomato Allergy Unknown Verified 04/03/19 15:42 shellfish derived Allergy Verified 04/03/19 15:42 Home Medications: Ambulatory Orders Albuterol Sulfate Inhaler - [Ventolin HFA Inhaler -] 2 inh PO Q4H 07/06/16 Ranolazine [Ranexa] 500 mg PO BID 07/06/16 Ammonium Lactate Lotion [Lac-Hydrin 12% Lotion -] 1 applic TP ASDIR 04/03/19 Calcium Carbonate/Vitamin D3 [Calcium 600 + Vit D 200 Tablet] 1 each PO BID 01/10 Ergocalciferol [Vitamin D2] 50,000 unit PO Q7D@1000 04/03/19 Nitroglycerin [Nitrostat] 0.4 mg SL ASDIR 04/03/19 Ranitidine HCl 150 mg PO HS 04/03/19 Sodium Bicarbonate - 650 mg PO BID 04/03/19 Cardiac Disorders: Yes COPD: No HTN: Yes Hypercholesterolemia: Yes - Surgical History Cardiac Surgery: Yes (STENTS) - Immunization History Immunization Up to Date: Yes - Psycho Social/Smoking Cessation Hx Smoking History: Never smoked Have you smoked in the past 12 months: Yes Number of Cigarettes Smoked Daily: 2 'Breaking Loose' booklet given: 01/25/15 Hx Alcohol Use: No Drug/Substance Use Hx: No Substance Use Type: None Hx Substance Use Treatment: No Review of Systems - Review of Systems Able to Perform ROS?: Yes Comments:: ROS: GENERAL/CONSTITUTIONAL: No fever or chills. No weakness. HEAD, EYES, EARS, NOSE AND THROAT: No change in vision. No ear pain or discharge. No sore throat. CARDIOVASCULAR: Shortness of breath. No chest pain RESPIRATORY: No cough, wheezing, or hemoptysis. GASTROINTESTINAL: No nausea, vomiting, diarrhea or constipation. GENITOURINARY: No dysuria, frequency, or change in urination. MUSCULOSKELETAL: Bilateral foot swelling. No other joint or muscle swelling or pain. No neck or back pain. SKIN: No rash NEUROLOGIC: No headache, vertigo, loss of consciousness, or change in strength/ sensation. ENDOCRINE: No increased thirst. No abnormal weight change HEMATOLOGIC/LYMPHATIC: No anemia, easy bleeding, or history of blood clots. ALLERGIC/IMMUNOLOGIC: No hives or skin allergy. *Physical Exam - Vital Signs Last Vital Signs Temp Pulse Resp BP Pulse Ox 98.2 F 108 H 20 161/93 97 04/03/19 15:42 04/03/19 15:42 04/03/19 15:42 04/03/19 15:42 04/03/19 15:42 - Physical Exam 04/03/19 19:15 PE: GENERAL: Awake, alert, and fully oriented, in no acute distress HEAD: No signs of trauma, normocephalic, atraumatic EYES: PERRLA, EOMI, sclera anicteric, conjunctiva clear ENT: Auricles normal inspection, hearing grossly normal, nares patent, oropharynx clear without exudates. Moist mucosa NECK: Normal ROM, supple, no lymphadenopathy, JVD, or masses LUNGS: No distress, speaks full sentences, clear to auscultation bilaterally HEART: Regular rate and rhythm, normal S1 and S2, no murmurs, rubs or gallops, peripheral pulses normal and equal bilaterally. ABDOMEN: Soft, nontender, normoactive bowel sounds. No guarding, no rebound. No masses EXTREMITIES : 1+ bilateral foot edema. Otherwise: Normal inspection, Normal range of motion, no edema. No clubbing or cyanosis NEUROLOGICAL: Cranial nerves II through XII grossly intact. Normal speech, normal gait, no focal sensorimotor deficits SKIN: Warm, Dry, normal turgor, no rashes or lesions noted ED Treatment Course - LABORATORY CBC & Chemistry Diagram: 04/04/19 05:15 04/04/19 05:15 Medical Decision Making - Medical Decision Making 04/03/19 19:16 78F w/hx CKD3, HTN, HLD, CAD p/w three days of shortness of breath, s/p hip replacement one month ago, tachycardic with foot edema on exam, with positive d- dimer at urgent care today, concerning for pulmonary embolism. CHF also possible given worsening of sob whiel laying flat. Plan: CBC CMP BNP EKG CXR Cardiac profile CTA Chest PE study Bilateral LE duplex US Dispo: Pending imaging, labs. Likely admission. --- Labs pending. Plan for CTA after CMP result. Patient signed out to night team. Discharge - Discharge Information Problems reviewed: Yes Clinical Impression/Diagnosis: RADHA (acute kidney injury), NSTEMI (non-ST elevated myocardial infarction), Shortness of breath Condition: Stable - Follow up/Referral - Patient Discharge Instructions - Post Discharge Activity
--- NOTE | 2019-04-03 18:36 | PDOC ---
Documentation entered by Mitchell Perales SCRIBE, acting as scribe for Buck Kenny MD. Buck Kenny MD: This documentation has been prepared by the Diaz mercedes Xhesika, SCRIBE, under my direction and personally reviewed by me in its entirety. I confirm that the documentation accurately reflects all work, treatment, procedures, and medical decision making performed by me. Attending Attestation - Resident Resident Name: Luis Jimenez - ED Attending Attestation I have performed the following: I have examined & evaluated the patient, The case was reviewed & discussed with the resident, I agree w/resident's findings & plan, Exceptions are as noted - HPI HPI: 04/03/19 17:43 The patient is a 78 year old female with a significant PMH of HTN, hyperlipidemia, diabetes COPD, CAD (s/p stents on Plavix & Aspirin), and hepatitis C who presents to the emergency department [facility] from [facility] secondary to positive D-dimer. The patient states she fell and broke her hip 1 month ago and has been endorsing worsening edema and SOB. The patient denies chest pain, and dizziness. Denies fever, chills, cough, nausea, vomiting, and constipation. Denies dysuria, frequency, urgency and hematuria. Allergies: NKA Past surgical history: Cardiac stents. Social history: Current some day smoker. No reported alcohol or drug use. PCP: Dr. Thomas Aguayo [ ] in [place]. - Physicial Exam PE: 04/03/19 18:02 Vitals: Triage Vital signs reviewed General Appearance: no acute distress, well nourished well developed, Neck: Supple;No Nuchal rigidity Chest Wall: Nontender Cardiac: Regular rate and rhythm, no murmurs, no rubs, no gallops, Lungs: Clear to auscultation bilateral, good air movement bilaterally, Extremities: Full range of motion to all extremities, no cyanosis, clubbing Skin: Warm and dry, no rashes or lesions, no petechiae Neuro: AOX3; Cranial Nerves 2-12 grossly c intact, Strength intact to all extremities, Sensation intact to all extremities Psych: normal mood, normal affect - Medical Decision Making 04/03/19 18:35 Elevated d-dimer as an outpatient. Will CT chest to rule out PE observe and reassess Dr. Montez to follow up CT and reasses Heart Score/ECG Review - ECG Impressions Comment:: 04/03/19 18:35 EKG performed at 1737 demonstrates normal sinus rhythm no ST elevations or T wave inversions Interpreted by me.
[2019-04-03 19:04] LABS: BASO % 0.3 % (0-2.0); EOS % 1.6 % (0-4.5); HEMATOCRIT 25.8 % (32.4-45.2); HEMOGLOBIN 8.6 GM/dL (10.7-15.3); LYMPH % 29.3 % (8-40); MCH 32.1 pg (25.7-33.7); MCHC 33.4 g/dl (32.0-36.0); MEAN PLT VOLUME 9.1 fl (7.5-11.1); MONO % 6.8 % (3.8-10.2); PLATELET COUNT 241 K/MM3 (134-434); RBC 2.69 M/mm3 (3.60-5.2); RDW 15.1 % (11.6-15.6); WHITE BLOOD COUNT 9.1 K/mm3 (4.0-10.0)
[2019-04-03 19:22] LABS: INR 1.3 (0.83-1.09); PROTHROMBIN TIME (PATIENT) 15.4 SEC (9.7-13.0)
[2019-04-03 19:24] LABS: ACTIVATED PTT 29.1 SECONDS (25.2-36.5)
[2019-04-03 19:28] LABS: ALBUMIN 3.2 g/dl (3.4-5.0); BILIRUBIN,TOTAL 0.4 mg/dL (0.2-1); BLOOD UREA NITROGEN 48.8 mg/dL (7-18); CREATININE 3.4 mg/dL (0.55-1.3); POTASSIUM 4.4 mmol/L (3.5-5.1); TOT PROT 7.1 g/dl (6.4-8.2)
[2019-04-03 19:30] LABS: CALCIUM 6.2 mg/dL (8.5-10.1)
[2019-04-03] MEDS ORDERED: ASPIRIN 81 MG CHEWABLE TABLETS PO ONE (19:31)
[2019-04-03] MEDS ORDERED: ASPIRIN 81 MG CHEWABLE TABLETS ONE (19:54)
--- NOTE | 2019-04-03 20:14 | PDOC ---
*Physical Exam - Vital Signs Last Vital Signs Temp Pulse Resp BP Pulse Ox 98.2 F 108 H 20 161/93 97 04/03/19 15:42 04/03/19 15:42 04/03/19 15:42 04/03/19 15:42 04/03/19 15:42 - Physical Exam 04/03/19 23:52 General Appearance: Nourished. No Apparent Distress HEENT: EOMI, LEX. No Pharyngeal Erythema, Tonsillar Exudate, Tonsillar Erythema Neck: No Cervical Lymphadenopathy Respiratory/Chest: Lungs Clear, Normal Breath Sounds. No Crackles, Rales, Rhonchi, Wheezing Cardiovascular: Regular Rhythm, Regular Rate. No Murmur, Gallops, Rubs Gastrointestinal/Abdominal: Normal Bowel Sounds, Soft. No Guarding, Rebound, Tenderness Musculoskeletal: No CVA Tenderness Extremity: 2+ edema to the lower extremities bilaterally. Normal Capillary Refill Integumentary: Normal Color, Dry, Warm Neurologic: Fully Oriented, Alert, Normal Mood/Affect, Normal Response, ED Treatment Course - LABORATORY CBC & Chemistry Diagram: 04/03/19 18:12 04/03/19 18:12 - ADDITIONAL ORDERS Additional order review: Laboratory Results 04/03/19 04/03/19 04/03/19 18:12 18:12 18:12 PT with INR INR PTT (Actin FS) D-Dimer 36229 H Sodium 141 Potassium 4.4 Chloride 114 H Carbon Dioxide 16 L Anion Gap 12 BUN 48.8 H Creatinine 3.4 H Est GFR (CKD-EPI)AfAm 14.23 Est GFR (CKD-EPI)NonAf 12.28 Random Glucose 103 Calcium 6.2 L* Total Bilirubin 0.4 AST 24 ALT 16 Alkaline Phosphatase 110 Creatine Kinase 190 Creatine Kinase Index 1.7 CK-MB (CK-2) 3.4 Troponin I 1.64 H* B-Natriuretic Peptide 57603.0 H Total Protein 7.1 Albumin 3.2 L 04/03/19 18:12 PT with INR 15.40 H INR 1.30 H PTT (Actin FS) 29.1 D-Dimer Sodium Potassium Chloride Carbon Dioxide Anion Gap BUN Creatinine Est GFR (CKD-EPI)AfAm Est GFR (CKD-EPI)NonAf Random Glucose Calcium Total Bilirubin AST ALT Alkaline Phosphatase Creatine Kinase Creatine Kinase Index CK-MB (CK-2) Troponin I B-Natriuretic Peptide Total Protein Albumin 04/03/19 18:12 RBC 2.69 L MCV 96.0 MCHC 33.4 RDW 15.1 MPV 9.1 Neutrophils % 62.0 D Lymphocytes % 29.3 D Monocytes % 6.8 Eosinophils % 1.6 D Basophils % 0.3 - Medications Given in the ED: ED Medications Discontinued Medications Generic Name Dose Route Start Last Admin Trade Name Rafael PRN Reason Stop Dose Admin Aspirin 324 mg 04/03/19 19:31 04/03/19 19:58 Asa - PO 04/03/19 19:32 324 mg ONCE ONE Administration Medical Decision Making - Medical Decision Making 04/03/19 23:52 CBC is unremarkable. Troponin was initially elevated to 1.6 [place] [address] and elevated creatinine to 3.4. Repeat troponin is down trending to 1.4. The patient was placed on a heparin drip as well as given aspirin. She will require admission for further monitoring and management. Discharge - Discharge Information Problems reviewed: Yes Clinical Impression/Diagnosis: RADHA (acute kidney injury), NSTEMI (non-ST elevated myocardial infarction), Shortness of breath Condition: Stable - Admission Yes - Follow up/Referral Referrals: Thomas Aguayo [Primary Care Provider] - - Patient Discharge Instructions - Post Discharge Activity
[2019-04-03] MEDS ORDERED: HEPARIN NA (PORCINE) 5,000 UNITS/ML 1ML VIAL IVPUSH PRN ×2 (20:30)
[2019-04-03] MEDS ORDERED: HEPARIN - 25,000 UNIT in SODIUM CHLORIDE 495 ML IV SCH (20:30)
[2019-04-03] MEDS ORDERED: HEPARIN INFUSION - 25,000 UNITS/500 ML INFUS.BAG IVPB ONE (20:57)
[2019-04-03] MEDS ORDERED: HEPARIN NA (PORCINE) 5,000 UNITS/ML 1ML VIAL ONE (20:57)
--- NOTE | 2019-04-04 00:38 | PN ---
Teaching Attending Note Name of Resident: Ayla Bynum ATTENDING PHYSICIAN STATEMENT I saw and evaluated the patient. I reviewed the resident's note and discussed the case with the resident. I agree with the resident's findings and plan as documented. SUBJECTIVE: 78-year-old woman with history of COPD, diabetes mellitus, hypertension, CAD status post stents, hepatitis C, CKD presents from [facility] brought in by ambulance with with worsening shortness of breath for the past 3 days. Patient reported hip replacement 2-1/2 months ago. No complications directly after the surgery. She denies any recent chest pain. D-dimer was performed at urgent care center and was found to be elevated, at that time patient was sent to emergency room for concern for pulmonary embolism due to her recent orthopedic surgery. Patient has been using her COPD inhalers without improvement of symptoms. No wheezing or chest pain or cough reported. Of note, patient had a history of GI bleed from diverticulum in 2014. OBJECTIVE: Last Vital Signs Temp Pulse Resp BP Pulse Ox 97.6 F 96 H 16 159/92 97 04/04/19 02:40 04/04/19 02:40 04/04/19 02:40 04/04/19 02:40 04/03/19 15:42 On physical exam patient was a frail elderly female not in any visible distress. Lungs were clear to auscultation, S1, S2 with no rubs or gallops. No JVD appreciated. Abdomen is soft and nondistended with positive bowel sounds. 2+ pitting edema in lower extremities bilaterally. Abnormal Lab Results 04/03/19 04/03/19 04/03/19 18:12 18:12 18:12 RBC 2.69 L Hgb 8.6 L Hct 25.8 L PT with INR 15.40 H INR 1.30 H D-Dimer Chloride 114 H Carbon Dioxide 16 L BUN 48.8 H Creatinine 3.4 H Calcium 6.2 L* Troponin I 1.64 H* B-Natriuretic Peptide Albumin 3.2 L 04/03/19 04/03/19 04/03/19 18:12 18:12 21:10 RBC Hgb Hct PT with INR INR D-Dimer 56903 H Chloride Carbon Dioxide BUN Creatinine Calcium Troponin I 1.40 H* B-Natriuretic Peptide 45306.0 H Albumin Imaging studies reviewed. Chest x-ray reviewed, sharp costophrenic angles bilaterally, calcified aortic knob, cardiomegaly. ASSESSMENT AND PLAN: 70-year-old woman with sudden worsening shortness of breath associated with elevated d-dimer and significantly elevated troponin. Differential diagnosis at this time includes pulmonary embolism and an STEMI. Unable to CTA since patient has renal insufficiency. At this time would treat empirically for possible PE with heparin drip. This would also cover possible ACS. Will treat with dual antiplatelet therapy at this time as long as patient understands risks of bleeding and agrees. Patient is otherwise hemodynamically stable for admission to telemetry. Will attempt VQ scan during the day when available. Admit to telemetry Continue heparin drip Loading dose of aspirin 324 mg stat (discussed Plavix with patient and she refused because she believes it caused her GI bleed in 2014) High-dose statin Beta-ambrose Transthoracic echocardiogram Cardiology consult Monitor for signs of bleeding while on heparin drip Monitor vital signs closely Discussed risks and benefits of anticoagulation and patient understood and agreed for anticoagulation in light of her history of GI bleed. #COPDappears to be controlled Albuterol nebulizer PRN if wheezing #RADHA on CKDnot on hemodialysis Avoid nephrotoxins IV fluid hydration Renal ultrasound I's and O's Daily weights Renal consult #Fluid overload as evidenced by high BNP and bilateral pedal edema. May be secondary to worsening CKD versus CHF. Furosemide IV twice daily I's and O's, daily weights Salt and free water restriction Allen catheter for accurate I's and O's #Metabolic acidosismay be secondary to CKD #Normocytic anemia with high RDWsuspect mixed anemia Iron studies Ferritin TSH Vitamin B12 #GI bleed in 2014 from colon diverticulano bleeding since then, has been off Plavix. Patient agrees for anticoagulation. Will monitor H&H closely while on anticoagulation.
[2019-04-04] MEDS: NICOTINE POLACRILEX 4 MG GUM BUC PRN ×2 (00:55→21:40)
[2019-04-04] MEDS ORDERED: CALCIUM GLUCONATE 10% - 1,000 MG/10 ML VIAL IVPUSH ONE ×2 (01:10→16:32)
--- NOTE | 2019-04-04 01:14 | HP ---
CHIEF COMPLAINT: shortness of breath PCP: Dr. Aguayo HISTORY OF PRESENT ILLNESS: 78 y.o. F PMH HTN, HLD, CKD stage 3, CAD s/p stent placements in 2014, coronary angio 08/2016 w/o further stent placements, NSTEMI 07/2016, diastolic CHF (with severe apical hypokinesis on 07/2015 ECHO), COPD, Hep C, hx of GI bleed 2/2 pandiverticulosis presenting for dyspnea. presenting for shortness of breath & elevated d-dimer found at her pcp's office. The patient has been having progressively worsening SOB x 3 days, foot edema and cough productive of white sputum. There is no associated chest pain. Patient also endorses some b/l LE myalgias but no calf tenderness to palpation. She is mildly tachypnic but saturating 100% on room air and endorses a on-diagnosed history of anxiety. ER course was notable for: (1) D-dimer 19,940. (2) Trop 1.64--> 1.4. tachycardia (3) BNP 23,487 Recent Travel: denies PAST MEDICAL HISTORY: as per hpi PAST SURGICAL HISTORY: cardiac stent placements Social History: Smokin-7 cigarettes/ day x 50 years Alcohol: denies Drugs: denies Allergies shrimp Allergy (Unknown, Verified 04/03/19 15:42) pt reporting shrimp allergy tomato Allergy (Unknown, Verified 04/03/19 15:42) pt reporting tomato allergy shellfish derived Allergy (Verified 04/03/19 15:42) HOME MEDICATIONS: Home Medications Medication Instructions Recorded Albuterol Sulfate Inhaler - 2 inh PO Q4H 07/06/16 [Ventolin HFA Inhaler -] Ranolazine [Ranexa] 500 mg PO BID 07/06/16 Ammonium Lactate Lotion 1 applic TP ASDIR 04/03/19 [Lac-Hydrin 12% Lotion -] Calcium Carbonate/Vitamin D3 1 each PO BID 04/03/19 [Calcium 600 + Vit D 200 Tablet] Ergocalciferol [Vitamin D2] 50,000 unit PO Q7D@1000 04/03/19 Nitroglycerin [Nitrostat] 0.4 mg SL ASDIR 04/03/19 Ranitidine HCl 150 mg PO HS 04/03/19 Sodium Bicarbonate - 650 mg PO BID 04/03/19 REVIEW OF SYSTEMS CONSTITUTIONAL: Absent: fever, chills, diaphoresis, generalized weakness, malaise, loss of appetite, weight change HEENT: Absent: rhinorrhea, nasal congestion, throat pain, throat swelling, difficulty swallowing, mouth swelling, ear pain, eye pain, visual changes CARDIOVASCULAR: irregular heart rate Absent: chest pain, syncope, palpitations, lightheadedness, peripheral edema RESPIRATORY: cough, shortness of breath, dyspnea with exertion Absent: orthopnea, wheezing, stridor, hemoptysis GASTROINTESTINAL: Absent: abdominal pain, abdominal distension, nausea, vomiting, diarrhea, constipation, melena, hematochezia GENITOURINARY: Absent: dysuria, frequency, urgency, hesitancy, hematuria, flank pain, genital pain MUSCULOSKELETAL: myalgias Absent: arthralgia, joint swelling, back pain, neck pain SKIN: Absent: rash, itching, pallor HEMATOLOGIC/IMMUNOLOGIC: Absent: easy bleeding, easy bruising, lymphadenopathy, frequent infections ENDOCRINE: Absent: unexplained weight gain, unexplained weight loss, heat intolerance, cold intolerance NEUROLOGIC: Absent: headache, focal weakness or paresthesias, dizziness, unsteady gait, seizure, mental status changes, bladder or bowel incontinence PSYCHIATRIC: Absent: anxiety, depression, suicidal or homicidal ideation, hallucinations. PHYSICAL EXAMINATION Vital Signs - 24 hr 04/03/19 15:42 Temperature 98.2 F Pulse Rate 108 H Respiratory 20 Rate Blood Pressure 161/93 O2 Sat by Pulse 97 Oximetry (%) GENERAL: Awake, alert, and fully oriented, in no acute distress. HEENT: NCAT PERRLA MMM LUNGS: Diminished breath sound @ R base. No wheezes, and no crackles. No accessory muscle use. HEART: Tachycardia, normal S1 and S2 without murmur, rub or gallop. ABDOMEN: Soft, nontender, not distended, normoactive bowel sounds EXTREMITIES: 2+ pulses, warm, well-perfused. 1+ b/l LE pitting edema. NEUROLOGICAL: Cranial nerves II-XII intact. Normal speech. Normal gait. PSYCHIATRIC: Cooperative. Good eye contact. Appropriate mood and affect. SKIN: Warm, dry, normal turgor, no rashes or lesions noted Laboratory Results - last 24 hr Laboratory Last Values WBC 9.1 K/mm3 (4.0-10.0) 04/03/19 18:12 RBC 2.69 M/mm3 (3.60-5.2) L 04/03/19 18:12 Hgb 8.6 GM/dL (10.7-15.3) L 04/03/19 18:12 Hct 25.8 % (32.4-45.2) L 04/03/19 18:12 MCV 96.0 fl (80-96) 04/03/19 18:12 MCH 32.1 pg (25.7-33.7) 04/03/19 18: MCHC 33.4 g/dl (32.0-36.0) 04/03/19 18:12 RDW 15.1 % (11.6-15.6) 04/03/19 18:12 Plt Count 241 K/MM3 (134-434) D 04/03/19 18:12 MPV 9.1 fl (7.5-11.1) 04/03/19 18:12 Absolute Neuts (auto) 5.7 K/mm3 (1.5-8.0) 04/03/19 18:12 Neutrophils % 62.0 % (42.8-82.8) D 04/03/19 18:12 Lymphocytes % 29.3 % (8-40) D 04/03/19 18:12 Monocytes % 6.8 % (3.8-10.2) 04/03/19 18:12 Eosinophils % 1.6 % (0-4.5) D 04/03/19 18:12 Basophils % 0.3 % (0-2.0) 04/03/19 18:12 Nucleated RBC % 0 % (0-0) 04/03/19 18: PT with INR 15.40 SEC (9.7-13.0) H 04/03/19 18:12 INR 1.30 (0.83-1.09) H 04/03/19 18:12 PTT (Actin FS) 29.1 SECONDS (25.2-36.5) 04/03/19 18:12 D-Dimer 39467 ng/ml (0-500) H 04/03/19 18:12 Sodium 141 mmol/L (136-145) 04/03/19 18:12 Potassium 4.4 mmol/L (3.5-5.1) 04/03/19 18:12 Chloride 114 mmol/L (98-107) H 04/03/19 18:12 Carbon Dioxide 16 mmol/L (21-32) L 04/03/19 18:12 Anion Gap 12 MMOL/L (8-16) 04/03/19 18:12 BUN 48.8 mg/dL (7-18) H 04/03/19 18:12 Creatinine 3.4 mg/dL (0.55-1.3) H 04/03/19 18:12 Est GFR (CKD-EPI)AfAm 14.23 04/03/19 18:12 Est GFR (CKD-EPI)NonAf 12.28 04/03/19 18:12 Random Glucose 103 mg/dL (74-106) 04/03/19 18:12 Calcium 6.2 mg/dL (8.5-10.1) L* 04/03/19 18:12 Total Bilirubin 0.4 mg/dL (0.2-1) 04/03/19 18:12 AST 24 U/L (15-37) 04/03/19 18:12 ALT 16 U/L (13-61) 04/03/19 18:12 Alkaline Phosphatase 110 U/L (45-117) 04/03/19 18:12 Creatine Kinase 190 U/L (26-192) 04/03/19 18:12 Creatine Kinase Index 1.7 % (0.0-5.0) 04/03/19 18:12 CK-MB (CK-2) 3.4 ng/mL (0.5-3.6) 04/03/19 18:12 Troponin I 1.40 ng/ml (0.00-0.05) H* 04/03/19 21:10 B-Natriuretic Peptide 30525.0 pg/ml (5-450) H 04/03/19 18:12 Total Protein 7.1 g/dl (6.4-8.2) 04/03/19 18:12 Albumin 3.2 g/dl (3.4-5.0) L 04/03/19 18:12 Stool Occult Blood Negative (NEGATIVE) 04/03/19 20:00 ASSESSMENT/PLAN: 78 y.o. F PMH HTN, HLD, CKD stage 3, CAD s/p stent placements in 2014, coronary angio 08/2016 w/o further stent placements, NSTEMI 07/2016, diastolic CHF, COPD, Hep C, hx of GI bleed 2/2 pandiverticulosis presenting for dyspnea. #NSTEMI -Trop 1.64, downtrended to 1.4 -EKG #1 5pm showing NSR, qtc 501, no ST elevations-- EKG #2 10PM showing NSR, qtc 520, small incr in T waves in V2 as per my read -f/u AM EKG, trend trop -monitor for chest pain, patient currently denies -holding aspirin/ plavix 2/2 history of GI bleeding -Cardiology consulted, Dr. Yadav has seen patient in the past #Acute PE vs. acute COPD exacerbation -BNP 23,000s, d-dimer 19,000s -monitor shortness of breath -saturating 100% on RA -patient cannot have CTA due to contrast; 2/2 renal dysfunction -f/u V/Q scan -LE u/s negative for dvt's -started on heparin drip empirically -Duonebs -afebrile -Pulm consulted #RADHA on CKD -Baseline cr ~2, today 3.4 -f/u renal u/s -Dr. Cotto consulted, has seen patient in the past-- possible epo candidate? #CAD -aspirin -was on plavix as per prior chart, not currently taking at home -moderate intensity statin -monitor tachycardia #Diastolic chf -prior echo in 2016 showed severe apical hypokinesis -f/u echo for this visit #HTN -hold home anti htn meds -continue to monitor bp #Nicotine dependence -nicorette gum -nicotine patch #FEN -no standing fluids -hypocalcemia, repleting -sodium controlled diet #PPX -on heparin drip Visit type - Emergency Visit Emergency Visit: Yes ED Registration Date: 04/03/19 Care time: The patient presented to the Emergency Department on the above date and was hospitalized for further evaluation of their emergent condition. - New Patient This patient is new to me today: Yes Date on this admission: 04/04/19 - Critical Care Critical Care patient: No ATTENDING PHYSICIAN STATEMENT I saw and evaluated the patient. I reviewed the resident's note and discussed the case with the resident. I agree with the resident's findings and plan as documented. SUBJECTIVE: OBJECTIVE: ASSESSMENT AND PLAN:
[2019-04-04] MEDS ORDERED: ALBUTEROL SO4 2.5/IPRATROPIUM 0.5 INH SOL 3 ML VIAL.NEB. NEB ONE ×5 (02:18→21:03)
[2019-04-04] MEDS ORDERED: CALCIUM GLUCONATE 10% - 1,000 MG/10 ML VIAL ONE ×2 (02:18→16:51)
[2019-04-04] MEDS: ALBUTEROL SO4 2.5/IPRATROPIUM 0.5 INH SOL 3 ML VIAL.NEB. NEB SCH ×6 (02:30→21:17)
[2019-04-04] MEDS ORDERED: NITROGLYCERIN SUBLINGUAL 1/150 0.4 MG TAB SL PRN (02:38)
[2019-04-04 05:23] LABS: BASO % 0.5 % (0-2.0); EOS % 1.5 % (0-4.5); HEMATOCRIT 22.8 % (32.4-45.2); HEMOGLOBIN 7.8 GM/dL (10.7-15.3); LYMPH % 28.1 % (8-40); MCH 32.4 pg (25.7-33.7); MEAN CELL VOLUME 95.2 fl (80-96); MEAN PLT VOLUME 7.9 fl (7.5-11.1); MONO % 6.6 % (3.8-10.2); NEUT % 63.3 % (42.8-82.8); PLATELET COUNT 202 K/MM3 (134-434); RDW 15.3 % (11.6-15.6); RETICULOCYTES 4.81 % (0.5-1.5); WHITE BLOOD COUNT 8.2 K/mm3 (4.0-10.0)
[2019-04-04 07:10] LABS: ALBUMIN 3.1 g/dl (3.4-5.0); BILIRUBIN,TOTAL 0.4 mg/dL (0.2-1); CREATININE 3.4 mg/dL (0.55-1.3); POTASSIUM 4.6 mmol/L (3.5-5.1); TOT PROT 6.9 g/dl (6.4-8.2)
[2019-04-04 07:13] LABS: CALCIUM 6.5 mg/dL (8.5-10.1)
[2019-04-04 08:10] LABS: INR 1.47 (0.83-1.09); PROTHROMBIN TIME (PATIENT) 17.4 SEC (9.7-13.0)
[2019-04-04] MEDS ORDERED: ASPIRIN COATED 81 MG TABLET.EC PO SCH (10:00)
[2019-04-04] MEDS ORDERED: PATIENT'S OWN MEDICATION (NON-FORMULARY) (Calcium Carbonate/Vitamin D3 [Calcium 600-Vit D3 PO SCH (10:00)
[2019-04-04] MEDS ORDERED: SODIUM BICARBONATE 650 MG TABLET PO SCH (10:00)
--- NOTE | 2019-04-04 10:42 | EKG ---
Test Reason : Blood Pressure : / mmHG Vent. Rate : 095 BPM Atrial Rate : 095 BPM P-R Int : 156 ms QRS Dur : 088 ms QT Int : 414 ms P-R-T Axes : 067 016 080 degrees QTc Int : 520 ms NORMAL SINUS RHYTHM NONSPECIFIC T WAVE ABNORMALITY ABNORMAL ECG WHEN COMPARED WITH ECG OF 03-APR-2019 17:37, NO SIGNIFICANT CHANGE WAS FOUND Confirmed by Santiago Ramsey MD ([id number]) on 04/04/2019 10:42:01 AM Referred By: Confirmed By:Santiago Ramsey MD
--- NOTE | 2019-04-04 10:43 | EKG ---
Test Reason : Blood Pressure : / mmHG Vent. Rate : 091 BPM Atrial Rate : 091 BPM P-R Int : 150 ms QRS Dur : 086 ms QT Int : 408 ms P-R-T Axes : 062 001 070 degrees QTc Int : 501 ms NORMAL SINUS RHYTHM POSSIBLE ANTERIOR INFARCT , AGE UNDETERMINED ABNORMAL ECG WHEN COMPARED WITH ECG OF 19-FEB-2017 10:27, NONSPECIFIC T WAVE ABNORMALITY, WORSE IN LATERAL LEADS Confirmed by Santiago Ramsey MD ([id number]) on 04/04/2019 10:43:04 AM Referred By: Confirmed By:Santiago Ramsey MD
[2019-04-04] MEDS: NICOTINE 21 MG/24 HOURS TOPICAL PATCH TD SCH (11:11)
[2019-04-04] MEDS: CALCIUM 500MG/VIT-D 200 UNITS COMBO TABLET (FP) PO SCH ×2 (11:12→21:17)
[2019-04-04] MEDS: RANOLAZINE E.R. 500 MG TABLET (FP) PO SCH ×2 (11:12→21:17)
[2019-04-04] MEDS: ERGOCALCIFEROL (VIT D2) 50,000 UNIT (1.25 MG) CAPSULE PO SCH (11:12)
--- NOTE | 2019-04-04 13:22 | EKG ---
Test Reason : Blood Pressure : / mmHG Vent. Rate : 096 BPM Atrial Rate : 096 BPM P-R Int : 152 ms QRS Dur : 084 ms QT Int : 404 ms P-R-T Axes : 066 -04 079 degrees QTc Int : 510 ms NORMAL SINUS RHYTHM NORMAL ECG WHEN COMPARED WITH ECG OF 03-APR-2019 22:23, NONSPECIFIC T WAVE ABNORMALITY, IMPROVED IN LATERAL LEADS Confirmed by MD Jens, Paulino ([id number]) on 04/04/2019 1:22:12 PM Referred By: Confirmed By:Paulino Colindres MD
--- NOTE | 2019-04-04 13:44 | CONSULT ---
Consult Consult Specialty:: Nephrology Reason for Consultation:: RADHA - History of Present Illness Chief Complaint: shortness of breath History of Present Illness: Pt is a 78 year old female with pmhx of htn, hld, ckd, cad, copd, hep c, diastolic chf who presents to the ER complaining of shortness of breath. She also complains of lower ext edema. She says that hte symptoms have been progressive for the last 5 days. She denies chest pain. I was called to evaluate her for elevated creatinine. SHe does have history of CKD however does not remember who she follows with. She denies dysuria or hematuria. She denies nsaids use. - History Source History Provided By: Patient - Past Medical History Cardio/Vascular: Yes: CAD, HTN, Hyperlipdemia Pulmonary: Yes: COPD Gastrointestinal: Yes: GI Bleed Hepatobiliary: Yes: Hepatitis C Renal/: Yes: Renal Inusuff Psych: Yes: Other (initial change in mental status) - Past Surgical History Past Surgical History: Yes: Stent - Alcohol/Substance Use Hx Alcohol Use: No - Smoking History Smoking history: Never smoked Have you smoked in the past 12 months: Yes Aproximately how many cigarettes per day: 2 - Social History ADL: Independent Home Medications - Allergies Allergies/Adverse Reactions: Allergies Allergy/AdvReac Type Severity Reaction Status Date / Time shrimp Allergy Unknown Verified 04/03/19 15:42 tomato Allergy Unknown Verified 04/03/19 15:42 shellfish derived Allergy Verified 04/03/19 15:42 - Home Medications Home Medications: Ambulatory Orders Albuterol Sulfate Inhaler - [Ventolin HFA Inhaler -] 2 inh PO Q4H 07/06/16 Ranolazine [Ranexa] 500 mg PO BID 07/06/16 Ammonium Lactate Lotion [Lac-Hydrin 12% Lotion -] 1 applic TP ASDIR 04/03/19 Calcium Carbonate/Vitamin D3 [Calcium 600 + Vit D 200 Tablet] 1 each PO BID 01/10 Ergocalciferol [Vitamin D2] 50,000 unit PO Q7D@1000 04/03/19 Nitroglycerin [Nitrostat] 0.4 mg SL ASDIR 04/03/19 Ranitidine HCl 150 mg PO HS 04/03/19 Sodium Bicarbonate - 650 mg PO BID 04/03/19 Family Medical History Family History: Denies Review of Systems - Review of Systems Constitutional: reports: Malaise Eyes: reports: No Symptoms HENT: reports: No Symptoms Neck: reports: No Symptoms Cardiovascular: reports: Edema, Shortness of Breath Respiratory: reports: SOB on Exertion Gastrointestinal: reports: No Symptoms Genitourinary: reports: No Symptoms Musculoskeletal: reports: No Symptoms Integumentary: reports: No Symptoms Neurological: reports: No Symptoms Endocrine: reports: No Symptoms Hematology/Lymphatic: reports: No Symptoms Psychiatric: reports: No Symptoms Physical Exam Vital Signs: Vital Signs Temperature 98.6 F 04/04/19 11:30 Pulse Rate 96 H 04/04/19 11:30 Respiratory Rate 16 04/04/19 11:30 Blood Pressure 157/99 04/04/19 11:30 O2 Sat by Pulse Oximetry (%) 98 04/04/19 11:30 Constitutional: Yes: Calm Eyes: Yes: Conjunctiva Clear HENT: Yes: Atraumatic Neck: Yes: Supple Cardiovascular: Yes: S1, S2 Respiratory: Yes: On Nasal O2, Rhonchi Gastrointestinal: Yes: Soft Renal/: Yes: WNL Musculoskeletal: Yes: WNL Edema: Yes Edema: LLE: 2+, RLE: 2+ Neurological: Yes: Oriented Psychiatric: Yes: Oriented Labs: CBC, BMP 04/04/19 05:15 04/04/19 05:15 Laboratory Tests 02/17/17 02/18/17 04/03/19 07:00 14:00 18:12 Hgb 8.6 L Creatinine 1.9 H 2.0 H Calcium 04/03/19 04/04/19 04/04/19 18:12 05:15 05:15 Hgb 7.8 L Creatinine 3.4 H 3.4 H Calcium 6.2 L* 6.5 L* Imaging - Results Chest X-ray: Report Reviewed Ultrasound: Report Reviewed Problem List - Problems (1) RADHA (acute kidney injury) Code(s): N17.9 - ACUTE KIDNEY FAILURE, UNSPECIFIED (2) Hepatitis C Code(s): B19.20 - UNSPECIFIED VIRAL HEPATITIS C WITHOUT HEPATIC COMA (3) Renal insufficiency Code(s): N28.9 - DISORDER OF KIDNEY AND URETER, UNSPECIFIED Assessment/Plan Current Medications Generic Name Dose Route Start Last Admin Trade Name Freq PRN Reason Stop Dose Admin Albuterol/Ipratropium 1 amp 04/04/19 01:10 04/04/19 12:06 Duoneb - NEB 1 amp RQ4H PARMINDER Administration Atorvastatin Calcium 20 mg 04/04/19 22:00 Lipitor - PO HS [facility] Calcium Carbonate/Cholecalciferol 1 tab 04/04/19 10:00 04/04/19 11:12 Os-Baltazar 500+D - PO 1 tab BID PARMINDER Administration Ergocalciferol 50,000 unit 04/04/19 10:00 04/04/19 11:12 Drisdol - PO 50,000 unit Q7D@1000 PARMINDER Administration Famotidine 20 mg 04/04/19 22:00 Pepcid - PO HS [facility] Heparin Sodium (Porcine) 1,000 unit 04/03/19 20:30 Heparin - IVPUSH PRN PRN Heparin Heparin Sodium (Porcine) 5,000 unit 04/03/19 20:30 04/03/19 21:15 Heparin - IVPUSH 5,000 unit PRN PRN Administration Heparin Heparin Sodium (Porcine) 25, 500 mls @ 16 mls/hr 04/03/19 20:30 04/04/19 07: 20 000 unit/ Sodium Chloride IV 650 unit/hr TITR PARMINDER 13 mls/hr Titration Protocol 800 UNIT/HR Nicotine 21 mg 04/04/19 10:00 04/04/19 11:11 Nicoderm Patch - TD 21 mg DAILY PARMINDER Administration Nicotine Polacrilex 4 mg 04/04/19 00:24 04/04/19 00:55 Nicorette Gum - BUC 4 mg Q2H PRN Administration NICOTINE REPLACEMENT RX Nitroglycerin 0.4 mg 04/04/19 02:38 Nitrostat - SL ASDIR PRN FOR CHEST PAIN Ranolazine 500 mg 04/04/19 10:00 04/04/19 11:12 Ranexa - PO 500 mg BID PARMINDER Administration Sodium Bicarbonate 650 mg 04/04/19 10:00 04/04/19 11:13 Sodium Bicarbonate - PO 650 mg BID PARMINDER Administration Impression 1. CKD 2. RADHA 3. hypocalcemia 4. chf 5. copd 6. active smoker 7. hld 8. cad Plan - replace calcium - check phos - hold bicarb for now until calcium improved - cardio eval, recommend diuretics - check pth - monitor renal function
--- NOTE | 2019-04-04 14:08 | CON.PULM ---
Consult Consult Specialty:: PULM/CCM Referred by:: Hospitalist Reason for Consultation:: SOB - History of Present Illness Chief Complaint: SOB History of Present Illness: 78 F, COPD due to prolonged and active smoking history (about 1 PP 2 to 3 days for over 50 years), HTN, HLD, CKD stage 3, CAD s/p stent placements in 2014, coronary angio 08/2016 w/o further stent placements, NSTEMI 07/2016, diastolic CHF , Hep C, hx of GI bleed 2/2 diverticulosis. Admitted via the ER due to progressive shortness of breath for the past 3 days. Apparently a D-dimer was ordered and was elevated. No personal or family history of VTE. No travel history or sick contacts. No hemoptysis or night sweats. CXR: chronic changes CT: 2017: moderate right pleural effusion (patient had thoracentesis which appeared to be unrevealing). - History Source History Provided By: Patient Limitations to Obtaining History: No Limitations - Past Medical History Cardio/Vascular: Yes: CAD, HTN, Hyperlipdemia Pulmonary: Yes: Bronchitis, COPD. No: Asthma, O2 Dependent, Pneumonia, Previously Intubated, Pulmonary Embolus, Pulmonary Fibrosis Gastrointestinal: Yes: GI Bleed Hepatobiliary: Yes: Hepatitis C Renal/: Yes: Renal Inusuff Psych: Yes: Other (initial change in mental status) - Past Surgical History Past Surgical History: Yes: Stent - Alcohol/Substance Use Hx Alcohol Use: No - Smoking History Smoking history: Never smoked Have you smoked in the past 12 months: Yes Aproximately how many cigarettes per day: 2 - Social History ADL: Independent Home Medications - Allergies Allergies/Adverse Reactions: Allergies Allergy/AdvReac Type Severity Reaction Status Date / Time shrimp Allergy Unknown Verified 04/03/19 15:42 tomato Allergy Unknown Verified 04/03/19 15:42 shellfish derived Allergy Verified 04/03/19 15:42 - Home Medications Home Medications: Ambulatory Orders Albuterol Sulfate Inhaler - [Ventolin HFA Inhaler -] 2 inh PO Q4H 07/06/16 Ranolazine [Ranexa] 500 mg PO BID 07/06/16 Ammonium Lactate Lotion [Lac-Hydrin 12% Lotion -] 1 applic TP ASDIR 04/03/19 Calcium Carbonate/Vitamin D3 [Calcium 600 + Vit D 200 Tablet] 1 each PO BID 01/10 Ergocalciferol [Vitamin D2] 50,000 unit PO Q7D@1000 04/03/19 Nitroglycerin [Nitrostat] 0.4 mg SL ASDIR 04/03/19 Ranitidine HCl 150 mg PO HS 04/03/19 Sodium Bicarbonate - 650 mg PO BID 04/03/19 Review of Systems - Review of Systems Constitutional: reports: Malaise. denies: Chills, Fever, Night Sweats Eyes: reports: No Symptoms HENT: reports: No Symptoms Neck: reports: No Symptoms Cardiovascular: reports: Edema, Shortness of Breath. denies: Chest Pain, Palpitations Respiratory: reports: Cough, Snoring, SOB, SOB on Exertion, Wheezing. denies: Hemoptysis, Orthopnea, PND Gastrointestinal: reports: No Symptoms Genitourinary: reports: No Symptoms Breasts: reports: No Symptoms Reported Musculoskeletal: reports: No Symptoms Integumentary: reports: No Symptoms Neurological: reports: No Symptoms Endocrine: reports: No Symptoms Hematology/Lymphatic: reports: No Symptoms Psychiatric: reports: No Symptoms Physical Exam Vital Sings: Vital Signs Temperature 98.6 F 04/04/19 11:30 Pulse Rate 96 H 04/04/19 11:30 Respiratory Rate 16 04/04/19 11:30 Blood Pressure 157/99 04/04/19 11:30 O2 Sat by Pulse Oximetry (%) 98 04/04/19 11:30 Constitutional: Yes: Anxious, Mild Distress Eyes: Yes: Conjunctiva Clear, EOM Intact HENT: Yes: Atraumatic, Normocephalic Neck: Yes: Supple, Trachea Midline Cardiovascular: Yes: Regular Rate and Rhythm Respiratory: Yes: Cough, Diminished, On Nasal O2, Rhonchi, SOB, SOB on Exertion , Tachypnea, Wheezes. No: Accessory Muscle Use, Rales, Stridor ...Inspection: Yes: WNL ...Clubbing: No Gastrointestinal: Yes: Normal Bowel Sounds, Soft, Abdomen, Obese Renal/: Yes: WNL Musculoskeletal: Yes: WNL Extremities: Yes: WNL Edema: Yes Peripheral Pulses WNL: Yes Integumentary: Yes: WNL Neurological: Yes: WNL, Alert, Oriented ...Motor Strength: WNL Psychiatric: Yes: WNL, Alert, Oriented Labs: CBC, BMP 04/04/19 05:15 04/04/19 05:15 Imaging - Results Chest X-ray: Report Reviewed, Image Reviewed Cat Scan: Report Reviewed, Image Reviewed Problem List - Problems (1) Acute exacerbation of chronic obstructive pulmonary disease (COPD) Code(s): J44.1 - CHRONIC OBSTRUCTIVE PULMONARY DISEASE W (ACUTE) EXACERBATION (2) RADHA (acute kidney injury) Code(s): N17.9 - ACUTE KIDNEY FAILURE, UNSPECIFIED (3) NSTEMI (non-ST elevated myocardial infarction) Code(s): I21.4 - NON-ST ELEVATION (NSTEMI) MYOCARDIAL INFARCTION (4) Shortness of breath Code(s): R06.02 - SHORTNESS OF BREATH (5) COPD (chronic obstructive pulmonary disease) Code(s): J44.9 - CHRONIC OBSTRUCTIVE PULMONARY DISEASE, UNSPECIFIED (6) Coronary artery disease Code(s): I25.10 - ATHSCL HEART DISEASE OF [place] CORONARY ARTERY W/O ANG PCTRS (7) Diverticula of intestine Code(s): K57.30 - DVRTCLOS OF LG INT W/O PERFORATION OR ABSCESS W/O BLEEDING (8) GI bleed Code(s): K92.2 - GASTROINTESTINAL HEMORRHAGE, UNSPECIFIED (9) HTN (hypertension) Code(s): I10 - ESSENTIAL (PRIMARY) HYPERTENSION (10) Hepatitis C Code(s): B19.20 - UNSPECIFIED VIRAL HEPATITIS C WITHOUT HEPATIC COMA (11) Renal insufficiency Code(s): N28.9 - DISORDER OF KIDNEY AND URETER, UNSPECIFIED (12) Smoker Code(s): F17.200 - NICOTINE DEPENDENCE, UNSPECIFIED, UNCOMPLICATED Assessment/Plan Prednisone daily, if worsens will change to Medrol BD TX standing and PRN Supplemental O2 as needed No smoking was counseled Outpatient PFTs once stable Sleep Screen was (+) so will have HST arranged prior to discharge VTE prophylaxis Outpatient LDCT Chest Will follow Thank you. Dr May SULAIMAN Screen - SULAIMAN History Previously diagnosed with Sleep Apnea: No If Yes, currently using CPAP to treat your SULAIMAN: No - SNORING Do you snore loudly (enough to be heard thru closed doors)?: Yes - TIRED Do you often feel tired, fatigued, or sleepy during daytime?: Yes - OBSERVED Has anyone observed you stop breathing during your sleep?: No - BLOOD PRESSURE Do you have or are being treated for high blood pressure?: Yes - BMI Answer Y if weight exceeds amount listed for your height: Yes .: HEIGHT & WEIGHT (lbs): 4'10" 167lbs; 4'11" 175 lbs; 5'0" 179lbs;. 5 '1" 185lbs; 5'2" 191lbs; 5'3" 197lbs;. 5'4" 204lbs; 5'5" 210lbs; 5'6" 216lbs;. 5'7" 223lbs; 5'8" 230lbs; 5'9" 237lbs;. 510" 243lbs ; 511" 250lbs; 6' 258lbs;. 6'1" 265lbs; 6'2" 272lbs; 6'3" 279lbs ;. 6'4" 287lbs; 6'5" 295lbs - AGE Is your age over 50 yrs old?: Yes - NECK CIRCUMFERENCE Neck Circumference 40cm: No - GENDER Male: No - SCORE Total Score: 5 Score Interpretation: High Risk of SULAIMAN .: Interpretation: Score 0-2: Low Risk SULAIMAN. Score 3-4: Intermediate Risk SULAIMAN. Score 5-8: High Risk SULAIMAN
[2019-04-04] MEDS ORDERED: predniSONE 20 MG TABLET (UD) ONE (14:26)
--- NOTE | 2019-04-04 14:35 | CON.CARD ---
Consult Consult Specialty:: Cardiology - History of Present Illness History of Present Illness: 78 F, COPD due to prolonged and active smoking history (about 1 PP 2 to 3 days for over 50 years), HTN, HLD, CKD stage 3, CAD s/p stent placements in 2014, coronary angio 08/2016 w/o further stent placements, NSTEMI 07/2016, diastolic CHF , Hep C, hx of GI bleed 2/2 diverticulosis. Admitted via the ER due to progressive shortness of breath for the past 3 days. Apparently a D-dimer was ordered and was elevated. No personal or family history of VTE. No travel history or sick contacts. No hemoptysis or night sweats. CXR: chronic changes CT: 2017: moderate right pleural effusion (patient had thoracentesis which appeared to be unrevealing). PMH Past surgical history: Cardiac stents: proximal and mid LAD, mid RCA, mid Cx ( dates of stents uncertain; coronary angiogram 08/27/2016 was done at [facility] for NSTEMI with TNI >10, stents were patent, and no new PCIs were required. Social history: Current some day smoker. No reported alcohol or drug use. PCP: Dr. Thomas Aguayo [ ] in [place]. - History Source History Provided By: Patient, Medical Record - Past Medical History Cardio/Vascular: Yes: CAD, HTN, Hyperlipdemia Pulmonary: Yes: Bronchitis, COPD. No: Asthma, O2 Dependent, Pneumonia, Previously Intubated, Pulmonary Embolus, Pulmonary Fibrosis Gastrointestinal: Yes: GI Bleed Hepatobiliary: Yes: Hepatitis C Renal/: Yes: Renal Inusuff Psych: Yes: Other (initial change in mental status) - Past Surgical History Past Surgical History: Yes: Stent - Alcohol/Substance Use Hx Alcohol Use: No - Smoking History Smoking history: Never smoked Have you smoked in the past 12 months: Yes Aproximately how many cigarettes per day: 2 - Social History ADL: Independent Home Medications - Allergies Allergies/Adverse Reactions: Allergies Allergy/AdvReac Type Severity Reaction Status Date / Time shrimp Allergy Unknown Verified 04/03/19 15:42 tomato Allergy Unknown Verified 04/03/19 15:42 shellfish derived Allergy Verified 04/03/19 15:42 - Home Medications Home Medications: Ambulatory Orders Albuterol Sulfate Inhaler - [Ventolin HFA Inhaler -] 2 inh PO Q4H 07/06/16 Ranolazine [Ranexa] 500 mg PO BID 07/06/16 Ammonium Lactate Lotion [Lac-Hydrin 12% Lotion -] 1 applic TP ASDIR 04/03/19 Calcium Carbonate/Vitamin D3 [Calcium 600 + Vit D 200 Tablet] 1 each PO BID 01/10 Ergocalciferol [Vitamin D2] 50,000 unit PO Q7D@1000 04/03/19 Nitroglycerin [Nitrostat] 0.4 mg SL ASDIR 04/03/19 Ranitidine HCl 150 mg PO HS 04/03/19 Sodium Bicarbonate - 650 mg PO BID 04/03/19 Review of Systems - Review of Systems Constitutional: reports: No Symptoms Eyes: reports: No Symptoms HENT: reports: No Symptoms Neck: reports: No Symptoms Cardiovascular: reports: No Symptoms Respiratory: reports: SOB, SOB on Exertion Gastrointestinal: reports: No Symptoms Genitourinary: reports: No Symptoms Breasts: reports: No Symptoms Reported Musculoskeletal: reports: No Symptoms Integumentary: reports: No Symptoms Neurological: reports: No Symptoms Endocrine: reports: No Symptoms Hematology/Lymphatic: reports: No Symptoms Psychiatric: reports: No Symptoms Vital Signs: Vital Signs Temperature 98.6 F 04/04/19 11:30 Pulse Rate 96 H 04/04/19 11:30 Respiratory Rate 16 04/04/19 11:30 Blood Pressure 157/99 04/04/19 11:30 O2 Sat by Pulse Oximetry (%) 98 04/04/19 11:30 Constitutional: Yes: Well Nourished, No Distress, Calm Eyes: Yes: WNL, Conjunctiva Clear, EOM Intact HENT: Yes: WNL, Atraumatic, Normocephalic Neck: Yes: WNL, Supple, Trachea Midline Respiratory: Yes: Regular, CTA Bilaterally, Diminished Gastrointestinal: Yes: WNL, Normal Bowel Sounds Renal/: Yes: WNL Cardiovascular: Yes: WNL, Regular Rate and Rhythm Musculoskeletal: Yes: WNL Extremities: Yes: WNL Integumentary: Yes: WNL Neurological: Yes: WNL, Alert, Oriented ...Motor Strength: WNL Psychiatric: Yes: WNL, Alert, Oriented - Other Data Labs, Other Data: CBC, BMP 04/04/19 05:15 04/04/19 05:15 INR, PTT INR 1.47 (0.83-1.09) H 04/04/19 05:00 Troponin, BNP 04/03/19 04/03/19 04/03/19 18:12 18:12 21:10 Troponin I 1.64 H* 1.40 H* B-Natriuretic Peptide 71813.0 H 04/04/19 05:15 Troponin I 0.89 H* B-Natriuretic Peptide Troponin, BNP 04/03/19 04/03/19 04/03/19 18:12 18:12 21:10 Troponin I 1.64 H* 1.40 H* B-Natriuretic Peptide 05234.0 H 04/04/19 05:15 Troponin I 0.89 H* B-Natriuretic Peptide Imaging - Results Chest X-ray: Image Reviewed (cm no i/e) EKG: Image Reviewed (sr rep abn) Assessment/Plan 78 F, COPD due to prolonged and active smoking history (about 1 PP 2 to 3 days for over 50 years), HTN, HLD, CKD stage 3, CAD s/p stent placements in 2014, coronary angio 08/2016 w/o further stent placements, NSTEMI 07/2016, diastolic CHF , Hep C, hx of GI bleed 2/2 diverticulosis. Admitted via the ER due to progressive shortness of breath for the past 3 days. Apparently a D-dimer was ordered and was elevated. TNIs positive trending down Cr. 3.4 No angina Plan; agree with IV heparin and ASA V/Q scan to r/o PE Pulmonary and renal evaluation/treatment telemetry echo If patient develops CP and PE is r/o will load with Plavix and evaluate for possible intervention.
[2019-04-04] MEDS: predniSONE 20 MG TABLET (UD) PO SCH (14:38)
[2019-04-04] MEDS ORDERED: FUROSEMIDE 40 MG/4 ML INJECTABLE VIAL IVPUSH ONE (16:32)
[2019-04-04] MEDS ORDERED: CALCITRIOL 0.25 MCG CAPSULE (FP) PO SCH (16:45)
[2019-04-04] MEDS ORDERED: CALCIUM CHLORIDE 1 GM/10 ML *DISP.SYRIN ONE (16:51)
[2019-04-04] MEDS ORDERED: FUROSEMIDE 40 MG/4 ML INJECTABLE VIAL ONE (16:53)
--- NOTE | 2019-04-04 18:52 | ECHO ---
Name: PATRICIA JOSE Exam:Adult Echocardiogram Study Date: 04/04/2019 03:18 PM Age: 78 yrs Reason For Study: NSTENH Height: 58 in Weight: 146 lb BSA: 1.6 m2 MMode/2D Measurements & Calculations RVDd: 2.5 cm Ao root diam: 2.4 cm IVSd: 1.1 cm LA dimension: 4.5 cm LVIDd: 4.3 cm ACS: 1.3 cm LVIDs: 3.5 cm LVPWd: 1.2 cm IVSs: 1.3 cm LVPWs: 1.3 cm EDV(Keyla): 84.6 ml ESV(Keyla): 51.8 ml EPSS: 1.3 cm LVOT diam: 1.7 cm LVLd ap4: 9.0 cm SV(MOD-sp4): 24.0 ml EDV(MOD-sp4): 129.0 ml LVLs ap4: 8.6 cm ESV(MOD-sp4): 105.0 ml LAV (MOD-bp): 63.0 ml TAPSE: 1.7 cm RV S Arron: 11.4 cm/sec Doppler Measurements & Calculations MV E max arron: 125.7 cm/sec Ao V2 max: 138.8 cm/sec MV A max arron: 116.0 cm/sec Ao max P.7 mmHg MV E/A: 1.1 Ao V2 mean: 93.6 cm/sec MV dec time: 0.12 sec Ao mean P.0 mmHg Ao V2 VTI: 20.8 cm ROBIN(I,D): 1.2 cm2 ROBIN(V,D): 1.2 cm2 LV V1 max P.1 mmHg MR max arron: 525.0 cm/sec LV V1 mean P.78 mmHg MR max P.4 mmHg LV V1 max: 72.3 cm/sec LV V1 mean: 39.4 cm/sec LV V1 VTI: 10.8 cm SV(LVOT): 24.1 ml TR max arron: 295.0 cm/sec TR max P.2 mmHg PA V2 max: 76.0 cm/sec PI end-d arron: 156.1 cm/sec PA max P.3 mmHg Med Peak E' Arron: 3.3 cm/sec Med E/e': 37.9 Lat Peak E' Arron: 3.8 cm/sec Lat E/e': 33.1 Left Ventricle Moderate to severely reduced LV function. The estimated EF is 30 -35%. Right Ventricle Normal RV size and function. Atria Moderate LA dilatation. Borderline right atrial enlargement. Mitral Valve The mitral valve leaflets appear normal. There is no evidence of stenosis, fluttering, or prolapse. M oderate MR. Tricuspid Valve The tricuspid valve is not well visualized, but is grossly normal. Moderate to severe TR. Aortic Valve The aortic valve is normal in structure and function. Pulmonic Valve The pulmonic valve is not well seen, but is grossly normal. Great Vessels The aortic root is normal size. Pericardium/Pleura There is no pericardial effusion. Interpretation Summary Moderate to severely reduced LV function. The estimated EF is 30 -35% Normal RV size and function. Moderate LA dilatation. Borderline right atrial enlargement. The tricuspid valve is not well visualized, but is grossly normal. Moderate to severe TR Moderate MR The aortic valve is normal in structure and function. The aortic root is normal size. PASP 46 mmHg MD Paulino Colindres 04/04/2019 06:51 PM
--- NOTE | 2019-04-04 19:04 | PN ---
Progress Note (short form) - Note Progress Note: Patient seen and examined. Feels better since admission. Denies nausea vomtiing fever chills chest pain. Endorses bilateral lower limb edema. Dopplers negative of bilateral lower extremities. On exam patient is saturating 100% on room air dry mucous membranes tachycardia on cardiac exam (HR is 112 on telemetry) On lung exam patient has a slightly prolonged expiratory phase with coarse breath sounds. ABD is soft non tender non distended bilateral lower extremity 2+ pitting edema Doubt PE given saturation of 100% on room air and negative dopplers more Likely reactive airway disease discussed with Dr. May over the phone and will not do V/Q scan and will Discontinue heparin gtt PTH ordered for AM given nephrology recs and low calcium even when corrected continue steroids and bronchodilators f/u Echo to assess right heart strain avoid QT prolonging agents continue cardiac meds trend CBC and transfuse as needed Patient does not know baseline Cr but it is 3.4 on this admission and was 2.0 in 2017 Rest as per H&P done earlier today. Please see that for further information HSQ for DVt PPx Visit type - Emergency Visit Emergency Visit: Yes ED Registration Date: 04/03/19 Care time: The patient presented to the Emergency Department on the above date and was hospitalized for further evaluation of their emergent condition. - New Patient This patient is new to me today: Yes Date on this admission: 04/04/19 - Critical Care Critical Care patient: No
[2019-04-04] MEDS ORDERED: HEPARIN NA (PORCINE) 5,000 UNITS/ML 1ML VIAL IVPUSH PRN ×2 (19:19)
[2019-04-04] MEDS: HEPARIN SOD,PORK IN 0.45% NACL 25,000 UNIT/500 ML INFUS.BAG IVPB SCH (19:42)
[2019-04-04] MEDS ORDERED: ATORVASTATIN CA 20 MG TABLET (FP) ONE (21:03)
[2019-04-04] MEDS: FAMOTIDINE 20 MG TABLET PO SCH (21:17)
[2019-04-04] MEDS: ATORVASTATIN CA 20 MG TABLET (FP) PO SCH (21:17)
[2019-04-04] MEDS ORDERED: PATIENT'S OWN MEDICATION (NON-FORMULARY) (Ranitidine Hcl [Ranitidine Hcl] 150 MG) PO SCH (22:00)
[2019-04-04] MEDS ORDERED: HEPARIN NA (PORCINE) 5,000 UNITS/ML 1ML VIAL SQ SCH (22:00)
[2019-04-04] MEDS ORDERED: MELATONIN 5 MG TABLETS PO ONE (23:53)
[2019-04-04] MEDS ORDERED: MELATONIN 5 MG TABLETS ONE (23:54)
[2019-04-05 08:17] LABS: HEMATOCRIT 25.4 % (32.4-45.2); HEMOGLOBIN 8.5 GM/dL (10.7-15.3); MCH 31.9 pg (25.7-33.7); MCHC 33.5 g/dl (32.0-36.0); MEAN CELL VOLUME 95.2 fl (80-96); MEAN PLT VOLUME 9.5 fl (7.5-11.1); PLATELET COUNT 225 K/MM3 (134-434); RBC 2.67 M/mm3 (3.60-5.2); RDW 15.4 % (11.6-15.6); WHITE BLOOD COUNT 7.1 K/mm3 (4.0-10.0)
[2019-04-05 08:27] LABS: ALBUMIN 3.1 g/dl (3.4-5.0); BILIRUBIN,TOTAL 0.4 mg/dL (0.2-1); BLOOD UREA NITROGEN 57.4 mg/dL (7-18); CREATININE 3.8 mg/dL (0.55-1.3); POTASSIUM 4.2 mmol/L (3.5-5.1); TOT PROT 7.2 g/dl (6.4-8.2)
[2019-04-05 08:35] LABS: CALCIUM 6.4 mg/dL (8.5-10.1)
[2019-04-05] MEDS ORDERED: CALCIUM GLUCONATE 10% - 1,000 MG/10 ML VIAL IVPB ONE (08:53)
[2019-04-05] MEDS: ALBUTEROL SO4 2.5/IPRATROPIUM 0.5 INH SOL 3 ML VIAL.NEB. NEB SCH ×3 (09:05→21:04)
[2019-04-05] MEDS ORDERED: ALBUTEROL SO4 2.5/IPRATROPIUM 0.5 INH SOL 3 ML VIAL.NEB. NEB ONE ×2 (09:53→11:16)
[2019-04-05] MEDS: NICOTINE 21 MG/24 HOURS TOPICAL PATCH TD SCH (09:56)
[2019-04-05] MEDS: CALCITRIOL 0.25 MCG CAPSULE (FP) PO SCH (09:56)
[2019-04-05] MEDS: RANOLAZINE E.R. 500 MG TABLET (FP) PO SCH ×2 (09:56→21:03)
[2019-04-05] MEDS: predniSONE 20 MG TABLET (UD) PO SCH (09:56)
[2019-04-05] MEDS: CALCIUM 500MG/VIT-D 200 UNITS COMBO TABLET (FP) PO SCH ×2 (09:56→21:03)
--- NOTE | 2019-04-05 10:34 | PN ---
Physical Exam: SUBJECTIVE: Patient seen and examined. She denies chest pain. She complains of fatigue, weakness. She thinks her legs are less swollen. OBJECTIVE: Vital Signs Period Temp Pulse Resp BP Sys/Barlow Pulse Ox Last 24 Hr 97.5 F-98.6 F 95-108 16-20 147-167/99-110 96-100 GENERAL: The patient is awake, alert, and fully oriented, in no acute distress. LUNGS: Breath sounds equal, clear to auscultation bilaterally, no wheezes, no crackles, no accessory muscle use. HEART: Regular rate and rhythm, S1, S2 without murmur, rub or gallop. ABDOMEN: Obese, soft, nontender, nondistended, normoactive bowel sounds, no guarding, no rebound, no hepatosplenomegaly, no masses. EXTREMITIES: 2+ pulses, warm, well-perfused, trace edema. Laboratory Results - last 24 hr 04/04/19 04/05/19 04/05/19 13:02 06:35 06:35 WBC 7.1 RBC 2.67 L Hgb 8.5 L Hct 25.4 L MCV 95.2 MCH 31.9 MCHC 33.5 RDW 15.4 Plt Count 225 MPV 9.5 D PTT (Actin FS) 67.7 H Sodium 140 Potassium 4.2 Chloride 112 H Carbon Dioxide 14 L Anion Gap 15 BUN 57.4 H Creatinine 3.8 H Est GFR (CKD-EPI)AfAm 12.44 Est GFR (CKD-EPI)NonAf 10.73 Random Glucose 126 H Calcium 6.4 L* Total Bilirubin 0.4 AST 38 H ALT 29 Alkaline Phosphatase 105 Total Protein 7.2 Albumin 3.1 L Active Medications Generic Name Dose Route Start Last Admin Trade Name Freq PRN Reason Stop Dose Admin Albuterol/Ipratropium 1 amp 04/04/19 16:00 04/05/19 09:05 Duoneb - NEB 1 amp RQID PARMINDER Administration Atorvastatin Calcium 20 mg 04/04/19 22:00 04/04/19 21:17 Lipitor - PO 20 mg HS PARMINDER Administration Calcitriol 0.5 mcg 04/05/19 10:00 04/05/19 09:56 Rocaltrol - PO 0.5 mcg DAILY PARMINDER Administration Calcium Carbonate/Cholecalciferol 2 tab 04/05/19 08:55 04/05/19 09:56 Os-Baltazar 500+D - PO 2 tab BID PARMINDER Administration Ergocalciferol 50,000 unit 04/04/19 10:00 04/04/19 11:12 Drisdol - PO 50,000 unit Q7D@1000 PARMINDER Administration Famotidine 20 mg 04/04/19 22:00 04/04/19 21:17 Pepcid - PO 20 mg HS PARMINDER Administration Heparin Sodium (Porcine) 1,000 unit 04/04/19 19:19 Heparin - IVPUSH PRN PRN Heparin Heparin Sodium (Porcine) 5,000 unit 04/04/19 19:19 Heparin - IVPUSH PRN PRN Heparin HEPARIN SOD,PORK IN 0.45% NACL 25,000 unit in 500 mls @ 16 mls/hr 04/04/19 19: 30 04/04/19 19:42 Heparin-1/2ns 25,000 Units/500 IVPB 650 units/hr TITR PARMINDER 13 mls/hr Administration Protocol 800 UNITS/HR Nicotine 21 mg 04/04/19 10:00 04/05/19 09:56 Nicoderm Patch - TD Not Given DAILY [facility] Nicotine Polacrilex 4 mg 04/04/19 00:24 04/04/19 21:40 Nicorette Gum - BUC 4 mg Q2H PRN Administration NICOTINE REPLACEMENT RX Nitroglycerin 0.4 mg 04/04/19 02:38 Nitrostat - SL ASDIR PRN FOR CHEST PAIN Prednisone 40 mg 04/04/19 14:15 04/05/19 09:56 Deltasone - PO 40 mg DAILY PARMINDER Administration Ranolazine 500 mg 04/04/19 10:00 04/05/19 09:56 Ranexa - PO 500 mg BID PARMINDER Administration ASSESSMENT/PLAN: This is a 78 year old woman with a history of HTN, hyperlipidemia, stage 4 CKD, CAD with stents, [place], chronic diastolic heart failure, COPD, hepatitis C, diverticulosis who presented to the ED with SOB, leg edema, and productive cough. 1. Acute NSTEMI - Denies chest pain - Troponin improving - Continue heparin IV, Lipitor - Start aspirin 2. Elevated D-dimer - On heparin IV - Leg dopplers negative for DVT - VQ ordered 3. Acute exacerbation of COPD - Continue Prednisone, DuoNeb - Oxygen as needed 4. Acute kidney injury on stage 4 CKD with hypocalcemia - Creatinine worsening with diuresis - US shows chronic medical renal disease, right lower pole renal cyst - Continue calcium supplementation, calcitriol, ergocalciferol - Check phosphorus, PTH 5. Acute on chronic diastolic and systolic heart failure - Improved with Lasix - Echo shows LVEF 30-35%, normal RV, moderately dilated LA, borderline RA enlargement, moderate to severe TR, moderate MR, PASP 46 mmHg 6. CAD, history of [place], stents - Aspirin, Lipitor, Ranexa 7. HTN 8. Hyperlipidemia 9. Nicotine dependence - Continue nicotine patch 10. Hepatitis C 11. Obesity with BMI 35.2 12. Anemia secondary to CKD - Hemoglobin stable - Continue to monitor hgb and keep >8 Visit type - Emergency Visit Emergency Visit: Yes ED Registration Date: 04/03/19 Care time: The patient presented to the Emergency Department on the above date and was hospitalized for further evaluation of their emergent condition. - New Patient This patient is new to me today: Yes Date on this admission: 04/05/19 - Critical Care Critical Care patient: No - Discharge Referral Referred to [facility] Med P.C.: No
[2019-04-05] MEDS ORDERED: HEPARIN INFUSION - 25,000 UNITS/500 ML INFUS.BAG IVPB ONE ×2 (11:16→19:26)
[2019-04-05] MEDS ORDERED: CALCIUM GLUCONATE 10% - 1,000 MG/10 ML VIAL ONE (11:16)
--- NOTE | 2019-04-05 13:23 | PN ---
Progress Note (short form) - Note Progress Note: Breathing feels a little better today. Less SOB. No CP. For V/Q scan. Intake & Output 04/02/19 04/03/19 04/04/19 04/05/19 23:59 23:59 23:59 23:59 Weight 146 lb Last Vital Signs Temp Pulse Resp BP Pulse Ox 97.5 F L 99 H 20 160/108 H 97 04/04/19 17:48 04/05/19 04:30 04/05/19 04:30 04/05/19 04:30 04/05/19 04:30 Active Medications Albuterol/Ipratropium (Duoneb -) 1 amp NEB RQID [facility] Last Admin: 04/05/19 11:14 Dose: 1 amp Atorvastatin Calcium (Lipitor -) 20 mg PO HS [facility] Last Admin: 04/04/19 21:17 Dose: 20 mg Calcitriol (Rocaltrol -) 0.5 mcg PO DAILY [facility] Last Admin: 04/05/19 09:56 Dose: 0.5 mcg Calcium Carbonate/Cholecalciferol (Os-Baltazar 500+D -) 2 tab PO BID [facility] Last Admin: 04/05/19 09:56 Dose: 2 tab Ergocalciferol (Drisdol -) 50,000 unit PO Q7D@1000 [facility] Last Admin: 04/04/19 11:12 Dose: 50,000 unit Famotidine (Pepcid -) 20 mg PO HS [facility] Last Admin: 04/04/19 21:17 Dose: 20 mg Heparin Sodium (Porcine) (Heparin -) 1,000 unit IVPUSH PRN PRN PRN Reason: Heparin Heparin Sodium (Porcine) (Heparin -) 5,000 unit IVPUSH PRN PRN PRN Reason: Heparin HEPARIN SOD,PORK IN 0.45% NACL (Heparin-1/2ns 25,000 Units/500) 25,000 unit in 500 mls @ 16 mls/hr IVPB TITR [facility]; Protocol Last Admin: 04/04/19 19:42 Dose: 650 units/hr, 13 mls/hr Nicotine (Nicoderm Patch -) 21 mg TD DAILY [facility] Last Admin: 04/05/19 09:56 Dose: Not Given Nicotine Polacrilex (Nicorette Gum -) 4 mg BUC Q2H PRN PRN Reason: NICOTINE REPLACEMENT RX Last Admin: 04/04/19 21:40 Dose: 4 mg Nitroglycerin (Nitrostat -) 0.4 mg SL ASDIR PRN PRN Reason: FOR CHEST PAIN Prednisone (Deltasone -) 40 mg PO DAILY [facility] Last Admin: 04/05/19 09:56 Dose: 40 mg Ranolazine (Ranexa -) 500 mg PO BID [facility] Last Admin: 04/05/19 09:56 Dose: 500 mg Constitutional: Yes: Anxious, Mild Distress Eyes: Yes: Conjunctiva Clear, EOM Intact HENT: Yes: Atraumatic, Normocephalic Neck: Yes: Supple, Trachea Midline Cardiovascular: Yes: Regular Rate and Rhythm Respiratory: Yes: Cough, Diminished, On Nasal O2, Rhonchi, SOB, SOB on Exertion , Tachypnea, Wheezes. No: Accessory Muscle Use, Rales, Stridor ...Inspection: Yes: WNL ...Clubbing: No Gastrointestinal: Yes: Normal Bowel Sounds, Soft, Abdomen, Obese Renal/: Yes: WNL Musculoskeletal: Yes: WNL Extremities: Yes: WNL Edema: Yes Peripheral Pulses WNL: Yes Integumentary: Yes: WNL Neurological: Yes: WNL, Alert, Oriented ...Motor Strength: WNL Psychiatric: Yes: WNL, Alert, Oriented Labs: Laboratory Results - last 24 hr 04/04/19 04/05/19 04/05/19 13:02 06:35 06:35 WBC 7.1 RBC 2.67 L Hgb 8.5 L Hct 25.4 L MCV 95.2 MCH 31.9 MCHC 33.5 RDW 15.4 Plt Count 225 MPV 9.5 D PTT (Actin FS) 67.7 H Sodium 140 Potassium 4.2 Chloride 112 H Carbon Dioxide 14 L Anion Gap 15 BUN 57.4 H Creatinine 3.8 H Est GFR (CKD-EPI)AfAm 12.44 Est GFR (CKD-EPI)NonAf 10.73 Random Glucose 126 H Calcium 6.4 L* Total Bilirubin 0.4 AST 38 H ALT 29 Alkaline Phosphatase 105 Total Protein 7.2 Albumin 3.1 L 04/05/19 11:50 WBC RBC Hgb Hct MCV MCH MCHC RDW Plt Count MPV PTT (Actin FS) 55.9 H Sodium Potassium Chloride Carbon Dioxide Anion Gap BUN Creatinine Est GFR (CKD-EPI)AfAm Est GFR (CKD-EPI)NonAf Random Glucose Calcium Total Bilirubin AST ALT Alkaline Phosphatase Total Protein Albumin Problem List - Problems (1) Acute exacerbation of chronic obstructive pulmonary disease (COPD) Code(s): J44.1 - CHRONIC OBSTRUCTIVE PULMONARY DISEASE W (ACUTE) EXACERBATION (2) RADHA (acute kidney injury) Code(s): N17.9 - ACUTE KIDNEY FAILURE, UNSPECIFIED (3) NSTEMI (non-ST elevated myocardial infarction) Code(s): I21.4 - NON-ST ELEVATION (NSTEMI) MYOCARDIAL INFARCTION (4) Shortness of breath Code(s): R06.02 - SHORTNESS OF BREATH (5) COPD (chronic obstructive pulmonary disease) Code(s): J44.9 - CHRONIC OBSTRUCTIVE PULMONARY DISEASE, UNSPECIFIED (6) Coronary artery disease Code(s): I25.10 - ATHSCL HEART DISEASE OF [place] CORONARY ARTERY W/O ANG PCTRS (7) Diverticula of intestine Code(s): K57.30 - DVRTCLOS OF LG INT W/O PERFORATION OR ABSCESS W/O BLEEDING (8) GI bleed Code(s): K92.2 - GASTROINTESTINAL HEMORRHAGE, UNSPECIFIED (9) HTN (hypertension) Code(s): I10 - ESSENTIAL (PRIMARY) HYPERTENSION (10) Hepatitis C Code(s): B19.20 - UNSPECIFIED VIRAL HEPATITIS C WITHOUT HEPATIC COMA (11) Renal insufficiency Code(s): N28.9 - DISORDER OF KIDNEY AND URETER, UNSPECIFIED (12) Smoker Code(s): F17.200 - NICOTINE DEPENDENCE, UNSPECIFIED, UNCOMPLICATED Assessment/Plan Prednisone BD TX standing and PRN Supplemental O2 as needed No smoking was counseled Outpatient PFTs once stable Sleep Screen was (+) so will have HST arranged prior to discharge VTE prophylaxis Outpatient LDCT Chest V/Q to be performed due to severely elevated Ddimer Dr May Problem List - Problems (1) Acute exacerbation of chronic obstructive pulmonary disease (COPD) Code(s): J44.1 - CHRONIC OBSTRUCTIVE PULMONARY DISEASE W (ACUTE) EXACERBATION (2) RADHA (acute kidney injury) Code(s): N17.9 - ACUTE KIDNEY FAILURE, UNSPECIFIED (3) NSTEMI (non-ST elevated myocardial infarction) Code(s): I21.4 - NON-ST ELEVATION (NSTEMI) MYOCARDIAL INFARCTION (4) Shortness of breath Code(s): R06.02 - SHORTNESS OF BREATH (5) COPD (chronic obstructive pulmonary disease) Code(s): J44.9 - CHRONIC OBSTRUCTIVE PULMONARY DISEASE, UNSPECIFIED (6) Coronary artery disease Code(s): I25.10 - ATHSCL HEART DISEASE OF [place] CORONARY ARTERY W/O ANG PCTRS (7) Diverticula of intestine Code(s): K57.30 - DVRTCLOS OF LG INT W/O PERFORATION OR ABSCESS W/O BLEEDING (8) GI bleed Code(s): K92.2 - GASTROINTESTINAL HEMORRHAGE, UNSPECIFIED (9) HTN (hypertension) Code(s): I10 - ESSENTIAL (PRIMARY) HYPERTENSION (10) Hepatitis C Code(s): B19.20 - UNSPECIFIED VIRAL HEPATITIS C WITHOUT HEPATIC COMA (11) Renal insufficiency Code(s): N28.9 - DISORDER OF KIDNEY AND URETER, UNSPECIFIED (12) Smoker Code(s): F17.200 - NICOTINE DEPENDENCE, UNSPECIFIED, UNCOMPLICATED
[2019-04-05] MEDS ORDERED: CALCIUM CARBONATE 650 MG TABLET PO ONE (13:29)
--- NOTE | 2019-04-05 13:29 | PN ---
Progress Note, Physician History of Present Illness: Pt seen and examined at bedside. She is awake and alert. She feels that her breathing is improved. She feels that her lower ext edema is improved. - Current Medication List Current Medications: Active Medications Albuterol/Ipratropium (Duoneb -) 1 amp NEB RQID [facility] Last Admin: 04/05/19 11:14 Dose: 1 amp Atorvastatin Calcium (Lipitor -) 20 mg PO HS [facility] Last Admin: 04/04/19 21:17 Dose: 20 mg Calcitriol (Rocaltrol -) 0.5 mcg PO DAILY [facility] Last Admin: 04/05/19 09:56 Dose: 0.5 mcg Calcium Carbonate/Cholecalciferol (Os-Baltazar 500+D -) 2 tab PO BID [facility] Last Admin: 04/05/19 09:56 Dose: 2 tab Ergocalciferol (Drisdol -) 50,000 unit PO Q7D@1000 [facility] Last Admin: 04/04/19 11:12 Dose: 50,000 unit Famotidine (Pepcid -) 20 mg PO HS [facility] Last Admin: 04/04/19 21:17 Dose: 20 mg Heparin Sodium (Porcine) (Heparin -) 1,000 unit IVPUSH PRN PRN PRN Reason: Heparin Heparin Sodium (Porcine) (Heparin -) 5,000 unit IVPUSH PRN PRN PRN Reason: Heparin HEPARIN SOD,PORK IN 0.45% NACL (Heparin-1/2ns 25,000 Units/500) 25,000 unit in 500 mls @ 16 mls/hr IVPB TITR [facility]; Protocol Last Admin: 04/04/19 19:42 Dose: 650 units/hr, 13 mls/hr Nicotine (Nicoderm Patch -) 21 mg TD DAILY [facility] Last Admin: 04/05/19 09:56 Dose: Not Given Nicotine Polacrilex (Nicorette Gum -) 4 mg BUC Q2H PRN PRN Reason: NICOTINE REPLACEMENT RX Last Admin: 04/04/19 21:40 Dose: 4 mg Nitroglycerin (Nitrostat -) 0.4 mg SL ASDIR PRN PRN Reason: FOR CHEST PAIN Prednisone (Deltasone -) 40 mg PO DAILY [facility] Last Admin: 04/05/19 09:56 Dose: 40 mg Ranolazine (Ranexa -) 500 mg PO BID [facility] Last Admin: 04/05/19 09:56 Dose: 500 mg - Objective Vital Signs: Vital Signs Temperature 98.4 F 04/05/19 08:00 Pulse Rate 95 H 04/05/19 08:00 Respiratory Rate 22 H 04/05/19 08:00 Blood Pressure 139/123 H 04/05/19 08:00 O2 Sat by Pulse Oximetry (%) 98 04/05/19 08:00 Constitutional: Yes: Calm Eyes: Yes: Conjunctiva Clear HENT: Yes: Atraumatic Neck: Yes: Supple Cardiovascular: Yes: S1, S2 Respiratory: Yes: CTA Bilaterally Gastrointestinal: Yes: Soft Genitourinary: Yes: WNL Musculoskeletal: Yes: WNL Edema: No Integumentary: Yes: WNL Neurological: Yes: Oriented Psychiatric: Yes: Oriented Labs: CBC, BMP 04/05/19 06:35 04/05/19 06:35 INR, PTT INR 1.47 (0.83-1.09) H 04/04/19 05:00 Problem List - Problems (1) RADHA (acute kidney injury) Code(s): N17.9 - ACUTE KIDNEY FAILURE, UNSPECIFIED (2) Hepatitis C Code(s): B19.20 - UNSPECIFIED VIRAL HEPATITIS C WITHOUT HEPATIC COMA (3) Renal insufficiency Code(s): N28.9 - DISORDER OF KIDNEY AND URETER, UNSPECIFIED Assessment/Plan Current Medications Generic Name Dose Route Start Last Admin Trade Name Freq PRN Reason Stop Dose Admin Albuterol/Ipratropium 1 amp 04/04/19 16:00 04/05/19 11:14 Duoneb - NEB 1 amp RQID [facility] Administration Atorvastatin Calcium 20 mg 04/04/19 22:00 04/04/19 21:17 Lipitor - PO 20 mg HS [facility] Administration Calcitriol 0.5 mcg 04/05/19 10:00 04/05/19 09:56 Rocaltrol - PO 0.5 mcg DAILY [facility] Administration Calcium Carbonate/Cholecalciferol 2 tab 04/05/19 08:55 04/05/19 09:56 Os-Baltazar 500+D - PO 2 tab BID [facility] Administration Ergocalciferol 50,000 unit 04/04/19 10:00 04/04/19 11:12 Drisdol - PO 50,000 unit Q7D@1000 [facility] Administration Famotidine 20 mg 04/04/19 22:00 04/04/19 21:17 Pepcid - PO 20 mg HS [facility] Administration Heparin Sodium (Porcine) 1,000 unit 04/04/19 19:19 Heparin - IVPUSH PRN PRN Heparin Heparin Sodium (Porcine) 5,000 unit 04/04/19 19:19 Heparin - IVPUSH PRN PRN Heparin HEPARIN SOD,PORK IN 0.45% NACL 25,000 unit in 500 mls @ 16 mls/hr 04/04/19 19: 30 04/04/19 19:42 Heparin-1/2ns 25,000 Units/500 IVPB 650 units/hr TITR [facility] 13 mls/hr Administration Protocol 800 UNITS/HR Nicotine 21 mg 04/04/19 10:00 04/05/19 09:56 Nicoderm Patch - TD Not Given DAILY [facility] Nicotine Polacrilex 4 mg 04/04/19 00:24 04/04/19 21:40 Nicorette Gum - BUC 4 mg Q2H PRN Administration NICOTINE REPLACEMENT RX Nitroglycerin 0.4 mg 04/04/19 02:38 Nitrostat - SL ASDIR PRN FOR CHEST PAIN Prednisone 40 mg 04/04/19 14:15 04/05/19 09:56 Deltasone - PO 40 mg DAILY [facility] Administration Ranolazine 500 mg 04/04/19 10:00 04/05/19 09:56 Ranexa - PO 500 mg BID [facility] Administration Impression 1. CKD 2. RADHA 3. hypocalcemia 4. chf 5. copd 6. active smoker 7. hld 8. cad Plan - increase calcium dose - pt did respond to lasix - can restart bicarb as she is getting more acidotic - follow v/q scan - follow pth - check phos level
[2019-04-05] MEDS: NICOTINE POLACRILEX 4 MG GUM BUC PRN (15:10)
[2019-04-05] MEDS: SODIUM BICARBONATE 650 MG TABLET PO SCH ×2 (16:55→21:04)
[2019-04-05 17:16] LABS: ALBUMIN 3.4 g/dl (3.4-5.0); BILIRUBIN,TOTAL 0.5 mg/dL (0.2-1); BLOOD UREA NITROGEN 61.2 mg/dL (7-18); CALCIUM 7.1 mg/dL (8.5-10.1); PHOSPHOROUS 5.5 mg/dL (2.5-4.9); POTASSIUM 4.4 mmol/L (3.5-5.1); TOT PROT 7.6 g/dl (6.4-8.2)
[2019-04-05] MEDS: HEPARIN SOD,PORK IN 0.45% NACL 25,000 UNIT/500 ML INFUS.BAG IVPB SCH (19:30)
[2019-04-05] MEDS: FAMOTIDINE 20 MG TABLET PO SCH (21:03)
[2019-04-05] MEDS: ATORVASTATIN CA 20 MG TABLET (FP) PO SCH (21:06)
[2019-04-05] MEDS ORDERED: CALCIUM GLUCONATE 10% - 1,000 MG/10 ML VIAL IVPUSH ONE (22:04)
--- NOTE | 2019-04-05 23:46 | PN ---
Progress Note, Physician Chief Complaint: Pt A&Ox3; no chest pain or dyspnea. History of Present Illness: 78 year old black woman with a significant PMH of HTN, hyperlipidemia, diabetes , COPD, CAD (s/p coronary stents; on Plavix & Aspirin), depression, and hepatitis C, who presents to the emergency department [facility] from [facility] secondary to positive D-dimer. The patient states she fell and broke her hip 1 month ago and has been endorsing worsening edema and SOB. The patient denies chest pain, and dizziness. Denies fever, chills, cough, nausea, vomiting, and constipation. Denies dysuria, frequency, urgency and hematuria. Allergies: NKA Past surgical history: Cardiac stents. Social history: Current some day smoker. No reported alcohol or drug use. PCP: Dr. Thomas Aguayo [ ] in [place]. - Current Medication List Current Medications: Active Medications Albuterol/Ipratropium (Duoneb -) 1 amp NEB RQID [facility] Last Admin: 04/05/19 21:04 Dose: 1 amp Atorvastatin Calcium (Lipitor -) 20 mg PO [facility] Last Admin: 04/05/19 21:06 Dose: 20 mg Calcitriol (Rocaltrol -) 0.5 mcg PO DAILY [facility] Last Admin: 04/05/19 09:56 Dose: 0.5 mcg Calcium Acetate (Phoslo -) 667 mg PO [facility]CM [facility] Calcium Carbonate/Cholecalciferol (Os-Baltazar 500+D -) 2 tab PO BID [facility] Last Admin: 04/05/19 21:03 Dose: 2 tab Ergocalciferol (Drisdol -) 50,000 unit PO Q7D@1000 [facility] Last Admin: 04/04/19 11:12 Dose: 50,000 unit Famotidine (Pepcid -) 20 mg PO [facility] Last Admin: 04/05/19 21:03 Dose: 20 mg Heparin Sodium (Porcine) (Heparin -) 1,000 unit IVPUSH PRN PRN PRN Reason: Heparin Heparin Sodium (Porcine) (Heparin -) 5,000 unit IVPUSH PRN PRN PRN Reason: Heparin HEPARIN SOD,PORK IN 0.45% NACL (Heparin-1/2ns 25,000 Units/500) 25,000 unit in 500 mls @ 16 mls/hr IVPB TITR [facility]; Protocol Last Admin: 04/05/19 19:30 Dose: 650 units/hr, 13 mls/hr Nicotine (Nicoderm Patch -) 21 mg TD DAILY [facility] Last Admin: 04/05/19 09:56 Dose: Not Given Nicotine Polacrilex (Nicorette Gum -) 4 mg BUC Q2H PRN PRN Reason: NICOTINE REPLACEMENT RX Last Admin: 04/05/19 15:10 Dose: 4 mg Nitroglycerin (Nitrostat -) 0.4 mg SL ASDIR PRN PRN Reason: FOR CHEST PAIN Prednisone (Deltasone -) 40 mg PO DAILY [facility] Last Admin: 04/05/19 09:56 Dose: 40 mg Ranolazine (Ranexa -) 500 mg PO BID [facility] Last Admin: 04/05/19 21:03 Dose: 500 mg Sodium Bicarbonate (Sodium Bicarbonate -) 650 mg PO BID [facility] Last Admin: 04/05/19 21:04 Dose: 650 mg - Objective Vital Signs: Vital Signs Temperature 97.8 F 04/05/19 22:00 Pulse Rate 89 04/05/19 22:00 Respiratory Rate 22 H 04/05/19 22:00 Blood Pressure 129/89 04/05/19 22:00 O2 Sat by Pulse Oximetry (%) 98 04/05/19 21:00 Constitutional: Yes: No Distress Eyes: Yes: WNL HENT: Yes: WNL Neck: Yes: WNL Cardiovascular: Yes: S1, S2, S4 Respiratory: Yes: WNL Gastrointestinal: Yes: Soft ...Rectal Exam: Yes: Deferred Genitourinary: No: Anuria Breast(s): Yes: WNL Musculoskeletal: Yes: WNL Extremities: Yes: WNL Edema: No Peripheral Pulses WNL: Yes Integumentary: Yes: WNL Neurological: Yes: WNL Psychiatric: Yes: WNL Labs: CBC, BMP 04/05/19 06:35 04/05/19 15:50 INR, PTT INR 1.47 (0.83-1.09) H 04/04/19 05:00 Abnormal Lab Results 04/05/19 04/05/19 04/05/19 06:35 06:35 11:50 RBC 2.67 L Hgb 8.5 L Hct 25.4 L PTT (Actin FS) 55.9 H Chloride 112 H Carbon Dioxide 14 L BUN 57.4 H Creatinine 3.8 H Random Glucose 126 H Calcium 6.4 L* Phosphorus AST 38 H Albumin 3.1 L 04/05/19 15:50 RBC Hgb Hct PTT (Actin FS) Chloride 109 H Carbon Dioxide 15 L BUN 61.2 H Creatinine 4.0 H Random Glucose 145 H Calcium 7.1 L Phosphorus 5.5 H AST 62 H Albumin - ....Imaging Chest X-ray: Image Reviewed (no acute pathology) EKG: Image Reviewed (NSR; normal study) Problem List - Problems (1) HTN (hypertension) Code(s): I10 - ESSENTIAL (PRIMARY) HYPERTENSION (2) Hepatitis C Code(s): B19.20 - UNSPECIFIED VIRAL HEPATITIS C WITHOUT HEPATIC COMA (3) Profound anemia Code(s): D64.9 - ANEMIA, UNSPECIFIED Qualifiers: Anemia type: other cause (4) Smoker Assessment/Plan: on Nicotine patch and gum. Code(s): F17.200 - NICOTINE DEPENDENCE, UNSPECIFIED, UNCOMPLICATED (5) Acute on chronic systolic CHF (congestive heart failure) Assessment/Plan: Start carvedilol, unless true bronchial asthma/bronchospastic disease. Add hydralazine + Imdur if BP allow. Problematic starting ACEI or sprionolactone due to renal disease. F/u Is and Os, daily weight, BUN/Cr, electrolytes. Code(s): I50.23 - ACUTE ON CHRONIC SYSTOLIC (CONGESTIVE) HEART FAILURE (6) NSTEMI (non-ST elevated myocardial infarction) Assessment/Plan: On ASA, IV heparin, Ranexa, atorvastatin. Hx CAD with coronary stents; f/u prior workup. Plan for further coronary artery evaluation when stable. 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 Code(s): N19 - UNSPECIFIED KIDNEY FAILURE (8) Depression Code(s): F32.9 - MAJOR DEPRESSIVE DISORDER, SINGLE EPISODE, UNSPECIFIED (9) COPD (chronic obstructive pulmonary disease) Code(s): J44.9 - CHRONIC OBSTRUCTIVE PULMONARY DISEASE, UNSPECIFIED
[2019-04-05] MEDS: CALCIUM ACETATE 667 MG CAPSULE (FP) PO SCH ×2 (23:47→23:58)
[2019-04-06] MEDS ORDERED: amLODIPine BESYLATE 5 MG TABLET (FP) PO ONE (07:46)
[2019-04-06] MEDS: CALCIUM ACETATE 667 MG CAPSULE (FP) PO SCH ×3 (08:14→18:26)
[2019-04-06] MEDS ORDERED: amLODIPine BESYLATE 5 MG TABLET (FP) ONE (08:16)
[2019-04-06] MEDS: NICOTINE POLACRILEX 4 MG GUM BUC PRN (08:36)
[2019-04-06] MEDS: NICOTINE 21 MG/24 HOURS TOPICAL PATCH TD SCH (09:22)
[2019-04-06] MEDS: CALCIUM 500MG/VIT-D 200 UNITS COMBO TABLET (FP) PO SCH ×2 (09:22→21:59)
[2019-04-06] MEDS: CALCITRIOL 0.25 MCG CAPSULE (FP) PO SCH ×2 (09:22→21:59)
[2019-04-06] MEDS: predniSONE 20 MG TABLET (UD) PO SCH (09:22)
[2019-04-06] MEDS: RANOLAZINE E.R. 500 MG TABLET (FP) PO SCH ×2 (09:22→21:59)
[2019-04-06] MEDS: SODIUM BICARBONATE 650 MG TABLET PO SCH ×2 (09:23→22:00)
[2019-04-06 11:23] LABS: HEMATOCRIT 25.4 % (32.4-45.2); HEMOGLOBIN 8.4 GM/dL (10.7-15.3); MCH 31.8 pg (25.7-33.7); MCHC 33.2 g/dl (32.0-36.0); MEAN CELL VOLUME 95.8 fl (80-96); MEAN PLT VOLUME 8.5 fl (7.5-11.1); PLATELET COUNT 245 K/MM3 (134-434); RBC 2.65 M/mm3 (3.60-5.2); RDW 15.2 % (11.6-15.6); WHITE BLOOD COUNT 11.2 K/mm3 (4.0-10.0)
--- NOTE | 2019-04-06 11:44 | PN ---
Progress Note, Physician History of Present Illness: 78 F, COPD due to prolonged and active smoking history (about 1 PP 2 to 3 days for over 50 years), HTN, HLD, CKD stage 3, CAD s/p stent placements in 2014, coronary angio 08/2016 w/o further stent placements, NSTEMI 07/2016, diastolic CHF , Hep C, hx of GI bleed 2/2 diverticulosis. Admitted via the ER due to progressive shortness of breath for the past 3 days. Apparently a D-dimer was ordered and was elevated. No personal or family history of VTE. No travel history or sick contacts. No hemoptysis or night sweats. CXR: chronic changes CT: 2017: moderate right pleural effusion (patient had thoracentesis which appeared to be unrevealing). PMH Past surgical history: Cardiac stents: proximal and mid LAD, mid RCA, mid Cx ( dates of stents uncertain; coronary angiogram 08/27/[address] [facility] for NSTEMI with TNI >10, stents were patent, and no new PCIs were required. Social history: Current some day smoker. No reported alcohol or drug use. PCP: Dr. Thomas Aguayo [ ] in [place]. - Current Medication List Current Medications: Active Medications Albuterol/Ipratropium (Duoneb -) 1 amp NEB RQID [facility] Last Admin: 04/05/19 21:04 Dose: 1 amp Atorvastatin Calcium (Lipitor -) 20 mg PO [facility] Last Admin: 04/05/19 21:06 Dose: 20 mg Calcitriol (Rocaltrol -) 0.5 mcg PO DAILY [facility] Last Admin: 04/06/19 09:22 Dose: 0.5 mcg Calcium Acetate (Phoslo -) 667 mg PO TIDCM [facility] Last Admin: 04/06/19 08:14 Dose: 667 mg Calcium Carbonate/Cholecalciferol (Os-Baltazar 500+D -) 2 tab PO BID [facility] Last Admin: 04/06/19 09:22 Dose: 2 tab Ergocalciferol (Drisdol -) 50,000 unit PO Q7D@1000 [facility] Last Admin: 04/04/19 11:12 Dose: 50,000 unit Famotidine (Pepcid -) 20 mg PO [facility] Last Admin: 04/05/19 21:03 Dose: 20 mg Heparin Sodium (Porcine) (Heparin -) 1,000 unit IVPUSH PRN PRN PRN Reason: Heparin Heparin Sodium (Porcine) (Heparin -) 5,000 unit IVPUSH PRN PRN PRN Reason: Heparin HEPARIN SOD,PORK IN 0.45% NACL (Heparin-1/2ns 25,000 Units/500) 25,000 unit in 500 mls @ 16 mls/hr IVPB TITR [facility]; Protocol Last Admin: 04/05/19 19:30 Dose: 650 units/hr, 13 mls/hr Nicotine (Nicoderm Patch -) 21 mg TD DAILY [facility] Last Admin: 04/06/19 09:22 Dose: Not Given Nicotine Polacrilex (Nicorette Gum -) 4 mg BUC Q2H PRN PRN Reason: NICOTINE REPLACEMENT RX Last Admin: 04/06/19 08:36 Dose: 4 mg Nitroglycerin (Nitrostat -) 0.4 mg SL ASDIR PRN PRN Reason: FOR CHEST PAIN Prednisone (Deltasone -) 40 mg PO DAILY [facility] Last Admin: 04/06/19 09:22 Dose: 40 mg Ranolazine (Ranexa -) 500 mg PO BID [facility] Last Admin: 04/06/19 09:22 Dose: 500 mg Sodium Bicarbonate (Sodium Bicarbonate -) 650 mg PO BID [facility] Last Admin: 04/06/19 09:23 Dose: 650 mg - Objective Vital Signs: Vital Signs Temperature 97.5 F L 04/06/19 07:15 Pulse Rate 94 H 04/06/19 07:15 Respiratory Rate 18 04/06/19 07:15 Blood Pressure 168/98 04/06/19 10:00 O2 Sat by Pulse Oximetry (%) 98 04/06/19 07:40 Eyes: Yes: WNL, Conjunctiva Clear, EOM Intact HENT: Yes: WNL, Atraumatic, Normocephalic Neck: Yes: WNL, Supple, Trachea Midline Cardiovascular: Yes: WNL, Regular Rate and Rhythm Respiratory: Yes: WNL, Regular, CTA Bilaterally Gastrointestinal: Yes: WNL, Normal Bowel Sounds Genitourinary: Yes: WNL Musculoskeletal: Yes: WNL Extremities: Yes: WNL Edema: No Integumentary: Yes: WNL Neurological: Yes: WNL, Alert, Oriented ...Motor Strength: WNL Psychiatric: Yes: WNL Labs: CBC, BMP 04/06/19 10:53 INR, PTT INR 1.47 (0.83-1.09) H 04/04/19 05:00 Assessment/Plan 78 F, COPD due to prolonged and active smoking history (about 1 PP 2 to 3 days for over 50 years), HTN, HLD, CKD stage 3, CAD s/p stent placements in 2014, coronary angio 08/2016 w/o further stent placements, NSTEMI 07/2016, diastolic CHF , Hep C, hx of GI bleed 2/2 diverticulosis. Admitted via the ER due to progressive shortness of breath for the past 3 days. Apparently a D-dimer was ordered and was elevated. TNIs positive trending down Cr. 4.0 No angina ECHO showed newly severely reduced EF Plan; agree with IV heparin and ASA V/Q scan to r/o PE Pulmonary and renal evaluation/treatment telemetry echo If patient develops CP and PE is r/o will load with Plavix and evaluate for possible intervention. If PE negative will need c. cath - this is problermatic due to Cr. 4.0
[2019-04-06 12:20] LABS: ALBUMIN 3.3 g/dl (3.4-5.0); BILIRUBIN,TOTAL 0.7 mg/dL (0.2-1); BLOOD UREA NITROGEN 74.8 mg/dL (7-18); CREATININE 4.2 mg/dL (0.55-1.3); MAGNESIUM 0.7 mg/dL (1.8-2.4); POTASSIUM 4.1 mmol/L (3.5-5.1); TOT PROT 7.2 g/dl (6.4-8.2)
[2019-04-06 12:28] LABS: CALCIUM 6.9 mg/dL (8.5-10.1)
[2019-04-06] MEDS ORDERED: CALCIUM GLUCONATE 10% - 1,000 MG/10 ML VIAL IVPUSH ONE ×2 (12:29→18:01)
--- NOTE | 2019-04-06 15:10 | PN ---
Progress Note (short form) - Note Progress Note: Apparently could not tolerate ventilation portion of V/Q due to SOB. Breathing feels a little better today. Less SOB. No CP. Intake & Output 04/03/19 04/04/19 04/05/19 04/06/19 23:59 23:59 23:59 23:59 Intake Total 65 26 Balance 65 26 Weight 146 lb Last Vital Signs Temp Pulse Resp BP Pulse Ox 97.8 F 92 H 18 142/83 100 04/06/19 13:45 04/06/19 13:45 04/06/19 13:45 04/06/19 13:45 04/06/19 13:45 Active Medications Albuterol/Ipratropium (Duoneb -) 1 amp NEB RQID [facility] Last Admin: 04/05/19 21:04 Dose: 1 amp Atorvastatin Calcium (Lipitor -) 20 mg PO [facility] Last Admin: 04/05/19 21:06 Dose: 20 mg Calcitriol (Rocaltrol -) 0.5 mcg PO DAILY [facility] Last Admin: 04/06/19 09:22 Dose: 0.5 mcg Calcium Acetate (Phoslo -) 667 mg PO TIDCM [facility] Last Admin: 04/06/19 11:52 Dose: 667 mg Calcium Carbonate/Cholecalciferol (Os-Baltazar 500+D -) 2 tab PO BID [facility] Last Admin: 04/06/19 09:22 Dose: 2 tab Ergocalciferol (Drisdol -) 50,000 unit PO Q7D@1000 [facility] Last Admin: 04/04/19 11:12 Dose: 50,000 unit Famotidine (Pepcid -) 20 mg PO [facility] Last Admin: 04/05/19 21:03 Dose: 20 mg Heparin Sodium (Porcine) (Heparin -) 1,000 unit IVPUSH PRN PRN PRN Reason: Heparin Heparin Sodium (Porcine) (Heparin -) 5,000 unit IVPUSH PRN PRN PRN Reason: Heparin HEPARIN SOD,PORK IN 0.45% NACL (Heparin-1/2ns 25,000 Units/500) 25,000 unit in 500 mls @ 16 mls/hr IVPB TITR [facility]; Protocol Last Admin: 04/05/19 19:30 Dose: 650 units/hr, 13 mls/hr Nicotine (Nicoderm Patch -) 21 mg TD DAILY [facility] Last Admin: 04/06/19 09:22 Dose: Not Given Nicotine Polacrilex (Nicorette Gum -) 4 mg BUC Q2H PRN PRN Reason: NICOTINE REPLACEMENT RX Last Admin: 04/06/19 08:36 Dose: 4 mg Nitroglycerin (Nitrostat -) 0.4 mg SL ASDIR PRN PRN Reason: FOR CHEST PAIN Prednisone (Deltasone -) 40 mg PO DAILY [facility] Last Admin: 04/06/19 09:22 Dose: 40 mg Ranolazine (Ranexa -) 500 mg PO BID [facility] Last Admin: 04/06/19 09:22 Dose: 500 mg Sodium Bicarbonate (Sodium Bicarbonate -) 650 mg PO BID [facility] Last Admin: 04/06/19 09:23 Dose: 650 mg Constitutional: Yes: Breathing appears more comfortable today Eyes: Yes: Conjunctiva Clear, EOM Intact HENT: Yes: Atraumatic, Normocephalic Neck: Yes: Supple, Trachea Midline Cardiovascular: Yes: Regular Rate and Rhythm Respiratory: Yes: Cough, Diminished, Rhonchi. No: Accessory Muscle Use, Rales, Stridor ...Inspection: Yes: WNL ...Clubbing: No Gastrointestinal: Yes: Normal Bowel Sounds, Soft, Abdomen, Obese Renal/: Yes: WNL Musculoskeletal: Yes: WNL Extremities: Yes: WNL Edema: Yes Peripheral Pulses WNL: Yes Integumentary: Yes: WNL Neurological: Yes: WNL, Alert, Oriented ...Motor Strength: WNL Psychiatric: Yes: WNL, Alert, Oriented Labs: Laboratory Results - last 24 hr 04/05/19 04/05/19 04/06/19 06:35 15:50 10:53 WBC 11.2 H RBC 2.65 L Hgb 8.4 L Hct 25.4 L MCV 95.8 MCH 31.8 MCHC 33.2 RDW 15.2 Plt Count 245 MPV 8.5 D PTT (Actin FS) Sodium 139 Potassium 4.4 Chloride 109 H Carbon Dioxide 15 L Anion Gap 15 BUN 61.2 H Creatinine 4.0 H Est GFR (CKD-EPI)AfAm 11.69 Est GFR (CKD-EPI)NonAf 10.09 Random Glucose 145 H Calcium 6.4 L* 7.1 L Phosphorus 5.5 H Magnesium Total Bilirubin 0.5 AST 62 H ALT 43 Alkaline Phosphatase 111 Total Protein 7.6 Albumin 3.4 PTH Intact 144 H PTH Intact Intraop 0 m 04/06/19 04/06/19 10:53 10:53 WBC RBC Hgb Hct MCV MCH MCHC RDW Plt Count MPV PTT (Actin FS) 58.7 H Sodium 138 Potassium 4.1 Chloride 107 Carbon Dioxide 15 L Anion Gap 16 BUN 74.8 H Creatinine 4.2 H Est GFR (CKD-EPI)AfAm 11.02 Est GFR (CKD-EPI)NonAf 9.51 Random Glucose 123 H Calcium 6.9 L* Phosphorus Magnesium 0.7 L Total Bilirubin 0.7 AST 104 H ALT 71 H Alkaline Phosphatase 101 Total Protein 7.2 Albumin 3.3 L PTH Intact PTH Intact Intraop 0 m Problem List - Problems (1) Acute exacerbation of chronic obstructive pulmonary disease (COPD) Code(s): J44.1 - CHRONIC OBSTRUCTIVE PULMONARY DISEASE W (ACUTE) EXACERBATION (2) RADHA (acute kidney injury) Code(s): N17.9 - ACUTE KIDNEY FAILURE, UNSPECIFIED (3) NSTEMI (non-ST elevated myocardial infarction) Code(s): I21.4 - NON-ST ELEVATION (NSTEMI) MYOCARDIAL INFARCTION (4) Shortness of breath Code(s): R06.02 - SHORTNESS OF BREATH (5) COPD (chronic obstructive pulmonary disease) Code(s): J44.9 - CHRONIC OBSTRUCTIVE PULMONARY DISEASE, UNSPECIFIED (6) Coronary artery disease Code(s): I25.10 - ATHSCL HEART DISEASE OF INUPI[place] CORONARY ARTERY W/O ANG PCTRS (7) Diverticula of intestine Code(s): K57.30 - DVRTCLOS OF LG INT W/O PERFORATION OR ABSCESS W/O BLEEDING (8) GI bleed Code(s): K92.2 - GASTROINTESTINAL HEMORRHAGE, UNSPECIFIED (9) HTN (hypertension) Code(s): I10 - ESSENTIAL (PRIMARY) HYPERTENSION (10) Hepatitis C Code(s): B19.20 - UNSPECIFIED VIRAL HEPATITIS C WITHOUT HEPATIC COMA (11) Renal insufficiency Code(s): N28.9 - DISORDER OF KIDNEY AND URETER, UNSPECIFIED (12) Smoker Code(s): F17.200 - NICOTINE DEPENDENCE, UNSPECIFIED, UNCOMPLICATED Assessment/Plan Prednisone BD TX standing and PRN Supplemental O2 as needed No smoking was counseled Outpatient PFTs once stable Sleep Screen was (+) so will have HST arranged prior to discharge VTE prophylaxis Outpatient LDCT Chest V/Q to be performed due to severely elevated Ddimer on Tuesday once she is clinically improved to perform the Ventilation portion of the study Dr May Problem List - Problems (1) Acute exacerbation of chronic obstructive pulmonary disease (COPD) Code(s): J44.1 - CHRONIC OBSTRUCTIVE PULMONARY DISEASE W (ACUTE) EXACERBATION (2) RADHA (acute kidney injury) Code(s): N17.9 - ACUTE KIDNEY FAILURE, UNSPECIFIED (3) NSTEMI (non-ST elevated myocardial infarction) Code(s): I21.4 - NON-ST ELEVATION (NSTEMI) MYOCARDIAL INFARCTION (4) Shortness of breath Code(s): R06.02 - SHORTNESS OF BREATH (5) COPD (chronic obstructive pulmonary disease) Code(s): J44.9 - CHRONIC OBSTRUCTIVE PULMONARY DISEASE, UNSPECIFIED (6) Coronary artery disease Code(s): I25.10 - ATHSCL HEART DISEASE OF INUPIAT CORONARY ARTERY W/O ANG PCTRS (7) Diverticula of intestine Code(s): K57.30 - DVRTCLOS OF LG INT W/O PERFORATION OR ABSCESS W/O BLEEDING (8) GI bleed Code(s): K92.2 - GASTROINTESTINAL HEMORRHAGE, UNSPECIFIED (9) HTN (hypertension) Code(s): I10 - ESSENTIAL (PRIMARY) HYPERTENSION (10) Hepatitis C Code(s): B19.20 - UNSPECIFIED VIRAL HEPATITIS C WITHOUT HEPATIC COMA (11) Renal insufficiency Code(s): N28.9 - DISORDER OF KIDNEY AND URETER, UNSPECIFIED (12) Smoker Code(s): F17.200 - NICOTINE DEPENDENCE, UNSPECIFIED, UNCOMPLICATED
--- NOTE | 2019-04-06 16:02 | PN ---
Progress Note, Physician History of Present Illness: Pt seen and examined at bedside. She is awake and alert. She denies shortness of breath. - Current Medication List Current Medications: Active Medications Albuterol/Ipratropium (Duoneb -) 1 amp NEB RQID [facility] Last Admin: 04/05/19 21:04 Dose: 1 amp Atorvastatin Calcium (Lipitor -) 20 mg PO HS [facility] Last Admin: 04/05/19 21:06 Dose: 20 mg Calcium Acetate (Phoslo -) 667 mg PO TIDCM [facility] Last Admin: 04/06/19 11:52 Dose: 667 mg Calcium Carbonate/Cholecalciferol (Os-Baltazar 500+D -) 2 tab PO BID [facility] Last Admin: 04/06/19 09:22 Dose: 2 tab Ergocalciferol (Drisdol -) 50,000 unit PO Q7D@1000 [facility] Last Admin: 04/04/19 11:12 Dose: 50,000 unit Famotidine (Pepcid -) 20 mg PO [facility] Last Admin: 04/05/19 21:03 Dose: 20 mg Heparin Sodium (Porcine) (Heparin -) 1,000 unit IVPUSH PRN PRN PRN Reason: Heparin Heparin Sodium (Porcine) (Heparin -) 5,000 unit IVPUSH PRN PRN PRN Reason: Heparin HEPARIN SOD,PORK IN 0.45% NACL (Heparin-1/2ns 25,000 Units/500) 25,000 unit in 500 mls @ 16 mls/hr IVPB TITR [facility]; Protocol Last Admin: 04/05/19 19:30 Dose: 650 units/hr, 13 mls/hr Nicotine (Nicoderm Patch -) 21 mg TD DAILY [facility] Last Admin: 04/06/19 09:22 Dose: Not Given Nicotine Polacrilex (Nicorette Gum -) 4 mg BUC Q2H PRN PRN Reason: NICOTINE REPLACEMENT RX Last Admin: 04/06/19 08:36 Dose: 4 mg Nitroglycerin (Nitrostat -) 0.4 mg SL ASDIR PRN PRN Reason: FOR CHEST PAIN Prednisone (Deltasone -) 40 mg PO DAILY [facility] Last Admin: 04/06/19 09:22 Dose: 40 mg Ranolazine (Ranexa -) 500 mg PO BID [facility] Last Admin: 04/06/19 09:22 Dose: 500 mg Sodium Bicarbonate (Sodium Bicarbonate -) 650 mg PO BID [facility] Last Admin: 04/06/19 09:23 Dose: 650 mg - Objective Vital Signs: Vital Signs Temperature 97.8 F 04/06/19 13:45 Pulse Rate 92 H 04/06/19 13:45 Respiratory Rate 18 04/06/19 13:45 Blood Pressure 142/83 04/06/19 13:45 O2 Sat by Pulse Oximetry (%) 100 04/06/19 13:45 Constitutional: Yes: Calm Eyes: Yes: Conjunctiva Clear HENT: Yes: Atraumatic Cardiovascular: Yes: S1, S2 Respiratory: Yes: On Nasal O2 Gastrointestinal: Yes: Soft Genitourinary: Yes: WNL Musculoskeletal: Yes: WNL Edema: Yes Edema: LLE: Trace, RLE: Trace Integumentary: Yes: WNL Neurological: Yes: Oriented Psychiatric: Yes: Oriented Labs: CBC, BMP 04/06/19 10:53 04/06/19 10:53 INR, PTT INR 1.47 (0.83-1.09) H 04/04/19 05:00 Problem List - Problems (1) RADHA (acute kidney injury) Code(s): N17.9 - ACUTE KIDNEY FAILURE, UNSPECIFIED (2) Hepatitis C Code(s): B19.20 - UNSPECIFIED VIRAL HEPATITIS C WITHOUT HEPATIC COMA (3) Renal insufficiency Code(s): N28.9 - DISORDER OF KIDNEY AND URETER, UNSPECIFIED Assessment/Plan Current Medications Generic Name Dose Route Start Last Admin Trade Name Freq PRN Reason Stop Dose Admin Albuterol/Ipratropium 1 amp 04/04/19 16:00 04/05/19 21:04 Duoneb - NEB 1 amp RQID [facility] Administration Atorvastatin Calcium 20 mg 04/04/19 22:00 04/05/19 21:06 Lipitor - PO 20 mg HS [facility] Administration Calcitriol 0.5 mcg 04/06/19 22:00 Rocaltrol - PO BID [facility] Calcium Acetate 667 mg 04/05/19 22:04 04/06/19 11:52 Phoslo - PO 667 mg TIDCM [facility] Administration Calcium Carbonate/Cholecalciferol 2 tab 04/05/19 08:55 04/06/19 09:22 Os-Baltazar 500+D - PO 2 tab BID [facility] Administration Ergocalciferol 50,000 unit 04/04/19 10:00 04/04/19 11:12 Drisdol - PO 50,000 unit Q7D@1000 [facility] Administration Famotidine 20 mg 04/04/19 22:00 04/05/19 21:03 Pepcid - PO 20 mg HS [facility] Administration Heparin Sodium (Porcine) 1,000 unit 04/04/19 19:19 Heparin - IVPUSH PRN PRN Heparin Heparin Sodium (Porcine) 5,000 unit 04/04/19 19:19 Heparin - IVPUSH PRN PRN Heparin HEPARIN SOD,PORK IN 0.45% NACL 25,000 unit in 500 mls @ 16 mls/hr 04/04/19 19: 30 04/05/19 19:30 Heparin-1/2ns 25,000 Units/500 IVPB 650 units/hr TITR [facility] 13 mls/hr Administration Protocol 800 UNITS/HR Nicotine 21 mg 04/04/19 10:00 04/06/19 09:22 Nicoderm Patch - TD Not Given DAILY [facility] Nicotine Polacrilex 4 mg 04/04/19 00:24 04/06/19 08:36 Nicorette Gum - BUC 4 mg Q2H PRN Administration NICOTINE REPLACEMENT RX Nitroglycerin 0.4 mg 04/04/19 02:38 Nitrostat - SL ASDIR PRN FOR CHEST PAIN Prednisone 40 mg 04/04/19 14:15 04/06/19 09:22 Deltasone - PO 40 mg DAILY [facility] Administration Ranolazine 500 mg 04/04/19 10:00 04/06/19 09:22 Ranexa - PO 500 mg BID [facility] Administration Sodium Bicarbonate 650 mg 04/05/19 13:45 04/06/19 09:23 Sodium Bicarbonate - PO 650 mg BID [facility] Administration Impression 1. CKD 2. RADHA 3. hypocalcemia 4. chf 5. copd 6. active smoker 7. hld 8. cad Plan - replace calcium - increase calcitriol - monitor volume status closely - follow v/q scan - cont phoslo
[2019-04-06] MEDS: ALBUTEROL SO4 2.5/IPRATROPIUM 0.5 INH SOL 3 ML VIAL.NEB. NEB SCH ×3 (17:00→20:26)
--- NOTE | 2019-04-06 17:58 | PN ---
Progress Note, Physician History of Present Illness: Patient seen and examined at bedside. Ednsorses she cant breath but is laying in bed comfortably on room air saturating well. Couldnt have VQ scan due to SOB. Denies nausea vomiting fever chills chest pain diarrhea constipation. on heparinn gtt. Hb stable. Calcium low - Current Medication List Current Medications: Active Medications Albuterol/Ipratropium (Duoneb -) 1 amp NEB RQID [facility] Last Admin: 04/06/19 17:05 Dose: Not Given Atorvastatin Calcium (Lipitor -) 20 mg PO HS [facility] Last Admin: 04/05/19 21:06 Dose: 20 mg Calcitriol (Rocaltrol -) 0.5 mcg PO BID [facility] Calcium Acetate (Phoslo -) 667 mg PO TIDCM [facility] Last Admin: 04/06/19 11:52 Dose: 667 mg Calcium Carbonate/Cholecalciferol (Os-Baltazar 500+D -) 2 tab PO BID [facility] Last Admin: 04/06/19 09:22 Dose: 2 tab Ergocalciferol (Drisdol -) 50,000 unit PO Q7D@1000 [facility] Last Admin: 04/04/19 11:12 Dose: 50,000 unit Famotidine (Pepcid -) 20 mg PO HS [facility] Last Admin: 04/05/19 21:03 Dose: 20 mg Heparin Sodium (Porcine) (Heparin -) 1,000 unit IVPUSH PRN PRN PRN Reason: Heparin Heparin Sodium (Porcine) (Heparin -) 5,000 unit IVPUSH PRN PRN PRN Reason: Heparin HEPARIN SOD,PORK IN 0.45% NACL (Heparin-1/2ns 25,000 Units/500) 25,000 unit in 500 mls @ 16 mls/hr IVPB TITR [facility]; Protocol Last Admin: 04/05/19 19:30 Dose: 650 units/hr, 13 mls/hr Nicotine (Nicoderm Patch -) 21 mg TD DAILY [facility] Last Admin: 04/06/19 09:22 Dose: Not Given Nicotine Polacrilex (Nicorette Gum -) 4 mg BUC Q2H PRN PRN Reason: NICOTINE REPLACEMENT RX Last Admin: 04/06/19 08:36 Dose: 4 mg Nitroglycerin (Nitrostat -) 0.4 mg SL ASDIR PRN PRN Reason: FOR CHEST PAIN Prednisone (Deltasone -) 40 mg PO DAILY [facility] Last Admin: 04/06/19 09:22 Dose: 40 mg Ranolazine (Ranexa -) 500 mg PO BID [facility] Last Admin: 04/06/19 09:22 Dose: 500 mg Sodium Bicarbonate (Sodium Bicarbonate -) 650 mg PO BID [facility] Last Admin: 04/06/19 09:23 Dose: 650 mg - Objective Vital Signs: Vital Signs Temperature 97.8 F 04/06/19 13:45 Pulse Rate 92 H 04/06/19 13:45 Respiratory Rate 18 04/06/19 13:45 Blood Pressure 142/83 04/06/19 13:45 O2 Sat by Pulse Oximetry (%) 100 04/06/19 13:45 Constitutional: Yes: No Distress, Calm, Obese Eyes: Yes: EOM Intact, Other (conjunctival pallor) HENT: Yes: Atraumatic Neck: Yes: Supple Cardiovascular: Yes: Regular Rate and Rhythm Respiratory: Yes: Rhonchi Gastrointestinal: Yes: Soft, Abdomen, Obese. No: Tenderness Genitourinary: Yes: Other (no suprapubic tenderness). No: CVA Tenderness - Left , CVA Tenderness - Right Edema: Yes Edema: LLE: 2+, RLE: 2+ Psychiatric: Yes: Alert, Oriented Labs: CBC, BMP 04/06/19 10:53 04/06/19 10:53 INR, PTT INR 1.47 (0.83-1.09) H 04/04/19 05:00 Impression/Plan Impression/Plan: This is a 78 year old woman with a history of HTN, hyperlipidemia, stage 4 CKD, CAD with stents, NE, chronic diastolic heart failure, COPD, hepatitis C, diverticulosis who presented to the ED with SOB, leg edema, and productive cough. Acute NSTEMI continue heparin gtt for now continue aspirin continue statin Cardiology consult noted and appreciated Elevated D-dimer VQ will be tried on Tuesday if patient can tolerate no DVT on dopplers of lower extremities continue heparin gtt Acute exacerbation of COPD continue prednisone continue bronchodilators/nebs RADHA on CKD/hypocalcemia/hypomagnesemia/hyperphosphatemia continue phoslo nephrology consult noted and appreciated replete magnesium and calcium and recheck PTH noted 144 calcitriol Acute on chronic combined diastolic and systolic heart failure Echo noted which shows LVEF 30-35%, normal RV, moderately dilated LA, borderline RA enlargement, moderate to severe TR, moderate MR, PASP 46 mmHg Cardiology consulted noted and appreciated CAD, history of NE, stents continue Aspirin, Lipitor, and Ranexa HTN at times uncontrolled but right now acceptable Hyperlipidemia continue statin GERD continue pepcid Nicotine abuse with dependence Continue nicotine patch Hepatitis C morbid Obesity with BMI 35.2 Anemia of chronic disease secondary to CKD transfuse to keep Hb >8 in setting of CKD/NSTEMI monitor while on hep gtt Visit type - Emergency Visit Emergency Visit: Yes ED Registration Date: 04/03/19 Care time: The patient presented to the Emergency Department on the above date and was hospitalized for further evaluation of their emergent condition. - New Patient This patient is new to me today: No - Critical Care Critical Care patient: No
[2019-04-06] MEDS ORDERED: MAGNESIUM OXIDE 400 MG TABLET (FP) PO ONE (18:03)
[2019-04-06] MEDS: HEPARIN SOD,PORK IN 0.45% NACL 25,000 UNIT/500 ML INFUS.BAG IVPB SCH (21:58)
[2019-04-06] MEDS: FAMOTIDINE 20 MG TABLET PO SCH (21:59)
[2019-04-06] MEDS: ATORVASTATIN CA 20 MG TABLET (FP) PO SCH (21:59)
[2019-04-07] MEDS: NICOTINE POLACRILEX 4 MG GUM BUC PRN ×2 (02:09→22:40)
[2019-04-07 07:08] LABS: BASO % 0.2 % (0-2.0); HEMATOCRIT 24.7 % (32.4-45.2); HEMOGLOBIN 8.3 GM/dL (10.7-15.3); LYMPH % 11.8 % (8-40); MCH 32.4 pg (25.7-33.7); MCHC 33.8 g/dl (32.0-36.0); MEAN PLT VOLUME 8.3 fl (7.5-11.1); MONO % 8.1 % (3.8-10.2); NEUT % 79.9 % (42.8-82.8); PLATELET COUNT 215 K/MM3 (134-434); RBC 2.57 M/mm3 (3.60-5.2); RDW 15.5 % (11.6-15.6)
[2019-04-07] MEDS: ALBUTEROL SO4 2.5/IPRATROPIUM 0.5 INH SOL 3 ML VIAL.NEB. NEB SCH ×4 (07:48→20:57)
[2019-04-07 07:58] LABS: ALBUMIN 3.3 g/dl (3.4-5.0); BILIRUBIN,TOTAL 0.6 mg/dL (0.2-1); BLOOD UREA NITROGEN 82.4 mg/dL (7-18); CALCIUM 7.1 mg/dL (8.5-10.1); CREATININE 4.4 mg/dL (0.55-1.3); MAGNESIUM 1.1 mg/dL (1.8-2.4); PHOSPHOROUS 6.4 mg/dL (2.5-4.9); POTASSIUM 4.7 mmol/L (3.5-5.1)
[2019-04-07] MEDS: SODIUM BICARBONATE 650 MG TABLET PO SCH ×2 (09:37→22:30)
[2019-04-07] MEDS: CALCIUM 500MG/VIT-D 200 UNITS COMBO TABLET (FP) PO SCH ×2 (09:37→22:29)
[2019-04-07] MEDS: RANOLAZINE E.R. 500 MG TABLET (FP) PO SCH ×2 (09:37→22:30)
[2019-04-07] MEDS: predniSONE 20 MG TABLET (UD) PO SCH (09:37)
[2019-04-07] MEDS: CALCITRIOL 0.25 MCG CAPSULE (FP) PO SCH ×2 (09:38→22:30)
[2019-04-07] MEDS: CALCIUM ACETATE 667 MG CAPSULE (FP) PO SCH ×3 (09:38→17:04)
[2019-04-07] MEDS: NICOTINE 21 MG/24 HOURS TOPICAL PATCH TD SCH (09:43)
--- NOTE | 2019-04-07 11:48 | PN ---
Progress Note (short form) - Note Progress Note: Coverage for Dr. Jeyson Perdomo Chief Complaint: Events noted, notes reviewed, dyspnea improved but not resolved , denies any chest discomfort History of Present Illness: Seen and examined on telemetry. Events noted, notes reviewed, dyspnea improved but not resolved, denies any chest discomfort Medications: Current Medications Albuterol/Ipratropium (Duoneb -) 1 amp NEB RQID [facility] Last Admin: 04/07/19 07:48 Dose: 1 amp Atorvastatin Calcium (Lipitor -) 20 mg PO HS [facility] Last Admin: 04/06/19 21:59 Dose: 20 mg Calcitriol (Rocaltrol -) 0.5 mcg PO BID [facility] Last Admin: 04/07/19 09:38 Dose: 0.5 mcg Calcium Acetate (Phoslo -) 667 mg PO TIDCM [facility] Last Admin: 04/07/19 09:38 Dose: 667 mg Calcium Carbonate/Cholecalciferol (Os-Baltazar 500+D -) 2 tab PO BID [facility] Last Admin: 04/07/19 09:37 Dose: 2 tab Ergocalciferol (Drisdol -) 50,000 unit PO Q7D@1000 [facility] Last Admin: 04/04/19 11:12 Dose: 50,000 unit Famotidine (Pepcid -) 20 mg PO HS [facility] Last Admin: 04/06/19 21:59 Dose: 20 mg Heparin Sodium (Porcine) (Heparin -) 1,000 unit IVPUSH PRN PRN PRN Reason: Heparin Heparin Sodium (Porcine) (Heparin -) 5,000 unit IVPUSH PRN PRN PRN Reason: Heparin HEPARIN SOD,PORK IN 0.45% NACL (Heparin-1/2ns 25,000 Units/500) 25,000 unit in 500 mls @ 16 mls/hr IVPB TITR [facility]; Protocol Last Titration: 04/07/19 08:38 Dose: 650 units/hr, 13 mls/hr Nicotine (Nicoderm Patch -) 21 mg TD DAILY [facility] Last Admin: 04/07/19 09:43 Dose: Not Given Nicotine Polacrilex (Nicorette Gum -) 4 mg BUC Q2H PRN PRN Reason: NICOTINE REPLACEMENT RX Last Admin: 04/07/19 02:09 Dose: 4 mg Nitroglycerin (Nitrostat -) 0.4 mg SL ASDIR PRN PRN Reason: FOR CHEST PAIN Prednisone (Deltasone -) 40 mg PO DAILY [facility] Last Admin: 04/07/19 09:37 Dose: 40 mg Ranolazine (Ranexa -) 500 mg PO BID [facility] Last Admin: 04/07/19 09:37 Dose: 500 mg Sodium Bicarbonate (Sodium Bicarbonate -) 650 mg PO BID [facility] Last Admin: 04/07/19 09:37 Dose: 650 mg Review of Systems - Review of Systems Constitutional: denies: Chills, Fever Cardiovascular: As noted above Respiratory: denies: Cough or Sputum Production Gastrointestinal: denies: Nausea, Vomiting, Diarrhea, Constipation or Abdominal Pain Neurological: denies: Headaches Vital Signs: Last Vital Signs Temp Pulse Resp BP Pulse Ox 97.6 F 88 20 137/88 100 04/07/19 09:00 04/07/19 09:00 04/07/19 09:00 04/07/19 09:00 04/07/19 09:00 Intake & Output 04/04/19 04/05/19 04/06/19 04/07/19 23:59 23:59 23:59 23:59 Intake Total 65 26 396 Balance 65 26 396 Neck: Supple Negative JVD No Bruit Respiratory: Diminished Breath Sounds at the Bases bilaterally Cardiovascular: S1 S2 Regular Rate and Rhythm Gastrointestinal: Soft Benign Normal Bowel Sounds Ext: Negative Edema Labs: CBC, BMP 04/07/19 06:40 04/07/19 06:40 Hepatic Panel Total Bilirubin 0.6 mg/dL (0.2-1) 04/07/19 06:40 AST 119 U/L (15-37) H 04/07/19 06:40 ALT 91 U/L (13-61) H 04/07/19 06:40 Alkaline Phosphatase 103 U/L (45-117) 04/07/19 06:40 Albumin 3.3 g/dl (3.4-5.0) L 04/07/19 06:40 INR, PTT INR 1.47 (0.83-1.09) H 04/04/19 05:00 Assessment/Plan ASSESSMENT: 1. Dilated cardiomyopathy unclear ischemic/highly likely versus non-ischemic with clinical class II-III NYHA classification LV failure, clinically resolving 2. CAD post PCI/NSTEMI angina pectoris 3. Hypertensive heart disease 4. DM 5. Hypercholesterolemia 6. COPD 7. CKD with acute exacerbation 8. Anemia 9. Tobacco abuse PLAN: 1. Add B-Blockers unless contraindicated 2. Continue Ranexa 3. Ideally should be on Entresto but would defer pending renal function recovery - at least to baseline 4. Continue Lipitor 5. Continue Heparin pending completion of evaluation for possible PTE 6. Diuretics as needed with close monitoring of renal function 7. Eventual additional cardiovascular evaluation is recommended including R&LHC/ coronary angiography pending renal function recovery Sumi Live M.D.
--- NOTE | 2019-04-07 13:04 | PN ---
Progress Note (short form) - Note Progress Note: Breathing feels a little better today. Less SOB. No CP. Intake & Output 04/04/19 04/05/19 04/06/19 04/07/19 23:59 23:59 23:59 23:59 Intake Total 65 26 396 Balance 65 26 396 Last Vital Signs Temp Pulse Resp BP Pulse Ox 97.6 F 88 20 137/88 100 04/07/19 09:00 04/07/19 09:00 04/07/19 09:00 04/07/19 09:00 04/07/19 09:00 Active Medications Albuterol/Ipratropium (Duoneb -) 1 amp NEB RQID [facility] Last Admin: 04/07/19 11:55 Dose: Not Given Atorvastatin Calcium (Lipitor -) 20 mg PO [facility] Last Admin: 04/06/19 21:59 Dose: 20 mg Calcitriol (Rocaltrol -) 0.5 mcg PO BID [facility] Last Admin: 04/07/19 09:38 Dose: 0.5 mcg Calcium Acetate (Phoslo -) 667 mg PO TIDCM [facility] Last Admin: 04/07/19 12:13 Dose: 667 mg Calcium Carbonate/Cholecalciferol (Os-Baltazar 500+D -) 2 tab PO BID [facility] Last Admin: 04/07/19 09:37 Dose: 2 tab Ergocalciferol (Drisdol -) 50,000 unit PO Q7D@1000 [facility] Last Admin: 04/04/19 11:12 Dose: 50,000 unit Famotidine (Pepcid -) 20 mg PO [facility] Last Admin: 04/06/19 21:59 Dose: 20 mg Heparin Sodium (Porcine) (Heparin -) 1,000 unit IVPUSH PRN PRN PRN Reason: Heparin Heparin Sodium (Porcine) (Heparin -) 5,000 unit IVPUSH PRN PRN PRN Reason: Heparin HEPARIN SOD,PORK IN 0.45% NACL (Heparin-1/2ns 25,000 Units/500) 25,000 unit in 500 mls @ 16 mls/hr IVPB TITR [facility]; Protocol Last Titration: 04/07/19 08:38 Dose: 650 units/hr, 13 mls/hr Nicotine (Nicoderm Patch -) 21 mg TD DAILY [facility] Last Admin: 02/15/20 09:43 Dose: Not Given Nicotine Polacrilex (Nicorette Gum -) 4 mg BUC Q2H PRN PRN Reason: NICOTINE REPLACEMENT RX Last Admin: 04/07/19 02:09 Dose: 4 mg Nitroglycerin (Nitrostat -) 0.4 mg SL ASDIR PRN PRN Reason: FOR CHEST PAIN Prednisone (Deltasone -) 40 mg PO DAILY [facility] Last Admin: 04/07/19 09:37 Dose: 40 mg Ranolazine (Ranexa -) 500 mg PO BID [facility] Last Admin: 04/07/19 09:37 Dose: 500 mg Sodium Bicarbonate (Sodium Bicarbonate -) 650 mg PO BID [facility] Last Admin: 04/07/19 09:37 Dose: 650 mg Constitutional: Yes: Breathing appears more comfortable today Eyes: Yes: Conjunctiva Clear, EOM Intact HENT: Yes: Atraumatic, Normocephalic Neck: Yes: Supple, Trachea Midline Cardiovascular: Yes: Regular Rate and Rhythm Respiratory: Yes: Cough, Diminished, Rhonchi. No: Accessory Muscle Use, Rales, Stridor ...Inspection: Yes: WNL ...Clubbing: No Gastrointestinal: Yes: Normal Bowel Sounds, Soft, Abdomen, Obese Renal/: Yes: WNL Musculoskeletal: Yes: WNL Extremities: Yes: WNL Edema: Yes Peripheral Pulses WNL: Yes Integumentary: Yes: WNL Neurological: Yes: WNL, Alert, Oriented ...Motor Strength: WNL Psychiatric: Yes: WNL, Alert, Oriented Labs: Laboratory Results - last 24 hr 04/05/19 04/07/19 04/07/19 06:35 06:40 06:40 WBC 11.0 H RBC 2.57 L Hgb 8.3 L Hct 24.7 L MCV 96.0 MCH 32.4 MCHC 33.8 RDW 15.5 Plt Count 215 MPV 8.3 Absolute Neuts (auto) 8.8 H Neutrophils % 79.9 D Lymphocytes % 11.8 D Monocytes % 8.1 Eosinophils % 0.0 D Basophils % 0.2 Nucleated RBC % 0 PTT (Actin FS) 50.6 H Sodium Potassium Chloride Carbon Dioxide Anion Gap BUN Creatinine Est GFR (CKD-EPI)AfAm Est GFR (CKD-EPI)NonAf Random Glucose Calcium 6.4 L* Phosphorus Magnesium Total Bilirubin AST ALT Alkaline Phosphatase Total Protein Albumin PTH Intact 144 H PTH Intact Intraop 0 m 04/07/19 06:40 WBC RBC Hgb Hct MCV MCH MCHC RDW Plt Count MPV Absolute Neuts (auto) Neutrophils % Lymphocytes % Monocytes % Eosinophils % Basophils % Nucleated RBC % PTT (Actin FS) Sodium 138 Potassium 4.7 Chloride 108 H Carbon Dioxide 15 L Anion Gap 14 BUN 82.4 H Creatinine 4.4 H Est GFR (CKD-EPI)AfAm 10.42 Est GFR (CKD-EPI)NonAf 8.99 Random Glucose 106 Calcium 7.1 L Phosphorus 6.4 H Magnesium 1.1 L Total Bilirubin 0.6 AST 119 H ALT 91 H Alkaline Phosphatase 103 Total Protein 7.0 Albumin 3.3 L PTH Intact PTH Intact Intraop 0 m Problem List - Problems (1) Acute exacerbation of chronic obstructive pulmonary disease (COPD) Code(s): J44.1 - CHRONIC OBSTRUCTIVE PULMONARY DISEASE W (ACUTE) EXACERBATION (2) RADHA (acute kidney injury) Code(s): N17.9 - ACUTE KIDNEY FAILURE, UNSPECIFIED (3) NSTEMI (non-ST elevated myocardial infarction) Code(s): I21.4 - NON-ST ELEVATION (NSTEMI) MYOCARDIAL INFARCTION (4) Shortness of breath Code(s): R06.02 - SHORTNESS OF BREATH (5) COPD (chronic obstructive pulmonary disease) Code(s): J44.9 - CHRONIC OBSTRUCTIVE PULMONARY DISEASE, UNSPECIFIED (6) Coronary artery disease Code(s): I25.10 - ATHSCL HEART DISEASE OF [place] CORONARY ARTERY W/O ANG PCTRS (7) Diverticula of intestine Code(s): K57.30 - DVRTCLOS OF LG INT W/O PERFORATION OR ABSCESS W/O BLEEDING (8) GI bleed Code(s): K92.2 - GASTROINTESTINAL HEMORRHAGE, UNSPECIFIED (9) HTN (hypertension) Code(s): I10 - ESSENTIAL (PRIMARY) HYPERTENSION (10) Hepatitis C Code(s): B19.20 - UNSPECIFIED VIRAL HEPATITIS C WITHOUT HEPATIC COMA (11) Renal insufficiency Code(s): N28.9 - DISORDER OF KIDNEY AND URETER, UNSPECIFIED (12) Smoker Code(s): F17.200 - NICOTINE DEPENDENCE, UNSPECIFIED, UNCOMPLICATED Assessment/Plan Prednisone BD TX standing and PRN Supplemental O2 as needed No smoking was counseled Outpatient PFTs once stable Sleep Screen was (+) so will have HST arranged prior to discharge VTE prophylaxis Outpatient LDCT Chest V/Q to be performed due to severely elevated Ddimer on Tuesday once she is clinically improved to perform the Ventilation portion of the study Dr May Problem List - Problems (1) Acute exacerbation of chronic obstructive pulmonary disease (COPD) Code(s): J44.1 - CHRONIC OBSTRUCTIVE PULMONARY DISEASE W (ACUTE) EXACERBATION (2) RADHA (acute kidney injury) Code(s): N17.9 - ACUTE KIDNEY FAILURE, UNSPECIFIED (3) NSTEMI (non-ST elevated myocardial infarction) Code(s): I21.4 - NON-ST ELEVATION (NSTEMI) MYOCARDIAL INFARCTION (4) Shortness of breath Code(s): R06.02 - SHORTNESS OF BREATH (5) COPD (chronic obstructive pulmonary disease) Code(s): J44.9 - CHRONIC OBSTRUCTIVE PULMONARY DISEASE, UNSPECIFIED (6) Coronary artery disease Code(s): I25.10 - ATHSCL HEART DISEASE OF [place] CORONARY ARTERY W/O ANG PCTRS (7) Diverticula of intestine Code(s): K57.30 - DVRTCLOS OF LG INT W/O PERFORATION OR ABSCESS W/O BLEEDING (8) GI bleed Code(s): K92.2 - GASTROINTESTINAL HEMORRHAGE, UNSPECIFIED (9) HTN (hypertension) Code(s): I10 - ESSENTIAL (PRIMARY) HYPERTENSION (10) Hepatitis C Code(s): B19.20 - UNSPECIFIED VIRAL HEPATITIS C WITHOUT HEPATIC COMA (11) Renal insufficiency Code(s): N28.9 - DISORDER OF KIDNEY AND URETER, UNSPECIFIED (12) Smoker Code(s): F17.200 - NICOTINE DEPENDENCE, UNSPECIFIED, UNCOMPLICATED
--- NOTE | 2019-04-07 14:06 | PN ---
Progress Note (short form) - Note Progress Note: RENAL pt is awake and alert denies complaints Last Vital Signs Temp Pulse Resp BP Pulse Ox 98.1 F 107 H 20 152/95 100 04/07/19 13:54 04/07/19 13:54 04/07/19 09:00 04/07/19 13:54 04/07/19 09:00 lungs clear cvs s1s2 rr abd soft ext +edema neuro a+ox3 Current Medications Generic Name Dose Route Start Last Admin Trade Name Freq PRN Reason Stop Dose Admin Albuterol/Ipratropium 1 amp 04/04/19 16:00 04/07/19 11:55 Duoneb - NEB Not Given RQID [facility] Atorvastatin Calcium 20 mg 04/04/19 22:00 04/06/19 21:59 Lipitor - PO 20 mg HS [facility] Administration Calcitriol 0.5 mcg 04/06/19 22:00 04/07/19 09:38 Rocaltrol - PO 0.5 mcg BID [facility] Administration Calcium Acetate 667 mg 04/05/19 22:04 04/07/19 12:13 Phoslo - PO 667 mg TIDCM [facility] Administration Calcium Carbonate/Cholecalciferol 2 tab 04/05/19 08:55 04/07/19 09:37 Os-Baltazar 500+D - PO 2 tab BID [facility] Administration Ergocalciferol 50,000 unit 04/04/19 10:00 04/04/19 11:12 Drisdol - PO 50,000 unit Q7D@1000 [facility] Administration Famotidine 20 mg 04/04/19 22:00 04/06/19 21:59 Pepcid - PO 20 mg HS [facility] Administration Heparin Sodium (Porcine) 1,000 unit 04/04/19 19:19 Heparin - IVPUSH PRN PRN Heparin Heparin Sodium (Porcine) 5,000 unit 04/04/19 19:19 Heparin - IVPUSH PRN PRN Heparin HEPARIN SOD,PORK IN 0.45% NACL 25,000 unit in 500 mls @ 16 mls/hr 04/04/19 19: 30 04/07/19 08:38 Heparin-1/2ns 25,000 Units/500 IVPB 650 units/hr TITR [facility] 13 mls/hr Titration Protocol 800 UNITS/HR Nicotine 21 mg 04/04/19 10:00 04/07/19 09:43 Nicoderm Patch - TD Not Given DAILY [facility] Nicotine Polacrilex 4 mg 04/04/19 00:24 04/07/19 02:09 Nicorette Gum - BUC 4 mg Q2H PRN Administration NICOTINE REPLACEMENT RX Nitroglycerin 0.4 mg 04/04/19 02:38 Nitrostat - SL ASDIR PRN FOR CHEST PAIN Prednisone 40 mg 04/04/19 14:15 04/07/19 09:37 Deltasone - PO 40 mg DAILY [facility] Administration Ranolazine 500 mg 04/04/19 10:00 04/07/19 09:37 Ranexa - PO 500 mg BID [facility] Administration Sodium Bicarbonate 650 mg 04/05/19 13:45 04/07/19 09:37 Sodium Bicarbonate - PO 650 mg BID [facility] Administration CBC, BMP 04/07/19 06:40 04/07/19 06:40 Impression 1. CKD 2. RADHA 3. hypocalcemia 4. chf 5. copd 6. active smoker 7. hld 8. cad Plan -calcitriol helping with calcium - follow v/q scan - cont phoslo -will need to consider hd increase bicarb to 1300 bid MV
--- NOTE | 2019-04-07 16:57 | EKG ---
Test Reason : Blood Pressure : / mmHG Vent. Rate : 089 BPM Atrial Rate : 089 BPM P-R Int : 148 ms QRS Dur : 094 ms QT Int : 404 ms P-R-T Axes : 062 013 224 degrees QTc Int : 491 ms NORMAL SINUS RHYTHM NONSPECIFIC T WAVE ABNORMALITY PROLONGED QT ABNORMAL ECG WHEN COMPARED WITH ECG OF 04-APR-2019 09:03, NONSPECIFIC T WAVE ABNORMALITY, WORSE IN INFERIOR LEADS NONSPECIFIC T WAVE ABNORMALITY, WORSE IN LATERAL LEADS CLINICAL CORRELATION IS RECOMMENDED Confirmed by MARSHA POLO MD ([id number]) on 04/07/2019 4:56:57 PM Referred By: Avery LAND Confirmed By:MARSHA POLO MD
[2019-04-07] MEDS ORDERED: MAGNESIUM OXIDE 400 MG TABLET (FP) PO ONE (18:51)
--- NOTE | 2019-04-07 18:59 | PN ---
Progress Note, Physician History of Present Illness: Patient seen and examined at bedside. Endorses her breathing is good today. = Denies nausea vomiting fever chills chest pain diarrhea constipation. on heparinn gtt. Hb stable. Calcium low but better. creatinine worsening. - Current Medication List Current Medications: Active Medications Albuterol/Ipratropium (Duoneb -) 1 amp NEB RQID [facility] Last Admin: 04/07/19 15:55 Dose: 1 amp Atorvastatin Calcium (Lipitor -) 20 mg PO [facility] Last Admin: 04/06/19 21:59 Dose: 20 mg Calcitriol (Rocaltrol -) 0.5 mcg PO BID [facility] Last Admin: 04/07/19 09:38 Dose: 0.5 mcg Calcium Acetate (Phoslo -) 667 mg PO TIDCM [facility] Last Admin: 04/07/19 17:04 Dose: 667 mg Calcium Carbonate/Cholecalciferol (Os-Baltazar 500+D -) 2 tab PO BID [facility] Last Admin: 04/07/19 09:37 Dose: 2 tab Carvedilol (Coreg -) 3.125 mg PO BID [facility] Ergocalciferol (Drisdol -) 50,000 unit PO Q7D@1000 [facility] Last Admin: 04/04/19 11:12 Dose: 50,000 unit Famotidine (Pepcid -) 20 mg PO [facility] Last Admin: 04/06/19 21:59 Dose: 20 mg Heparin Sodium (Porcine) (Heparin -) 1,000 unit IVPUSH PRN PRN PRN Reason: Heparin Heparin Sodium (Porcine) (Heparin -) 5,000 unit IVPUSH PRN PRN PRN Reason: Heparin HEPARIN SOD,PORK IN 0.45% NACL (Heparin-1/2ns 25,000 Units/500) 25,000 unit in 500 mls @ 16 mls/hr IVPB TITR [facility]; Protocol Last Titration: 04/07/19 08:38 Dose: 650 units/hr, 13 mls/hr Magnesium Oxide (Mag-Ox -) 400 mg PO ONCE ONE Stop: 04/07/19 18:52 Nicotine (Nicoderm Patch -) 21 mg TD DAILY [facility] Last Admin: 04/07/19 09:43 Dose: Not Given Nicotine Polacrilex (Nicorette Gum -) 4 mg BUC Q2H PRN PRN Reason: NICOTINE REPLACEMENT RX Last Admin: 04/07/19 02:09 Dose: 4 mg Nitroglycerin (Nitrostat -) 0.4 mg SL ASDIR PRN PRN Reason: FOR CHEST PAIN Prednisone (Deltasone -) 40 mg PO DAILY [facility] Last Admin: 04/07/19 09:37 Dose: 40 mg Ranolazine (Ranexa -) 500 mg PO BID [facility] Last Admin: 04/07/19 09:37 Dose: 500 mg Sodium Bicarbonate (Sodium Bicarbonate -) 650 mg PO BID [facility] Last Admin: 04/07/19 09:37 Dose: 650 mg - Objective Vital Signs: Vital Signs Temperature 97.4 F L 04/07/19 17:00 Pulse Rate 91 H 04/07/19 17:00 Respiratory Rate 20 04/07/19 17:00 Blood Pressure 141/89 04/07/19 17:00 O2 Sat by Pulse Oximetry (%) 100 04/07/19 09:00 Constitutional: Yes: No Distress, Calm, Obese Eyes: Yes: EOM Intact, Other (conjunctival pallor) HENT: Yes: Atraumatic Neck: Yes: Supple Cardiovascular: Yes: Regular Rate and Rhythm Respiratory: Yes: coarse breath sounds bilaterally Gastrointestinal: Yes: Soft, Abdomen, Obese. No: Tenderness Genitourinary: Yes: Other (no suprapubic tenderness). No: CVA Tenderness - Left , CVA Tenderness - Right Edema: Yes Edema: LLE: 2+, RLE: 2+ Psychiatric: Yes: Alert, Oriented Labs: CBC, BMP 04/07/19 06:40 04/07/19 06:40 INR, PTT INR 1.47 (0.83-1.09) H 04/04/19 05:00 Impression/Plan Impression/Plan: This is a 78 year old woman with a history of HTN, hyperlipidemia, stage 4 CKD, CAD with stents, NC, chronic diastolic heart failure, COPD, hepatitis C, diverticulosis who presented to the ED with SOB, leg edema, and productive cough. Acute NSTEMI continue heparin gtt for now continue aspirin continue statin Cardiology consult noted and appreciated will start on low dose coreg BID per cardiology recs Elevated D-dimer possible PE given elevated PASP SOB and tachycardia VQ will be tried on Tuesday if patient can tolerate and respiratory status can be optimized no DVT on dopplers of lower extremities continue heparin gtt Acute exacerbation of COPD continue prednisone. start to wean tomorrow now that she is feeling better continue bronchodilators/nebs RADHA on CKD/hypocalcemia/hypomagnesemia/hyperphosphatemia continue phoslo hypocalcemia improving slightly nephrology consult noted and appreciated replete magnesium and calcium and recheck PTH noted 144 calcitriol Increase bicarb to 1300 BID per nephrology creatinine continues to worsen will need to discuss with nephrology about initiating HD vs diueresis Acute on chronic combined diastolic and systolic heart failure Echo noted which shows LVEF 30-35%, normal RV, moderately dilated LA, borderline RA enlargement, moderate to severe TR, moderate MR, PASP 46 mmHg Cardiology consulted noted and appreciated CAD, history of NC, stents continue Aspirin, Lipitor, and Ranexa start low dose coreg today HTN at times uncontrolled but right now acceptable start coreg low dose 3.125 BID Hyperlipidemia continue statin GERD continue pepcid Nicotine abuse with dependence Continue nicotine patch Hepatitis C morbid Obesity with BMI 35.2 Anemia of chronic disease secondary to CKD transfuse to keep Hb >8 in setting of CKD/NSTEMI monitor while on hep gtt Visit type - Emergency Visit Emergency Visit: Yes ED Registration Date: 04/03/19 Care time: The patient presented to the Emergency Department on the above date and was hospitalized for further evaluation of their emergent condition. - New Patient This patient is new to me today: No - Critical Care Critical Care patient: No
[2019-04-07] MEDS: ATORVASTATIN CA 20 MG TABLET (FP) PO SCH (22:29)
[2019-04-07] MEDS: CARVEDILOL 3.125 MG TABLET (FP) PO SCH (22:29)
[2019-04-07] MEDS: HEPARIN SOD,PORK IN 0.45% NACL 25,000 UNIT/500 ML INFUS.BAG IVPB SCH (22:29)
[2019-04-07] MEDS: FAMOTIDINE 20 MG TABLET PO SCH (22:30)
[2019-04-07] MEDS ORDERED: diphenhydrAMINE HCL 25 MG CAPSULE (FP) PO ONE (22:45)
[2019-04-07] MEDS ORDERED: HYDROCORTISONE 1% TOPICAL CREAM 30 GM TUBE TP ONE (22:58)
[2019-04-08 07:19] LABS: BASO % 0.2 % (0-2.0); HEMATOCRIT 24.1 % (32.4-45.2); HEMOGLOBIN 8.2 GM/dL (10.7-15.3); LYMPH % 10.4 % (8-40); MCH 32.5 pg (25.7-33.7); MEAN CELL VOLUME 95.5 fl (80-96); MEAN PLT VOLUME 8.3 fl (7.5-11.1); MONO % 8.7 % (3.8-10.2); NEUT % 80.7 % (42.8-82.8); PLATELET COUNT 190 K/MM3 (134-434); RBC 2.52 M/mm3 (3.60-5.2); WHITE BLOOD COUNT 11.5 K/mm3 (4.0-10.0)
[2019-04-08] MEDS: ALBUTEROL SO4 2.5/IPRATROPIUM 0.5 INH SOL 3 ML VIAL.NEB. NEB SCH ×5 (07:25→21:01)
--- NOTE | 2019-04-08 08:19 | PN ---
Progress Note (short form) - Note Progress Note: Coverage for Dr. Jeyson Perdomo Chief Complaint: Events noted, notes reviewed, dyspnea continues to improve, denies any chest discomfort History of Present Illness: Seen and examined on telemetry. Events noted, notes reviewed, dyspnea continues to improve, denies any chest discomfort Medications: Current Medications Albuterol/Ipratropium (Duoneb -) 1 amp NEB RQID [facility] Last Admin: 04/08/19 07:25 Dose: 1 amp Atorvastatin Calcium (Lipitor -) 20 mg PO [facility] Last Admin: 04/07/19 22:29 Dose: 20 mg Calcitriol (Rocaltrol -) 0.5 mcg PO BID [facility] Last Admin: 04/07/19 22:30 Dose: 0.5 mcg Calcium Acetate (Phoslo -) 667 mg PO TIDCM [facility] Last Admin: 04/07/19 17:04 Dose: 667 mg Calcium Carbonate/Cholecalciferol (Os-Baltazar 500+D -) 2 tab PO BID [facility] Last Admin: 04/07/19 22:29 Dose: 2 tab Carvedilol (Coreg -) 3.125 mg PO BID [facility] Last Admin: 04/07/19 22:29 Dose: 3.125 mg Ergocalciferol (Drisdol -) 50,000 unit PO Q7D@1000 [facility] Last Admin: 04/04/19 11:12 Dose: 50,000 unit Famotidine (Pepcid -) 20 mg PO [facility] Last Admin: 04/07/19 22:30 Dose: 20 mg Heparin Sodium (Porcine) (Heparin -) 1,000 unit IVPUSH PRN PRN PRN Reason: Heparin Heparin Sodium (Porcine) (Heparin -) 5,000 unit IVPUSH PRN PRN PRN Reason: Heparin HEPARIN SOD,PORK IN 0.45% NACL (Heparin-1/2ns 25,000 Units/500) 25,000 unit in 500 mls @ 16 mls/hr IVPB TITR [facility]; Protocol Last Titration: 04/08/19 07:33 Dose: 650 units/hr, 13 mls/hr Nicotine (Nicoderm Patch -) 21 mg TD DAILY [facility] Last Admin: 04/07/19 09:43 Dose: Not Given Nicotine Polacrilex (Nicorette Gum -) 4 mg BUC Q2H PRN PRN Reason: NICOTINE REPLACEMENT RX Last Admin: 04/07/19 22:40 Dose: 4 mg Nitroglycerin (Nitrostat -) 0.4 mg SL ASDIR PRN PRN Reason: FOR CHEST PAIN Prednisone (Deltasone -) 40 mg PO DAILY [facility] Last Admin: 04/07/19 09:37 Dose: 40 mg Ranolazine (Ranexa -) 500 mg PO BID [facility] Last Admin: 04/07/19 22:30 Dose: 500 mg Sodium Bicarbonate (Sodium Bicarbonate -) 1,300 mg PO BID [facility] Last Admin: 04/07/19 22:30 Dose: 1,300 mg Review of Systems - Review of Systems Constitutional: denies: Chills, Fever Cardiovascular: As noted above Respiratory: denies: Cough or Sputum Production Gastrointestinal: denies: Nausea, Vomiting, Diarrhea, Constipation or Abdominal Pain Neurological: denies: Headaches Vital Signs: Last Vital Signs Temp Pulse Resp BP Pulse Ox 97.9 F 82 18 145/86 98 04/08/19 05:00 04/08/19 05:00 04/08/19 05:00 04/08/19 05:00 04/07/19 20:39 Intake & Output 04/05/19 04/06/19 04/07/19 04/08/19 23:59 23:59 23:59 23:59 Intake Total 65 26 1902 156 Balance 65 26 1902 156 Neck: Supple Negative JVD No Bruit Respiratory: Diminished Breath Sounds at the Bases bilaterally Cardiovascular: S1 S2 Regular Rate and Rhythm Gastrointestinal: Soft Benign Normal Bowel Sounds Ext: Negative Edema Labs: CBC, BMP 04/08/19 06:40 04/08/19 06:40 Hepatic Panel Total Bilirubin 0.6 mg/dL (0.2-1) 04/07/19 06:40 AST 119 U/L (15-37) H 04/07/19 06:40 ALT 91 U/L (13-61) H 04/07/19 06:40 Alkaline Phosphatase 103 U/L (45-117) 04/07/19 06:40 Albumin 3.3 g/dl (3.4-5.0) L 04/07/19 06:40 INR, PTT INR 1.47 (0.83-1.09) H 04/04/19 05:00 Assessment/Plan ASSESSMENT: 1. Dilated cardiomyopathy unclear ischemic/highly likely versus non-ischemic with clinical class II-III NYHA classification LV failure, clinically resolving 2. CAD post PCI/NSTEMI angina pectoris 3. Hypertensive heart disease 4. DM 5. Hypercholesterolemia 6. COPD 7. CKD with acute exacerbation 8. Anemia 9. Tobacco abuse PLAN: 1. Continue Coreg and titrate dosage as needed and as tolerated 2. Continue Ranexa 3. Ideally should be on Entresto but would defer pending renal function recovery - at least to baseline 4. Continue Lipitor 5. Continue Heparin pending completion of evaluation for possible PTE 6. Diuretics as needed with close monitoring of renal function 7. Eventual additional cardiovascular evaluation is recommended including R&LHC/ coronary angiography pending renal function recovery- outpatient evaluation Sumi Live M.D.
[2019-04-08] MEDS: CALCIUM ACETATE 667 MG CAPSULE (FP) PO SCH ×3 (08:21→17:01)
[2019-04-08 08:22] LABS: BLOOD UREA NITROGEN 87.2 mg/dL (7-18); CREATININE 4.3 mg/dL (0.55-1.3); MAGNESIUM 1.2 mg/dL (1.8-2.4); POTASSIUM 4.4 mmol/L (3.5-5.1)
[2019-04-08 08:26] LABS: CALCIUM 6.9 mg/dL (8.5-10.1)
[2019-04-08] MEDS: predniSONE 20 MG TABLET (UD) PO SCH (09:29)
[2019-04-08] MEDS: CALCITRIOL 0.25 MCG CAPSULE (FP) PO SCH (09:29)
[2019-04-08] MEDS: CALCIUM 500MG/VIT-D 200 UNITS COMBO TABLET (FP) PO SCH ×2 (09:29→22:09)
[2019-04-08] MEDS: CARVEDILOL 3.125 MG TABLET (FP) PO SCH (09:29)
[2019-04-08] MEDS: SODIUM BICARBONATE 650 MG TABLET PO SCH ×2 (09:29→22:14)
[2019-04-08] MEDS: NICOTINE 21 MG/24 HOURS TOPICAL PATCH TD SCH (09:30)
[2019-04-08] MEDS: RANOLAZINE E.R. 500 MG TABLET (FP) PO SCH ×2 (09:30→22:10)
[2019-04-08] MEDS ORDERED: CARVEDILOL 3.125 MG TABLET (FP) PO SCH ×2 (10:00→22:00)
[2019-04-08] MEDS ORDERED: CARVEDILOL 3.125 MG TABLET (FP) PO ONE (10:02)
--- NOTE | 2019-04-08 12:30 | PN ---
Progress Note (short form) - Note Progress Note: Breathing feels overall better today. Less SOB. No CP. Intake & Output 04/05/19 04/06/19 04/07/19 04/08/19 23:59 23:59 23:59 23:59 Intake Total 65 26 1902 396 Balance 65 190 396 Last Vital Signs Temp Pulse Resp BP Pulse Ox 98.0 F 81 18 137/96 100 04/08/19 08:28 04/08/19 08:28 04/08/19 08:28 04/08/19 08:28 04/08/19 08:28 Active Medications Albuterol/Ipratropium (Duoneb -) 1 amp NEB RQID [facility] Last Admin: 04/08/19 12:10 Dose: 1 amp Atorvastatin Calcium (Lipitor -) 20 mg PO [facility] Last Admin: 04/07/19 22:29 Dose: 20 mg Calcitriol (Rocaltrol -) 0.5 mcg PO BID [facility] Last Admin: 04/08/19 09:29 Dose: 0.5 mcg Calcium Acetate (Phoslo -) 667 mg PO TIDCM [facility] Last Admin: 04/08/19 08:21 Dose: 667 mg Calcium Carbonate/Cholecalciferol (Os-Baltazar 500+D -) 2 tab PO BID [facility] Last Admin: 04/08/19 09:29 Dose: 2 tab Carvedilol (Coreg -) 6.25 mg PO BID [facility] Ergocalciferol (Drisdol -) 50,000 unit PO Q7D@1000 [facility] Last Admin: 04/04/19 11:12 Dose: 50,000 unit Famotidine (Pepcid -) 20 mg PO [facility] Last Admin: 04/07/19 22:30 Dose: 20 mg Heparin Sodium (Porcine) (Heparin -) 1,000 unit IVPUSH PRN PRN PRN Reason: Heparin Heparin Sodium (Porcine) (Heparin -) 5,000 unit IVPUSH PRN PRN PRN Reason: Heparin HEPARIN SOD,PORK IN 0.45% NACL (Heparin-1/2ns 25,000 Units/500) 25,000 unit in 500 mls @ 16 mls/hr IVPB TITR [facility]; Protocol Last Titration: 04/08/19 07:33 Dose: 650 units/hr, 13 mls/hr Nicotine (Nicoderm Patch -) 21 mg TD DAILY [facility] Last Admin: 04/08/19 09:30 Dose: Not Given Nicotine Polacrilex (Nicorette Gum -) 4 mg BUC Q2H PRN PRN Reason: NICOTINE REPLACEMENT RX Last Admin: 04/07/19 22:40 Dose: 4 mg Nitroglycerin (Nitrostat -) 0.4 mg SL ASDIR PRN PRN Reason: FOR CHEST PAIN Prednisone (Deltasone -) 40 mg PO DAILY [facility] Last Admin: 04/08/19 09:29 Dose: 40 mg Ranolazine (Ranexa -) 500 mg PO BID [facility] Last Admin: 04/08/19 09:30 Dose: 500 mg Sodium Bicarbonate (Sodium Bicarbonate -) 1,300 mg PO BID [facility] Last Admin: 04/08/19 09:29 Dose: 1,300 mg Constitutional: Yes: Breathing appears more comfortable today Eyes: Yes: Conjunctiva Clear, EOM Intact HENT: Yes: Atraumatic, Normocephalic Neck: Yes: Supple, Trachea Midline Cardiovascular: Yes: Regular Rate and Rhythm Respiratory: Yes: Cough, Diminished, Rhonchi. No: Accessory Muscle Use, Rales, Stridor ...Inspection: Yes: WNL ...Clubbing: No Gastrointestinal: Yes: Normal Bowel Sounds, Soft, Abdomen, Obese Renal/: Yes: WNL Musculoskeletal: Yes: WNL Extremities: Yes: WNL Edema: Yes Peripheral Pulses WNL: Yes Integumentary: Yes: WNL Neurological: Yes: WNL, Alert, Oriented ...Motor Strength: WNL Psychiatric: Yes: WNL, Alert, Oriented Labs: Laboratory Results - last 24 hr 04/08/19 04/08/19 04/08/19 06:40 06:40 06:40 WBC 11.5 H RBC 2.52 L Hgb 8.2 L Hct 24.1 L MCV 95.5 MCH 32.5 MCHC 34.0 RDW 16.0 H Plt Count 190 MPV 8.3 Absolute Neuts (auto) 9.3 H Neutrophils % 80.7 Lymphocytes % 10.4 Monocytes % 8.7 Eosinophils % 0.0 Basophils % 0.2 Nucleated RBC % 0 PTT (Actin FS) 55.6 H Sodium 138 Potassium 4.4 Chloride 108 H Carbon Dioxide 17 L Anion Gap 13 BUN 87.2 H Creatinine 4.3 H Est GFR (CKD-EPI)AfAm 10.71 Est GFR (CKD-EPI)NonAf 9.24 Random Glucose 112 H Calcium 6.9 L* Phosphorus 5.0 H Magnesium 1.2 L Problem List - Problems (1) Acute exacerbation of chronic obstructive pulmonary disease (COPD) Code(s): J44.1 - CHRONIC OBSTRUCTIVE PULMONARY DISEASE W (ACUTE) EXACERBATION (2) RADHA (acute kidney injury) Code(s): N17.9 - ACUTE KIDNEY FAILURE, UNSPECIFIED (3) NSTEMI (non-ST elevated myocardial infarction) Code(s): I21.4 - NON-ST ELEVATION (NSTEMI) MYOCARDIAL INFARCTION (4) Shortness of breath Code(s): R06.02 - SHORTNESS OF BREATH (5) COPD (chronic obstructive pulmonary disease) Code(s): J44.9 - CHRONIC OBSTRUCTIVE PULMONARY DISEASE, UNSPECIFIED (6) Coronary artery disease Code(s): I25.10 - ATHSCL HEART DISEASE OF [place] CORONARY ARTERY W/O ANG PCTRS (7) Diverticula of intestine Code(s): K57.30 - DVRTCLOS OF LG INT W/O PERFORATION OR ABSCESS W/O BLEEDING (8) GI bleed Code(s): K92.2 - GASTROINTESTINAL HEMORRHAGE, UNSPECIFIED (9) HTN (hypertension) Code(s): I10 - ESSENTIAL (PRIMARY) HYPERTENSION (10) Hepatitis C Code(s): B19.20 - UNSPECIFIED VIRAL HEPATITIS C WITHOUT HEPATIC COMA (11) Renal insufficiency Code(s): N28.9 - DISORDER OF KIDNEY AND URETER, UNSPECIFIED (12) Smoker Code(s): F17.200 - NICOTINE DEPENDENCE, UNSPECIFIED, UNCOMPLICATED Assessment/Plan Prednisone BD TX standing and PRN Supplemental O2 as needed No smoking was counseled Outpatient PFTs once stable Sleep Screen was (+) so will have HST arranged prior to discharge VTE prophylaxis Outpatient LDCT Chest V/Q to be performed tomorrow due to severely elevated Ddimer as she appears clinically improved to perform the Ventilation portion of the study Dr May Problem List - Problems (1) Acute exacerbation of chronic obstructive pulmonary disease (COPD) Code(s): J44.1 - CHRONIC OBSTRUCTIVE PULMONARY DISEASE W (ACUTE) EXACERBATION (2) RADHA (acute kidney injury) Code(s): N17.9 - ACUTE KIDNEY FAILURE, UNSPECIFIED (3) NSTEMI (non-ST elevated myocardial infarction) Code(s): I21.4 - NON-ST ELEVATION (NSTEMI) MYOCARDIAL INFARCTION (4) Shortness of breath Code(s): R06.02 - SHORTNESS OF BREATH (5) COPD (chronic obstructive pulmonary disease) Code(s): J44.9 - CHRONIC OBSTRUCTIVE PULMONARY DISEASE, UNSPECIFIED (6) Coronary artery disease Code(s): I25.10 - ATHSCL HEART DISEASE OF [place] CORONARY ARTERY W/O ANG PCTRS (7) Diverticula of intestine Code(s): K57.30 - DVRTCLOS OF LG INT W/O PERFORATION OR ABSCESS W/O BLEEDING (8) GI bleed Code(s): K92.2 - GASTROINTESTINAL HEMORRHAGE, UNSPECIFIED (9) HTN (hypertension) Code(s): I10 - ESSENTIAL (PRIMARY) HYPERTENSION (10) Hepatitis C Code(s): B19.20 - UNSPECIFIED VIRAL HEPATITIS C WITHOUT HEPATIC COMA (11) Renal insufficiency Code(s): N28.9 - DISORDER OF KIDNEY AND URETER, UNSPECIFIED (12) Smoker Code(s): F17.200 - NICOTINE DEPENDENCE, UNSPECIFIED, UNCOMPLICATED
--- NOTE | 2019-04-08 13:41 | PN ---
Progress Note (short form) - Note Progress Note: RENAL pt is awake and alert denies complaints Last Vital Signs Temp Pulse Resp BP Pulse Ox 98.0 F 81 18 137/96 100 04/08/19 08:28 04/08/19 08:28 04/08/19 08:28 04/08/19 08:28 04/08/19 08:28 lungs clear cvs s1s2 rr abd soft ext +edema neuro a+ox3 Current Medications Generic Name Dose Route Start Last Admin Trade Name Freq PRN Reason Stop Dose Admin Albuterol/Ipratropium 1 amp 04/04/19 16:00 04/08/19 12:10 Duoneb - NEB 1 amp RQID [facility] Administration Atorvastatin Calcium 20 mg 04/04/19 22:00 04/07/19 22:29 Lipitor - PO 20 mg HS [facility] Administration Calcitriol 0.5 mcg 04/06/19 22:00 04/08/19 09:29 Rocaltrol - PO 0.5 mcg BID [facility] Administration Calcium Acetate 667 mg 04/05/19 22:04 04/08/19 13:28 Phoslo - PO 667 mg TIDCM [facility] Administration Calcium Carbonate/Cholecalciferol 2 tab 04/05/19 08:55 04/08/19 09:29 Os-Baltazar 500+D - PO 2 tab BID [facility] Administration Carvedilol 6.25 mg 04/08/19 22:00 Coreg - PO BID [facility] Ergocalciferol 50,000 unit 04/04/19 10:00 04/04/19 11:12 Drisdol - PO 50,000 unit Q7D@1000 [facility] Administration Famotidine 20 mg 04/04/19 22:00 04/07/19 22:30 Pepcid - PO 20 mg HS [facility] Administration Heparin Sodium (Porcine) 1,000 unit 04/04/19 19:19 Heparin - IVPUSH PRN PRN Heparin Heparin Sodium (Porcine) 5,000 unit 04/04/19 19:19 Heparin - IVPUSH PRN PRN Heparin HEPARIN SOD,PORK IN 0.45% NACL 25,000 unit in 500 mls @ 16 mls/hr 04/04/19 19: 30 04/08/19 07:33 Heparin-1/2ns 25,000 Units/500 IVPB 650 units/hr TITR [facility] 13 mls/hr Titration Protocol 800 UNITS/HR Nicotine 21 mg 04/04/19 10:00 04/08/19 09:30 Nicoderm Patch - TD Not Given DAILY [facility] Nicotine Polacrilex 4 mg 04/04/19 00:24 04/07/19 22:40 Nicorette Gum - BUC 4 mg Q2H PRN Administration NICOTINE REPLACEMENT RX Nitroglycerin 0.4 mg 04/04/19 02:38 Nitrostat - SL ASDIR PRN FOR CHEST PAIN Prednisone 40 mg 04/04/19 14:15 04/08/19 09:29 Deltasone - PO 40 mg DAILY [facility] Administration Ranolazine 500 mg 04/04/19 10:00 04/08/19 09:30 Ranexa - PO 500 mg BID [facility] Administration Sodium Bicarbonate 1,300 mg 04/07/19 19:00 04/08/19 09:29 Sodium Bicarbonate - PO 1,300 mg BID [facility] Administration CBC, BMP 04/08/19 06:40 04/08/19 06:40 Impression 1. CKD 2. RADHA 3. hypocalcemia 4. chf 5. copd 6. active smoker 7. hld 8. cad Plan -increase calcitriol -cont phoslo -will need to consider hd if no improvement, for this admission MV
[2019-04-08] MEDS ORDERED: MAGNESIUM SULF 50% (8.12 MEQ/2 ML-1 GM VIAL) IVPB ONE (16:56)
--- NOTE | 2019-04-08 17:05 | PN ---
Progress Note, Physician History of Present Illness: Patient seen and examined at bedside. Endorses She is feeling good today. Her breathing is better. Denies nausea vomiting fever chills chest pain diarrhea constipation. on heparin gtt. Hb stable. Calcium and magnesium low. creatinine essentially unchanged. BP better since starting on Coreg. Increased by cardiology. Her BP was controlled for most of the day today but now her BP is 160/90. - Current Medication List Current Medications: Active Medications Albuterol/Ipratropium (Duoneb -) 1 amp NEB RQID [facility] Last Admin: 04/08/19 16:45 Dose: 1 amp Atorvastatin Calcium (Lipitor -) 20 mg PO HS [facility] Last Admin: 04/07/19 22:29 Dose: 20 mg Calcitriol (Rocaltrol -) 0.75 mcg PO BID [facility] Calcium Acetate (Phoslo -) 667 mg PO TIDCM [facility] Last Admin: 04/08/19 13:28 Dose: 667 mg Calcium Carbonate/Cholecalciferol (Os-Baltazar 500+D -) 2 tab PO BID [facility] Last Admin: 04/08/19 09:29 Dose: 2 tab Carvedilol (Coreg -) 6.25 mg PO BID [facility] Ergocalciferol (Drisdol -) 50,000 unit PO Q7D@1000 [facility] Last Admin: 04/04/19 11:12 Dose: 50,000 unit Famotidine (Pepcid -) 20 mg PO [facility] Last Admin: 04/07/19 22:30 Dose: 20 mg Heparin Sodium (Porcine) (Heparin -) 1,000 unit IVPUSH PRN PRN PRN Reason: Heparin Heparin Sodium (Porcine) (Heparin -) 5,000 unit IVPUSH PRN PRN PRN Reason: Heparin HEPARIN SOD,PORK IN 0.45% NACL (Heparin-1/2ns 25,000 Units/500) 25,000 unit in 500 mls @ 16 mls/hr IVPB TITR [facility]; Protocol Last Titration: 04/08/19 07:33 Dose: 650 units/hr, 13 mls/hr Nicotine (Nicoderm Patch -) 21 mg TD DAILY [facility] Last Admin: 04/08/19 09:30 Dose: Not Given Nicotine Polacrilex (Nicorette Gum -) 4 mg BUC Q2H PRN PRN Reason: NICOTINE REPLACEMENT RX Last Admin: 04/07/19 22:40 Dose: 4 mg Nitroglycerin (Nitrostat -) 0.4 mg SL ASDIR PRN PRN Reason: FOR CHEST PAIN Prednisone (Deltasone -) 40 mg PO DAILY [facility] Last Admin: 04/08/19 09:29 Dose: 40 mg Ranolazine (Ranexa -) 500 mg PO BID [facility] Last Admin: 04/08/19 09:30 Dose: 500 mg Sodium Bicarbonate (Sodium Bicarbonate -) 1,300 mg PO BID [facility] Last Admin: 04/08/19 09:29 Dose: 1,300 mg - Objective Vital Signs: Vital Signs Temperature 97.8 F 04/08/19 14:00 Pulse Rate 78 04/08/19 14:00 Respiratory Rate 18 04/08/19 08:28 Blood Pressure 132/81 04/08/19 14:00 O2 Sat by Pulse Oximetry (%) 100 04/08/19 08:28 Constitutional: Yes: No Distress, Calm, Obese Eyes: Yes: EOM Intact, Other (conjunctival pallor) HENT: Yes: Atraumatic Neck: Yes: Supple Cardiovascular: Yes: Regular Rate and Rhythm Respiratory: Yes: coarse breath sounds bilaterally with occasional scattered wheezing Gastrointestinal: Yes: Soft, Abdomen, Obese. No: Tenderness Genitourinary: Yes: Other (no suprapubic tenderness). Edema: Yes Edema: LLE: 1+, RLE: 1+ Psychiatric: Yes: Alert, Oriented Labs: CBC, BMP 04/08/19 06:40 04/08/19 06:40 INR, PTT INR 1.47 (0.83-1.09) H 04/04/19 05:00 Impression/Plan Impression/Plan: This is a 78 year old woman with a history of HTN, hyperlipidemia, stage 4 CKD, CAD with stents, [place], chronic diastolic heart failure, COPD, hepatitis C, diverticulosis who presented to the ED with SOB, leg edema, and productive cough. Acute NSTEMI continue heparin gtt for now continue aspirin continue statin Cardiology consult noted and appreciated Cored increased to 6.25 by cardiology. Might need higher dose if BP not controlled. Elevated D-dimer possible PE given elevated PASP SOB and tachycardia VQ will be tried tomorrow as patient is comfortable now and seems like she can tolerate from a respiratory standpoint no DVT on dopplers of lower extremities continue heparin gtt for now Acute exacerbation of COPD continue prednisone. start to wean tomorrow now that she is feeling better continue bronchodilators/nebs RADHA on CKD/hypocalcemia/hypomagnesemia/hyperphosphatemia continue phoslo hypocalcemia improving slightly nephrology consult noted and appreciated replete magnesium with 2gm mag sulfate and calcium with 1 gram calcium gluconate and recheck PTH noted 144 calcitriol increased by nephrology Increased bicarb to 1300 BID per nephrology yesterday creatinine 4.3 today which is essentially unchanged from 4.4 yesterday will need to discuss with nephrology about initiating HD vs diueresis Acute on chronic combined diastolic and systolic heart failure Echo noted which shows LVEF 30-35%, normal RV, moderately dilated LA, borderline RA enlargement, moderate to severe TR, moderate MR, PASP 46 mmHg Cardiology consulted noted and appreciated CAD, history of [place], stents continue Aspirin, Lipitor, and Ranexa continue coreg HTN started on coreg low dose 3.125 BID yesterday and increased today by cardiology to 6.25. Was controlled most of the day but RN @ 1700 stated now 160/90 Asked to repeat in an hour and if still high will increase coreg Hyperlipidemia continue statin GERD continue pepcid Nicotine abuse with dependence Continue nicotine patch Hepatitis C morbid Obesity with BMI 35.2 Anemia of chronic disease secondary to CKD Stable Hb at 8.2 transfuse PRN to keep Hb >8 in setting of CKD/NSTEMI monitor while on hep gtt Visit type - Emergency Visit Emergency Visit: Yes ED Registration Date: 04/03/19 Care time: The patient presented to the Emergency Department on the above date and was hospitalized for further evaluation of their emergent condition. - New Patient This patient is new to me today: No - Critical Care Critical Care patient: No
[2019-04-08] MEDS ORDERED: CALCIUM GLUCONATE 10% - 1,000 MG/10 ML VIAL IVPB ONE (17:10)
[2019-04-08] MEDS ORDERED: PT OWN MED DRAWER 7, Y5N ONE (18:22)
[2019-04-08] MEDS ORDERED: CARVEDILOL 12.5 MG TABLET (FP) PO SCH (22:00)
[2019-04-08] MEDS: HEPARIN SOD,PORK IN 0.45% NACL 25,000 UNIT/500 ML INFUS.BAG IVPB SCH (22:07)
[2019-04-08] MEDS: ATORVASTATIN CA 20 MG TABLET (FP) PO SCH (22:08)
[2019-04-08] MEDS: FAMOTIDINE 20 MG TABLET PO SCH (22:10)
[2019-04-09 06:25] LABS: HEMATOCRIT 27.3 % (32.4-45.2); MCH 32.1 pg (25.7-33.7); MEAN CELL VOLUME 97.2 fl (80-96); MEAN PLT VOLUME 8.8 fl (7.5-11.1); PLATELET COUNT 188 K/MM3 (134-434); RBC 2.81 M/mm3 (3.60-5.2); RDW 15.6 % (11.6-15.6)
[2019-04-09 07:15] LABS: BILIRUBIN,TOTAL 0.6 mg/dL (0.2-1); BLOOD UREA NITROGEN 87.5 mg/dL (7-18); CALCIUM 8.3 mg/dL (8.5-10.1); CREATININE 4.1 mg/dL (0.55-1.3); MAGNESIUM 1.9 mg/dL (1.8-2.4); PHOSPHOROUS 4.6 mg/dL (2.5-4.9); POTASSIUM 4.6 mmol/L (3.5-5.1); TOT PROT 6.6 g/dl (6.4-8.2)
--- NOTE | 2019-04-09 07:39 | PN ---
Progress Note (short form) - Note Progress Note: Coverage for Dr. Jeyson Perdomo Chief Complaint: Events noted, notes reviewed, dyspnea continues to improve, denies any chest discomfort History of Present Illness: Seen and examined on telemetry. Events noted, notes reviewed, dyspnea continues to improve, denies any chest discomfort Medications: Current Medications Albuterol/Ipratropium (Duoneb -) 1 amp NEB RQID [facility] Last Admin: 04/08/19 21:01 Dose: 1 amp Atorvastatin Calcium (Lipitor -) 20 mg PO HS [facility] Last Admin: 04/08/19 22:08 Dose: 20 mg Calcitriol (Rocaltrol -) 0.75 mcg PO BID [facility] Calcium Acetate (Phoslo -) 667 mg PO TIDCM [facility] Last Admin: 04/08/19 17:01 Dose: 667 mg Calcium Carbonate/Cholecalciferol (Os-Baltazar 500+D -) 2 tab PO BID [facility] Last Admin: 04/08/19 22:09 Dose: 2 tab Carvedilol (Coreg -) 12.5 mg PO BID [facility] Last Admin: 04/08/19 22:07 Dose: 12.5 mg Ergocalciferol (Drisdol -) 50,000 unit PO Q7D@1000 [facility] Last Admin: 04/04/19 11:12 Dose: 50,000 unit Famotidine (Pepcid -) 20 mg PO [facility] Last Admin: 04/08/19 22:10 Dose: 20 mg Heparin Sodium (Porcine) (Heparin -) 1,000 unit IVPUSH PRN PRN PRN Reason: Heparin Heparin Sodium (Porcine) (Heparin -) 5,000 unit IVPUSH PRN PRN PRN Reason: Heparin HEPARIN SOD,PORK IN 0.45% NACL (Heparin-1/2ns 25,000 Units/500) 25,000 unit in 500 mls @ 16 mls/hr IVPB TITR [facility]; Protocol Last Admin: 04/08/19 22:07 Dose: 650 units/hr, 13 mls/hr Nicotine (Nicoderm Patch -) 21 mg TD DAILY [facility] Last Admin: 04/08/19 09:30 Dose: Not Given Nicotine Polacrilex (Nicorette Gum -) 4 mg BUC Q2H PRN PRN Reason: NICOTINE REPLACEMENT RX Last Admin: 04/07/19 22:40 Dose: 4 mg Nitroglycerin (Nitrostat -) 0.4 mg SL ASDIR PRN PRN Reason: FOR CHEST PAIN Prednisone (Deltasone -) 40 mg PO DAILY [facility] Last Admin: 04/08/19 09:29 Dose: 40 mg Ranolazine (Ranexa -) 500 mg PO BID [facility] Last Admin: 04/08/19 22:10 Dose: 500 mg Sodium Bicarbonate (Sodium Bicarbonate -) 1,300 mg PO BID [facility] Last Admin: 04/08/19 22:14 Dose: 1,300 mg Review of Systems - Review of Systems Constitutional: denies: Chills, Fever Cardiovascular: As noted above Respiratory: denies: Cough or Sputum Production Gastrointestinal: denies: Nausea, Vomiting, Diarrhea, Constipation or Abdominal Pain Neurological: denies: Headaches Vital Signs: Last Vital Signs Temp Pulse Resp BP Pulse Ox 97.0 F L 73 20 153/89 96 04/09/19 05:56 04/09/19 05:56 04/09/19 05:56 04/09/19 05:56 04/08/19 20:24 Intake & Output 04/06/19 04/07/19 04/08/19 04/09/19 23:59 23:59 23:59 23:59 Intake Total 26 1902 2302 Balance 26 1902 2302 Neck: Supple Negative JVD No Bruit Respiratory: Diminished Breath Sounds at the Bases bilaterally Cardiovascular: S1 S2 Regular Rate and Rhythm Gastrointestinal: Soft Benign Normal Bowel Sounds Ext: Negative Edema Labs: CBC, BMP 04/09/19 05:55 04/09/19 05:55 Hepatic Panel Total Bilirubin 0.6 mg/dL (0.2-1) 04/09/19 05:55 AST 149 U/L (15-37) H 04/09/19 05:55 ALT 138 U/L (13-61) H 04/09/19 05:55 Alkaline Phosphatase 106 U/L (45-117) 04/09/19 05:55 Albumin 3.0 g/dl (3.4-5.0) L 04/09/19 05:55 INR, PTT INR 1.47 (0.83-1.09) H 04/04/19 05:00 Assessment/Plan ASSESSMENT: 1. Dilated cardiomyopathy unclear ischemic/highly likely versus non-ischemic with clinical class II-III NYHA classification LV failure, clinically resolving 2. CAD post PCI/NSTEMI angina pectoris 3. Hypertensive heart disease 4. DM 5. Hypercholesterolemia 6. COPD 7. PTE to be excluded 8. CKD with acute exacerbation 9. Anemia 10. Tobacco abuse PLAN: 1. Continue Coreg and titrate dosage as needed and as tolerated 2. Continue Ranexa 3. Ideally should be on Entresto but would defer pending renal function recovery - at least to baseline, in the interim add Hydralazine +/- Imdur/BiDil 4. Continue Lipitor 5. Continue Heparin pending completion of evaluation for possible PTE 6. Diuretics as needed with close monitoring of renal function 7. Eventual additional cardiovascular evaluation is recommended including R&LHC/ coronary angiography pending renal function recovery- outpatient evaluation Sumi Live M.D.
[2019-04-09] MEDS: ALBUTEROL SO4 2.5/IPRATROPIUM 0.5 INH SOL 3 ML VIAL.NEB. NEB SCH ×4 (07:50→20:30)
[2019-04-09] MEDS: CALCIUM ACETATE 667 MG CAPSULE (FP) PO SCH ×3 (08:02→16:58)
[2019-04-09] MEDS: CALCIUM 500MG/VIT-D 200 UNITS COMBO TABLET (FP) PO SCH ×2 (09:41→22:19)
[2019-04-09] MEDS: hydrALAZINE HCL 25 MG TABLET (FP) PO SCH ×2 (09:42→22:20)
[2019-04-09] MEDS: CARVEDILOL 25 MG TABLET (FP) PO SCH ×2 (09:42→22:20)
[2019-04-09] MEDS: RANOLAZINE E.R. 500 MG TABLET (FP) PO SCH ×2 (09:42→22:20)
[2019-04-09] MEDS: CALCITRIOL 0.25 MCG CAPSULE (FP) PO SCH ×2 (09:42→22:19)
[2019-04-09] MEDS: SODIUM BICARBONATE 650 MG TABLET PO SCH ×2 (09:42→22:20)
[2019-04-09] MEDS: predniSONE 20 MG TABLET (UD) PO SCH (09:44)
[2019-04-09] MEDS: ISOSORBIDE MONONITRATE 30 MG TAB.SR.24H (FP) PO SCH (09:44)
[2019-04-09] MEDS: NICOTINE 21 MG/24 HOURS TOPICAL PATCH TD SCH (09:45)
--- NOTE | 2019-04-09 12:50 | PN ---
Physical Exam: SUBJECTIVE: Patient seen and examined at bed side , no acute events over night , breathing is better , denies any chest pain , or sob , saturating 95% on RA OBJECTIVE: Vital Signs Period Temp Pulse Resp BP Sys/Barlow Pulse Ox Last 24 Hr 97.0 F-97.9 F 73-82 18-20 132-167/81-97 96-96 GENERAL:AAOx3 in NAD , HEAD:NC/AT EYES: PERRL, extraocular movements intact, ENT: moist mucous membranes. NECK: supple. LUNGS: Bibasilar crackles HEART: Regular rate and rhythm, S1, S2 without murmur, rub or gallop. ABDOMEN: Soft, nontender, nondistended, normoactive bowel sounds, EXTREMITIES: 2+ pulses, warm, well-perfused, +2 edema. NEUROLOGICAL:no focal deficit Normal speech, gait not observed. PSYCH: Normal mood, normal affect. SKIN: Warm, dry, normal turgor, Laboratory Results - last 24 hr 04/09/19 04/09/19 04/09/19 05:55 05:55 05:55 WBC 11.0 H RBC 2.81 L Hgb 9.0 L Hct 27.3 L MCV 97.2 H MCH 32.1 MCHC 33.0 RDW 15.6 Plt Count 188 MPV 8.8 PTT (Actin FS) 30.2 Sodium 137 Potassium 4.6 Chloride 107 Carbon Dioxide 19 L Anion Gap 11 BUN 87.5 H Creatinine 4.1 H Est GFR (CKD-EPI)AfAm 11.35 Est GFR (CKD-EPI)NonAf 9.79 Random Glucose 122 H Calcium 8.3 L Phosphorus 4.6 Magnesium 1.9 Total Bilirubin 0.6 AST 149 H ALT 138 H Alkaline Phosphatase 106 Total Protein 6.6 Albumin 3.0 L Active Medications Generic Name Dose Route Start Last Admin Trade Name Freq PRN Reason Stop Dose Admin Albuterol/Ipratropium 1 amp 04/04/19 16:00 04/09/19 12:12 Duoneb - NEB Not Given RQID PARMINDER Atorvastatin Calcium 20 mg 04/04/19 22:00 04/08/19 22:08 Lipitor - PO 20 mg HS PARMINDER Administration Calcitriol 0.75 mcg 04/09/19 10:00 04/09/19 09:42 Rocaltrol - PO 0.75 mcg BID PARMINDER Administration Calcium Acetate 667 mg 04/05/19 22:04 04/09/19 08:02 Phoslo - PO 667 mg TIDCM PARMINDER Administration Calcium Carbonate/Cholecalciferol 2 tab 04/05/19 08:55 04/09/19 09:41 Os-Baltazar 500+D - PO 2 tab BID PARMINDER Administration Carvedilol 25 mg 04/09/19 10:00 04/09/19 09:42 Coreg - PO 25 mg BID PARMINDER Administration Ergocalciferol 50,000 unit 04/04/19 10:00 04/04/19 11:12 Drisdol - PO 50,000 unit Q7D@1000 [facility]ER Administration Famotidine 20 mg 04/04/19 22:00 04/08/19 22:10 Pepcid - PO 20 mg HS [facility]MINDER Administration Heparin Sodium (Porcine) 1,000 unit 04/04/19 19:19 Heparin - IVPUSH PRN PRN Heparin Heparin Sodium (Porcine) 5,000 unit 04/04/19 19:19 04/09/19 08:02 Heparin - IVPUSH 5,000 unit PRN PRN Administration Heparin Hydralazine HCl 25 mg 04/09/19 10:00 04/09/19 09:42 Apresoline - PO 25 mg BID PARMINDER Administration HEPARIN SOD,PORK IN 0.45% NACL 25,000 unit in 500 mls @ 16 mls/hr 04/04/19 19: 30 04/09/19 08:02 Heparin-1/2ns 25,000 Units/500 IVPB 800 units/hr TITR PARMINDER 16 mls/hr Titration Protocol 800 UNITS/HR Isosorbide Mononitrate 30 mg 04/09/19 10:00 04/09/19 09:44 Imdur - PO 30 mg DAILY [facility] Administration Nicotine 21 mg 04/04/19 10:00 04/09/19 09:45 Nicoderm Patch - TD Not Given DAILY [facility] Nicotine Polacrilex 4 mg 04/04/19 00:24 04/07/19 22:40 Nicorette Gum - BUC 4 mg Q2H PRN Administration NICOTINE REPLACEMENT RX Nitroglycerin 0.4 mg 04/04/19 02:38 Nitrostat - SL ASDIR PRN FOR CHEST PAIN Prednisone 40 mg 04/04/19 14:15 04/09/19 09:44 Deltasone - PO 40 mg DAILY [facility]ER Administration Ranolazine 500 mg 04/04/19 10:00 04/09/19 09:42 Ranexa - PO 500 mg BID PARMINDER Administration Sodium Bicarbonate 1,300 mg 04/07/19 19:00 04/09/19 09:42 Sodium Bicarbonate - PO 1,300 mg BID PARMINDER Administration CBC, BMP 04/09/19 05:55 04/09/19 05:55 ASSESSMENT/PLAN: 78 y.o. F PMH HTN, HLD, CKD stage 4, CAD s/p stent placements in 2014, coronary angio 08/2016 w/o further stent placements, NSTEMI 07/2016, diastolic CHF, COPD, Hep C, hx of GI bleed 2 pandiverticulosis presenting for dyspnea, sob , cough. #Acute NSTEMI * continue heparin gtt for now, aspirin and statin, * Cardiology consult noted and appreciated # Elevated D dimer for V/Q scan today to r.o PE * given elevated PASP SOB and tachycardia * DVT negative on dopplers of lower extremities * continue heparin gtt for now * maintain o2 sat > 90 #Acute exacerbation of COPD * continue prednisone 40 mg po daily . * bronchodilators #RADHA on CKD/hypocalcemia #hypomagnesemia/hyperphosphatemia, resolved * continue phoslo * hypocalcemia corrected 9.1 * nephrology consult noted and appreciated * renal us with chronic kidney disease and right lower lobe renal cyst stable compare to previous US * PTH noted 144 * calcitriol increased by nephrology * Increased bicarb to 1300 BID per nephrology yesterday * creatinine 4.1 today will need to discuss with nephrology about initiating HD vs diueresis #Acute on chronic diastolic and systolic heart failure * Echo noted which shows LVEF 30-35%, normal RV, moderately dilated LA, borderline RA enlargement, moderate to severe TR, moderate MR, PASP 46 mmHg * Cardiology consulted noted and appreciated: Eventual additional cardiovascular evaluation is recommended including R&LHC/coronary angiography pending renal function recovery- outpatient evaluation #CAD, history of PA, stents * continue Aspirin, Lipitor, and Ranexa * continue coreg 25 mg po bid * nitro glycerin 0.4 sub lingual as needed for chest pain #HTN * increased coreg by cardiology to 25 mg po bid . * started on hydralizine 25 mg po BID and Imdur 30 mg po daily * stable 150 systolic * monitor daily in tele #Hyperlipidemia * continue statin 20 mg po HS # transaminitis 2/2 CHF vs hepc * trend lab daily * work up as out pt #Sleep Screen was (+) so will have HST arranged prior to discharge #GERD * continue pepcid #Hepatitis C, #morbid Obesity with BMI 35.2 * educated about diet modificationa nd life style changes #Anemia of chronic disease 2/2 to CKD * no active bleeding , monitor H/H daily * Stable Hb at 8.2....9.0 * occult stool negative for blood * normal transfusion threshold above 8 in setting of CKD/NSTEMI #Nicotine dependence * nicorette gum * nicotine patch #FEN * no standing fluids * psuedo hypocalcemia, corrected 9.1 , monitor lytes and replenished as needed * sodium controlled diet #PPX * on heparin drip # Dispo: monitor in tele Visit type - Emergency Visit Emergency Visit: Yes ED Registration Date: 04/03/19 Care time: The patient presented to the Emergency Department on the above date and was hospitalized for further evaluation of their emergent condition. - New Patient This patient is new to me today: Yes Date on this admission: 04/09/19 - Critical Care Critical Care patient: No - Discharge Referral Referred to [facility] Med [facility] No ATTENDING PHYSICIAN STATEMENT I saw and evaluated the patient. I reviewed the resident's note and discussed the case with the resident. I agree with the resident's findings and plan as documented. SUBJECTIVE: OBJECTIVE: ASSESSMENT AND PLAN:
[2019-04-09] MEDS ORDERED: MAGNESIUM SULF 50% (8.12 MEQ/2 ML-1 GM VIAL) IVPB ONE (14:45)
[2019-04-09] MEDS ORDERED: FUROSEMIDE 40 MG TABLET (FP) PO ONE (15:25)
--- NOTE | 2019-04-09 15:25 | PN ---
Progress Note, Physician History of Present Illness: Pt seen and examined at bedside. She is awake and alert. She complains of lower ext edema. - Current Medication List Current Medications: Active Medications Albuterol/Ipratropium (Duoneb -) 1 amp NEB RQID [facility] Last Admin: 04/09/19 12:12 Dose: Not Given Atorvastatin Calcium (Lipitor -) 20 mg PO HS [facility] Last Admin: 04/08/19 22:08 Dose: 20 mg Calcitriol (Rocaltrol -) 0.75 mcg PO BID [facility] Last Admin: 04/09/19 09:42 Dose: 0.75 mcg Calcium Acetate (Phoslo -) 667 mg PO TIDCM [facility] Last Admin: 04/09/19 13:10 Dose: 667 mg Calcium Carbonate/Cholecalciferol (Os-Baltazar 500+D -) 2 tab PO BID [facility] Last Admin: 04/09/19 09:41 Dose: 2 tab Carvedilol (Coreg -) 25 mg PO BID [facility] Last Admin: 04/09/19 09:42 Dose: 25 mg Ergocalciferol (Drisdol -) 50,000 unit PO Q7D@1000 [facility] Last Admin: 04/04/19 11:12 Dose: 50,000 unit Famotidine (Pepcid -) 20 mg PO HS [facility] Last Admin: 04/08/19 22:10 Dose: 20 mg Heparin Sodium (Porcine) (Heparin -) 1,000 unit IVPUSH PRN PRN PRN Reason: Heparin Heparin Sodium (Porcine) (Heparin -) 5,000 unit IVPUSH PRN PRN PRN Reason: Heparin Last Admin: 04/09/19 08:02 Dose: 5,000 unit Hydralazine HCl (Apresoline -) 25 mg PO BID [facility] Last Admin: 04/09/19 09:42 Dose: 25 mg HEPARIN SOD,PORK IN 0.45% NACL (Heparin-1/2ns 25,000 Units/500) 25,000 unit in 500 mls @ 16 mls/hr IVPB TITR [facility]; Protocol Last Titration: 04/09/19 08:02 Dose: 800 units/hr, 16 mls/hr Isosorbide Mononitrate (Imdur -) 30 mg PO DAILY [facility] Last Admin: 04/09/19 09:44 Dose: 30 mg Nicotine (Nicoderm Patch -) 21 mg TD DAILY [facility] Last Admin: 04/09/19 09:45 Dose: Not Given Nicotine Polacrilex (Nicorette Gum -) 4 mg BUC Q2H PRN PRN Reason: NICOTINE REPLACEMENT RX Last Admin: 04/07/19 22:40 Dose: 4 mg Nitroglycerin (Nitrostat -) 0.4 mg SL ASDIR PRN PRN Reason: FOR CHEST PAIN Prednisone (Deltasone -) 40 mg PO DAILY [facility] Last Admin: 04/09/19 09:44 Dose: 40 mg Ranolazine (Ranexa -) 500 mg PO BID [facility] Last Admin: 04/09/19 09:42 Dose: 500 mg Sodium Bicarbonate (Sodium Bicarbonate -) 1,300 mg PO BID [facility] Last Admin: 04/09/19 09:42 Dose: 1,300 mg - Objective Vital Signs: Vital Signs Temperature 98.6 F 04/09/19 14:01 Pulse Rate 70 04/09/19 14:01 Respiratory Rate 20 04/09/19 14:01 Blood Pressure 132/74 04/09/19 14:01 O2 Sat by Pulse Oximetry (%) 96 04/09/19 09:00 Constitutional: Yes: Calm Eyes: Yes: Conjunctiva Clear HENT: Yes: Atraumatic Neck: Yes: Supple Cardiovascular: Yes: S1 Respiratory: Yes: CTA Bilaterally Gastrointestinal: Yes: Soft, Abdomen, Obese Genitourinary: Yes: WNL Musculoskeletal: Yes: WNL Edema: Yes Edema: LLE: 1+, RLE: 1+ Neurological: Yes: Oriented Psychiatric: Yes: Oriented Labs: CBC, BMP 04/09/19 05:55 04/09/19 05:55 INR, PTT INR 1.47 (0.83-1.09) H 04/04/19 05:00 Problem List - Problems (1) RADHA (acute kidney injury) Code(s): N17.9 - ACUTE KIDNEY FAILURE, UNSPECIFIED (2) Hepatitis C Code(s): B19.20 - UNSPECIFIED VIRAL HEPATITIS C WITHOUT HEPATIC COMA (3) Renal insufficiency Code(s): N28.9 - DISORDER OF KIDNEY AND URETER, UNSPECIFIED Assessment/Plan Current Medications Generic Name Dose Route Start Last Admin Trade Name Freq PRN Reason Stop Dose Admin Albuterol/Ipratropium 1 amp 04/04/19 16:00 04/09/19 12:12 Duoneb - NEB Not Given RQID PARMINDER Atorvastatin Calcium 20 mg 04/04/19 22:00 04/08/19 22:08 Lipitor - PO 20 mg HS [facility]ER Administration Calcitriol 0.75 mcg 04/09/19 10:00 04/09/19 09:42 Rocaltrol - PO 0.75 mcg BID [facility] Administration Calcium Acetate 667 mg 04/05/19 22:04 04/09/19 13:10 Phoslo - PO 667 mg TIDCM [facility]ER Administration Calcium Carbonate/Cholecalciferol 2 tab 04/05/19 08:55 04/09/19 09:41 Os-Baltazar 500+D - PO 2 tab BID [facility] Administration Carvedilol 25 mg 04/09/19 10:00 04/09/19 09:42 Coreg - PO 25 mg BID [facility]ER Administration Ergocalciferol 50,000 unit 04/04/19 10:00 04/04/19 11:12 Drisdol - PO 50,000 unit Q7D@1000 [facility]ER Administration Famotidine 20 mg 04/04/19 22:00 04/08/19 22:10 Pepcid - PO 20 mg HS [facility]ER Administration Heparin Sodium (Porcine) 1,000 unit 04/04/19 19:19 Heparin - IVPUSH PRN PRN Heparin Heparin Sodium (Porcine) 5,000 unit 04/04/19 19:19 04/09/19 08:02 Heparin - IVPUSH 5,000 unit PRN PRN Administration Heparin Hydralazine HCl 25 mg 04/09/19 10:00 04/09/19 09:42 Apresoline - PO 25 mg BID [facility]ER Administration HEPARIN SOD,PORK IN 0.45% NACL 25,000 unit in 500 mls @ 16 mls/hr 04/04/19 19: 30 04/09/19 08:02 Heparin-1/2ns 25,000 Units/500 IVPB 800 units/hr TITR PARMINDER 16 mls/hr Titration Protocol 800 UNITS/HR Isosorbide Mononitrate 30 mg 04/09/19 10:00 04/09/19 09:44 Imdur - PO 30 mg DAILY [facility] Administration Nicotine 21 mg 04/04/19 10:00 04/09/19 09:45 Nicoderm Patch - TD Not Given DAILY [facility] Nicotine Polacrilex 4 mg 04/04/19 00:24 04/07/19 22:40 Nicorette Gum - BUC 4 mg Q2H PRN Administration NICOTINE REPLACEMENT RX Nitroglycerin 0.4 mg 04/04/19 02:38 Nitrostat - SL ASDIR PRN FOR CHEST PAIN Prednisone 40 mg 04/04/19 14:15 04/09/19 09:44 Deltasone - PO 40 mg DAILY [facility] Administration Ranolazine 500 mg 04/04/19 10:00 04/09/19 09:42 Ranexa - PO 500 mg BID [facility]ER Administration Sodium Bicarbonate 1,300 mg 04/07/19 19:00 04/09/19 09:42 Sodium Bicarbonate - PO 1,300 mg BID PARMINDER Administration Impression 1. CKD 2. RADHA 3. hypocalcemia 4. chf 5. copd 6. active smoker 7. hld 8. cad Plan - audit mgr starting to improve - will give a dose of lasix - repeat labs in am - follow vq results - cont phoslo
--- NOTE | 2019-04-09 18:20 | PN ---
Teaching Attending Note Name of Resident: Maximino Faust ATTENDING PHYSICIAN STATEMENT I saw and evaluated the patient. I reviewed the resident's note and discussed the case with the resident. I agree with the resident's findings and plan as documented. SUBJECTIVE: Patient seen and examined bedside, V/Q scan negative for PE, Heparin gtt stopped, VS otherwise stable, denies new complaints. OBJECTIVE: GENERAL:AAOx3 in NAD, speaks in full sentences, comfortable HEAD:NC/AT EYES: PERRL, extraocular movements intact, ENT: moist mucous membranes NECK: Supple, no JVD LUNGS: faint bibasilar crackles, otherwise good air entry b/l no wheezing HEART: Regular rate and rhythm, S1, S2 without murmur, rub or gallop. ABDOMEN: Soft, nontender, nondistended, normoactive bowel sounds, EXTREMITIES: 2+ pulses, warm, well-perfused, no LE edema NEUROLOGICAL:no focal deficit Normal speech, gait not observed. PSYCH: Normal mood, normal affect. SKIN: Warm, dry, normal turgor. Vital Signs - 24 hr 04/08/19 04/09/19 04/09/19 20:24 01:22 05:56 Temperature 97.5 F L 97.0 F L Pulse Rate 82 77 73 Respiratory 20 20 20 Rate Blood Pressure 167/86 156/95 153/89 O2 Sat by Pulse 96 Oximetry (%) 04/09/19 04/09/19 04/09/19 09:00 09:39 14:01 Temperature 97.9 F 98.6 F Pulse Rate 73 70 Respiratory 18 18 20 Rate Blood Pressure 152/85 132/74 O2 Sat by Pulse 96 Oximetry (%) Laboratory Results - last 24 hr 04/09/19 04/09/19 04/09/19 05:55 05:55 05:55 WBC 11.0 H RBC 2.81 L Hgb 9.0 L Hct 27.3 L MCV 97.2 H MCH 32.1 MCHC 33.0 RDW 15.6 Plt Count 188 MPV 8.8 PTT (Actin FS) 30.2 Sodium 137 Potassium 4.6 Chloride 107 Carbon Dioxide 19 L Anion Gap 11 BUN 87.5 H Creatinine 4.1 H Est GFR (CKD-EPI)AfAm 11.35 Est GFR (CKD-EPI)NonAf 9.79 Random Glucose 122 H Calcium 8.3 L Phosphorus 4.6 Magnesium 1.9 Total Bilirubin 0.6 AST 149 H ALT 138 H Alkaline Phosphatase 106 Total Protein 6.6 Albumin 3.0 L 04/09/19 15:15 WBC RBC Hgb Hct MCV MCH MCHC RDW Plt Count MPV PTT (Actin FS) 69.5 H Sodium Potassium Chloride Carbon Dioxide Anion Gap BUN Creatinine Est GFR (CKD-EPI)AfAm Est GFR (CKD-EPI)NonAf Random Glucose Calcium Phosphorus Magnesium Total Bilirubin AST ALT Alkaline Phosphatase Total Protein Albumin Current Medications Generic Name Dose Route Start Last Admin Trade Name Freq PRN Reason Stop Dose Admin Albuterol/Ipratropium 1 amp 04/04/19 16:00 04/09/19 16:20 Duoneb - NEB 1 amp RQID [facility]ER Administration Atorvastatin Calcium 20 mg 04/04/19 22:00 04/08/19 22:08 Lipitor - PO 20 mg HS [facility]ER Administration Calcitriol 0.75 mcg 04/09/19 10:00 04/09/19 09:42 Rocaltrol - PO 0.75 mcg BID [facility] Administration Calcium Acetate 667 mg 04/05/19 22:04 04/09/19 16:58 Phoslo - PO 667 mg TIDCM [facility] Administration Calcium Carbonate/Cholecalciferol 2 tab 04/05/19 08:55 04/09/19 09:41 Os-Baltazar 500+D - PO 2 tab BID [facility] Administration Carvedilol 25 mg 04/09/19 10:00 04/09/19 09:42 Coreg - PO 25 mg BID [facility] Administration Ergocalciferol 50,000 unit 04/04/19 10:00 04/04/19 11:12 Drisdol - PO 50,000 unit Q7D@1000 [facility] Administration Famotidine 20 mg 04/04/19 22:00 04/08/19 22:10 Pepcid - PO 20 mg HS [facility] Administration Heparin Sodium (Porcine) 5,000 unit 04/09/19 22:00 Heparin - SQ BID [facility] Hydralazine HCl 25 mg 04/09/19 10:00 04/09/19 09:42 Apresoline - PO 25 mg BID [facility] Administration Isosorbide Mononitrate 30 mg 04/09/19 10:00 04/09/19 09:44 Imdur - PO 30 mg DAILY [facility] Administration Nicotine 21 mg 04/04/19 10:00 04/09/19 09:45 Nicoderm Patch - TD Not Given DAILY [facility] Nicotine Polacrilex 4 mg 04/04/19 00:24 04/07/19 22:40 Nicorette Gum - BUC 4 mg Q2H PRN Administration NICOTINE REPLACEMENT RX Nitroglycerin 0.4 mg 04/04/19 02:38 Nitrostat - SL ASDIR PRN FOR CHEST PAIN Prednisone 40 mg 04/04/19 14:15 04/09/19 09:44 Deltasone - PO 40 mg DAILY [facility] Administration Ranolazine 500 mg 04/04/19 10:00 04/09/19 09:42 Ranexa - PO 500 mg BID [facility]ER Administration Sodium Bicarbonate 1,300 mg 04/07/19 19:00 04/09/19 09:42 Sodium Bicarbonate - PO 1,300 mg BID PARM[facility]ER Administration ASSESSMENT AND PLAN: 78 y.o. AA female, h/o HTN, HLD, CKD 4, CAD s/p stents, HFpEF, COPD, HCV, diverticulosis who presented to the ED with SOB, leg edema, and productive cough. Acute NSTEMI OFF ACS protocol, Heparin gtt de-escalated in view of negative V/Q study and downtrending troponins continue aspirin continue statin Optimize HF meds Cardiology consult noted and appreciated Elevated D-dimer possible PE given elevated PASP SOB and tachycardia VQ negative, stop heparin gtt NC O2 PRN Acute exacerbation of COPD not in acute exacerbation de-escalate steroids to PO and taper off Duonebs PRN RADHA on CKD/hypocalcemia/hypomagnesemia/hyperphosphatemia continue phoslo hypocalcemia improving slightly nephrology consult noted and appreciated replete magnesium with 2gm mag sulfate and calcium with 1 gram calcium gluconate and recheck PTH noted 144 calcitriol increased by nephrology Increased bicarb to 1300 BID per nephrology yesterday creatinine 4.3 today which is essentially unchanged from 4.4 yesterday will need to discuss with nephrology about initiating HD vs diueresis Acute on chronic combined diastolic and systolic heart failure Echo noted which shows LVEF 30-35%, normal RV, moderately dilated LA, borderline RA enlargement, moderate to severe TR, moderate MR, PASP 46 mmHg Cardiology consulted noted and appreciated CAD, history of CT, stents continue Aspirin, Lipitor, and Ranexa continue coreg HTN optimize BP meds Hyperlipidemia continue statin GERD continue PPI/H2 ambrose Nicotine abuse with dependence Continue nicotine patch Hepatitis C outpatient surveillance LFTs stable morbid Obesity with BMI 35.2 Anemia of chronic disease secondary to CKD Stable Hb at 8.2 transfuse PRN to keep Hb >8 in setting of CKD/NSTEMI DVT ppx: Heparin SC Telemetry monitoring
[2019-04-09] MEDS ORDERED: diphenhydrAMINE HCL 25 MG CAPSULE (FP) PO ONE (22:05)
[2019-04-09] MEDS: HEPARIN NA (PORCINE) 5,000 UNITS/ML 1ML VIAL SQ SCH (22:20)
[2019-04-09] MEDS: ATORVASTATIN CA 20 MG TABLET (FP) PO SCH (22:20)
[2019-04-09] MEDS: FAMOTIDINE 20 MG TABLET PO SCH (22:20)
[2019-04-10 06:59] LABS: BASO % 0.1 % (0-2.0); HEMOGLOBIN 8.4 GM/dL (10.7-15.3); MCH 32.6 pg (25.7-33.7); MCHC 33.7 g/dl (32.0-36.0); MEAN CELL VOLUME 96.7 fl (80-96); MEAN PLT VOLUME 8.9 fl (7.5-11.1); MONO % 5.9 % (3.8-10.2); PLATELET COUNT 185 K/MM3 (134-434); RBC 2.58 M/mm3 (3.60-5.2); WHITE BLOOD COUNT 10.5 K/mm3 (4.0-10.0)
[2019-04-10] MEDS: ALBUTEROL SO4 2.5/IPRATROPIUM 0.5 INH SOL 3 ML VIAL.NEB. NEB SCH ×4 (07:10→21:05)
--- NOTE | 2019-04-10 07:31 | PN ---
Physical Exam: SUBJECTIVE: Patient seen and examined at bed side , no acute events over night , breathing is better , denies any chest pain , or sob , saturating 95% on RA OBJECTIVE: Vital Signs Period Temp Pulse Resp BP Sys/Barlow Pulse Ox Last 24 Hr 97.0 F-98.6 F 68-74 18-20 132-158/74-92 96-99 GENERAL:AAOx3 in NAD , HEAD:NC/AT EYES: PERRL, extraocular movements intact, ENT: moist mucous membranes. NECK: supple. LUNGS: Bibasilar crackles HEART: Regular rate and rhythm, S1, S2 without murmur, rub or gallop. ABDOMEN: Soft, nontender, nondistended, normoactive bowel sounds, EXTREMITIES: 2+ pulses, warm, well-perfused, +2 edema. NEUROLOGICAL:no focal deficit Normal speech, gait not observed. PSYCH: Normal mood, normal affect. SKIN: Warm, dry, normal turgor, Laboratory Results - last 24 hr 04/09/19 04/10/19 04/10/19 15:15 06:15 06:15 WBC 10.5 H RBC 2.58 L Hgb 8.4 L Hct 25.0 L MCV 96.7 H MCH 32.6 MCHC 33.7 RDW 16.0 H Plt Count 185 MPV 8.9 Absolute Neuts (auto) 8.9 H Neutrophils % 85.0 H Lymphocytes % 9.0 Monocytes % 5.9 Eosinophils % 0.0 Basophils % 0.1 Nucleated RBC % 0 PTT (Actin FS) 69.5 H 33.5 Active Medications Generic Name Dose Route Start Last Admin Trade Name Rafael PRN Reason Stop Dose Admin Albuterol/Ipratropium 1 amp 04/04/19 16:00 04/09/19 20:30 Duoneb - NEB Not Given RQID PARMINDER Atorvastatin Calcium 20 mg 04/04/19 22:00 04/09/19 22:20 Lipitor - PO 20 mg HS PARMINDER Administration Calcitriol 0.75 mcg 04/09/19 10:00 04/09/19 22:19 Rocaltrol - PO 0.75 mcg BID PARMINDER Administration Calcium Acetate 667 mg 04/05/19 22:04 04/09/19 16:58 Phoslo - PO 667 mg TIDCM PARMINDER Administration Calcium Carbonate/Cholecalciferol 2 tab 04/05/19 08:55 02/17/20 22:19 Os-Baltazar 500+D - PO 2 tab BID PARMINDER Administration Carvedilol 25 mg 04/09/19 10:00 04/09/19 22:20 Coreg - PO 25 mg BID PARMINDER Administration Ergocalciferol 50,000 unit 04/04/19 10:00 04/04/19 11:12 Drisdol - PO 50,000 unit Q7D@1000 PARMINDER Administration Famotidine 20 mg 04/04/19 22:00 04/09/19 22:20 Pepcid - PO 20 mg HS PARMINDER Administration Heparin Sodium (Porcine) 5,000 unit 04/09/19 22:00 04/09/19 22:20 Heparin - SQ 5,000 unit BID PARMINDER Administration Hydralazine HCl 25 mg 04/09/19 10:00 04/09/19 22:20 Apresoline - PO 25 mg BID PARMINDER Administration Isosorbide Mononitrate 30 mg 04/09/19 10:00 04/09/19 09:44 Imdur - PO 30 mg DAILY PARMINDER Administration Nicotine 21 mg 04/04/19 10:00 04/09/19 09:45 Nicoderm Patch - TD Not Given DAILY PARMINDER Nicotine Polacrilex 4 mg 04/04/19 00:24 04/07/19 22:40 Nicorette Gum - BUC 4 mg Q2H PRN Administration NICOTINE REPLACEMENT RX Nitroglycerin 0.4 mg 04/04/19 02:38 Nitrostat - SL ASDIR PRN FOR CHEST PAIN Prednisone 40 mg 04/04/19 14:15 04/09/19 09:44 Deltasone - PO 40 mg DAILY PARMINDER Administration Ranolazine 500 mg 04/04/19 10:00 04/09/19 22:20 Ranexa - PO 500 mg BID PARMINDER Administration Sodium Bicarbonate 1,300 mg 04/07/19 19:00 04/09/19 22:20 Sodium Bicarbonate - PO 1,300 mg BID PARMINDER Administration CBC, BMP 04/10/19 06:15 04/10/19 06:15 ASSESSMENT/PLAN: 78 y.o. F PMH HTN, HLD, CKD stage 4, CAD s/p stent placements in 2014, coronary angio 08/2016 w/o further stent placements, NSTEMI 07/2016, diastolic CHF, COPD, Hep C, hx of GI bleed 2/2 pandiverticulosis presenting for dyspnea, sob , cough. #Acute NSTEMI * dc heparin gtt for now, cont aspirin and statin, * Cardiology consult noted and appreciated # Elevated D dimer for V/Q scan today to r.o PE * given elevated PASP SOB and tachycardia * DVT negative on dopplers of lower extremities * dc heparin gtt for now * maintain o2 sat > 90 #Acute exacerbation of COPD * continue prednisone 40 mg po daily . * bronchodilators #RADHA on CKD/hypocalcemia #hypomagnesemia/hyperphosphatemia, resolved * continue phoslo * hypocalcemia corrected 9.1 * nephrology consult noted and appreciated * renal us with chronic kidney disease and right lower lobe renal cyst stable compare to previous US * PTH noted 144 * calcitriol increased by nephrology * Increased bicarb to 1300 BID per nephrology yesterday * creatinine 4.1....3.9 today will need to discuss with nephrology about initiating HD vs diueresis #Acute on chronic diastolic and systolic heart failure * Echo noted which shows LVEF 30-35%, normal RV, moderately dilated LA, borderline RA enlargement, moderate to severe TR, moderate MR, PASP 46 mmHg * Cardiology consulted noted and appreciated: Eventual additional cardiovascular evaluation is recommended including R&LHC/coronary angiography pending renal function recovery- outpatient evaluation #CAD, history of MN, stents * continue Aspirin, Lipitor, and Ranexa * continue coreg 25 mg po bid * nitro glycerin 0.4 sub lingual as needed for chest pain #HTN * increased coreg by cardiology to 25 mg po bid . * started on hydralizine 25 mg po BID and Imdur 30 mg po daily * stable 150 systolic * monitor daily in tele #Hyperlipidemia * continue statin 20 mg po HS # transaminitis 2/2 CHF vs hepc * trend lab daily * work up as out pt #Sleep Screen was (+) so will have HST arranged prior to discharge #GERD * continue pepcid #Hepatitis C, #morbid Obesity with BMI 35.2 * educated about diet modificationa nd life style changes #Anemia of chronic disease 2/2 to CKD * no active bleeding , monitor H/H daily * Stable Hb at 8.2....9.0 * occult stool negative for blood * normal transfusion threshold above 8 in setting of CKD/NSTEMI #Nicotine dependence * nicorette gum * nicotine patch #FEN * no standing fluids * psuedo hypocalcemia, corrected 9.1 , monitor lytes and replenished as needed * sodium controlled diet #PPX * on heparin drip # Dispo: monitor in tele Visit type - Emergency Visit Emergency Visit: Yes ED Registration Date: 04/03/19 Care time: The patient presented to the Emergency Department on the above date and was hospitalized for further evaluation of their emergent condition. - New Patient This patient is new to me today: No - Critical Care Critical Care patient: No - Discharge Referral Referred to [facility] No ATTENDING PHYSICIAN STATEMENT I saw and evaluated the patient. I reviewed the resident's note and discussed the case with the resident. I agree with the resident's findings and plan as documented. SUBJECTIVE: OBJECTIVE: ASSESSMENT AND PLAN:
[2019-04-10 07:46] LABS: BILIRUBIN,TOTAL 0.6 mg/dL (0.2-1); BLOOD UREA NITROGEN 91.2 mg/dL (7-18); CALCIUM 9.2 mg/dL (8.5-10.1); CREATININE 3.9 mg/dL (0.55-1.3); MAGNESIUM 2.4 mg/dL (1.8-2.4); PHOSPHOROUS 4.5 mg/dL (2.5-4.9); POTASSIUM 4.7 mmol/L (3.5-5.1); TOT PROT 6.7 g/dl (6.4-8.2)
[2019-04-10] MEDS ORDERED: PT OWN MED DRAWER 7, Y5N ONE (08:11)
[2019-04-10] MEDS: CALCIUM ACETATE 667 MG CAPSULE (FP) PO SCH ×3 (08:28→18:18)
--- NOTE | 2019-04-10 08:29 | PN ---
Teaching Attending Note Name of Resident: Maximino Faust ATTENDING PHYSICIAN STATEMENT I saw and evaluated the patient. I reviewed the resident's note and discussed the case with the resident. I agree with the resident's findings and plan as documented. SUBJECTIVE: Patient feels improved since yesterday after receiving a 6 OBJECTIVE: Vital Signs Temperature 97.4 F L 04/10/19 06:45 Pulse Rate 69 04/10/19 06:45 Respiratory Rate 20 04/10/19 06:45 Blood Pressure 151/90 04/10/19 06:45 O2 Sat by Pulse Oximetry (%) 99 04/09/19 21:00 General: Elderly F, comfortable, not in distress HEENT; mucous membranes moist, no anemia, no jaundice, PERRLA, no nystagmus Neck: No JVD, supple, no bruit, thyroid palpably normal, normal carotid pulsations. Chest: Nontender, bilateral basal rales. CVS: S1-S2 regular/ no murmur/gallop/rub Abdomen: Nondistended, soft, bowel sounds present. Extremities: + edema., No calf tenderness, pulses present CHECKING DEPARTMENT SUPERVISOR: AO X3 , no gross motor sensory deficit Labs: CBC, BMP 04/10/19 06:15 04/10/19 06:15 Active Medications Albuterol/Ipratropium (Duoneb -) 1 amp NEB RQID [facility] Last Admin: 04/09/19 20:30 Dose: Not Given Atorvastatin Calcium (Lipitor -) 20 mg PO [facility] Last Admin: 04/09/19 22:20 Dose: 20 mg Calcitriol (Rocaltrol -) 0.5 mcg PO DAILY [facility] Calcium Acetate (Phoslo -) 667 mg PO TIDCM [facility] Last Admin: 04/09/19 16:58 Dose: 667 mg Calcium Carbonate/Cholecalciferol (Os-Baltazar 500+D -) 2 tab PO BID [facility] Last Admin: 04/09/19 22:19 Dose: 2 tab Carvedilol (Coreg -) 25 mg PO BID [facility] Last Admin: 04/09/19 22:20 Dose: 25 mg Ergocalciferol (Drisdol -) 50,000 unit PO Q7D@1000 [facility] Last Admin: 04/04/19 11:12 Dose: 50,000 unit Famotidine (Pepcid -) 20 mg PO [facility] Last Admin: 04/09/19 22:20 Dose: 20 mg Heparin Sodium (Porcine) (Heparin -) 5,000 unit SQ BID [facility] Last Admin: 04/09/19 22:20 Dose: 5,000 unit Hydralazine HCl (Apresoline -) 25 mg PO BID [facility] Last Admin: 04/09/19 22:20 Dose: 25 mg Isosorbide Mononitrate (Imdur -) 30 mg PO DAILY [facility] Last Admin: 04/09/19 09:44 Dose: 30 mg Nicotine (Nicoderm Patch -) 21 mg TD DAILY [facility] Last Admin: 04/09/19 09:45 Dose: Not Given Nicotine Polacrilex (Nicorette Gum -) 4 mg BUC Q2H PRN PRN Reason: NICOTINE REPLACEMENT RX Last Admin: 04/07/19 22:40 Dose: 4 mg Nitroglycerin (Nitrostat -) 0.4 mg SL ASDIR PRN PRN Reason: FOR CHEST PAIN Prednisone (Deltasone -) 40 mg PO DAILY [facility] Last Admin: 04/09/19 09:44 Dose: 40 mg Ranolazine (Ranexa -) 500 mg PO BID [facility] Last Admin: 04/09/19 22:20 Dose: 500 mg Sodium Bicarbonate (Sodium Bicarbonate -) 1,300 mg PO BID [facility] Last Admin: 04/09/19 22:20 Dose: 1,300 mg ASSESSMENT AND PLAN:78-year-old woman with history of COPD, diabetes mellitus, hypertension, CAD status post stents, hepatitis C, CKD stage 4 not on hemodialysis [place] [facility] [place] with with worsening shortness of breath for the past 3 days. Patient reported hip replacement 2-1/ 2 months ago. Initially elevated D-dimers, considering high suspicion of pulmonary embolism patient was put on empiric anticoagulation with heparin GTT, could not get CTA due to advanced kidney failure, underwent VQ scan on April 09, 2019 that shows no pulmonary embolism so anticoagulation is stopped. Impression: Decompensated systolic heart failure Problem List - Problems (1) Acute on chronic systolic CHF (congestive heart failure) Assessment/Plan: Patient admitted with decompensated systolic heart failure EF 35%, on optimal dose of beta-ambrose, considering CKD stage V not on hemodialysis will defer AF/ RVR continue hydralazine and Imdur optimize as tolerated, continue IV Lasix as per nephrology recommendations. Problems reviewed: Yes Code(s): I50.23 - ACUTE ON CHRONIC SYSTOLIC (CONGESTIVE) HEART FAILURE (2) COPD (chronic obstructive pulmonary disease) Assessment/Plan: Stable continue current management Problems reviewed: Yes Code(s): J44.9 - CHRONIC OBSTRUCTIVE PULMONARY DISEASE, UNSPECIFIED (3) NSTEMI (non-ST elevated myocardial infarction) Assessment/Plan: Due to demand ischemia secondary to decompensated congestive heart failure, evaluated by cardiology Problems reviewed: Yes Code(s): I21.4 - NON-ST ELEVATION (NSTEMI) MYOCARDIAL INFARCTION (4) HTN (hypertension) Assessment/Plan: Well-controlled continue current medication Problems reviewed: Yes Code(s): I10 - ESSENTIAL (PRIMARY) HYPERTENSION (5) Chronic anemia Assessment/Plan: Due to CKD H&H stable Problems reviewed: Yes Code(s): D64.9 - ANEMIA, UNSPECIFIED (6) Acute kidney injury superimposed on CKD Assessment/Plan: At baseline patient has CKD stage IV now present with CKD stage V can be natural progression of the disease or cardio renal syndrome we will follow-up renal recommendations. Problems reviewed: Yes Code(s): N17.9 - ACUTE KIDNEY FAILURE, UNSPECIFIED; N18.9 - CHRONIC KIDNEY DISEASE, UNSPECIFIED (7) Depression Assessment/Plan: Continue home medications Problems reviewed: Yes Code(s): F32.9 - MAJOR DEPRESSIVE DISORDER, SINGLE EPISODE, UNSPECIFIED (8) CAD (coronary artery disease) Assessment/Plan: History of CAD at present on beta-blockers, statin aspirin and Plavix follow-up cardiology recommendations. Problems reviewed: Yes Code(s): I25.10 - ATHSCL HEART DISEASE OF [place] CORONARY ARTERY W/O ANG PCTRS (9) Hepatitis C Assessment/Plan: Chronic Problems reviewed: Yes Code(s): B19.20 - UNSPECIFIED VIRAL HEPATITIS C WITHOUT HEPATIC COMA
--- NOTE | 2019-04-10 09:17 | EKG ---
Test Reason : Blood Pressure : / mmHG Vent. Rate : 068 BPM Atrial Rate : 068 BPM P-R Int : 160 ms QRS Dur : 096 ms QT Int : 430 ms P-R-T Axes : 064 015 031 degrees QTc Int : 457 ms NORMAL SINUS RHYTHM NONSPECIFIC T WAVE ABNORMALITY ABNORMAL ECG WHEN COMPARED WITH ECG OF 07-APR-2019 10:21, NO SIGNIFICANT CHANGE WAS FOUND Confirmed by Santiago Ramsey MD ([id number]) on 04/10/2019 9:16:41 AM Referred By: HILARIO LEONARD Confirmed By:Santiago Ramsey MD
[2019-04-10] MEDS: NICOTINE 21 MG/24 HOURS TOPICAL PATCH TD SCH (09:43)
[2019-04-10] MEDS: SODIUM BICARBONATE 650 MG TABLET PO SCH (09:43)
[2019-04-10] MEDS: CALCIUM 500MG/VIT-D 200 UNITS COMBO TABLET (FP) PO SCH (09:44)
[2019-04-10] MEDS: predniSONE 20 MG TABLET (UD) PO SCH (09:44)
[2019-04-10] MEDS: hydrALAZINE HCL 25 MG TABLET (FP) PO SCH (09:44)
[2019-04-10] MEDS: CARVEDILOL 25 MG TABLET (FP) PO SCH (09:44)
[2019-04-10] MEDS: ISOSORBIDE MONONITRATE 30 MG TAB.SR.24H (FP) PO SCH (09:44)
[2019-04-10] MEDS: RANOLAZINE E.R. 500 MG TABLET (FP) PO SCH (09:45)
[2019-04-10] MEDS: CALCITRIOL 0.25 MCG CAPSULE (FP) PO SCH (09:45)
--- NOTE | 2019-04-10 09:46 | PN ---
Progress Note, Physician Chief Complaint: Pt A&OX3; mild SOB; no chest pain. History of Present Illness: 78 year old black woman with a significant PMH of HTN, hyperlipidemia, diabetes , COPD, CAD (s/p coronary stents; on Plavix & Aspirin), depression, and hepatitis C, who presents to the emergency department [facility] from [facility] secondary to positive D-dimer. The patient states she fell and broke her hip 1 month ago and has been endorsing worsening edema and SOB. The patient denies chest pain, and dizziness. Denies fever, chills, cough, nausea, vomiting, and constipation. Denies dysuria, frequency, urgency and hematuria. Allergies: NKA Past surgical history: Cardiac stents. Social history: Current some day smoker. No reported alcohol or drug use. PCP: Dr. Thomas Aguayo [ ] in [employer]. - Current Medication List Current Medications: Active Medications Albuterol/Ipratropium (Duoneb -) 1 amp NEB RQID [facility] Last Admin: 04/09/19 20:30 Dose: Not Given Atorvastatin Calcium (Lipitor -) 20 mg PO [facility] Last Admin: 04/09/19 22:20 Dose: 20 mg Calcitriol (Rocaltrol -) 0.5 mcg PO DAILY [facility] Calcium Acetate (Phoslo -) 667 mg PO TIDCM [facility] Last Admin: 04/10/19 08:28 Dose: 667 mg Calcium Carbonate/Cholecalciferol (Os-Baltazar 500+D -) 2 tab PO BID [facility] Last Admin: 04/09/19 22:19 Dose: 2 tab Carvedilol (Coreg -) 25 mg PO BID [facility] Last Admin: 04/09/19 22:20 Dose: 25 mg Ergocalciferol (Drisdol -) 50,000 unit PO Q7D@1000 [facility] Last Admin: 04/04/19 11:12 Dose: 50,000 unit Famotidine (Pepcid -) 20 mg PO [facility] Last Admin: 04/09/19 22:20 Dose: 20 mg Heparin Sodium (Porcine) (Heparin -) 5,000 unit SQ BID [facility] Last Admin: 04/09/19 22:20 Dose: 5,000 unit Hydralazine HCl (Apresoline -) 25 mg PO BID [facility] Last Admin: 04/09/19 22:20 Dose: 25 mg Isosorbide Mononitrate (Imdur -) 30 mg PO DAILY [facility] Last Admin: 04/09/19 09:44 Dose: 30 mg Lisinopril (Prinivil) 2.5 mg PO DAILY [facility] Nicotine (Nicoderm Patch -) 21 mg TD DAILY [facility] Last Admin: 04/09/19 09:45 Dose: Not Given Nicotine Polacrilex (Nicorette Gum -) 4 mg BUC Q2H PRN PRN Reason: NICOTINE REPLACEMENT RX Last Admin: 04/07/19 22:40 Dose: 4 mg Nitroglycerin (Nitrostat -) 0.4 mg SL ASDIR PRN PRN Reason: FOR CHEST PAIN Prednisone (Deltasone -) 40 mg PO DAILY [facility] Last Admin: 04/09/19 09:44 Dose: 40 mg Ranolazine (Ranexa -) 500 mg PO BID [facility] Last Admin: 04/09/19 22:20 Dose: 500 mg Sodium Bicarbonate (Sodium Bicarbonate -) 1,300 mg PO BID [facility] Last Admin: 04/09/19 22:20 Dose: 1,300 mg - Objective Vital Signs: Vital Signs Temperature 97.4 F L 04/10/19 06:45 Pulse Rate 69 04/10/19 06:45 Respiratory Rate 20 04/10/19 06:45 Blood Pressure 151/90 04/10/19 06:45 O2 Sat by Pulse Oximetry (%) 99 04/09/19 21:00 Constitutional: Yes: Anxious Eyes: Yes: WNL HENT: Yes: WNL Neck: Yes: WNL Cardiovascular: Yes: S1, S2 Respiratory: Yes: WNL Gastrointestinal: Yes: Soft ...Rectal Exam: Yes: Deferred Genitourinary: No: Anuria Breast(s): Yes: WNL Musculoskeletal: Yes: Joint Stiffness, Muscle Weakness Extremities: Yes: WNL Edema: No Peripheral Pulses WNL: Yes Integumentary: Yes: WNL Neurological: Yes: Alert, Oriented Psychiatric: Yes: Alert, Oriented, Other Labs: CBC, BMP 04/10/19 06:15 04/10/19 06:15 INR, PTT INR 1.47 (0.83-1.09) H 04/04/19 05:00 - ....Imaging EKG: Image Reviewed (NSR) Other: Image Reviewed (va scan: no PE) Problem List - Problems (1) HTN (hypertension) Assessment/Plan: Start lisinopril 2.5 mg daily On furosemide 40 mg IVP. Continue carvedilol, hydrlalazine, and Imdr. Discussed with agronomy research manager. Code(s): I10 - ESSENTIAL (PRIMARY) HYPERTENSION (2) Hepatitis C Code(s): B19.20 - UNSPECIFIED VIRAL HEPATITIS C WITHOUT HEPATIC COMA (3) Profound anemia Assessment/Plan: f/u with GIk hand carver. Code(s): D64.9 - ANEMIA, UNSPECIFIED Qualifiers: Anemia type: other cause (4) Smoker Assessment/Plan: on Nicotine patch and gum. Code(s): F17.200 - NICOTINE DEPENDENCE, UNSPECIFIED, UNCOMPLICATED (5) Acute on chronic systolic CHF (congestive heart failure) Assessment/Plan: On carvedilol. Add hydralazine + Imdur if BP allow. Problematic starting ACEI or sprionolactone due to renal disease. F/u Is and Os, daily weight, BUN/Cr, electrolytes. Code(s): I50.23 - ACUTE ON CHRONIC SYSTOLIC (CONGESTIVE) HEART FAILURE (6) NSTEMI (non-ST elevated myocardial infarction) Assessment/Plan: On ASA, IV heparin, Ranexa, atorvastatin. Hx CAD with coronary stents; f/u prior workup. Plan for further coronary artery evaluation when stable. H Code(s): I21.4 - NON-ST ELEVATION (NSTEMI) MYOCARDIAL INFARCTION (7) Renal failure Assessment/Plan: f/u with agronomy research manager. Code(s): N19 - UNSPECIFIED KIDNEY FAILURE (8) Depression Assessment/Plan: psychiatric consultation would be of benefit. Code(s): F32.9 - MAJOR DEPRESSIVE DISORDER, SINGLE EPISODE, UNSPECIFIED (9) COPD (chronic obstructive pulmonary disease) Assessment/Plan: The importance of stopping smoking was emphasized; now on nicotine patch/gum. F/u with horticultural farmworker. Code(s): J44.9 - CHRONIC OBSTRUCTIVE PULMONARY DISEASE, UNSPECIFIED
[2019-04-10] MEDS: HEPARIN NA (PORCINE) 5,000 UNITS/ML 1ML VIAL SQ SCH (09:49)
[2019-04-10] MEDS ORDERED: LISINOPRIL 5 MG TABLET (FP) PO SCH ×2 (10:00)
--- NOTE | 2019-04-10 11:05 | PN ---
Progress Note, Physician History of Present Illness: pulmonary alert,oob-chair,comfortable,-resp distress. - Current Medication List Current Medications: Active Medications Albuterol/Ipratropium (Duoneb -) 1 amp NEB RQID [facility] Last Admin: 04/09/19 20:30 Dose: Not Given Atorvastatin Calcium (Lipitor -) 20 mg PO HS [facility] Last Admin: 04/09/19 22:20 Dose: 20 mg Calcitriol (Rocaltrol -) 0.5 mcg PO DAILY [facility] Last Admin: 04/10/19 09:45 Dose: 0.5 mcg Calcium Acetate (Phoslo -) 667 mg PO TIDCM [facility] Last Admin: 04/10/19 08:28 Dose: 667 mg Calcium Carbonate/Cholecalciferol (Os-Baltazar 500+D -) 2 tab PO BID [facility] Last Admin: 04/10/19 09:44 Dose: 2 tab Carvedilol (Coreg -) 25 mg PO BID [facility] Last Admin: 04/10/19 09:44 Dose: 25 mg Ergocalciferol (Drisdol -) 50,000 unit PO Q7D@1000 [facility] Last Admin: 04/04/19 11:12 Dose: 50,000 unit Famotidine (Pepcid -) 20 mg PO HS [facility] Last Admin: 04/09/19 22:20 Dose: 20 mg Heparin Sodium (Porcine) (Heparin -) 5,000 unit SQ BID [facility] Last Admin: 04/10/19 09:49 Dose: 5,000 unit Hydralazine HCl (Apresoline -) 25 mg PO BID [facility] Last Admin: 04/10/19 09:44 Dose: 25 mg Isosorbide Mononitrate (Imdur -) 30 mg PO DAILY [facility] Last Admin: 04/10/19 09:44 Dose: 30 mg Lisinopril (Prinivil) 2.5 mg PO DAILY [facility] Last Admin: 04/10/19 09:48 Dose: 2.5 mg Nicotine (Nicoderm Patch -) 21 mg TD DAILY [facility] Last Admin: 04/10/19 09:43 Dose: 21 mg Nicotine Polacrilex (Nicorette Gum -) 4 mg BUC Q2H PRN PRN Reason: NICOTINE REPLACEMENT RX Last Admin: 04/07/19 22:40 Dose: 4 mg Nitroglycerin (Nitrostat -) 0.4 mg SL ASDIR PRN PRN Reason: FOR CHEST PAIN Prednisone (Deltasone -) 40 mg PO DAILY [facility] Last Admin: 04/10/19 09:44 Dose: 40 mg Ranolazine (Ranexa -) 500 mg PO BID [facility] Last Admin: 04/10/19 09:45 Dose: 500 mg Sodium Bicarbonate (Sodium Bicarbonate -) 1,300 mg PO BID [facility] Last Admin: 04/10/19 09:43 Dose: 1,300 mg - Objective Vital Signs: Vital Signs Temperature 98.0 F 04/10/19 10:00 Pulse Rate 71 04/10/19 10:00 Respiratory Rate 04/10/19 10:00 Blood Pressure 147/89 04/10/19 10:00 O2 Sat by Pulse Oximetry (%) 99 04/10/19 09:00 Constitutional: Yes: Well Nourished, Calm Eyes: Yes: WNL HENT: Yes: WNL Neck: Yes: WNL Cardiovascular: Yes: Regular Rate and Rhythm, S1, S2 Respiratory: Yes: Diminished Gastrointestinal: Yes: Normal Bowel Sounds, Soft Extremities: Yes: WNL Edema: Yes Labs: CBC, BMP 04/10/19 06:15 04/10/19 06:15 INR, PTT INR 1.47 (0.83-1.09) H 04/04/19 05:00 Assessment/Plan Problem List - Problems (1) Acute exacerbation of chronic obstructive pulmonary disease (COPD) Code(s): J44.1 - CHRONIC OBSTRUCTIVE PULMONARY DISEASE W (ACUTE) EXACERBATION (2) RADHA (acute kidney injury) Code(s): N17.9 - ACUTE KIDNEY FAILURE, UNSPECIFIED (3) NSTEMI (non-ST elevated myocardial infarction) Code(s): I21.4 - NON-ST ELEVATION (NSTEMI) MYOCARDIAL INFARCTION (4) Shortness of breath Code(s): R06.02 - SHORTNESS OF BREATH (5) COPD (chronic obstructive pulmonary disease) Code(s): J44.9 - CHRONIC OBSTRUCTIVE PULMONARY DISEASE, UNSPECIFIED (6) Coronary artery disease Code(s): I25.10 - ATHSCL HEART DISEASE OF [place] CORONARY ARTERY W/O ANG PCTRS (7) Diverticula of intestine Code(s): K57.30 - DVRTCLOS OF LG INT W/O PERFORATION OR ABSCESS W/O BLEEDING (8) GI bleed Code(s): K92.2 - GASTROINTESTINAL HEMORRHAGE, UNSPECIFIED (9) HTN (hypertension) Code(s): I10 - ESSENTIAL (PRIMARY) HYPERTENSION (10) Hepatitis C Code(s): B19.20 - UNSPECIFIED VIRAL HEPATITIS C WITHOUT HEPATIC COMA (11) Renal insufficiency Code(s): N28.9 - DISORDER OF KIDNEY AND URETER, UNSPECIFIED (12) Smoker Code(s): F17.200 - NICOTINE DEPENDENCE, UNSPECIFIED, UNCOMPLICATED Assessment/Plan Prednisone BD TX standing and PRN Supplemental O2 as needed No smoking was counseled Outpatient PFTs once stable Sleep Screen was (+) so will have HST arranged prior to discharge VTE prophylaxis Outpatient LDCT Chest V/Q scan secondary to elevated D-Dimer monitor lytes,renal function DR ALAN
--- NOTE | 2019-04-10 15:34 | PN ---
Progress Note, Physician History of Present Illness: Pt seen and examined at bedside. She is awake and alert. She complains of shortness of breath today. - Current Medication List Current Medications: Active Medications Albuterol/Ipratropium (Duoneb -) 1 amp NEB RQID [facility] Last Admin: 04/10/19 12:12 Dose: Not Given Atorvastatin Calcium (Lipitor -) 20 mg PO HS [facility] Last Admin: 04/09/19 22:20 Dose: 20 mg Calcitriol (Rocaltrol -) 0.5 mcg PO DAILY [facility] Last Admin: 04/10/19 09:45 Dose: 0.5 mcg Calcium Acetate (Phoslo -) 667 mg PO TIDCM [facility] Last Admin: 04/10/19 12:38 Dose: 667 mg Calcium Carbonate/Cholecalciferol (Os-Baltazar 500+D -) 2 tab PO BID [facility] Last Admin: 04/10/19 09:44 Dose: 2 tab Carvedilol (Coreg -) 25 mg PO BID [facility] Last Admin: 04/10/19 09:44 Dose: 25 mg Ergocalciferol (Drisdol -) 50,000 unit PO Q7D@1000 [facility] Last Admin: 04/04/19 11:12 Dose: 50,000 unit Famotidine (Pepcid -) 20 mg PO HS [facility] Last Admin: 04/09/19 22:20 Dose: 20 mg Heparin Sodium (Porcine) (Heparin -) 5,000 unit SQ BID [facility] Last Admin: 04/10/19 09:49 Dose: 5,000 unit Hydralazine HCl (Apresoline -) 25 mg PO BID [facility] Last Admin: 04/10/19 09:44 Dose: 25 mg Isosorbide Mononitrate (Imdur -) 30 mg PO DAILY [facility] Last Admin: 04/10/19 09:44 Dose: 30 mg Nicotine (Nicoderm Patch -) 21 mg TD DAILY [facility] Last Admin: 04/10/19 09:43 Dose: 21 mg Nicotine Polacrilex (Nicorette Gum -) 4 mg BUC Q2H PRN PRN Reason: NICOTINE REPLACEMENT RX Last Admin: 04/07/19 22:40 Dose: 4 mg Nitroglycerin (Nitrostat -) 0.4 mg SL ASDIR PRN PRN Reason: FOR CHEST PAIN Prednisone (Deltasone -) 40 mg PO DAILY [facility] Last Admin: 04/10/19 09:44 Dose: 40 mg Ranolazine (Ranexa -) 500 mg PO BID [facility] Last Admin: 04/10/19 09:45 Dose: 500 mg Sodium Bicarbonate (Sodium Bicarbonate -) 1,300 mg PO BID [facility] Last Admin: 04/10/19 09:43 Dose: 1,300 mg - Objective Vital Signs: Vital Signs Temperature 98.0 F 04/10/19 12:55 Pulse Rate 79 04/10/19 12:55 Respiratory Rate 18 04/10/19 12:55 Blood Pressure 140/82 04/10/19 12:55 O2 Sat by Pulse Oximetry (%) 99 04/10/19 09:00 Constitutional: Yes: Calm Eyes: Yes: Conjunctiva Clear HENT: Yes: Atraumatic Neck: Yes: Supple Cardiovascular: Yes: S1, S2 Respiratory: Yes: CTA Bilaterally Gastrointestinal: Yes: Soft Genitourinary: Yes: WNL Musculoskeletal: Yes: WNL Edema: Yes Edema: LLE: 1+, RLE: 1+ Neurological: Yes: Oriented Labs: CBC, BMP 04/10/19 06:15 04/10/19 06:15 INR, PTT INR 1.47 (0.83-1.09) H 04/04/19 05:00 Problem List - Problems (1) RADHA (acute kidney injury) Code(s): N17.9 - ACUTE KIDNEY FAILURE, UNSPECIFIED (2) Hepatitis C Code(s): B19.20 - UNSPECIFIED VIRAL HEPATITIS C WITHOUT HEPATIC COMA (3) Renal insufficiency Code(s): N28.9 - DISORDER OF KIDNEY AND URETER, UNSPECIFIED Assessment/Plan Current Medications Generic Name Dose Route Start Last Admin Trade Name Freq PRN Reason Stop Dose Admin Albuterol/Ipratropium 1 amp 04/04/19 16:00 04/10/19 12:12 Duoneb - NEB Not Given RQID [facility] Atorvastatin Calcium 20 mg 04/04/19 22:00 04/09/19 22:20 Lipitor - PO 20 mg HS [facility] Administration Calcitriol 0.5 mcg 04/10/19 10:00 04/10/19 09:45 Rocaltrol - PO 0.5 mcg DAILY [facility] Administration Calcium Acetate 667 mg 04/05/19 22:04 04/10/19 12:38 Phoslo - PO 667 mg TIDCM [facility] Administration Calcium Carbonate/Cholecalciferol 2 tab 04/05/19 08:55 04/10/19 09:44 Os-Baltazar 500+D - PO 2 tab BID [facility] Administration Carvedilol 25 mg 04/09/19 10:00 04/10/19 09:44 Coreg - PO 25 mg BID [facility] Administration Ergocalciferol 50,000 unit 04/04/19 10:00 04/04/19 11:12 Drisdol - PO 50,000 unit Q7D@1000 [facility] Administration Famotidine 20 mg 04/04/19 22:00 04/09/19 22:20 Pepcid - PO 20 mg HS [facility] Administration Heparin Sodium (Porcine) 5,000 unit 04/09/19 22:00 04/10/19 09:49 Heparin - SQ 5,000 unit BID [facility] Administration Hydralazine HCl 25 mg 04/09/19 10:00 04/10/19 09:44 Apresoline - PO 25 mg BID [facility] Administration Isosorbide Mononitrate 30 mg 04/09/19 10:00 04/10/19 09:44 Imdur - PO 30 mg DAILY [facility] Administration Nicotine 21 mg 04/04/19 10:00 04/10/19 09:43 Nicoderm Patch - TD 21 mg DAILY [facility] Administration Nicotine Polacrilex 4 mg 04/04/19 00:24 04/07/19 22:40 Nicorette Gum - BUC 4 mg Q2H PRN Administration NICOTINE REPLACEMENT RX Nitroglycerin 0.4 mg 04/04/19 02:38 Nitrostat - SL ASDIR PRN FOR CHEST PAIN Prednisone 40 mg 04/04/19 14:15 04/10/19 09:44 Deltasone - PO 40 mg DAILY [facility] Administration Ranolazine 500 mg 04/04/19 10:00 04/10/19 09:45 Ranexa - PO 500 mg BID [facility] Administration Sodium Bicarbonate 1,300 mg 04/07/19 19:00 04/10/19 09:43 Sodium Bicarbonate - PO 1,300 mg BID [facility] Administration Impression 1. CKD 2. RADHA 3. hypocalcemia 4. chf 5. copd 6. active smoker 7. hld 8. cad Plan - cont lasix - will hold off tamra for now as juice tester still elevated, will restart after volume status and juice tester improved - decrease dose of calcium and calcitriol - repeat labs in am - no indication for acute HD - should have fistula placed once more stable, can be done as outpt - check phos levels
[2019-04-10] MEDS ORDERED: FUROSEMIDE 40 MG/4 ML INJECTABLE VIAL IVPUSH ONE (15:35)
[2019-04-10] MEDS: NICOTINE POLACRILEX 4 MG GUM BUC PRN (20:06)
[2019-04-11] MEDS: FAMOTIDINE 20 MG TABLET PO SCH
[2019-04-11] MEDS: ATORVASTATIN CA 20 MG TABLET (FP) PO SCH
[2019-04-11] MEDS: HEPARIN NA (PORCINE) 5,000 UNITS/ML 1ML VIAL SQ SCH ×2 (00:01→09:28)
[2019-04-11] MEDS: CARVEDILOL 25 MG TABLET (FP) PO SCH ×2 (00:01→09:29)
[2019-04-11] MEDS: RANOLAZINE E.R. 500 MG TABLET (FP) PO SCH ×2 (00:01→09:29)
[2019-04-11] MEDS: SODIUM BICARBONATE 650 MG TABLET PO SCH (00:01)
[2019-04-11] MEDS ORDERED: diphenhydrAMINE HCL 25 MG CAPSULE (FP) PO ONE (02:13)
[2019-04-11 06:01] LABS: BASO % 0.2 % (0-2.0); HEMATOCRIT 24.8 % (32.4-45.2); HEMOGLOBIN 8.3 GM/dL (10.7-15.3); LYMPH % 7.7 % (8-40); MCH 32.3 pg (25.7-33.7); MCHC 33.5 g/dl (32.0-36.0); MEAN CELL VOLUME 96.2 fl (80-96); MEAN PLT VOLUME 9.1 fl (7.5-11.1); MONO % 6.1 % (3.8-10.2); PLATELET COUNT 186 K/MM3 (134-434); RBC 2.57 M/mm3 (3.60-5.2); RDW 16.5 % (11.6-15.6); WHITE BLOOD COUNT 10.2 K/mm3 (4.0-10.0)
[2019-04-11 06:26] LABS: BILIRUBIN,TOTAL 0.5 mg/dL (0.2-1); BLOOD UREA NITROGEN 96.5 mg/dL (7-18); CALCIUM 8.7 mg/dL (8.5-10.1); MAGNESIUM 2.3 mg/dL (1.8-2.4); PHOSPHOROUS 4.2 mg/dL (2.5-4.9); POTASSIUM 4.9 mmol/L (3.5-5.1); TOT PROT 6.5 g/dl (6.4-8.2)
--- NOTE | 2019-04-11 07:24 | PN ---
Physical Exam: SUBJECTIVE: Patient seen and examined at bed side , no acute events over night , breathing is better , denies any chest pain , or sob , saturating 95% on RA OBJECTIVE: Vital Signs Period Temp Pulse Resp BP Sys/Barlow Pulse Ox Last 24 Hr 97.3 F-98.0 F 60-79 18-20 128-147/63-90 99-100 GENERAL:AAOx3 in NAD , HEAD:NC/AT EYES: PERRL, extraocular movements intact, ENT: moist mucous membranes. NECK: supple. LUNGS: Bibasilar crackles HEART: Regular rate and rhythm, S1, S2 without murmur, rub or gallop. ABDOMEN: Soft, nontender, nondistended, normoactive bowel sounds, EXTREMITIES: 2+ pulses, warm, well-perfused, +2 edema. NEUROLOGICAL:no focal deficit Normal speech, gait not observed. PSYCH: Normal mood, normal affect. SKIN: Warm, dry, normal turgor, Laboratory Results - last 24 hr 04/10/19 04/10/19 04/11/19 06:15 06:15 05:30 WBC RBC Hgb Hct MCV MCH MCHC RDW Plt Count MPV Absolute Neuts (auto) Neutrophils % Lymphocytes % Monocytes % Eosinophils % Basophils % Nucleated RBC % Sodium 139 137 Potassium 4.7 4.9 Chloride 108 H 104 Carbon Dioxide 22 23 Anion Gap 10 10 BUN 91.2 H 96.5 H Creatinine 3.9 H 4.0 H Est GFR (CKD-EPI)AfAm 12.06 11.69 Est GFR (CKD-EPI)NonAf 10.40 10.09 Random Glucose 118 H 120 H Hemoglobin A1c % 4.7 Calcium 9.2 8.7 Phosphorus 4.5 4.2 Magnesium 2.4 2.3 Total Bilirubin 0.6 0.5 AST 105 H 48 H ALT 139 H 111 H Alkaline Phosphatase 98 87 Total Protein 6.7 6.5 Albumin 3.0 L 3.0 L Triglycerides 108 Cholesterol 194 Total LDL Cholesterol 84 HDL Cholesterol 88 H TSH 0.45 04/11/19 05:30 WBC 10.2 H RBC 2.57 L Hgb 8.3 L Hct 24.8 L MCV 96.2 H MCH 32.3 MCHC 33.5 RDW 16.5 H Plt Count 186 MPV 9.1 Absolute Neuts (auto) 8.7 H Neutrophils % 86.0 H Lymphocytes % 7.7 L Monocytes % 6.1 Eosinophils % 0.0 Basophils % 0.2 Nucleated RBC % 0 Sodium Potassium Chloride Carbon Dioxide Anion Gap BUN Creatinine Est GFR (CKD-EPI)AfAm Est GFR (CKD-EPI)NonAf Random Glucose Hemoglobin A1c % Calcium Phosphorus Magnesium Total Bilirubin AST ALT Alkaline Phosphatase Total Protein Albumin Triglycerides Cholesterol Total LDL Cholesterol HDL Cholesterol TSH Active Medications Generic Name Dose Route Start Last Admin Trade Name Freq PRN Reason Stop Dose Admin Albuterol/Ipratropium 1 amp 04/04/19 16:00 04/10/19 21:05 Duoneb - NEB 1 amp RQID [facility] Administration Atorvastatin Calcium 20 mg 04/04/19 22:00 04/11/19 00:00 Lipitor - PO 20 mg HS [facility] Administration Calcitriol 0.5 mcg 04/10/19 10:00 04/10/19 09:45 Rocaltrol - PO 0.5 mcg DAILY [facility] Administration Calcium Acetate 667 mg 04/05/19 22:04 04/10/19 18:18 Phoslo - PO 667 mg TIDCM [facility] Administration Calcium Carbonate/Cholecalciferol 2 tab 04/11/19 10:00 Os-Baltazar 500+D - PO DAILY [facility] Carvedilol 25 mg 04/09/19 10:00 04/11/19 00:01 Coreg - PO 25 mg BID [facility] Administration Ergocalciferol 50,000 unit 04/04/19 10:00 04/04/19 11:12 Drisdol - PO 50,000 unit Q7D@1000 [facility] Administration Famotidine 20 mg 04/04/19 22:00 04/11/19 00:00 Pepcid - PO 20 mg HS [facility] Administration Heparin Sodium (Porcine) 5,000 unit 04/09/19 22:00 04/11/19 00:01 Heparin - SQ 5,000 unit BID [facility] Administration Hydralazine HCl 25 mg 04/09/19 10:00 04/11/19 00:00 Apresoline - PO 25 mg BID [facility] Administration Isosorbide Mononitrate 30 mg 04/09/19 10:00 04/10/19 09:44 Imdur - PO 30 mg DAILY [facility] Administration Nicotine 21 mg 04/04/19 10:00 04/10/19 09:43 Nicoderm Patch - TD 21 mg DAILY [facility] Administration Nicotine Polacrilex 4 mg 04/04/19 00:24 04/10/19 20:06 Nicorette Gum - BUC 4 mg Q2H PRN Administration NICOTINE REPLACEMENT RX Nitroglycerin 0.4 mg 04/04/19 02:38 Nitrostat - SL ASDIR PRN FOR CHEST PAIN Prednisone 40 mg 04/04/19 14:15 04/10/19 09:44 Deltasone - PO 40 mg DAILY [facility] Administration Ranolazine 500 mg 04/04/19 10:00 04/11/19 00:01 Ranexa - PO 500 mg BID [facility] Administration Sodium Bicarbonate 650 mg 04/11/19 22:00 Sodium Bicarbonate - PO TID [facility] ASSESSMENT/PLAN: 78 y.o. F PMH HTN, HLD, CKD stage 4, CAD s/p stent placements in 2014, coronary angio 08/2016 w/o further stent placements, NSTEMI 07/2016, diastolic CHF, COPD, Hep C, hx of GI bleed 2/2 pandiverticulosis presenting for dyspnea, sob , cough. #Acute NSTEMI * dc heparin gtt for now, cont aspirin and statin, * Cardiology consult noted and appreciated # Elevated D dimer for V/Q scan today to r.o PE * given elevated PASP SOB and tachycardia * DVT negative on dopplers of lower extremities * dc heparin gtt for now * maintain o2 sat > 90 #Acute exacerbation of COPD * continue prednisone 40 mg po daily . * bronchodilators #RADHA on CKD/hypocalcemia #hypomagnesemia/hyperphosphatemia, resolved * continue phoslo * hypocalcemia corrected 9.1 * nephrology consult noted and appreciated * renal us with chronic kidney disease and right lower lobe renal cyst stable compare to previous US * PTH noted 144 * calcitriol increased by nephrology * Increased bicarb to 1300 BID per nephrology yesterday * creatinine 4.1....3.9 today will need to discuss with nephrology about initiating HD vs diueresis #Acute on chronic diastolic and systolic heart failure * Echo noted which shows LVEF 30-35%, normal RV, moderately dilated LA, borderline RA enlargement, moderate to severe TR, moderate MR, PASP 46 mmHg * Cardiology consulted noted and appreciated: Eventual additional cardiovascular evaluation is recommended including R&LHC/coronary angiography pending renal function recovery- outpatient evaluation #CAD, history of VA, stents * continue Aspirin, Lipitor, and Ranexa * continue coreg 25 mg po bid * nitro glycerin 0.4 sub lingual as needed for chest pain #HTN * increased coreg by cardiology to 25 mg po bid . * started on hydralizine 25 mg po BID and Imdur 30 mg po daily * stable 150 systolic * monitor daily in tele #Hyperlipidemia * continue statin 20 mg po HS # transaminitis 2/2 CHF vs hepc * trend lab daily * work up as out pt #Sleep Screen was (+) so will have HST arranged prior to discharge #GERD * continue pepcid #Hepatitis C, #morbid Obesity with BMI 35.2 * educated about diet modificationa nd life style changes #Anemia of chronic disease 2/2 to CKD * no active bleeding , monitor H/H daily * Stable Hb at 8.2....9.0 * occult stool negative for blood * normal transfusion threshold above 8 in setting of CKD/NSTEMI #Nicotine dependence * nicorette gum * nicotine patch #FEN * no standing fluids * psuedo hypocalcemia, corrected 9.1 , monitor lytes and replenished as needed * sodium controlled diet #PPX * on heparin drip # Dispo: monitor in tele ATTENDING PHYSICIAN STATEMENT I saw and evaluated the patient. I reviewed the resident's note and discussed the case with the resident. I agree with the resident's findings and plan as documented. SUBJECTIVE: OBJECTIVE: ASSESSMENT AND PLAN:
[2019-04-11] MEDS: ALBUTEROL SO4 2.5/IPRATROPIUM 0.5 INH SOL 3 ML VIAL.NEB. NEB SCH ×2 (08:00→11:30)
[2019-04-11] MEDS: CALCIUM ACETATE 667 MG CAPSULE (FP) PO SCH ×2 (08:28→12:50)
[2019-04-11] MEDS: predniSONE 20 MG TABLET (UD) PO SCH (09:29)
[2019-04-11] MEDS: CALCITRIOL 0.25 MCG CAPSULE (FP) PO SCH (09:29)
[2019-04-11] MEDS: ISOSORBIDE MONONITRATE 30 MG TAB.SR.24H (FP) PO SCH (09:29)
[2019-04-11] MEDS: hydrALAZINE HCL 25 MG TABLET (FP) PO SCH ×2 (09:29)
[2019-04-11] MEDS: ERGOCALCIFEROL (VIT D2) 50,000 UNIT (1.25 MG) CAPSULE PO SCH (09:30)
--- NOTE | 2019-04-11 09:59 | PN ---
Teaching Attending Note Name of Resident: Maximino Faust ATTENDING PHYSICIAN STATEMENT I saw and evaluated the patient. I reviewed the resident's note and discussed the case with the resident. I agree with the resident's findings and plan as documented. SUBJECTIVE: OBJECTIVE: Vital Signs Temperature 97.4 F L 04/11/19 08:55 Pulse Rate 61 04/11/19 08:55 Respiratory Rate 18 04/11/19 09:00 Blood Pressure 134/75 04/11/19 08:55 O2 Sat by Pulse Oximetry (%) 100 04/11/19 09:00 General: Elderly F, comfortable, not in distress HEENT; mucous membranes moist, no anemia, no jaundice, PERRLA, no nystagmus Neck: No JVD, supple, no bruit, thyroid palpably normal, normal carotid pulsations. Chest: Nontender, bilateral basal rales. CVS: S1-S2 regular/ no murmur/gallop/rub Abdomen: Nondistended, soft, bowel sounds present. Extremities: + edema., No calf tenderness, pulses present DIRECTOR TALENT MANAGEMENT: AO X3 , no gross motor sensory deficit CBC, BMP 04/11/19 05:30 04/11/19 05:30 Active Medications Albuterol/Ipratropium (Duoneb -) 1 amp NEB RQID [facility] Last Admin: 04/10/19 21:05 Dose: 1 amp Atorvastatin Calcium (Lipitor -) [address] [facility] Last Admin: 04/11/19 00:00 Dose: 20 mg Calcitriol (Rocaltrol -) 0.5 mcg PO DAILY [facility] Last Admin: 04/11/19 09:29 Dose: 0.5 mcg Calcium Acetate (Phoslo -) 667 mg PO TIDCM [facility] Last Admin: 04/11/19 08:28 Dose: 667 mg Calcium Carbonate/Cholecalciferol (Os-Baltazar 500+D -) 2 tab PO DAILY [facility] Last Admin: 04/11/19 09:32 Dose: 2 tab Carvedilol (Coreg -) 25 mg PO BID [facility] Last Admin: 04/11/19 09:29 Dose: 25 mg Ergocalciferol (Drisdol -) 50,000 unit PO Q7D@1000 [facility] Last Admin: 04/11/19 09:30 Dose: 50,000 unit Famotidine (Pepcid -) [address] [facility] Last Admin: 04/11/19 00:00 Dose: 20 mg Heparin Sodium (Porcine) (Heparin -) 5,000 unit SQ BID [facility] Last Admin: 04/11/19 09:28 Dose: 5,000 unit Hydralazine HCl (Apresoline -) 25 mg PO BID [facility] Last Admin: 04/11/19 09:29 Dose: 25 mg Isosorbide Mononitrate (Imdur -) 30 mg PO DAILY [facility] Last Admin: 04/11/19 09:29 Dose: 30 mg Nicotine (Nicoderm Patch -) 21 mg TD DAILY [facility] Last Admin: 04/10/19 09:43 Dose: 21 mg Nicotine Polacrilex (Nicorette Gum -) 4 mg BUC Q2H PRN PRN Reason: NICOTINE REPLACEMENT RX Last Admin: 04/10/19 20:06 Dose: 4 mg Nitroglycerin (Nitrostat -) 0.4 mg SL ASDIR PRN PRN Reason: FOR CHEST PAIN Prednisone (Deltasone -) 40 mg PO DAILY [facility] Last Admin: 04/11/19 09:29 Dose: 40 mg Ranolazine (Ranexa -) 500 mg PO BID [facility] Last Admin: 04/11/19 09:29 Dose: 500 mg Sodium Bicarbonate (Sodium Bicarbonate -) 650 mg PO TID [facility] SSESSMENT AND PLAN:78-year-old woman with history of COPD, diabetes mellitus, hypertension, CAD status post stents, hepatitis C, CKD stage 4 not on hemodialysis presents from [facility] brought in by ambulance with with worsening shortness of breath for the past 3 days. Patient reported hip replacement 2-1/ 2 months ago. Initially elevated D-dimers, considering high suspicion of pulmonary embolism patient was put on empiric anticoagulation with heparin GTT, could not get CTA due to advanced kidney failure, underwent VQ scan on April 09, 2019 that shows no pulmonary embolism so anticoagulation is stopped. Impression: Decompensated systolic heart failure Case discussed with the nephrology, at present hemodynamically stable tolerating Lasix 40 mg daily will be discharged home Lasix we will continue hydralazine and Imdur combination defer ACEI or ARBS patient will follow-up nephrology unwitnessed for repeat BMP. Can be discharged home A short course of prednisone Problem List - Problems (1) Acute on chronic systolic CHF (congestive heart failure) Assessment/Plan: Patient admitted with decompensated systolic heart failure EF 35%, on optimal dose of beta-ambrose, considering CKD stage V not on hemodialysis will defer AF/ RVR continue hydralazine and Imdur optimize as tolerated, continue p.o. Lasix 40 mg daily as per nephrology recommendations. Code(s): I50.23 - ACUTE ON CHRONIC SYSTOLIC (CONGESTIVE) HEART FAILURE (2) COPD (chronic obstructive pulmonary disease) Assessment/Plan: Stable continue current management, can be switched to p.o. prednisone 30 mg daily for 5 days Code(s): J44.9 - CHRONIC OBSTRUCTIVE PULMONARY DISEASE, UNSPECIFIED (3) NSTEMI (non-ST elevated myocardial infarction) Assessment/Plan: Due to demand ischemia secondary to decompensated congestive heart failure, evaluated by cardiology Problems reviewed: Yes Code(s): I21.4 - NON-ST ELEVATION (NSTEMI) MYOCARDIAL INFARCTION (4) HTN (hypertension) Assessment/Plan: Well-controlled continue current medication Problems reviewed: Yes Code(s): I10 - ESSENTIAL (PRIMARY) HYPERTENSION (5) Chronic anemia Assessment/Plan: Due to CKD H&H stable Code(s): D64.9 - ANEMIA, UNSPECIFIED (6) Acute kidney injury superimposed on CKD Assessment/Plan: At baseline patient has CKD stage IV now present with CKD stage V can be natural progression of the disease or cardio renal syndrome we will follow-up renal recommendations. Code(s): N17.9 - ACUTE KIDNEY FAILURE, UNSPECIFIED; N18.9 - CHRONIC KIDNEY DISEASE, UNSPECIFIED (7) Depression Assessment/Plan: Continue home medications Code(s): F32.9 - MAJOR DEPRESSIVE DISORDER, SINGLE EPISODE, UNSPECIFIED (8) CAD (coronary artery disease) Assessment/Plan: History of CAD at present on beta-blockers, statin aspirin and Plavix follow-up cardiology recommendations. Code(s): I25.10 - ATHSCL HEART DISEASE OF [place] CORONARY ARTERY W/O ANG PCTRS (9) Hepatitis C Assessment/Plan: Chronic Code(s): B19.20 - UNSPECIFIED VIRAL HEPATITIS C WITHOUT HEPATIC COMA
[2019-04-11] MEDS ORDERED: CALCIUM 500MG/VIT-D 200 UNITS COMBO TABLET (FP) PO SCH (10:00)
[2019-04-11] MEDS: NICOTINE 21 MG/24 HOURS TOPICAL PATCH TD SCH (10:14)
[2019-04-11] MEDS: NICOTINE POLACRILEX 4 MG GUM BUC PRN (10:15)
--- NOTE | 2019-04-11 10:44 | PN ---
Progress Note, Physician History of Present Illness: pulmonary alert,-c/o sob,+ c/o blurred vision. v/q scan -PE - Current Medication List Current Medications: Active Medications Albuterol/Ipratropium (Duoneb -) 1 amp NEB RQID [facility] Last Admin: 04/10/19 21:05 Dose: 1 amp Atorvastatin Calcium (Lipitor -) 20 mg PO HS [facility] Last Admin: 04/11/19 00:00 Dose: 20 mg Calcitriol (Rocaltrol -) 0.5 mcg PO DAILY [facility] Last Admin: 04/11/19 09:29 Dose: 0.5 mcg Calcium Acetate (Phoslo -) 667 mg PO TIDCM [facility] Last Admin: 04/11/19 08:28 Dose: 667 mg Calcium Carbonate/Cholecalciferol (Os-Baltazar 500+D -) 2 tab PO DAILY [facility] Last Admin: 04/11/19 09:32 Dose: 2 tab Carvedilol (Coreg -) 25 mg PO BID [facility] Last Admin: 04/11/19 09:29 Dose: 25 mg Ergocalciferol (Drisdol -) 50,000 unit PO Q7D@1000 [facility] Last Admin: 04/11/19 09:30 Dose: 50,000 unit Famotidine (Pepcid -) 20 mg PO HS [facility] Last Admin: 04/11/19 00:00 Dose: 20 mg Heparin Sodium (Porcine) (Heparin -) 5,000 unit SQ BID [facility] Last Admin: 04/11/19 09:28 Dose: 5,000 unit Hydralazine HCl (Apresoline -) 25 mg PO BID [facility] Last Admin: 04/11/19 09:29 Dose: 25 mg Isosorbide Mononitrate (Imdur -) 30 mg PO DAILY [facility] Last Admin: 04/11/19 09:29 Dose: 30 mg Nicotine (Nicoderm Patch -) 21 mg TD DAILY [facility] Last Admin: 04/11/19 10:14 Dose: 21 mg Nicotine Polacrilex (Nicorette Gum -) 4 mg BUC Q2H PRN PRN Reason: NICOTINE REPLACEMENT RX Last Admin: 04/11/19 10:15 Dose: 4 mg Nitroglycerin (Nitrostat -) 0.4 mg SL ASDIR PRN PRN Reason: FOR CHEST PAIN Prednisone (Deltasone -) 40 mg PO DAILY [facility] Last Admin: 04/11/19 09:29 Dose: 40 mg Ranolazine (Ranexa -) 500 mg PO BID [facility] Last Admin: 04/11/19 09:29 Dose: 500 mg Sodium Bicarbonate (Sodium Bicarbonate -) 650 mg PO TID [facility] - Objective Vital Signs: Vital Signs Temperature 97.4 F L 04/11/19 08:55 Pulse Rate 61 04/11/19 08:55 Respiratory Rate 18 04/11/19 09:00 Blood Pressure 134/75 04/11/19 08:55 O2 Sat by Pulse Oximetry (%) 100 04/11/19 09:00 Constitutional: Yes: Well Nourished, Calm Eyes: Yes: WNL HENT: Yes: WNL Neck: Yes: WNL Cardiovascular: Yes: Regular Rate and Rhythm, S1, S2 Respiratory: Yes: Rales (BIBASILAR RALES) Gastrointestinal: Yes: Normal Bowel Sounds, Soft Extremities: Yes: WNL Edema: No Labs: CBC, BMP 04/11/19 05:30 04/11/19 05:30 INR, PTT INR 1.47 (0.83-1.09) H 04/04/19 05:00 Assessment/Plan Problem List - Problems (1) Acute exacerbation of chronic obstructive pulmonary disease (COPD) Code(s): J44.1 - CHRONIC OBSTRUCTIVE PULMONARY DISEASE W (ACUTE) EXACERBATION (2) RADHA (acute kidney injury) Code(s): N17.9 - ACUTE KIDNEY FAILURE, UNSPECIFIED (3) NSTEMI (non-ST elevated myocardial infarction) Code(s): I21.4 - NON-ST ELEVATION (NSTEMI) MYOCARDIAL INFARCTION (4) Shortness of breath Code(s): R06.02 - SHORTNESS OF BREATH (5) COPD (chronic obstructive pulmonary disease) Code(s): J44.9 - CHRONIC OBSTRUCTIVE PULMONARY DISEASE, UNSPECIFIED (6) Coronary artery disease Code(s): I25.10 - ATHSCL HEART DISEASE OF [place] CORONARY ARTERY W/O ANG PCTRS (7) Diverticula of intestine Code(s): K57.30 - DVRTCLOS OF LG INT W/O PERFORATION OR ABSCESS W/O BLEEDING (8) GI bleed Code(s): K92.2 - GASTROINTESTINAL HEMORRHAGE, UNSPECIFIED (9) HTN (hypertension) Code(s): I10 - ESSENTIAL (PRIMARY) HYPERTENSION (10) Hepatitis C Code(s): B19.20 - UNSPECIFIED VIRAL HEPATITIS C WITHOUT HEPATIC COMA (11) Renal insufficiency Code(s): N28.9 - DISORDER OF KIDNEY AND URETER, UNSPECIFIED (12) Smoker Code(s): F17.200 - NICOTINE DEPENDENCE, UNSPECIFIED, UNCOMPLICATED Assessment/Plan Prednisone taper BD TX standing and PRN Supplemental O2 as needed No smoking was counseled Outpatient PFTs once stable Sleep Screen was (+) so will have HST arranged prior to discharge VTE prophylaxis Outpatient LDCT Chest monitor lytes,renal function consider optho evaluation DR ALAN
--- NOTE | 2019-04-11 12:57 | PN ---
Progress Note, Physician History of Present Illness: Pt seen and examined at bedside. She feels that her breathing is improved. She also feels that her edema is improved. - Current Medication List Current Medications: Active Medications Albuterol/Ipratropium (Duoneb -) 1 amp NEB RQID [facility] Last Admin: 04/11/19 11:30 Dose: 1 amp Atorvastatin Calcium (Lipitor -) 20 mg PO HS [facility] Last Admin: 04/11/19 00:00 Dose: 20 mg Calcitriol (Rocaltrol -) 0.5 mcg PO DAILY [facility] Last Admin: 04/11/19 09:29 Dose: 0.5 mcg Calcium Acetate (Phoslo -) 667 mg PO TIDCM [facility] Last Admin: 04/11/19 12:50 Dose: Not Given Calcium Carbonate/Cholecalciferol (Os-Baltazar 500+D -) 2 tab PO DAILY [facility] Last Admin: 04/11/19 09:32 Dose: 2 tab Carvedilol (Coreg -) 25 mg PO BID [facility] Last Admin: 04/11/19 09:29 Dose: 25 mg Ergocalciferol (Drisdol -) 50,000 unit PO Q7D@1000 [facility] Last Admin: 04/11/19 09:30 Dose: 50,000 unit Famotidine (Pepcid -) 20 mg PO HS [facility] Last Admin: 04/11/19 00:00 Dose: 20 mg Heparin Sodium (Porcine) (Heparin -) 5,000 unit SQ BID [facility] Last Admin: 04/11/19 09:28 Dose: 5,000 unit Hydralazine HCl (Apresoline -) 25 mg PO BID [facility] Last Admin: 04/11/19 09:29 Dose: 25 mg Isosorbide Mononitrate (Imdur -) 30 mg PO DAILY [facility] Last Admin: 04/11/19 09:29 Dose: 30 mg Nicotine (Nicoderm Patch -) 21 mg TD DAILY [facility] Last Admin: 04/11/19 10:14 Dose: 21 mg Nicotine Polacrilex (Nicorette Gum -) 4 mg BUC Q2H PRN PRN Reason: NICOTINE REPLACEMENT RX Last Admin: 04/11/19 10:15 Dose: 4 mg Nitroglycerin (Nitrostat -) 0.4 mg SL ASDIR PRN PRN Reason: FOR CHEST PAIN Prednisone (Deltasone -) 30 mg PO DAILY [facility] Ranolazine (Ranexa -) 500 mg PO BID [facility] Last Admin: 04/11/19 09:29 Dose: 500 mg Sodium Bicarbonate (Sodium Bicarbonate -) 650 mg PO TID [facility] - Objective Vital Signs: Vital Signs Temperature 97.4 F L 04/11/19 08:55 Pulse Rate 61 04/11/19 08:55 Respiratory Rate 18 04/11/19 09:00 Blood Pressure 134/75 04/11/19 08:55 O2 Sat by Pulse Oximetry (%) 100 04/11/19 09:00 Constitutional: Yes: Calm Eyes: Yes: Conjunctiva Clear HENT: Yes: Atraumatic Neck: Yes: Supple Cardiovascular: Yes: S1, S2 Respiratory: Yes: CTA Bilaterally Gastrointestinal: Yes: Soft Genitourinary: Yes: WNL Musculoskeletal: Yes: WNL Edema: LLE: Trace, RLE: Trace Neurological: Yes: Oriented Psychiatric: Yes: Oriented Labs: CBC, BMP 04/11/19 05:30 04/11/19 05:30 INR, PTT INR 1.47 (0.83-1.09) H 04/04/19 05:00 Problem List - Problems (1) RADHA (acute kidney injury) Code(s): N17.9 - ACUTE KIDNEY FAILURE, UNSPECIFIED (2) Hepatitis C Code(s): B19.20 - UNSPECIFIED VIRAL HEPATITIS C WITHOUT HEPATIC COMA (3) Renal insufficiency Code(s): N28.9 - DISORDER OF KIDNEY AND URETER, UNSPECIFIED Assessment/Plan Current Medications Generic Name Dose Route Start Last Admin Trade Name Freq PRN Reason Stop Dose Admin Albuterol/Ipratropium 1 amp 04/04/19 16:00 04/11/19 11:30 Duoneb - NEB 1 amp RQID [facility] Administration Atorvastatin Calcium 20 mg 04/04/19 22:00 04/11/19 00:00 Lipitor - PO 20 mg HS [facility] Administration Calcitriol 0.5 mcg 04/10/19 10:00 04/11/19 09:29 Rocaltrol - PO 0.5 mcg DAILY [facility] Administration Calcium Acetate 667 mg 04/05/19 22:04 04/11/19 12:50 Phoslo - PO Not Given TIDCM [facility] Calcium Carbonate/Cholecalciferol 2 tab 04/11/19 10:00 04/11/19 09:32 Os-Baltazar 500+D - PO 2 tab DAILY [facility] Administration Carvedilol 25 mg 04/09/19 10:00 04/11/19 09:29 Coreg - PO 25 mg BID [facility] Administration Ergocalciferol 50,000 unit 04/04/19 10:00 04/11/19 09:30 Drisdol - PO 50,000 unit Q7D@1000 [facility] Administration Famotidine 20 mg 04/04/19 22:00 04/11/19 00:00 Pepcid - PO 20 mg HS [facility] Administration Heparin Sodium (Porcine) 5,000 unit 04/09/19 22:00 04/11/19 09:28 Heparin - SQ 5,000 unit BID [facility] Administration Hydralazine HCl 25 mg 04/09/19 10:00 04/11/19 09:29 Apresoline - PO 25 mg BID [facility] Administration Isosorbide Mononitrate 30 mg 04/09/19 10:00 04/11/19 09:29 Imdur - PO 30 mg DAILY [facility] Administration Nicotine 21 mg 04/04/19 10:00 04/11/19 10:14 Nicoderm Patch - TD 21 mg DAILY [facility] Administration Nicotine Polacrilex 4 mg 04/04/19 00:24 04/11/19 10:15 Nicorette Gum - BUC 4 mg Q2H PRN Administration NICOTINE REPLACEMENT RX Nitroglycerin 0.4 mg 04/04/19 02:38 Nitrostat - SL ASDIR PRN FOR CHEST PAIN Prednisone 30 mg 04/12/19 10:00 Deltasone - PO DAILY [facility] Ranolazine 500 mg 04/04/19 10:00 04/11/19 09:29 Ranexa - PO 500 mg BID [facility] Administration Sodium Bicarbonate 650 mg 04/11/19 22:00 Sodium Bicarbonate - PO TID [facility] Impression 1. CKD 2. RADHA 3. hypocalcemia 4. chf 5. copd 6. active smoker 7. hld 8. cad Plan - cont lasix 40 mg po for now and monitor volume status - hold off tamra at this point as renal function is compromised - will need close outpt follow up - can see pt in office - cont calcium supplements and calcitriol as outpt - should have fistula placed once more stable, can be done as outpt - phos levels improved on phoslo
[2019-04-11] MEDS ORDERED: FUROSEMIDE 40 MG TABLET (FP) PO SCH (13:00)
--- NOTE | 2019-04-11 13:51 | DS ---
Physical Exam: SUBJECTIVE: Patient seen and examined at bed side , no acute events over night , breathing is better , denies any chest pain , or sob , saturating 95% on RA , edema in legs improving , breathing better , pt is asking to go home pt is hemodynamiclly stable to dc home with VNS OBJECTIVE: Vital Signs Period Temp Pulse Resp BP Sys/Barlow Pulse Ox Last 24 Hr 97.3 F-98.0 F 60-71 18-20 128-147/63-89 100-100 PHYSICAL EXAM GENERAL:AAOx3 in NAD , HEAD:NC/AT EYES: PERRL, extraocular movements intact, ENT: moist mucous membranes. NECK: supple. LUNGS: fine crackles at the bases HEART: Regular rate and rhythm, S1, S2 without murmur, rub or gallop. ABDOMEN: Soft, nontender, nondistended, normoactive bowel sounds, EXTREMITIES: 2+ pulses, warm, well-perfused, +1 edema. NEUROLOGICAL:no focal deficit Normal speech, gait not observed. PSYCH: Normal mood, normal affect. SKIN: Warm, dry, normal turgor, LABS Laboratory Results - last 24 hr 04/10/19 04/10/19 04/11/19 06:15 06:15 05:30 WBC RBC Hgb Hct MCV MCH MCHC RDW Plt Count MPV Absolute Neuts (auto) Neutrophils % Lymphocytes % Monocytes % Eosinophils % Basophils % Nucleated RBC % Sodium 139 137 Potassium 4.7 4.9 Chloride 108 H 104 Carbon Dioxide 22 23 Anion Gap 10 10 BUN 91.2 H 96.5 H Creatinine 3.9 H 4.0 H Est GFR (CKD-EPI)AfAm 12.06 11.69 Est GFR (CKD-EPI)NonAf 10.40 10.09 Random Glucose 118 H 120 H Hemoglobin A1c % 4.7 Calcium 9.2 8.7 Phosphorus 4.5 4.2 Magnesium 2.4 2.3 Total Bilirubin 0.6 0.5 AST 105 H 48 H ALT 139 H 111 H Alkaline Phosphatase 98 87 Total Protein 6.7 6.5 Albumin 3.0 L 3.0 L Triglycerides 108 Cholesterol 194 Total LDL Cholesterol 84 HDL Cholesterol 88 H TSH 0.45 04/11/19 05:30 WBC 10.2 H RBC 2.57 L Hgb 8.3 L Hct 24.8 L MCV 96.2 H MCH 32.3 MCHC 33.5 RDW 16.5 H Plt Count 186 MPV 9.1 Absolute Neuts (auto) 8.7 H Neutrophils % 86.0 H Lymphocytes % 7.7 L Monocytes % 6.1 Eosinophils % 0.0 Basophils % 0.2 Nucleated RBC % 0 Sodium Potassium Chloride Carbon Dioxide Anion Gap BUN Creatinine Est GFR (CKD-EPI)AfAm Est GFR (CKD-EPI)NonAf Random Glucose Hemoglobin A1c % Calcium Phosphorus Magnesium Total Bilirubin AST ALT Alkaline Phosphatase Total Protein Albumin Triglycerides Cholesterol Total LDL Cholesterol HDL Cholesterol TSH CBC, BMP 04/11/19 05:30 04/11/19 05:30 HOSPITAL COURSE: Date of Admission:04/03/19 Date of Discharge: 04/11/19 78 y.o. F PMH HTN, HLD, CKD stage 4, CAD s/p stent placements in 2014, coronary angio 08/2016 w/o further stent placements, NSTEMI 07/2016, diastolic CHF, COPD, Hep C, hx of GI bleed 2/2 pandiverticulosis presenting for dyspnea, sob , cough. #Acute NSTEMI * dc heparin gtt for now, cont aspirin and statin, # Elevated D dimer for V/Q scan negative for PE * given elevated PASP SOB and tachycardia * DVT negative on dopplers of lower extremities * dc heparin gtt for now * maintain o2 sat > 90 * V/Q #Acute exacerbation of COPD * continue prednisone 30 mg po daily for more 5 days . * bronchodilators #RADHA on CKD/hypocalcemia #hypomagnesemia/hyperphosphatemia, resolved * continue phoslo * hypocalcemia corrected 9.1 * nephrology consult noted and appreciated * renal us with chronic kidney disease and right lower lobe renal cyst stable compare to previous US * PTH noted 144 * calcitriol increased by nephrology * Increased bicarb to 1300 BID per nephrology yesterday * creatinine 4.1....3.9 today will need to discuss with nephrology about initiating HD vs diueresis * cont lazix 40 mg po daily , will need fistula as out pt and possible HD #Acute on chronic diastolic and systolic heart failure * Echo noted which shows LVEF 30-35%, normal RV, moderately dilated LA, borderline RA enlargement, moderate to severe TR, moderate MR, PASP 46 mmHg * Cardiology consulted noted and appreciated: Eventual additional cardiovascular evaluation is recommended including R&LHC/coronary angiography pending renal function recovery- outpatient evaluation #CAD, history of ID, stents * continue Aspirin, Lipitor, and Ranexa * continue coreg 25 mg po bid * nitro glycerin 0.4 sub lingual as needed for chest pain #HTN * increased coreg by cardiology to 25 mg po bid . * started on hydralizine 25 mg po BID and Imdur 30 mg po daily * stable 150 systolic * monitor daily in tele #Hyperlipidemia * continue statin 20 mg po HS # transaminitis 2/2 CHF vs hepc * trend lab daily * work up as out pt #Sleep Screen was (+) so will have HST arranged prior to discharge #GERD * continue pepcid #Hepatitis C, #morbid Obesity with BMI 35.2 * educated about diet modificationa nd life style changes #Anemia of chronic disease 2/2 to CKD * no active bleeding , monitor H/H daily * Stable Hb at 8.2....9.0 * occult stool negative for blood * normal transfusion threshold above 8 in setting of CKD/NSTEMI #Nicotine dependence educated about abstinence # Dispo: monitored in tele can be dc home with visiting nurse Minutes to complete discharge: 50 Discharge Summary Problems reviewed: Yes Reason For Visit: ACUTE KIDNEY INJURY, NON ST ELEVATION (NSTEMI) Current Active Problems RADHA (acute kidney injury) (Acute) Acute exacerbation of chronic obstructive pulmonary disease (COPD) (Acute) Acute kidney injury superimposed on CKD (Acute) Acute on chronic systolic CHF (congestive heart failure) (Acute) CAD (coronary artery disease) (Acute) CKD stage 4 secondary to hypertension (Acute) Chronic anemia (Acute) Depression (Acute) NSTEMI (non-ST elevated myocardial infarction) (Acute) Renal failure (Acute) Shortness of breath (Acute) Condition: Stable - Instructions Diet, Activity, Other Instructions: you presented to the jospital due to difficuty breathing due to volume over loaded and copd and you rsymptoms has resolved Please follow up with your primary care physician within one week Please follow up with Dr Cotto the kidney doctor within one week please follow up with cardiology Dr Gonsalves within one week please follow up with Dr Abad Lung Doctor within one week for sleep study and lung function test record your blood pressure numbers and bring it with you to adoption social worker weight your self daily and inform your kidney doctor if you see worsening swelling or increase weight please resume home medication as before admission you started on the following medication Lasix 40 mg daily water bill Hydralyzine 25 twice daily Imdur 30 mg daily carvedilol 25 mg twice daily Ranexa 500 mg twice daily famotidine 20 mg daily for acid Aspirin 81 mg daily statin 20 mg HS you need to take prednsione 30 mg daily for 5 more days Please take it as prescribed If you develop fever , chills, chest pain , nausea vomiting , shortness of breath , lightheadedness please return to emergency room. Referrals: Manuel Abad MD [Staff Physician] - 1 Week Mauro Yadav MD [Staff Physician] - 1 Week Seth Cotto MD [Staff Physician] - 1 Week Thomas Aguayo [Primary Care Provider] - 1 Week Disposition: VNS/HOME HEALTH CARE - Home Medications Comprehensive Discharge Medication List: Ambulatory Orders Albuterol Sulfate Inhaler - [Ventolin HFA Inhaler -] 2 inh PO Q4H 07/06/16 Ranolazine [Ranexa] 500 mg PO BID 07/06/16 Ammonium Lactate Lotion [Lac-Hydrin 12] 1 applic TP ASDIR 04/03/19 Calcium Carbonate/Vitamin D3 [Calcium 600-Vit D3 200 Tablet] 1 each PO BID 04/03 Nitroglycerin [Nitrostat] 0.4 mg SL ASDIR 04/03/19 Ranitidine HCl 150 mg PO HS 04/03/19 Sodium Bicarbonate - 650 mg PO BID 04/03/19 Calcitriol [Calcitriol -] 0.5 mcg PO DAILY #30 capsule 04/11/19 Calcium 500Mg/Vit-D 200 Units [Os-Baltazar 500+D -] 2 tab PO BID #60 tab 04/11/19 Calcium Acetate [Phoslo -] 667 mg PO TIDCM #90 capsule 04/11/19 Carvedilol [Coreg -] 25 mg PO BID #60 tablet 04/11/19 Famotidine [Pepcid -] 20 mg PO HS #30 tablet 04/11/19 Furosemide [Lasix -] 40 mg PO DAILY #30 tablet 04/11/19 Isosorbide Mononitrate [Imdur -] 30 mg PO DAILY #30 tab.sr.24h 04/11/19 Tiotropium [place] [Spiriva] 1 inh PO DAILY #30 inhaler 04/11/19 Tiotropium [place] [Spiriva] 1 inh PO DAILY #30 inhaler 04/11/19 hydrALAZINE HCL [Apresoline -] 25 mg PO BID #60 tablet 04/11/19 predniSONE [Deltasone -] 30 mg PO DAILY 5 Days #15 tablet 04/11/19 This patient is new to me today: No Emergency Visit: Yes ED Registration Date: 04/03/19 Care time: The patient presented to the Emergency Department on the above date and was hospitalized for further evaluation of their emergent condition. Critical Care patient: No - Discharge Referral Referred to [facility] Med [facility].C[facility] No ATTENDING PHYSICIAN STATEMENT I saw and evaluated the patient. I reviewed the resident's note and discussed the case with the resident. I agree with the resident's findings and plan as documented. SUBJECTIVE: OBJECTIVE: ASSESSMENT AND PLAN:
[2019-04-11 14:39] VITALS: BP 130/68; PULSE 63; TEMP 98
[2019-04-11 15:58] VITALS: BMI 29.5
[2019-04-11] MEDS ORDERED: SODIUM BICARBONATE 650 MG TABLET PO SCH (22:00)
[2019-04-12] MEDS ORDERED: predniSONE 10 MG TABLET (UD) PO SCH (10:00)
--- NOTE | 2019-04-16 11:29 | PN ---
Progress Note, Physician - Objective Vital Signs: Vital Signs Temperature 98.0 F 04/11/19 14:00 Pulse Rate 63 04/11/19 14:00 Respiratory Rate 18 04/11/19 14:00 Blood Pressure 130/68 04/11/19 14:00 O2 Sat by Pulse Oximetry (%) 100 04/11/19 09:00 Labs: CBC, BMP 04/11/19 05:30 04/11/19 05:30 INR, PTT INR 1.47 (0.83-1.09) H 04/04/19 05:00 Problem List - Problems (1) HTN (hypertension) Code(s): I10 - ESSENTIAL (PRIMARY) HYPERTENSION (2) Hepatitis C Code(s): B19.20 - UNSPECIFIED VIRAL HEPATITIS C WITHOUT HEPATIC COMA (3) Profound anemia Code(s): D64.9 - ANEMIA, UNSPECIFIED Qualifiers: Anemia type: other cause (4) Smoker Code(s): F17.200 - NICOTINE DEPENDENCE, UNSPECIFIED, UNCOMPLICATED (5) Acute on chronic systolic CHF (congestive heart failure) Code(s): I50.23 - ACUTE ON CHRONIC SYSTOLIC (CONGESTIVE) HEART FAILURE (6) NSTEMI (non-ST elevated myocardial infarction) Code(s): I21.4 - NON-ST ELEVATION (NSTEMI) MYOCARDIAL INFARCTION (7) Renal failure Code(s): N19 - UNSPECIFIED KIDNEY FAILURE (8) Depression Code(s): F32.9 - MAJOR DEPRESSIVE DISORDER, SINGLE EPISODE, UNSPECIFIED (9) COPD (chronic obstructive pulmonary disease) Code(s): J44.9 - CHRONIC OBSTRUCTIVE PULMONARY DISEASE, UNSPECIFIED
== END 2019-04-11 16:21 | disposition home health service (06) | DRG 280 ==
LOC: JER 15:40 → JERBED 23:55 → J4W 04-06 15:54
PROVIDERS: ADMIT Internal Medicine; ATTEND Internal Medicine
DX: I13.0 Hypertensive heart and chronic kidney disease with heart failure and stage 1 through stage 4 chronic kidney disease, or unspecified chronic kidney disease (principal); I21.4 Non-ST elevation (NSTEMI) myocardial infarction; I50.43 Acute on chronic combined systolic (congestive) and diastolic (congestive) heart failure; J44.1 Chronic obstructive pulmonary disease with (acute) exacerbation; N17.9 Acute kidney failure, unspecified; E87.2 Acidosis; I42.0 Dilated cardiomyopathy; R00.0 Tachycardia, unspecified; N18.3 Chronic kidney disease, stage 3 (moderate); F17.210 Nicotine dependence, cigarettes, uncomplicated; E83.51 Hypocalcemia; B19.20 Unspecified viral hepatitis C without hepatic coma; E83.42 Hypomagnesemia; E83.39 Other disorders of phosphorus metabolism; I25.119 Atherosclerotic heart disease of native coronary artery with unspecified angina pectoris; Z95.5 Presence of coronary angioplasty implant and graft; R74.0 Nonspecific elevation of levels of transaminase and lactic acid dehydrogenase [LDH]; K21.9 Gastro-esophageal reflux disease without esophagitis; D63.1 Anemia in chronic kidney disease; E66.01 Morbid (severe) obesity due to excess calories; E78.5 Hyperlipidemia, unspecified; E11.9 Type 2 diabetes mellitus without complications; F32.9 Major depressive disorder, single episode, unspecified; Z68.35 Body mass index [BMI] 35.0-35.9, adult; E87.70 Fluid overload, unspecified
CPT/HCPCS: 36415; 70450-TC; 71045-TC-FY; 76775-TC; 78582-TC; 80048; 80053; 80061; 82272; 82310; 82550; 82553; 82728; 82962; 83036; 83540; 83550; 83721; 83735; 83880; 83970; 84100; 84443; 84484; 85025; 85027; 85044; 85379; 85610; 85730; 93005; 93010; 93306-TC; 93970-TC; 94640; 97116-GP; 97162-GP; 99282-25; 99285-25; A9539; A9540; J1644